=== PATIENT | male | born 1960 | race Caucasian/White ===

== ENCOUNTER → 2016-05-21 | Outpatient (REF) | payer OTHER ==
[~2016-05-21] MED LIST: /OXAZ10CA PO; ALBU17IN INH; AMIT50TA PO; FOLI1TAB86 PO; IBUP80TA PO; LOPR50TA PO; METO50TA2 PO; NICO21DI26 TD; PRIL40CA PO; ROBA750T4 PO; VITA100T60 PO
[2016-05-21 19:52] LABS: ALBUMIN 3.6 GM/DL (3.2-5.2); ALBUMIN/GLOBULIN RATIO 1.29 (1.00-1.93); ALKALINE PHOSPHATASE 74 U/L (45-117); ALT/SGPT 25 U/L (12-78); ANION GAP 12 MEQ/L (8-16); AST/SGOT 14 U/L (15-37); BILIRUBIN,TOTAL 0.2 MG/DL (0.2-1.0); BLOOD UREA NITROGEN 12 MG/DL (7-18); CALCIUM LEVEL 8.9 MG/DL (8.5-10.1); CARBON DIOXIDE LEVEL 24 MEQ/L (21-32); CHLORIDE LEVEL 98 MEQ/L (98-107); CHOLESTEROL LEVEL 144 MG/DL (<200); CREATININE FOR GFR 0.99 MG/DL (0.70-1.30); GLOMERULAR FILTRATION RATE > 60.0 (>56); GLUCOSE, FASTING 108 MG/DL (70-105); SODIUM LEVEL 134 MEQ/L (136-145); TOTAL PROTEIN 6.4 GM/DL (6.4-8.2); TRIGLYCERIDES LEVEL 146 MG/DL (<150)
== END ==
LOC: M SFHCCAPE 09:52
PROVIDERS: ATTEND Nurse Practitioner
DX: E11.9 Type 2 diabetes mellitus without complications (principal); Z12.5 Encounter for screening for malignant neoplasm of prostate

== ENCOUNTER → 2016-06-04 | Outpatient (REF) | payer OTHER | LOC: M LAB REF 15:22 | PROVIDERS: ATTEND Ophthalmology | DX: L82.1 Other seborrheic keratosis (principal) ==

== ENCOUNTER → 2016-11-19 | Outpatient (REF) | payer OTHER ==
[~2016-11-19] MED LIST changes: -METO50TA2 PO; +METO50TA7 PO
[2016-11-19 17:31] LABS: ALBUMIN 3.9 GM/DL (3.2-5.2); ALBUMIN/GLOBULIN RATIO 1.05 (1.00-1.93); ALKALINE PHOSPHATASE 77 U/L (45-117); ALT/SGPT 23 U/L (12-78); ANION GAP 9 MEQ/L (8-16); AST/SGOT 13 U/L (15-37); BILIRUBIN,TOTAL 0.3 MG/DL (0.2-1.0); BLOOD UREA NITROGEN 9 MG/DL (7-18); CALCIUM LEVEL 8.9 MG/DL (8.5-10.1); CARBON DIOXIDE LEVEL 28 MEQ/L (21-32); CHLORIDE LEVEL 95 MEQ/L (98-107); CHOLESTEROL LEVEL 163 MG/DL (<200); GLOMERULAR FILTRATION RATE > 60.0 (>56); GLUCOSE, FASTING 94 MG/DL (70-105); POTASSIUM SERUM 4.1 MEQ/L (3.5-5.1); SODIUM LEVEL 132 MEQ/L (136-145); TOTAL PROTEIN 7.6 GM/DL (6.4-8.2); TRIGLYCERIDES LEVEL 106 MG/DL (<150)
[2016-11-19 18:10] LABS: BASO % 0.4 % (0.0-1.0); EOS # 0.2 10^3/uL (0.0-0.50); EOS % 1.5 % (0.0-3.0); IMMATURE GRANULOCYTE % 0.6 % (0-0); LYMPH # 3.9 10^3/uL (1.5-4.5); LYMPH % 34.5 % (24.0-44.0); MEAN CORPUSCULAR HEMOGLOBIN 31.1 pg (27.0-33.0); MEAN CORPUSCULAR HGB CONC 35.4 g/dl (32.0-36.5); MEAN CORPUSCULAR VOLUME 87.9 fl (80.0-96.0); MONO # 1.3 10^3/uL (0.0-0.8); MONO % 11.8 % (0.0-5.0); NEUTROPHILS # 5.7 10^3/uL (1.8-7.7); NEUTROPHILS % 51.2 % (36.0-66.0); PLATELET COUNT, AUTOMATED 299 10^3/uL (150-450); RED CELL DISTRIBUTION WIDTH 12.1 % (11.5-14.5); WHITE BLOOD COUNT 11.2 10^3/uL (4.0-10.0)
[2016-11-19 20:36] LABS: BACTERIA, URINE NONE SEEN; HYALINE CAST, URINE NONE SEEN /lpf (0-1); MICROSCOPIC EXAM PERFORMED; RBC, URINE NONE SEEN /hpf (0-3); SQUAMOUS EPITHELIAL CELL URINE SMALL AMOUNT /hpf (SMALL AMT); WBC, URINE NONE SEEN /hpf (0-3)
== END ==
LOC: M SFHCCAPE 09:50
PROVIDERS: ATTEND Physician Assistant
DX: E11.9 Type 2 diabetes mellitus without complications (principal); F32.1 Major depressive disorder, single episode, moderate

== ENCOUNTER → 2016-12-27 | Outpatient (REF) | payer OTHER ==
[2016-12-27 19:15] LABS: ALBUMIN/GLOBULIN RATIO 1.25 (1.00-1.93); ALKALINE PHOSPHATASE 75 U/L (45-117); ALT/SGPT 27 U/L (12-78); ANION GAP 7 MEQ/L (8-16); AST/SGOT 12 U/L (7-37); BILIRUBIN,TOTAL 0.4 MG/DL (0.2-1.0); BLOOD UREA NITROGEN 9 MG/DL (7-18); CALCIUM LEVEL 9.2 MG/DL (8.5-10.1); CARBON DIOXIDE LEVEL 29 MEQ/L (21-32); CHLORIDE LEVEL 96 MEQ/L (98-107); CREATININE FOR GFR 0.82 MG/DL (0.70-1.30); GLOMERULAR FILTRATION RATE > 60.0 (>56); GLUCOSE, FASTING 121 MG/DL (70-105); POTASSIUM SERUM 4.2 MEQ/L (3.5-5.1); SODIUM LEVEL 132 MEQ/L (136-145); TOTAL PROTEIN 7.2 GM/DL (6.4-8.2)
[2016-12-27 19:51] LABS: MEAN CORPUSCULAR HEMOGLOBIN 30.8 pg (27.0-33.0); MEAN CORPUSCULAR VOLUME 89.7 fl (80.0-96.0); WHITE BLOOD COUNT 8.4 10^3/uL (4.0-10.0)
[2016-12-27 19:52] LABS: BASO % 0.5 % (0.0-1.0); EOS # 0.1 10^3/uL (0.0-0.50); EOS % 0.8 % (0.0-3.0); IMMATURE GRANULOCYTE % 0.6 % (0-0); LYMPH # 2.5 10^3/uL (1.5-4.5); LYMPH % 29.5 % (24.0-44.0); MONO # 0.9 10^3/uL (0.0-0.8); MONO % 10.2 % (0.0-5.0); NEUTROPHILS # 4.9 10^3/uL (1.8-7.7); NEUTROPHILS % 58.4 % (36.0-66.0); PLATELET COUNT, AUTOMATED 326 10^3/uL (150-450)
[2016-12-27 19:53] LABS: MEAN CORPUSCULAR HGB CONC 34.3 g/dl (32.0-36.5)
== END ==
LOC: M SFHCCAPE 09:47
PROVIDERS: ATTEND Physician Assistant
DX: I10 Essential (primary) hypertension (principal)

== ENCOUNTER → 2017-01-21 | Outpatient (REF) | payer OTHER | LOC: M SFHCCAPE 11:41 | PROVIDERS: ATTEND Physician Assistant | DX: R39.9 Unspecified symptoms and signs involving the genitourinary system (principal) ==

== ENCOUNTER → 2017-03-01 | Outpatient (CLI) | payer OTHER | LOC: M RAD 14:59 | DX: Z12.2 Encounter for screening for malignant neoplasm of respiratory organs (principal); Z80.1 Family history of malignant neoplasm of trachea, bronchus and lung | CPT/HCPCS: G0297 ==

== ENCOUNTER → 2017-08-27 | Outpatient (REF) | payer OTHER ==
[2017-08-27 17:19] LABS: BASO % 0.5 % (0.0-1.0); EOS # 0.1 10^3/uL (0.0-0.50); EOS % 1.8 % (0.0-3.0); HEMOGLOBIN 11.7 g/dl (13.5-17.5); IMMATURE GRANULOCYTE % 0.5 % (0-3.0); LYMPH # 2.7 10^3/uL (1.5-4.5); LYMPH % 34.2 % (24.0-44.0); MEAN CORPUSCULAR HEMOGLOBIN 30.8 pg (27.0-33.0); MEAN CORPUSCULAR HGB CONC 33.4 g/dl (32.0-36.5); MEAN CORPUSCULAR VOLUME 92.1 fl (80.0-96.0); MONO # 0.8 10^3/uL (0.0-0.8); MONO % 10.3 % (0.0-5.0); NEUTROPHILS # 4.1 10^3/uL (1.8-7.7); NEUTROPHILS % 52.7 % (36.0-66.0); PLATELET COUNT, AUTOMATED 221 10^3/uL (150-450); RED CELL DISTRIBUTION WIDTH 12.6 % (11.5-14.5); WHITE BLOOD COUNT 7.8 10^3/uL (4.0-10.0)
[2017-08-27 17:33] LABS: ESTIMATED AVERAGE GLUCOSE 120 MG/DL (60-110); HEMOGLOBIN A1c 5.8 %
[2017-08-27 17:35] LABS: ALBUMIN 3.9 GM/DL (3.2-5.2); ALBUMIN/GLOBULIN RATIO 1.11 (1.00-1.93); ALKALINE PHOSPHATASE 83 U/L (45-117); ALT/SGPT 27 U/L (12-78); ANION GAP 9 MEQ/L (8-16); AST/SGOT 19 U/L (7-37); BILIRUBIN,TOTAL 0.6 MG/DL (0.2-1.0); BLOOD UREA NITROGEN 18 MG/DL (7-18); CALCIUM LEVEL 8.6 MG/DL (8.5-10.1); CARBON DIOXIDE LEVEL 25 MEQ/L (21-32); CHLORIDE LEVEL 100 MEQ/L (98-107); CHOLESTEROL LEVEL 107 MG/DL (<200); CHOLESTEROL RISK RATIO 2.488 (<5); CREATININE FOR GFR 0.83 MG/DL (0.70-1.30); GLOMERULAR FILTRATION RATE > 60.0 (>56); GLUCOSE, FASTING 94 MG/DL (70-100); HDL CHOLESTEROL 43 MG/DL (>40); NON-HDL-C 64 MG/DL; PSA SCREENING 0.28 NG/ML (< 4.0); SODIUM LEVEL 134 MEQ/L (136-145); TOTAL PROTEIN 7.4 GM/DL (6.4-8.2); TRIGLYCERIDES LEVEL 75 MG/DL (<150)
[2017-08-27 17:41] LABS: CREATININE, URINE 66.3 MG/DL; MALB URINE SIEMENS < 5.0 MG/L; MAU/CREAT RATIO 7.5 MCG/MG (0.0-30.0)
== END ==
LOC: M SFHCCAPE 09:53
DX: E11.9 Type 2 diabetes mellitus without complications (principal); Z12.5 Encounter for screening for malignant neoplasm of prostate

== ENCOUNTER → 2017-08-29 | Outpatient (REF) | payer OTHER ==
[2017-08-29 17:35] LABS: APPEARANCE, URINE CLEAR (CLEAR); BACTERIA, URINE AUTO NEGATIVE (NEGATIVE); BILIRUBIN, URINE AUTO NEGATIVE (NEGATIVE); BLOOD, URINE BLOOD NEGATIVE (NEGATIVE); COLOR, URINE STRAW (YELLOW); GLUCOSE, URINE (UA) AUTO NEGATIVE (NEGATIVE); KETONE, URINE AUTO NEGATIVE (NEGATIVE); LEUKOCYTE ESTERASE, URINE AUTO NEGATIVE (NEGATIVE); NITRITE, URINE AUTO NEGATIVE (NEGATIVE); PROTEIN, URINE AUTO NEGATIVE (NEGATIVE); RBC, URINE AUTO 0 /HPF (0-3); SPECIFIC GRAVITY URINE AUTO 1.003 (1.002-1.035); SQUAMOUS EPITHELIAL CELL UR AU 0 /HPF (0-6); UROBILINOGEN, URINE AUTO 0.2 mg/dL (0.0-2.0); WBC, URINE AUTO 0 /HPF (0-3)
== END ==
LOC: M SFHCCAPE 11:20
DX: R35.1 Nocturia (principal)
CPT/HCPCS: 81001

== ENCOUNTER → 2017-11-25 | Outpatient (REF) | payer OTHER ==
[2017-11-25 16:53] LABS: ALBUMIN 4.1 GM/DL (3.2-5.2); ALBUMIN/GLOBULIN RATIO 1.28 (1.00-1.93); ALKALINE PHOSPHATASE 78 U/L (45-117); ALT/SGPT 24 U/L (12-78); ANION GAP 9 MEQ/L (8-16); AST/SGOT 16 U/L (7-37); BILIRUBIN,TOTAL 0.3 MG/DL (0.2-1.0); BLOOD UREA NITROGEN 10 MG/DL (7-18); CALCIUM LEVEL 9.2 MG/DL (8.5-10.1); CARBON DIOXIDE LEVEL 28 MEQ/L (21-32); CHLORIDE LEVEL 97 MEQ/L (98-107); CHOLESTEROL LEVEL 97 MG/DL (<200); CHOLESTEROL RISK RATIO 2.939 (<5); GLOMERULAR FILTRATION RATE > 60.0 (>56); GLUCOSE, FASTING 101 MG/DL (70-100); HDL CHOLESTEROL 33 MG/DL (>40); LDL CHOLESTEROL 50 MG/DL (<100); NON-HDL-C 64 MG/DL; POTASSIUM SERUM 4.2 MEQ/L (3.5-5.1); SODIUM LEVEL 134 MEQ/L (136-145); TOTAL PROTEIN 7.3 GM/DL (6.4-8.2); TRIGLYCERIDES LEVEL 71 MG/DL (<150)
[2017-11-25 16:56] LABS: ESTIMATED AVERAGE GLUCOSE 123 MG/DL (60-110); HEMOGLOBIN A1c 5.9 %
[2017-11-25 17:28] LABS: BASO % 0.3 % (0.0-1.0); EOS # 0.2 10^3/uL (0.0-0.50); EOS % 2.2 % (0.0-3.0); HEMATOCRIT 36.1 % (42.0-52.0); HEMOGLOBIN 12.6 g/dl (13.5-17.5); IMMATURE GRANULOCYTE % 0.3 % (0-3.0); LYMPH % 30.1 % (24.0-44.0); MEAN CORPUSCULAR HEMOGLOBIN 30.4 pg (27.0-33.0); MEAN CORPUSCULAR HGB CONC 34.9 g/dl (32.0-36.5); MONO # 0.9 10^3/uL (0.0-0.8); MONO % 9.1 % (0.0-5.0); NEUTROPHILS # 5.7 10^3/uL (1.8-7.7); PLATELET COUNT, AUTOMATED 268 10^3/uL (150-450); RED BLOOD COUNT 4.15 10^6/uL (4.30-6.10); RED CELL DISTRIBUTION WIDTH 11.6 % (11.5-14.5); WHITE BLOOD COUNT 9.9 10^3/uL (4.0-10.0)
== END ==
LOC: M SFHCCAPE 09:59
DX: I10 Essential (primary) hypertension (principal); E11.9 Type 2 diabetes mellitus without complications

== ENCOUNTER → 2017-12-20 | Outpatient (REF) | payer OTHER ==
[2017-12-20 17:36] LABS: APPEARANCE, URINE CLEAR (CLEAR); BACTERIA, URINE AUTO NEGATIVE (NEGATIVE); BILIRUBIN, URINE AUTO NEGATIVE (NEGATIVE); BLOOD, URINE BLOOD NEGATIVE (NEGATIVE); COLOR, URINE STRAW (YELLOW); GLUCOSE, URINE (UA) AUTO NEGATIVE (NEGATIVE); KETONE, URINE AUTO NEGATIVE (NEGATIVE); LEUKOCYTE ESTERASE, URINE AUTO NEGATIVE (NEGATIVE); NITRITE, URINE AUTO NEGATIVE (NEGATIVE); PROTEIN, URINE AUTO NEGATIVE (NEGATIVE); RBC, URINE AUTO 0 /HPF (0-3); SPECIFIC GRAVITY URINE AUTO 1.003 (1.002-1.035); SQUAMOUS EPITHELIAL CELL UR AU 0 /HPF (0-6); UROBILINOGEN, URINE AUTO 0.2 mg/dL (0.0-2.0); WBC, URINE AUTO 0 /HPF (0-3)
== END ==
LOC: M SMT 17:03
DX: R35.0 Frequency of micturition (principal)

== ENCOUNTER → 2018-04-02 | Outpatient (REF) | payer OTHER ==
[2018-04-02 17:56] LABS: ALBUMIN 3.8 GM/DL (3.2-5.2); ALT/SGPT 25 U/L (12-78); BILIRUBIN,TOTAL 0.4 MG/DL (0.2-1.0); BLOOD UREA NITROGEN 12 MG/DL (7-18); CALCIUM LEVEL 8.9 MG/DL (8.5-10.1); CARBON DIOXIDE LEVEL 28 MEQ/L (21-32); CHLORIDE LEVEL 95 MEQ/L (98-107); CHOLESTEROL LEVEL 101 MG/DL (<200); CHOLESTEROL RISK RATIO 2.244 (<5); CREATININE FOR GFR 0.96 MG/DL (0.70-1.30); GLOMERULAR FILTRATION RATE > 60.0 (>56); GLUCOSE, FASTING 103 MG/DL (70-100); HDL CHOLESTEROL 45 MG/DL (>40); LDL CHOLESTEROL 46 MG/DL (<100); NON-HDL-C 56 MG/DL; POTASSIUM SERUM 4.6 MEQ/L (3.5-5.1); SODIUM LEVEL 130 MEQ/L (136-145); TOTAL PROTEIN 7.1 GM/DL (6.4-8.2); TRIGLYCERIDES LEVEL 50 MG/DL (<150)
[2018-04-02 18:16] LABS: HEMOGLOBIN A1c 6.5 %
[2018-04-02 18:44] LABS: BASO % 0.5 % (0.0-1.0); EOS # 0.1 10^3/uL (0.0-0.50); EOS % 1.3 % (0.0-3.0); HEMATOCRIT 36.6 % (42.0-52.0); LYMPH # 3.2 10^3/uL (1.5-4.5); LYMPH % 37.9 % (24.0-44.0); MEAN CORPUSCULAR HEMOGLOBIN 29.6 pg (27.0-33.0); MEAN CORPUSCULAR HGB CONC 33.6 g/dl (32.0-36.5); MONO # 0.7 10^3/uL (0.0-0.8); MONO % 8.4 % (0.0-5.0); NEUTROPHILS # 4.3 10^3/uL (1.8-7.7); NEUTROPHILS % 51.4 % (36.0-66.0); PLATELET COUNT, AUTOMATED 315 10^3/uL (150-450); RED BLOOD COUNT 4.16 10^6/uL (4.30-6.10); WHITE BLOOD COUNT 8.3 10^3/uL (4.0-10.0)
[2018-04-02 18:49] LABS: HEMOGLOBIN 12.3 g/dl (13.5-17.5)
== END ==
LOC: M SFHCCAPE 07:54
PROVIDERS: ATTEND Physician Assistant
DX: E11.69 Type 2 diabetes mellitus with other specified complication (principal); I10 Essential (primary) hypertension

== ENCOUNTER → 2018-07-15 | Outpatient (REF) | payer OTHER ==
[~2018-07-15] MED LIST changes: -/OXAZ10CA PO; +OXAZ10CA25 PO
[2018-07-15 17:08] LABS: ALBUMIN 4.2 GM/DL (3.2-5.2); ALT/SGPT 51 U/L (12-78); BILIRUBIN,TOTAL 0.4 MG/DL (0.2-1.0); BLOOD UREA NITROGEN 12 MG/DL (7-18); CALCIUM LEVEL 9.3 MG/DL (8.5-10.1); CARBON DIOXIDE LEVEL 28 MEQ/L (21-32); CHLORIDE LEVEL 100 MEQ/L (98-107); CHOLESTEROL LEVEL 109 MG/DL (<200); CHOLESTEROL RISK RATIO 2.595 (<5); CREATININE FOR GFR 0.84 MG/DL (0.70-1.30); FERRITIN 88 NG/ML (26-388); GLOMERULAR FILTRATION RATE > 60.0 (>56); GLUCOSE, FASTING 105 MG/DL (70-100); HDL CHOLESTEROL 42 MG/DL (>40); IRON (FE) 63 UG/DL (65-175); LDL CHOLESTEROL 57 MG/DL (<100); NON-HDL-C 67 MG/DL; PERCENT SATURATION 20.1 % (19.7-50.0); POTASSIUM SERUM 4.2 MEQ/L (3.5-5.1); SODIUM LEVEL 135 MEQ/L (136-145); TOTAL IRON BINDING CAPACITY 314 UG/DL (250-450); TOTAL PROTEIN 7.3 GM/DL (6.4-8.2); TRIGLYCERIDES LEVEL 48 MG/DL (<150)
[2018-07-15 17:11] LABS: FOLATE 8.9 NG/ML; VITAMIN B12 LEVEL 510 PG/ML
[2018-07-15 17:20] LABS: BASO % 0.5 % (0.0-1.0); EOS # 0.2 10^3/uL (0.0-0.50); HEMATOCRIT 34.3 % (42.0-52.0); HEMOGLOBIN 12.8 g/dl (13.5-17.5); LYMPH # 2.9 10^3/uL (1.5-4.5); LYMPH % 37.5 % (24.0-44.0); MEAN CORPUSCULAR HEMOGLOBIN 34.1 pg (27.0-33.0); MEAN CORPUSCULAR HGB CONC 37.3 g/dl (32.0-36.5); MEAN CORPUSCULAR VOLUME 91.5 fl (80.0-96.0); MONO # 0.8 10^3/uL (0.0-0.8); MONO % 9.7 % (0.0-5.0); NEUTROPHILS # 3.9 10^3/uL (1.8-7.7); PLATELET COUNT, AUTOMATED 227 10^3/uL (150-450); RED BLOOD COUNT 3.75 10^6/uL (4.30-6.10); WHITE BLOOD COUNT 7.8 10^3/uL (4.0-10.0)
[2018-07-15 17:24] LABS: HEMOGLOBIN A1c 6.1 %
[2018-07-15 17:34] LABS: CREATININE, URINE 13.5 MG/DL; MALB URINE SIEMENS < 5.0 MG/L
== END ==
LOC: M SFHCCAPE 09:45
PROVIDERS: ATTEND Physician Assistant
DX: D64.9 Anemia, unspecified (principal); I11.9 Hypertensive heart disease without heart failure; E11.69 Type 2 diabetes mellitus with other specified complication

== ENCOUNTER → 2018-08-11 | Outpatient (CLI) | payer OTHER ==
--- NOTE | 2018-08-11 11:49 | REP ---
Clinical: Follow-up pulmonary nodule. Technique: Axial noncontrast images from the thoracic inlet to the upper abdomen with coronal and sagittal re-formations. Comparison: 08/09/2017, 03/01/2017. Findings: The small subpleural density (image 38) likely represents a small area of scarring and is unchanged from prior examinations. Mild scarring at the lingula remains stable. No acute consolidation, significant nodule or mass lesion. No pleural effusion. No pneumothorax. Tracheobronchial tree is patent. Mediastinum demonstrates atherosclerotic changes to the thoracic aorta and coronary arteries without aortic aneurysm or cardiomegaly. No pericardial effusion. Musculoskeletal structures demonstrate age-related degenerative changes. Limited upper abdomen demonstrates normal bilateral adrenal glands and presumed chronic perinephric stranding. Impression: 1. Small subpleural density actually within the left upper lobe remains stable and likely represents small area of scarring. 2. Stable lingular scarring. 3. No acute mediastinal or pleuroparenchymal process appreciated. Electronically Signed by Eladio Angela MD 08/11/2018 11:40 A
== END ==
LOC: M RAD 10:13
PROVIDERS: ATTEND Physician Assistant
DX: R91.8 Other nonspecific abnormal finding of lung field (principal); J98.4 Other disorders of lung

== ENCOUNTER → 2018-11-03 | Outpatient (REF) | payer OTHER ==
[~2018-11-03] MED LIST changes: +ASPI81TA26 PO; +ASPI81TA85 PO; +ATOR40TA75 PO; +CHLO125TA PO; +CLOP75TA2 PO; +IBUP1TAB7 PO; +LOSA100T50 PO; +MELA3TAB59 PO; +METF850T4 PO; +TAMS1CAP17 PO; +VENTAER INH
[2018-11-03 16:51] LABS: ALT/SGPT 29 U/L (12-78); BILIRUBIN,TOTAL 0.4 MG/DL (0.2-1.0); BLOOD UREA NITROGEN 13 MG/DL (7-18); CALCIUM LEVEL 9.2 MG/DL (8.5-10.1); CARBON DIOXIDE LEVEL 24 MEQ/L (21-32); CHLORIDE LEVEL 101 MEQ/L (98-107); CREATININE FOR GFR 0.92 MG/DL (0.70-1.30); GLOMERULAR FILTRATION RATE > 60.0 (>56); GLUCOSE, FASTING 107 MG/DL (70-100); POTASSIUM SERUM 4.3 MEQ/L (3.5-5.1); SODIUM LEVEL 134 MEQ/L (136-145); TRIGLYCERIDES LEVEL 73 MG/DL (<150)
[2018-11-03 16:52] LABS: CHOLESTEROL LEVEL 122 MG/DL (<200); CHOLESTEROL RISK RATIO 2.711 (<5); FERRITIN 59 NG/ML (26-388); HDL CHOLESTEROL 45 MG/DL (>40); IRON (FE) 62 UG/DL (65-175); LDL CHOLESTEROL 62 MG/DL (<100); NON-HDL-C 77 MG/DL; PERCENT SATURATION 17.6 % (19.7-50.0); TOTAL IRON BINDING CAPACITY 352 UG/DL (250-450); TOTAL PROTEIN 7.2 GM/DL (6.4-8.2)
[2018-11-03 16:58] LABS: HEMOGLOBIN A1c 5.3 %
[2018-11-03 17:17] LABS: CREATININE, URINE 59.7 MG/DL; MALB URINE SIEMENS < 5.0 MG/L; MAU/CREAT RATIO 8.3 MCG/MG (0.0-30.0)
[2018-11-03 17:32] LABS: BASO % 0.4 % (0.0-1.0); EOS # 0.1 10^3/uL (0.0-0.5); EOS % 1.5 % (0.0-3.0); HEMATOCRIT 37.3 % (42.0-52.0); HEMOGLOBIN 12.1 g/dl (13.5-17.5); LYMPH # 2.4 10^3/uL (1.5-5.0); LYMPH % 32.2 % (24.0-44.0); MEAN CORPUSCULAR HEMOGLOBIN 30.2 pg (27.0-33.0); MEAN CORPUSCULAR HGB CONC 32.4 g/dl (32.0-36.5); MONO % 13.7 % (0.0-5.0); NEUTROPHILS # 3.8 10^3/uL (1.5-8.5); NEUTROPHILS % 51.8 % (36.0-66.0); PLATELET COUNT, AUTOMATED 243 10^3/uL (150-450); RED BLOOD COUNT 4.01 10^6/uL (4.30-6.10); WHITE BLOOD COUNT 7.3 10^3/uL (4.0-10.0)
== END ==
LOC: M SFHCCAPE 07:59
PROVIDERS: ATTEND Physician Assistant
DX: Z11.59 Encounter for screening for other viral diseases (principal); E11.9 Type 2 diabetes mellitus without complications; I10 Essential (primary) hypertension; D50.8 Other iron deficiency anemias

== ENCOUNTER 2019-05-05 10:54 | Day surgery (SDC) | payer OTHER ==
[~2019-05-05] VITALS: Ht 160 cm; Wt 93.9 kg
[~2019-05-05 10:54] MED LIST changes: +LIDOCAINE 2% INJ 100 MG/5 ML SDV (FOR ANES.) As Ordered ONE; +NS 1,000 ML IV ONE; +fentaNYL 100 MCG/2 ML INJECTION (J3010) As Ordered ONE; +propofoL 200 MG/20 ML VIAL As Ordered ONE
[2019-05-05] MEDS ORDERED: propofoL 200 MG/20 ML VIAL As Ordered ONE (11:17)
[2019-05-05] MEDS ORDERED: LIDOCAINE 2% INJ 100 MG/5 ML SDV (FOR ANES.) As Ordered ONE (11:17)
[2019-05-05] MEDS ORDERED: PHENYLephrine HCL 500 MCG/5 ML (100MCG/ML) SYRINGE (J2370) As Ordered ONE (12:06)
--- NOTE | 2019-05-05 12:21 | ROOR ---
Patient Name: Sharif Lomeli Procedure Date: 05/05/2019 11:34 AM Date of : 1960 Age: 58 Room: [facility] Gender: Male Note Status: Finalized Procedure: Upper GI endoscopy Indications: Iron deficiency anemia Providers: Eugenio LUONG MD Referring MD: JOSH Mcpherson pa-c Requesting Provider: Medicines: Monitored Anesthesia Care Complications: No immediate complications. Procedure: Pre-Anesthesia Assessment: - The heart rate, respiratory rate, oxygen saturations, blood pressure, adequacy of pulmonary ventilation, and response to care were monitored throughout the procedure. The Endoscope was introduced through the mouth, and advanced to the second part of duodenum. The upper GI endoscopy was accomplished without difficulty. The patient tolerated the procedure well. Findings: The examined esophagus was normal. Localized mild inflammation characterized by erythema was found in the gastric body. Biopsies were taken with a cold forceps for histology. A single 4 mm sessile polyp with no bleeding was found in the first portion of the duodenum. The polyp was removed with a cold snare. Resection and retrieval were complete. The exam of the duodenum was otherwise normal. Biopsies for histology were taken with a cold forceps in the second portion of the duodenum for evaluation of celiac disease. Impression: - Normal esophagus. - Mild Gastritis. Biopsied. - A single 4 mm duodenal polyp. Resected and retrieved. - Biopsies were taken with a cold forceps for evaluation of celiac disease. Recommendation: - Telephone endoscopist for pathology results in 2 weeks. - Observe patient's clinical course. - Return to referring physician as previously scheduled. - Use Prilosec (omeprazole) 40 mg PO daily. - (the script was sent to your pharmacy on file) - Resume Plavix (clopidogrel) at prior dose tomorrow. Eugenio Luong MD Eugenio LUONG MD 05/05/2019 12:21:01 PM Electronically signed by Eugenio LUONG MD Number of Addenda: 0 Note Initiated On: 05/05/2019 11:34 AM Estimated Blood Loss: Estimated blood loss: none.
--- NOTE | 2019-05-05 12:26 | ROOR ---
Patient Name: Sharif Lomeli Procedure Date: 05/05/2019 11:36 AM Date of : 1960 Age: 58 Room: [facility] Gender: Male Note Status: Finalized Procedure: Colonoscopy Indications: Iron deficiency anemia Providers: Eugenio LUONG MD Referring MD: JOSH Mcpherson pa-c Requesting Provider: Medicines: Monitored Anesthesia Care Complications: No immediate complications. Procedure: Pre-Anesthesia Assessment: - The heart rate, respiratory rate, oxygen saturations, blood pressure, adequacy of pulmonary ventilation, and response to care were monitored throughout the procedure. The Colonoscope was introduced through the anus and advanced to the terminal ileum, with identification of the appendiceal orifice and IC valve. The colonoscopy was performed without difficulty. The patient tolerated the procedure well. The quality of the bowel preparation was adequate. Findings: The perianal and digital rectal examinations were normal. A 15 mm polyp was found in the mid sigmoid colon at 32 cm proximal to the anus. The polyp was pedunculated. An endoloop was maneuvered over the polyp stalk and closed at the mucosal attachment prior to removal in order to prevent bleeding. The polyp was removed with a hot snare. Resection and retrieval were complete. A 5 mm polyp was found in the rectum. The polyp was sessile. The polyp was removed with a cold snare. Resection and retrieval were complete. Multiple medium-mouthed diverticula were found in the sigmoid colon. Small Internal Hemorrhoids. Impression: - One 15 mm polyp in the mid sigmoid colon at 32 cm proximal to the anus, removed with a hot snare. Resected and retrieved. - One 5 mm polyp in the rectum, removed with a cold snare. Resected and retrieved. - Diverticulosis in the sigmoid colon. - Small Internal Hemorrhoids. Recommendation: - Repeat colonoscopy in 3 years for surveillance. - Resume Plavix (clopidogrel) at prior dose tomorrow. - Return to referring physician. Eugenio Luong MD Eugenio LUONG MD 05/05/2019 12:25:57 PM Electronically signed by Eugenio LUONG MD Number of Addenda: 0 Note Initiated On: 05/05/2019 11:36 AM Estimated Blood Loss: Estimated blood loss: none.
[2019-05-05 13:01] VITALS: BP 118/69
== END 2019-05-05 13:01 | disposition home or self-care (01) ==
LOC: M OPP 10:54
PROVIDERS: ATTEND Internal Medicine Gastroenterology
DX: D50.9 Iron deficiency anemia, unspecified (principal); D12.5 Benign neoplasm of sigmoid colon; K62.1 Rectal polyp; K57.30 Diverticulosis of large intestine without perforation or abscess without bleeding; K64.8 Other hemorrhoids; K31.7 Polyp of stomach and duodenum; K29.70 Gastritis, unspecified, without bleeding; E11.9 Type 2 diabetes mellitus without complications; I10 Essential (primary) hypertension; J44.9 Chronic obstructive pulmonary disease, unspecified; K21.9 Gastro-esophageal reflux disease without esophagitis; F32.9 Major depressive disorder, single episode, unspecified; F19.10 Other psychoactive substance abuse, uncomplicated; F10.21 Alcohol dependence, in remission; Z87.891 Personal history of nicotine dependence; Z95.820 Peripheral vascular angioplasty status with implants and grafts; Z79.899 Other long term (current) drug therapy; Z79.01 Long term (current) use of anticoagulants
CPT/HCPCS: 43239; 43251; 45385; 88305; J2370; J3010

== ENCOUNTER → 2019-05-07 | Outpatient (REF) | payer OTHER ==
[~2019-05-07] MED LIST changes: -LIDOCAINE 2% INJ 100 MG/5 ML SDV (FOR ANES.) As Ordered ONE; -NS 1,000 ML IV ONE; -fentaNYL 100 MCG/2 ML INJECTION (J3010) As Ordered ONE; -propofoL 200 MG/20 ML VIAL As Ordered ONE
[2019-05-07 16:45] LABS: ALBUMIN 3.9 GM/DL (3.2-5.2); ALT/SGPT 52 U/L (12-78); BILIRUBIN,TOTAL 0.4 MG/DL (0.2-1.0); BLOOD UREA NITROGEN 7 MG/DL (7-18); CALCIUM LEVEL 9.1 MG/DL (8.5-10.1); CARBON DIOXIDE LEVEL 29 MEQ/L (21-32); CHLORIDE LEVEL 97 MEQ/L (98-107); CHOLESTEROL LEVEL 146 MG/DL (<200); CHOLESTEROL RISK RATIO 1.972 (<5); CREATININE FOR GFR 0.84 MG/DL (0.70-1.30); FERRITIN 129 NG/ML (26-388); GLOMERULAR FILTRATION RATE > 60.0 (>56); GLUCOSE, FASTING 95 MG/DL (70-100); HDL CHOLESTEROL 74 MG/DL (>40); IRON (FE) 56 UG/DL (65-175); LDL CHOLESTEROL 60 MG/DL (<100); NON-HDL-C 72 MG/DL; PERCENT SATURATION 16.4 % (19.7-50.0); POTASSIUM SERUM 3.9 MEQ/L (3.5-5.1); SODIUM LEVEL 134 MEQ/L (136-145); TOTAL IRON BINDING CAPACITY 341 UG/DL (250-450); TOTAL PROTEIN 7.5 GM/DL (6.4-8.2); TRIGLYCERIDES LEVEL 62 MG/DL (<150)
[2019-05-07 16:51] LABS: BASO # 0.1 10^3/uL (0.0-0.2); BASO % 0.9 % (0.0-1.0); EOS # 0.2 10^3/uL (0.0-0.5); EOS % 2.9 % (0.0-3.0); HEMATOCRIT 35.1 % (42.0-52.0); HEMOGLOBIN 12.5 g/dl (13.5-17.5); LYMPH # 2.5 10^3/uL (1.5-5.0); LYMPH % 43.4 % (24.0-44.0); MEAN CORPUSCULAR HEMOGLOBIN 32.2 pg (27.0-33.0); MEAN CORPUSCULAR HGB CONC 35.6 g/dl (32.0-36.5); MEAN CORPUSCULAR VOLUME 90.5 fl (80.0-96.0); MONO # 0.8 10^3/uL (0.0-0.8); MONO % 14.4 % (0.0-5.0); NEUTROPHILS # 2.2 10^3/uL (1.5-8.5); NEUTROPHILS % 37.7 % (36.0-66.0); PLATELET COUNT, AUTOMATED 279 10^3/uL (150-450); RED BLOOD COUNT 3.88 10^6/uL (4.30-6.10); WHITE BLOOD COUNT 5.9 10^3/uL (4.0-10.0)
[2019-05-07 17:13] LABS: CREATININE, URINE 53.1 MG/DL; MALB URINE SIEMENS < 5.0 MG/L; MAU/CREAT RATIO 9.4 MCG/MG (0.0-30.0)
[2019-05-08 09:48] LABS: HEPATITIS C VIRUS ABY INDEX 0.1 INDEX (<0.8)
== END ==
LOC: M SFHCCLAY 09:44
PROVIDERS: ATTEND Physician Assistant
DX: D50.8 Other iron deficiency anemias (principal); I10 Essential (primary) hypertension; Z11.59 Encounter for screening for other viral diseases; E11.69 Type 2 diabetes mellitus with other specified complication

== ENCOUNTER 2019-06-10 11:57 | Outpatient (RCR) | payer OTHER | END 2019-06-11 | LOC: M PT 11:57 | PROVIDERS: ATTEND Surgery Vascular Surgery | DX: I89.0 Lymphedema, not elsewhere classified (principal) ==

== ENCOUNTER 2019-07-01 12:00 | Outpatient (RCR) | payer OTHER | END 2019-07-12 | LOC: M PT 12:00 | PROVIDERS: ATTEND Surgery Vascular Surgery | DX: I89.0 Lymphedema, not elsewhere classified (principal) ==

== ENCOUNTER 2020-02-18 09:49 | Emergency (ER) | payer OTHER ==
[~2020-02-18] VITALS: Ht 162.6 cm; Wt 81.8 kg
[~2020-02-18 09:49] MED LIST changes: -ASPI81TA85 PO; +ASPI81TA86 PO; +FERR325T3 PO; +MELA3TAB29 PO; -MELA3TAB59 PO; +VITA500C24 PO
[2020-02-18 10:25] LABS: BASO # 0.1 10^3/uL (0.0-0.2); BASO % 1.2 % (0.0-1.0); EOS % 0.9 % (0.0-3.0); HEMOGLOBIN 13.1 g/dl (13.5-17.5); LYMPH % 22.5 % (24.0-44.0); MEAN CORPUSCULAR HEMOGLOBIN 33.9 pg (27.0-33.0); MEAN CORPUSCULAR HGB CONC 36.4 g/dl (32.0-36.5); MEAN CORPUSCULAR VOLUME 93.3 fl (80.0-96.0); MONO # 0.3 10^3/uL (0.0-0.8); MONO % 7.6 % (0.0-5.0); NEUTROPHILS # 2.9 10^3/uL (1.5-8.5); NEUTROPHILS % 67.3 % (36.0-66.0); PLATELET COUNT, AUTOMATED 152 10^3/uL (150-450); RED BLOOD COUNT 3.86 10^6/uL (4.30-6.10); WHITE BLOOD COUNT 4.3 10^3/uL (4.0-10.0)
--- NOTE | 2020-02-18 10:39 | REP ---
INDICATION: DYSPNEA/COUGH COMPARISON: 03/27/2012 TECHNIQUE: Portable AP view of the chest FINDINGS: The mediastinum and cardiac silhouette are stable and within normal limits for portable technique. The lung moctezuma are clear without acute consolidation, effusion, or pneumothorax. Skeletal structures are intact. IMPRESSION: No acute cardiopulmonary process appreciated. <Electronically signed by Eladio Angela > 02/18/20 [id number]
[2020-02-18 11:04] LABS: ALBUMIN 3.3 GM/DL (3.2-5.2); ALT/SGPT 112 U/L (12-78); BILIRUBIN,DIRECT 0.2 MG/DL (0.0-0.2); BILIRUBIN,TOTAL 0.4 MG/DL (0.2-1.0); BLOOD UREA NITROGEN 4 MG/DL (7-18); CALCIUM LEVEL 8.5 MG/DL (8.5-10.1); CARBON DIOXIDE LEVEL 23 MEQ/L (21-32); CHLORIDE LEVEL 100 MEQ/L (98-107); CK-MB VALUE MASS 1.1 NG/ML (<3.6); CPK CREATINE PHOSPHOKINASE 69 U/L (39-308); CREATININE FOR GFR 0.66 MG/DL (0.70-1.30); GLOMERULAR FILTRATION RATE > 60.0 (>56); GLUCOSE, FASTING 153 MG/DL (70-100); MB/CK RELATIVE INDEX 1.59 (< OR =4); NT-PRO BNP 18 PG/ML (<125); POTASSIUM SERUM 3.2 MEQ/L (3.5-5.1); SODIUM LEVEL 135 MEQ/L (136-145); THYROID STIMULATING HORMONE 0.165 uIU/ML (0.358-3.740); THYROXINE (T4) 8.4 UG/DL (4.5-12.0); TOTAL PROTEIN 6.9 GM/DL (6.4-8.2); TROPONIN I < 0.02 NG/ML (< 0.10)
[2020-02-18] MEDS ORDERED: POTASSIUM CHLORIDE 10 MEQ SR TABLET PO ONE (11:15)
[2020-02-18] MEDS ORDERED: COMBIVENT RESPIMAT 100-20MCG INHALER 4GM INH ONE (11:15)
[2020-02-18 11:50] LABS: ABG BASE EXCESS -1.9 (-2.0-2.0); ABG HCO3 22.2 MEQ/L (22.0-26.0); ABG O2 SATURATION 96.4 % (95.0-99.0); ABG PARTIAL PRESSURE CO2 35.8 mmHg (35.0-45.0); ABG PARTIAL PRESSURE O2 92.7 mmHg (75.0-100.0); ABG STANDARD HCO3 22.9 MEQ/L (22.0-26.0); ABG TOTAL CO2 23.3 MEQ/L (22.0-29.0)
[2020-02-18] MEDS ORDERED: NS 1,000 ML IV ONE ×2 (12:00→14:45)
[2020-02-18 16:00] VITALS: BP 130/71
[2020-02-18] MEDS ORDERED: AMIL5TAB4 PO (16:21)
[2020-02-18] MEDS ORDERED: PT COMMENT (16:22)
[2020-02-19] MEDS ORDERED: ASPI-161 PO (01:05)
[2020-02-19] MEDS ORDERED: OMEP-221 PO (01:05)
[2020-02-19] MEDS ORDERED: NORV5TAB PO (01:05)
[2020-02-19] MEDS ORDERED: METF850T4 PO (01:05)
--- NOTE | 2020-02-19 21:24 | ECGEPIP ---
[facility] - ED Test Date: 2020-02-18 Pat Name: ARELY OSWALD Department: Room: - Gender: Male [employer]or: : [id number] Requested By: NANCI Pompa Order Number: [id number] Reading MD: Juan C Whiting Measurements Intervals [place] Rate: 89 P: 60 LA: 182 QRS: 74 QRSD: 110 T: 45 QT: 358 QTc: 438 Interpretive Statements SINUS RHYTHM POOR R WAVE PROGRESSION NSTTW ABNORMALITY(S) NO PRIORS FOR COMPARISON Electronically Signed on 02-19-2020 21:24:05 EST by Juan C Whiting
== END 2020-02-18 16:11 | disposition home or self-care (01) ==
LOC: M ED 09:49 → EDBD 09:49 → M ED 16:11
DX: U07.1 COVID-19 (principal); E87.2 Acidosis; Z20.822 Contact with and (suspected) exposure to COVID-19; E11.51 Type 2 diabetes mellitus with diabetic peripheral angiopathy without gangrene; J44.9 Chronic obstructive pulmonary disease, unspecified; E78.5 Hyperlipidemia, unspecified; F10.10 Alcohol abuse, uncomplicated; I65.29 Occlusion and stenosis of unspecified carotid artery; Z86.73 Personal history of transient ischemic attack (TIA), and cerebral infarction without residual deficits; F17.200 Nicotine dependence, unspecified, uncomplicated; Z88.5 Allergy status to narcotic agent; Z91.048 Other nonmedicinal substance allergy status; Z79.899 Other long term (current) drug therapy; Z79.82 Long term (current) use of aspirin; Z79.02 Long term (current) use of antithrombotics/antiplatelets

== ENCOUNTER 2020-02-18 16:25 | Inpatient (IN) | payer OTHER ==
[~2020-02-18] VITALS: Ht 162.6 cm; Wt 79.0 kg
[2020-02-18] VITALS (8 sets, daily range): BP systolic 137–162; BP diastolic 64–91
[2020-02-18] MEDS: SODIUM CHLORIDE 0.9% 1000ML IV ONE ×2 (15:45→19:01)
--- NOTE | 2020-02-18 16:08 | CR.PDOC ---
General Date of Consultation: Feb 18, 2020 Referring Provider: NANCI TIAN MD Attending Physician: GIOVANI VASQUEZ MD Consultation REASON FOR CONSULTATION/CHIEF COMPLAINT: Covid-19 infection at high risk for severe covid-19 illness for Bamlanivimab outpatient infusion HISTORY OF PRESENT ILLNESS: 59 yo man with a history of depression, HTN, NIDDM2, alcohol use disorder and dependence and obesity who presented to the ED reportign SOB over the last few days without noted manjit fevers but with congestion, mild rhinorrhea and mild cough. He reports having had 6 beers this morning as he usually does and decided to present to the ED for the dyspnea with exertion. On arrival to the ED, he was hemodynamically stable, afebrile, breathing comfortably on room air. Work up was notable for WBC 4.3, hgb 13.1, platelets 152, Na 135, K 3.2 Cr 0.66, CXR that was showed clear lung moctezuma without acute consolidation, effusion, or pneumothorax. He had a respiratory panel that was covid-19 positive. Of note, he had a lactic acidosis to 4.4 and after 1L NS went down to 3.5 and was given a second liter of NS. Medicine was initially consulted to assess for admission but ultimately decided to hydrate and treat with bamlanivimab in the outpatient setting for his mild covid-19 symptoms with grossly normal labs, and give instructions for return to the ED if symptoms worsen. Of note, I discussed the case with Dr. Bernal who agreed with the plan given the mild clinical symptoms. ALLERGIES: Please see below. HOME MEDICATIONS: Please see below. PAST MEDICAL HISTORY: NIDDM2 Depression Alcohol use disorder with dependence obesity PAST SURGICAL HISTORY: Colonoscopy FAMILY HISTORY: Non contributory SOCIAL HISTORY: Lives in [place] Drinks excessive alcohol with no desire to stop at this time. Already had 6 beers today Chronic smoker No illicit drug use REVIEW OF SYSTEMS: 10 point ROS was completed and was otherwise negative unless noted in the HPI above. PHYSICAL EXAMINATION: VITAL SIGNS: Please see below. GENERAL APPEARANCE: Disheveled, obese with protuberant abdomen, NAD HEENT: NCAT, long richter, anicteric, non injected, no facial flushing RESPIRATORY: CTAB, no wheezing, rhonchi or crackles CARDIOVASCULAR: RRR, no mrg ABDOMEN: Protuberant, normoactive sounds, soft, NTND EXTREMITIES: WWP, no LE edema NEUROLOGICAL: AOx3, no tremor, negative asterixis, clear speech, moving all extremities PSYCHIATRIC: AOx3 LABORATORY DATA: Summarized above ASSESSMENT/PLAN: 59 yo man with DM, HTN, obesity, alcohol use disorder with dependence who was diagnosed with covid-19 infection in the ED with mild symptoms who us being admitted for observation for outpatient bamlanivimab infusion. Also, of note, he is dehydrated and will continue to receive some hydration. Covid-19 infection: -Blamanivimab -PRN medications for potential reactions per protocol DM: -already had today's metformin at home HTN: -per home script, expect discharge shortly after infusion Alcohol use disorder with dependence: We discussed use and has no desire to cut back or stop at this time. Dehydration with recent lactic acidosis: -s/p 2L NS in the ED. Will give 1 more liter of NS bolus and strongly encouraged him to drink non alcoholic fluids aggressively while he battles covid-19 infection. Dispo: home after bamlanivumab Allergies Coded Allergies: codeine (Verified Allergy, Intermediate, rash, 10/16/18) METALS (Verified Allergy, Unknown, 10/16/18) Home Medications Scheduled Ascorbic Acid (Vitamin C) 500 Mg Capsule, 1 CAP PO DAILY for 30 Days, #30 Aspirin (Aspir 81) 81 Mg Tablet.dr, 81 MG PO DAILY, #30 (Reported) Atorvastatin Calcium (Atorvastatin Calcium) 40 Mg Tablet, 40 MG PO DAILY, (Reported) Chlorthalidone (Chlorthalidone) 25 Mg Tablet, 12.5 MG PO DAILY, (Reported) Clopidogrel Bisulfate (Clopidogrel) 75 Mg Tablet, 75 MG PO DAILY, (Reported) Ferrous Sulfate (Ferrous Sulfate) 325 Mg Tablet.dr, 1 TAB PO DAILY for 30 Days, #30 Losartan Potassium (Losartan Potassium) 100 Mg Tablet, 100 MG PO DAILY, (Reported) Melatonin (Melatonin) 3 Mg Tablet, 3 MG PO QHS, (Reported) Metformin HCl (Metformin HCl) 850 Mg Tablet, 850 MG PO DAILY, (Reported) Tamsulosin Hcl (Tamsulosin HCl) 0.4 Mg Capsule, 0.8 MG PO DAILY, (Reported) GIOVANI VASQUEZ MD Feb 18, 2020 16:08
[~2020-02-18 16:25] MED LIST changes: +ALBUTEROL 90 MCG/ACT 8GM HFA INHALER INH PRN; +ALBUTEROL SULFATE 2.5 MG/0.5 ML INH NEB SOLN INH PRN; +AMIL5TAB4 PO; +EPINEPHrine INJ 1 MG/ML 1ML AMP IM PRN; +NS 1,000 ML IV SCH; +PT COMMENT; +diphenhydrAMINE 50MG/ML VIAL (J1200) IV PRN; +methylPREDNISolone 125MG 2ML VIAL IV PRN
[2020-02-18] MEDS ORDERED: BAMLANIVIMAB 700 MG in NS 250 ML IV ONE (18:00)
[2020-02-18] MEDS ORDERED: POTASSIUM CHLORIDE 10 MEQ SR TABLET PO ONE (20:15)
[2020-02-18] MEDS ORDERED: NS 1,000 ML IV ONE (20:15)
[2020-02-18] MEDS: THIAMINE 100 MG TAB PO SCH (21:00)
[2020-02-18] MEDS ORDERED: ONDANSETRON 4MG/2ML VIAL As Ordered ONE (22:13)
[2020-02-18] MEDS ORDERED: ONDANSETRON 4MG/2ML VIAL IV ONE (22:15)
[2020-02-19] VITALS (12 sets, daily range): BP systolic 103–146; BP diastolic 63–86
[2020-02-19] MEDS ORDERED: LORazepam 2 MG/ML VIAL IV STA (00:42)
[2020-02-19] MEDS ORDERED: ACETAMINOPHEN TAB 650MG DOSE (2X325MG) PO PRN (00:45)
[2020-02-19] MEDS ORDERED: LORazepam 2 MG TAB PO PRN (00:45)
[2020-02-19] MEDS ORDERED: MAALOX 30 ML SUSP *UDC PO PRN (00:45)
[2020-02-19] MEDS ORDERED: MOM 30ML SUSPENSION UDC PO PRN (00:45)
--- NOTE | 2020-02-19 00:50 | HPEPDOC ---
[facility] [place] Medical History & Physical Date of Admission Feb 19, 2020 Date of Service: Feb 19, 2020 History and Physical CHIEF COMPLAINT: Tremulous, diaphoretic HISTORY OF PRESENT ILLNESS: 51-year-old male with a history of depression, hypertension, diabetes type 2, alcohol use disorder, as well as obesity, presented to the ED with shortness of breath and cough. Tested positive for Covid and was given a monoclonal antibody infusion as outpatient. He was saturating well on RA and was hemodynamically stable. Patient was noted to have lactic acidosis, which did not immediately respond to normal saline resuscitation. Patient developed diaphoresis, tremulousness, suspected to be due to acute etoh withdrawal. Decision to admit to hospitalist service for management of acute alcohol withdrawal. PAST MEDICAL HISTORY: NIDDM2 TIA GERD HLD Depression Alcohol use disorder with dependence Obesity PVD Iron def anemia PAST SURGICAL HISTORY: Colonoscopy Arterial stents in bilateral LE for peripheral arterial disease SOCIAL HISTORY: ETOH use disorder, drink 12-18 beers per day, last drink this morning 6 wbeers 3 packs per day x 40 years ALLERGIES: Please see below. REVIEW OF SYSTEMS: CONSTITUTIONAL: shaky, anxious, unwell HEENT: patient denies blurred vision, loss of vision, headache,. CARDIOVASCULAR: patient denies chest pain, palpitations. RESPIRATORY: reports cough GASTROINTESTINAL: nausea and vomiting GENITOURINARY: patient denies dysuria, discharge. SKIN: patient denies rashes. MUSCULOSKELETAL: patient denies joint pain, neck pain. NEUROLOGICAL: patient denies focal weakness, numbness, seizures. PSYCHIATRIC: patient denies SI/HI. ENDOCRINE: patient denies polyuria, heat intolerance, cold intolerance. HEMATOLOGIC/LYMPHATIC: patient denies easy bruising. HOME MEDICATIONS: Please see below. PHYSICAL EXAMINATION: VITAL SIGNS: please see below General: diaphoretic, ill appearing HEENT: PERRLA, EOMI, sclerae clear Neck: supple, normal ROM, no JVD Respiratory: lungs CTAB, no wheeze, no rales, no crackles CVS: RRR, normal S1, S2, no murmurs Abdo: soft, no masses, no hepatosplenomegaly, BS+, no rebound tenderness Extremities 1+ edema, pulses 2+ MSK: no joint deformities, normal ROM Neuro: no focal neuro deficits, moving all 4 extremities, CN2-12 intact. Strength 5/5 in all 4 extremities. No nystagmus. Psych: calm, cooperative, AAO x 3 LABORATORY DATA: See below. MICROBIOLOGY: Please see below. ASSESSMENT: 51-year-old male with a history of depression, hypertension, diabetes type 2, alcohol use disorder, as well as obesity, presented to the ED with shortness of breath and cough. Chest positive for Covid and was given a monoclonal antibody infusion as outpatient. She was noted to have lactic acidosis, which did not immediately respond to normal saline resuscitation. Patient developed diaphoresis, tremulousness. Risk for alcohol withdrawal and delirium tremens. Therefore will be admitted to hospital service for management of acute alcohol withdrawal. Patient is clinically stable, comfortable on room air. PLAN: Covid-19 -Saturating > 95% on RA -Dx on 02/18/20 -s/p balmanivimab monoclonal Ab infusion -supportive measures Dehydration with lactic acidosis -LA elevated despite 2L NS -Possibly related to metformin use vs alcoholic liver disease vs hypovolemia -d/w Rechlin, continue with IV NS, repeat LA - hold diuretic Acute etoh withdrawal -start serax 20 mg TID -CIWA protocol -Folate, thiamine, MVT Suspected COPD -Duonebs DM2 -Hold metformin -ISS, accuchecks AC and HS -Hypoglycemic precautions #unspecified CHF? - noted amiloride on med rec - no prior hx documented - appears euvolemic - no echo available - holding diuresis in setting of dehydration and LA - consider echo as outpatient Tachycardia -Obtain EKG -Suspect 2/2 acute etoh withdrawal HTN -Resume home meds: losartan Hx of TIA -Asa, Plavix, statin PAD - asa/Plavix, statin Iron def anemia -Iron, vit C -Needs colonoscopy outpatient GERD: PPI DVT ppx: lovenox Dispo: admission expect to last > 2 midnights Vital Signs Vital Signs Date Time Temp Pulse Resp B/P (MAP) Pulse Ox O2 Delivery O2 Flow Rate FiO2 02/18/20 21:14 97.8 102 18 137/64 (88) 97 Room Air Laboratory Data Labs 24H Laboratory Tests 2 02/18/20 20:17: Bedside Glucose (Misc Panel) 197H Home Medications Scheduled Amiloride HCl (Amiloride HCl) 5 Mg Tablet, 5 MG PO DAILY Amlodipine Besylate (Norvasc) 5 Mg Tablet, 5 MG PO DAILY Ascorbic Acid (Vitamin C) 500 Mg Capsule, 1 CAP PO DAILY Aspirin (Aspirin EC) 81 Mg Tablet.dr, 81 MG PO DAILY Atorvastatin Calcium (Atorvastatin Calcium) 40 Mg Tablet, 40 MG PO DAILY Clopidogrel Bisulfate (Clopidogrel) 75 Mg Tablet, 75 MG PO DAILY Ferrous Sulfate (Ferrous Sulfate) 325 Mg Tablet.dr, 1 TAB PO DAILY Melatonin (Melatonin) 3 Mg Tablet, 3 MG PO QHS Metformin HCl (Metformin HCl) 850 Mg Tablet, 850 MG PO DAILY Omeprazole (Omeprazole) 40 Mg Capsule.dr, 40 MG PO DAILY Tamsulosin Hcl (Tamsulosin HCl) 0.4 Mg Capsule, 0.8 MG PO DAILY Miscellaneous Medications [Pt Comment] PATIENT IS A POOR HISTORIAN. MED REC COMPLETED VIA EXTERNAL MED HISTORY AND PREVIOUS MED REC DONE ON 02/18/2020. Allergies Coded Allergies: codeine (Verified Allergy, Intermediate, rash, 10/16/18) METALS (Verified Allergy, Unknown, 10/16/18) EUNICE MAGUIRE MD Feb 19, 2020 00:50
[2020-02-19] MEDS ORDERED: ASPI-161 PO (01:05)
[2020-02-19] MEDS ORDERED: OMEP-221 PO (01:05)
[2020-02-19] MEDS ORDERED: NORV5TAB PO (01:05)
[2020-02-19] MEDS ORDERED: METF850T4 PO (01:05)
[2020-02-19 01:23] LABS: EOS % 0.3 % (0.0-3.0); HEMOGLOBIN 11.9 g/dl (13.5-17.5); LYMPH # 0.2 10^3/uL (1.5-5.0); LYMPH % 7.2 % (24.0-44.0); MEAN CORPUSCULAR HEMOGLOBIN 32.6 pg (27.0-33.0); MEAN CORPUSCULAR VOLUME 93.2 fl (80.0-96.0); MONO # 0.2 10^3/uL (0.0-0.8); MONO % 6.5 % (0.0-5.0); NEUTROPHILS # 2.5 10^3/uL (1.5-8.5); NEUTROPHILS % 85.3 % (36.0-66.0); PLATELET COUNT, AUTOMATED 134 10^3/uL (150-450); RED BLOOD COUNT 3.65 10^6/uL (4.30-6.10); WHITE BLOOD COUNT 2.9 10^3/uL (4.0-10.0)
[2020-02-19 02:05] LABS: ALBUMIN 2.9 GM/DL (3.2-5.2); ALT/SGPT 91 U/L (12-78); BILIRUBIN,TOTAL 0.6 MG/DL (0.2-1.0); BLOOD UREA NITROGEN 3 MG/DL (7-18); CALCIUM LEVEL 7.6 MG/DL (8.5-10.1); CARBON DIOXIDE LEVEL 27 MEQ/L (21-32); CHLORIDE LEVEL 106 MEQ/L (98-107); CREATININE FOR GFR 0.76 MG/DL (0.70-1.30); GLOMERULAR FILTRATION RATE > 60.0 (>56); GLUCOSE, FASTING 247 MG/DL (70-100); MAGNESIUM LEVEL 1.5 MG/DL (1.8-2.4); POTASSIUM SERUM 3.3 MEQ/L (3.5-5.1); SODIUM LEVEL 140 MEQ/L (136-145); TOTAL PROTEIN 6.5 GM/DL (6.4-8.2)
[2020-02-19] MEDS ORDERED: NS 500 ML IV ONE (03:30)
[2020-02-19] MEDS ORDERED: POTASSIUM CHLORIDE 10% LIQ 20 MEQ/15 ML UDC PO ONE (04:00)
[2020-02-19] MEDS: MAG SULF 1GM/100ML (MAG RUN) 1 GM in IV 1 EA IV SCH ×2 (04:08→05:48)
[2020-02-19] MEDS ORDERED: ONDANSETRON 4MG/2ML VIAL IV PRN (05:45)
[2020-02-19 06:09] LABS: BASO % 0.3 % (0.0-1.0); HEMATOCRIT 35.5 % (42.0-52.0); HEMOGLOBIN 11.9 g/dl (13.5-17.5); LYMPH # 0.4 10^3/uL (1.5-5.0); LYMPH % 8.8 % (24.0-44.0); MEAN CORPUSCULAR HEMOGLOBIN 30.2 pg (27.0-33.0); MEAN CORPUSCULAR HGB CONC 33.5 g/dl (32.0-36.5); MEAN CORPUSCULAR VOLUME 90.1 fl (80.0-96.0); MONO # 0.4 10^3/uL (0.0-0.8); MONO % 9.3 % (0.0-5.0); NEUTROPHILS # 3.2 10^3/uL (1.5-8.5); NEUTROPHILS % 80.6 % (36.0-66.0); PLATELET COUNT, AUTOMATED 140 10^3/uL (150-450); RED BLOOD COUNT 3.94 10^6/uL (4.30-6.10)
[2020-02-19 06:15] LABS: ALT/SGPT 96 U/L (12-78); BILIRUBIN,TOTAL 0.7 MG/DL (0.2-1.0); BLOOD UREA NITROGEN 5 MG/DL (7-18); CARBON DIOXIDE LEVEL 28 MEQ/L (21-32); CHLORIDE LEVEL 106 MEQ/L (98-107); CREATININE FOR GFR 0.86 MG/DL (0.70-1.30); GLOMERULAR FILTRATION RATE > 60.0 (>56); GLUCOSE, FASTING 222 MG/DL (70-100); MAGNESIUM LEVEL 2.1 MG/DL (1.8-2.4); POTASSIUM SERUM 3.1 MEQ/L (3.5-5.1); SODIUM LEVEL 140 MEQ/L (136-145); TOTAL PROTEIN 6.4 GM/DL (6.4-8.2)
[2020-02-19] MEDS: OXAZEPAM 10 MG CAP PO SCH ×3 (07:26→20:47)
[2020-02-19] MEDS: amLODIPine 5 MG TAB PO SCH (08:41)
[2020-02-19] MEDS: FERROUS SULFATE 325MG TAB PO SCH (08:41)
[2020-02-19] MEDS: ENOXAPARIN 40MG/0.4ML SYRINGE (J1650 PER 10MG) SC SCH (08:41)
[2020-02-19] MEDS: FOLIC ACID 1 MG TAB PO SCH (08:42)
[2020-02-19] MEDS: MULTIVITAMINS/MINERALS THERAP 1 TAB PO SCH (08:42)
[2020-02-19] MEDS: CLOPIDOGREL 75 MG TAB PO SCH (08:42)
[2020-02-19] MEDS: ASPIRIN 81 MG ENTERIC TAB PO SCH (08:42)
[2020-02-19] MEDS: DOCUSATE SODIUM 100MG CAPSULE PO SCH ×2 (08:42→20:47)
[2020-02-19] MEDS: THIAMINE 100 MG TAB PO SCH ×2 (08:42→20:47)
[2020-02-19] MEDS: ATORVASTATIN 20 MG TAB PO SCH (08:42)
[2020-02-19] MEDS: ASCORBIC ACID 500 MG TAB PO SCH (08:42)
[2020-02-19] MEDS: TAMSULOSIN 0.4 MG CAP PO SCH (08:42)
[2020-02-19] MEDS ORDERED: aMILoride 5 MG TAB PO SCH (09:00)
[2020-02-19] MEDS ORDERED: NICOTINE 21MG/24HR 1 EA TRANSDERMAL TD SCH (09:00)
--- NOTE | 2020-02-19 15:01 | IPNPDOC ---
Text Note Date of Service The patient was seen on 02/19/20. NOTE Subjective: -Was admitted after bamlanivimab for mild covid-19 infection but course was c/b alcohol withdrawal and persistent lactic acidosis so was admitted instead -No acute issues overnight, now on CIWA and hydration, remains on room air, afebrile, normotensive without complaints otherwise Objective: VITAL SIGNS: please see below General: NAD, disheveled HEENT: PERRLA, EOMI, sclerae clear Neck: supple, normal ROM, no JVD Respiratory: lungs CTAB, no wheeze, no rales, no crackles CVS: RRR, normal S1, S2, no murmurs Abdo: soft, no masses, no hepatosplenomegaly, BS+, no rebound tenderness Extremities 1+ edema, pulses 2+ MSK: no joint deformities, normal ROM Neuro: no focal neuro deficits, moving all 4 extremities, CN2-12 intact. Strength 5/5 in all 4 extremities. Mild tremor Psych: AOx3, pleasant LABORATORY DATA: reviewed MICROBIOLOGY: Please see below. +covid-19 ASSESSMENT: 51-year-old M with a history of depression, hypertension, diabetes type 2, alcohol use disorder, as well as obesity, presented to the ED with shortness of breath and cough and diagnosed with Covid-19 infection and was given a monoclonal antibody infusion as outpatient that was c/b acute alcohol withdrawal after a few hours in the hospital, having reported 6 beers before presentation that morning and he was diaphoretic and tremulous and was thus admitted for alcohol withdrawal and risk for delirium tremens. PLAN: Covid-19 -Saturating > 95% on RA -Dx on 02/18/20 -s/p balmanivimab monoclonal Ab infusion -supportive measures -thus far without a cough, wheezing or dyspnea Dehydration with lactic acidosis -Possibly related to metformin use + alcoholic liver disease + definite hyp ovolemia -continue with IV NS, f/u repeat LA -holding home diuretic Acute alcohol withdrawal -CIWA protocol with symptom triggered ativan -Folate, thiamine, MVT -Expressed no desire to quit drinking when I spoke with him about it. Will think about it Suspected COPD -ipratropium/albuterol mdi q6H -albuterol mdi q4hp DM2 -Hold metformin -ISS, accuchecks AC and HS -Hypoglycemic precautions HTN -losartan -No known history of CHF, likely on amiloride for alcoholic liver disease Hx of TIA -Asa, Plavix?, statin PAD - asa/Plavix, statin Iron def anemia -Iron, vit C -Needs colonoscopy outpatient GERD: PPI DVT ppx: lovenox Dispo: admission expect to last > 2 midnights. Transfer to [facility] for med/surg with tele covid patient VS,Fishbone, I+O VS, Fishbone, I+O Laboratory Tests 02/19/20 01:15 02/19/20 04:55 Vital Signs Date Time Temp Pulse Resp B/P (MAP) Pulse Ox O2 Delivery O2 Flow Rate FiO2 02/19/20 06:35 Room Air 02/19/20 06:00 108 124/69 02/19/20 06:00 18 95 02/19/20 04:00 98.3 I&O- Last 24 Hours up to 6 AM 02/19/20 05:59 Intake Total 2710 ml Output Total 1250 ml Balance 1460 ml GIOVANI VASQUEZ MD Feb 19, 2020 08:16
[2020-02-19] MEDS: LORazepam 2 MG/ML VIAL IV PRN ×2 (16:59→23:10)
[2020-02-19] MEDS ORDERED: LORazepam 2 MG/ML VIAL As Ordered ONE (16:59)
[2020-02-20] VITALS: BP 103/60
[2020-02-20 04:00] VITALS: BP_SYST 152; BP_SYST 154; BP_DIAS 80
[2020-02-20] MEDS: OXAZEPAM 10 MG CAP PO SCH (04:58)
[2020-02-20] MEDS: NICOTINE POLACRILEX 2 MG GUM PO PRN ×4 (05:00→15:13)
[2020-02-20 05:02] LABS: HEMATOCRIT 31.8 % (42.0-52.0); HEMOGLOBIN 11.6 g/dl (13.5-17.5); MEAN CORPUSCULAR HEMOGLOBIN 35.4 pg (27.0-33.0); MEAN CORPUSCULAR HGB CONC 36.5 g/dl (32.0-36.5); PLATELET COUNT, AUTOMATED 118 10^3/uL (150-450); RED BLOOD COUNT 3.28 10^6/uL (4.30-6.10); WHITE BLOOD COUNT 4.2 10^3/uL (4.0-10.0)
[2020-02-20 05:21] LABS: D-DIMER QUANT 1288.95 ng/ml (<500)
[2020-02-20 05:35] LABS: ALBUMIN 2.8 GM/DL (3.2-5.2); ALT/SGPT 120 U/L (12-78); BLOOD UREA NITROGEN 8 MG/DL (7-18); CARBON DIOXIDE LEVEL 28 MEQ/L (21-32); CHLORIDE LEVEL 102 MEQ/L (98-107); CREATININE FOR GFR 0.71 MG/DL (0.70-1.30); FERRITIN 604 NG/ML (26-388); GLOMERULAR FILTRATION RATE > 60.0 (>56); GLUCOSE, FASTING 123 MG/DL (70-100); LDH LACTATE DEHYDROGENASE 239 U/L (87-241); POTASSIUM SERUM 2.8 MEQ/L (3.5-5.1); SODIUM LEVEL 136 MEQ/L (136-145)
[2020-02-20] MEDS ORDERED: POTASSIUM CHLORIDE 10 MEQ SR TABLET PO ONE ×4 (06:00→12:30)
[2020-02-20 07:30] VITALS: BP 137/86
[2020-02-20] MEDS: DOCUSATE SODIUM 100MG CAPSULE PO SCH (09:00)
[2020-02-20] MEDS ORDERED: NICOTINE 21MG/24HR 1 EA TRANSDERMAL TD SCH (09:00)
[2020-02-20] MEDS ORDERED: CLOBETASOL PROPIONATE EMOLLIENT 0.05% CR 60 GM TOP SCH (09:00)
[2020-02-20 09:55] VITALS: BP 131/86
[2020-02-20] MEDS: FERROUS SULFATE 325MG TAB PO SCH (09:58)
[2020-02-20] MEDS: THIAMINE 100 MG TAB PO SCH (09:58)
[2020-02-20] MEDS: ENOXAPARIN 40MG/0.4ML SYRINGE (J1650 PER 10MG) SC SCH (09:58)
[2020-02-20] MEDS: ATORVASTATIN 20 MG TAB PO SCH (09:58)
[2020-02-20] MEDS: MULTIVITAMINS/MINERALS THERAP 1 TAB PO SCH (09:58)
[2020-02-20] MEDS: ASPIRIN 81 MG ENTERIC TAB PO SCH (09:58)
[2020-02-20] MEDS: ASCORBIC ACID 500 MG TAB PO SCH (09:58)
[2020-02-20] MEDS: CLOPIDOGREL 75 MG TAB PO SCH (09:58)
[2020-02-20] MEDS: TAMSULOSIN 0.4 MG CAP PO SCH (09:58)
[2020-02-20 10:00] VITALS: BP 131/86
[2020-02-20] MEDS: amLODIPine 5 MG TAB PO SCH (10:00)
[2020-02-20] MEDS: FOLIC ACID 1 MG TAB PO SCH (10:00)
[2020-02-20 10:32] LABS: MAGNESIUM LEVEL 1.8 MG/DL (1.8-2.4)
[2020-02-20 12:16] LABS: MAGNESIUM LEVEL 1.7 MG/DL (1.8-2.4); POTASSIUM SERUM 3.3 MEQ/L (3.5-5.1)
[2020-02-20] MEDS ORDERED: MAGNESIUM OXIDE 400 MG TAB (MAG-OX) PO ONE (12:30)
[2020-02-20] MEDS ORDERED: VITMTA PO (12:34)
[2020-02-20] MEDS ORDERED: TESS100C PO (12:34)
[2020-02-20] MEDS ORDERED: ALBU8.5H INH (12:34)
--- NOTE | 2020-02-20 14:08 | IPNPDOC ---
Text Note Date of Service The patient was seen on 02/20/20. NOTE Subjective: -No acute issues overnight, on CIWA, remains on room air, afebrile, normotensive without complaints of cough, dyspnea, fever. -Has asymptomatic tachycardia and is tremulous that improves with benzo treatment Objective: VITAL SIGNS: please see below General: NAD, disheveled HEENT: PERRLA, EOMI, sclerae clear Neck: supple, normal ROM, no JVD Respiratory: lungs CTAB, no wheeze, no rales, no crackles CVS: RRR, normal S1, S2, no murmurs Abdo: soft, no masses, no hepatosplenomegaly, BS+, no rebound tenderness Extremities 1+ edema, pulses 2+ MSK: no joint deformities, normal ROM Neuro: no focal neuro deficits, moving all 4 extremities, CN2-12 intact. Strength 5/5 in all 4 extremities. Mild tremor Psych: AOx3, pleasant LABORATORY DATA: reviewed WBC 4.2 Hgb 11.6 platelets 118 na 136 k 2.8 (repleted) Cr 0.71 D dimer 1288.95 ferritin 604 LDH 239 Fibrinogen 336 MICROBIOLOGY: Please see below. +covid-19 ASSESSMENT: 51-year-old M with a history of depression, hypertension, diabetes type 2, alcohol use disorder, as well as obesity, presented to the ED with jt rtness of breath and cough and diagnosed with Covid-19 infection and was given a monoclonal antibody infusion as outpatient that was c/b acute alcohol withdrawal after a few hours in the hospital, having reported 6 beers before presentation that morning and he was diaphoretic and tremulous and was thus admitted for alcohol withdrawal and risk for delirium tremens. I should note that I received a call from Dr. Lisa on 02/19/2020 regarding beginning him on remdesevir for early covid-19 but I expressed that he is completely asymptomatic from a covid-19 perspective at this time without any hypoxemia even with ambulation, no fever, chills, cough, dyspnea and mild elevation of inflammatory markers with the most significant being his D-Dimer that is >1000 and his only clinically current active problem is alcohol withdrawal and dehydration that has now improved. PLAN: Covid-19 -Saturating > 95% on RA -Dx on 02/18/20 -s/p balmanivimab monoclonal Ab infusion -supportive measures -thus far without a cough, wheezing or dyspnea -ipratropium/albuterol mdi q6H -albuterol mdi q4hp Dehydration with lactic acidosis -Possibly related to metformin use + alcoholic liver disease + definite hypovolemia -s/p fluids -holding home diuretic Acute alcohol withdrawal -CIWA protocol with symptom triggered ativan -Folate, thiamine, MVT -Expressed no desire to quit drinking when I spoke with him about it. Will think about it. Suspected COPD -ipratropium/albuterol mdi q6H -albuterol mdi q4hp DM2 -Hold metformin -ISS, accuchecks AC and HS -Hypoglycemic precautions HTN -losartan -No known history of CHF, likely on amiloride for alcoholic liver disease Hx of TIA -Asa, Plavix?, statin PAD - asa/Plavix, statin Iron def anemia -Iron, vit C -Needs colonoscopy outpatient GERD: PPI DVT ppx: lovenox Dispo: admission expect to last > 2 midnights. Transfer to [facility] for med/surg with tele covid patient VS,Ez, I+O VSEz I+O Laboratory Tests 02/20/20 04:33 Vital Signs Date Time Temp Pulse Resp B/P (MAP) Pulse Ox O2 Delivery O2 Flow Rate FiO2 02/20/20 04:00 98.6 115 22 152/80 (104) 96 Room Air I&O- Last 24 Hours up to 6 AM 02/20/20 06:00 Intake Total 1710 ml Output Total 1175 ml Balance 535 ml GIOVANI VASQUEZ MD Feb 20, 2020 08:01
--- NOTE | 2020-02-20 14:17 | DS.PDOC ---
Discharge Summary General Date of Admission Feb 19, 2020 at 00:43 Date of Discharge 02/20/2020 Attending Physician: GIOVANI VASQUEZ MD Discharge Summary PROCEDURES PERFORMED DURING STAY: None ADMITTING DIAGNOSES: Alcohol withdrawal covid-19 infection DISCHARGE DIAGNOSES: Alcohol withdrawal covid-19 infection NIDDM2 Depression Alcohol use disorder with dependence obesity COMPLICATIONS/CHIEF COMPLAINT: Covid-19. HISTORY OF PRESENT ILLNESS: 59 yo man with a history of depression, HTN, NIDDM2, alcohol use disorder and dependence and obesity who presented to the ED reportign SOB over the last few days without noted manjit fevers but with congestion, mild rhinorrhea and mild cough. He reports having had 6 beers this morning as he usually does and decided to present to the ED for the dyspnea with exertion. On arrival to the ED, he was hemodynamically stable, afebrile, breathing comfortably on room air. Work up was notable for WBC 4.3, hgb 13.1, platelets 152, Na 135, K 3.2 Cr 0.66, CXR that was showed clear lung moct[place] without acute consolidation, effusion, or p neumothorax. He had a respiratory panel that was covid-19 positive. Of note, he had a lactic acidosis to 4.4 and after 1L NS went down to 3.5 and was given a second liter of NS. Medicine was initially consulted to assess for admission but ultimately decided to hydrate and treat with bamlanivimab in the outpatient setting for his mild covid-19 symptoms with grossly normal labs, and give instructions for return to the ED if symptoms worsen. While awaiting the outpatient infusion, his course was c/b acute alcohol withdrawal and he was admitted to medicine for alcohol withdrawal. HOSPITAL COURSE: He was started on CIWA with scheduled serax and PRN ativan without complications. His covid-19 infection remained mild with mildly elevated inflammatory markers but without hypoxemia, cough, congestion, GI symptoms or fever and chills. He is now being discharged home with empiric albuterol inhaler and tessalon perls if he develops a cough and is to follow up with his PCP within the next couple of weeks. He was advised to return to the ED if he develops severe SOB, dizziness, fevers and inability to take PO. DISCHARGE MEDICATIONS: Please see below. ALLERGIES: Please see below. PHYSICAL EXAMINATION ON DISCHARGE: VITAL SIGNS: Please see below. General: NAD HEENT: PERRLA, EOMI, sclerae clear Neck: supple, normal ROM, no JVD Respiratory: lungs CTAB, no wheeze, no rales, no crackles CVS: RRR, normal S1, S2, no murmurs Abdo: soft, no masses, no hepatosplenomegaly, BS+, no rebound tenderness Extremities 1+ edema, pulses 2+ MSK: no joint deformities, normal ROM Neuro: no focal neuro deficits, moving all 4 extremities, CN2-12 intact. Strength 5/5 in all 4 extremities. Psych: AOx3, pleasant LABORATORY DATA: Please see below. IMAGING: CXR: The mediastinum and cardiac silhouette are stable and within normal limits for portable technique. The lung moctezuma are clear without acute consolidation, effusion, or pneumothorax. Skeletal structures are intact. IMPRESSION: No acute cardiopulmonary process appreciated. PROGNOSIS: Good, especially if he refrains from alcohol consumption, which he expressed no desire to do that at this time. ACTIVITY: As tolerated. DIET: Consistent carb DISCHARGE PLAN: Home DISPOSITION: Home DISCHARGE INSTRUCTIONS: Home with albuterol and tessalon perls to use if he becomes short of breath, starts wheezing and coughing during his covid-19 infection. ITEMS TO FOLLOWUP ON ON OUTPATIENT: COvid-19 infection Alcohol use disorder with dependence DISCHARGE CONDITION: Stable TIME SPENT ON DISCHARGE: 43 minutes. Vital Signs/I&Os Vital Signs Date Time Temp Pulse Resp B/P (MAP) Pulse Ox O2 Delivery O2 Flow Rate FiO2 02/20/20 10:00 121 131/86 02/20/20 09:55 99.1 20 98 Room Air I&O- Last 24 Hours up to 6 AM 02/20/20 06:00 Intake Total 1710 ml Output Total 1175 ml Balance 535 ml Laboratory Data Labs 24H Laboratory Tests 2 02/20/20 04:33: Nucleated Red Blood Cells % (auto) 0.0, Fibrinogen 336, D-Dimer, Quantitative 1288.95H, Anion Gap 6L, Glomerular Filtration Rate > 60.0, Calcium Level 8.0L, Magnesium Level 1.8, Ferritin 604H, Total Bilirubin 1.0, Aspartate Amino Transf (AST/SGOT) 118H, Alanine Aminotransferase (ALT/SGPT) 120H, Alkaline Phosphatase 133H, Lactate Dehydrogenase 239, C-Reactive Protein, Quantitative 0.30, Total Protein 6.0L, Albumin 2.8L, Albumin/Globulin Ratio 0.9 02/20/20 11:28: Magnesium Level 1.7L CBC/BMP Laboratory Tests 02/20/20 04:33 02/20/20 11:28 Discharge Medications Scheduled Amiloride HCl (Amiloride HCl) 5 Mg Tablet, 5 MG PO DAILY, (Reported) Amlodipine Besylate (Norvasc) 5 Mg Tablet, 5 MG PO DAILY, (Reported) Ascorbic Acid (Vitamin C) 500 Mg Capsule, 1 CAP PO DAILY Aspirin (Aspirin EC) 81 Mg Tablet.dr, 81 MG PO DAILY, (Reported) Atorvastatin Calcium (Atorvastatin Calcium) 40 Mg Tablet, 40 MG PO DAILY, (Reported) Benzonatate (Tessalon Perle) 100 Mg Capsule, 100 MG PO TID for cough Clopidogrel Bisulfate (Clopidogrel) 75 Mg Tablet, 75 MG PO DAILY, (Reported) Ferrous Sulfate (Ferrous Sulfate) 325 Mg Tablet.dr, 1 TAB PO DAILY Melatonin (Melatonin) 3 Mg Tablet, 3 MG PO QHS, (Reported) Metformin HCl (Metformin HCl) 850 Mg Tablet, 850 MG PO DAILY, (Reported) Multivitamins (Thera M Plus Tablet) 1 Each Tablet, 1 TAB PO DAILY Omeprazole (Omeprazole) 40 Mg Capsule.dr, 40 MG PO DAILY, (Reported) Tamsulosin Hcl (Tamsulosin HCl) 0.4 Mg Capsule, 0.8 MG PO DAILY, (Reported) Scheduled PRN Albuterol Sulfate (Albuterol Sulfate Hfa) 8.5 Gm Hfa.aer.ad, 2 PUFFS INH Q6HP PRN for shortness of breath Miscellaneous Medications [Pt Comment] , (Reported) PATIENT IS A POOR HISTORIAN. MED REC COMPLETED VIA EXTERNAL MED HISTORY AND PREVIOUS MED REC DONE ON 02/18/2020. Allergies Coded Allergies: codeine (Verified Allergy, Intermediate, rash, 10/16/18) METALS (Verified Allergy, Unknown, 10/16/18) GIOVANI VASQUEZ MD Feb 20, 2020 14:17
== END 2020-02-20 15:40 | disposition home or self-care (01) | DRG 775 ==
LOC: M OPCLI4 16:25 → M ICU 16:26 → M OPCLI4 16:31 → M ICU 22:11 → M OPCLI4 02-19 00:42 → M ICU 02-19 00:43
PROVIDERS: ADMIT Family Medicine; ATTEND Internal Medicine
DX: F10.239 Alcohol dependence with withdrawal, unspecified (principal); U07.1 COVID-19; E87.2 Acidosis; E11.51 Type 2 diabetes mellitus with diabetic peripheral angiopathy without gangrene; K21.9 Gastro-esophageal reflux disease without esophagitis; E78.5 Hyperlipidemia, unspecified; F32.9 Major depressive disorder, single episode, unspecified; E66.9 Obesity, unspecified; D50.9 Iron deficiency anemia, unspecified; Z95.820 Peripheral vascular angioplasty status with implants and grafts; E86.0 Dehydration; J44.9 Chronic obstructive pulmonary disease, unspecified; I10 Essential (primary) hypertension; Z79.82 Long term (current) use of aspirin; Z79.02 Long term (current) use of antithrombotics/antiplatelets; Z79.84 Long term (current) use of oral hypoglycemic drugs; Z79.899 Other long term (current) drug therapy; Z88.5 Allergy status to narcotic agent; Z91.048 Other nonmedicinal substance allergy status

== ENCOUNTER 2020-10-25 12:37 | Inpatient (IN) | payer OTHER ==
[~2020-10-25] VITALS: Ht 163.1 cm; Wt 73.4 kg
[~2020-10-25 12:37] MED LIST changes: +ALBU8.5H INH; -ALBUTEROL 90 MCG/ACT 8GM HFA INHALER INH PRN; -ALBUTEROL SULFATE 2.5 MG/0.5 ML INH NEB SOLN INH PRN; +ASPI-161 PO; -EPINEPHrine INJ 1 MG/ML 1ML AMP IM PRN; +NORV5TAB PO; -NS 1,000 ML IV SCH; +OMEP-221 PO; +TESS100C PO; +VITMTA PO; -diphenhydrAMINE 50MG/ML VIAL (J1200) IV PRN; -methylPREDNISolone 125MG 2ML VIAL IV PRN
[2020-10-25] MEDS ORDERED: HYDR50TA70 PO (13:06)
[2020-10-25 16:27] LABS: ALBUMIN 1.5 GM/DL (3.2-5.2); ALT/SGPT 61 U/L (12-78); BILIRUBIN,DIRECT 1.6 MG/DL (0.0-0.2); BILIRUBIN,TOTAL 2.3 MG/DL (0.2-1.0); BLOOD UREA NITROGEN 6 MG/DL (7-18); CALCIUM LEVEL 7.9 MG/DL (8.5-10.1); CARBON DIOXIDE LEVEL 15 MEQ/L (21-32); CHLORIDE LEVEL 85 MEQ/L (98-107); CREATININE FOR GFR 0.26 MG/DL (0.70-1.30); ETHYL ALCOHOL (ETHANOL) 0.177 % (0.000-0.010); GLOMERULAR FILTRATION RATE > 60.0 (>56); GLUCOSE, FASTING 127 MG/DL (70-100); POTASSIUM SERUM 4.9 MEQ/L (3.5-5.1); SODIUM LEVEL 114 MEQ/L (136-145); TOTAL PROTEIN 6.4 GM/DL (6.4-8.2)
[2020-10-25 16:30] LABS: BASO % 0.1 % (0.0-1.0); HEMATOCRIT 24.2 % (42.0-52.0); HEMOGLOBIN 9.1 g/dl (13.5-17.5); LYMPH # 2.1 10^3/uL (1.5-5.0); MEAN CORPUSCULAR HEMOGLOBIN 37.4 pg (27.0-33.0); MEAN CORPUSCULAR VOLUME 99.6 fl (80.0-96.0); MONO # 0.9 10^3/uL (0.0-0.8); MONO % 6.2 % (2.0-8.0); NEUTROPHILS # 10.8 10^3/uL (1.5-8.5); NEUTROPHILS % 76.4 % (36.0-66.0); PLATELET COUNT, AUTOMATED 207 10^3/uL (150-450); RED BLOOD COUNT 2.43 10^6/uL (4.30-6.10); WHITE BLOOD COUNT 14.2 10^3/uL (4.0-10.0)
[2020-10-25 16:31] LABS: MEAN CORPUSCULAR HGB CONC 37.6 g/dl (32.0-36.5)
--- NOTE | 2020-10-25 17:19 | REP ---
INDICATION: cirrhosis, ascites. COMPARISON: None. TECHNIQUE: Sonographic evaluation of abdomen and pelvis performed to evaluate for ascites. FINDINGS: There is moderate diffuse ascites in the abdomen and pelvis. IMPRESSION: Moderate diffuse ascites in the abdomen and pelvis. <Electronically signed by Papo Gu > 10/25/20 [id number]
[2020-10-25 17:32] LABS: RSV AMPLIFICATION NEGATIVE (NEGATIVE)
[2020-10-25] MEDS ORDERED: LORazepam 2 MG TAB PO PRN ×2 (17:35→19:10)
[2020-10-25] MEDS ORDERED: MULTIVITAMIN -ADULT INJECTION 10 ML, THIAMINE INJection 100 MG, FOLIC ACID 1 MG in NS 1... IV ONE (18:00)
[2020-10-25] MEDS ORDERED: HOME MED LIST COMPLETE! XX SCH (18:05)
[2020-10-25] MEDS ORDERED: NS 1,000 ML IV SCH (18:50)
[2020-10-25] MEDS ORDERED: MOM 30ML SUSPENSION UDC PO PRN (18:50)
[2020-10-25] MEDS ORDERED: MAALOX 30 ML SUSP *UDC PO PRN (18:50)
--- NOTE | 2020-10-25 19:01 | HPEPDOC ---
[facility] Medical History & Physical Date of Admission Oct 25, 2020 Date of Service: Oct 25, 2020 History and Physical CHIEF COMPLAINT: Tremulous, diaphoretic HISTORY OF PRESENT ILLNESS: 59-year-old male with a history of depression, hypertension, diabetes type 2, alcohol use disorder, as well as obesity, presented to the ED after he was found by his brother on the floor complaining of right foot and arm pain.. Patient s tates that he drinks heavily and had approximately 8 beers this morning. On arrival he was found to be have difficulty ambulating was very lethargic. BMP showed sodium of 114. Further patient was found to have significant abdominal distention due to ascites as indicated by ultrasound. Patient will be admitted to hospitalist service for further management of acute alcohol withdrawal as well as symptomatic hyponatremia. Dr. Miller has been consulted. Patient will be admitted to PCU. PAST MEDICAL HISTORY: NIDDM2 TIA GERD HLD Depression Alcohol use disorder with dependence Obesity PVD Iron def anemia PAST SURGICAL HISTORY: Colonoscopy Arterial stents in bilateral LE for peripheral arterial disease SOCIAL HISTORY: ETOH use disorder, drink 12-18 beers per day, last drink yesterday smokes 3 packs per day x 40 years ALLERGIES: Please see below. REVIEW OF SYSTEMS: 10 point ROS conducted, relevant findings are noted in HPI. HOME MEDICATIONS: Please see below. PHYSICAL EXAMINATION: VITAL SIGNS: please see below General: diaphoretic, ill appearing HEENT: PERRLA, EOMI, sclerae clear Neck: supple, normal ROM, no JVD Respiratory: lungs CTAB, no wheeze, no rales, no crackles CVS: RRR, normal S1, S2, no murmurs Abdo: soft, no masses, no hepatosplenomegaly, BS+, no rebound tenderness Extremities 1+ edema, pulses 2+ MSK: no joint deformities, normal ROM Neuro: no focal neuro deficits, moving all 4 extremities, CN2-12 intact. Strength 5/5 in all 4 extremities. No nystagmus. Psych: calm, cooperative, AAO x 3 LABORATORY DATA: See below. MICROBIOLOGY: Please see below. ASSESSMENT: [id number] male with a history of depression, hypertension, diabetes type 2, alcohol use disorder, as well as obesity, presented to the ED after he was found by his brother on the floor complaining of right foot and arm pain.. Patient states that he drinks heavily and had approximately 8 beers this morning. On arrival he was found to be have difficulty ambulating was very lethargic. BMP showed sodium of 114. Further patient was found to have significant abdominal distention due to ascites as indicated by ultrasound. Patient will be admitted to hospitalist service for further management of acute alcohol withdrawal as well as symptomatic hyponatremia. Dr. Miller has been consulted. Patient will be admitted to PCU. PLAN: Symptomatic hyponatremia -Sodium of 114. -Pathology consulted. Discussed with Dr. Tiwari -Start continue with normal saline 100 cc/h. -Monitor BMP every 4 hours. -Admit to PCU Acute etoh withdrawal -start serax 20 mg Q6H -[facility] protocol -Folate, thiamine, MVT Ascites -History of extensive alcohol abuse suspect liver cirrhosis -Abdomen is grossly distended nontender -Ordered paracentesis Hyperbilirubinemia -Check liver ultrasound, in setting of liver cirrhosis from alcohol abuse. Hypotension -In setting of hypoalbuminemia and liver cirrhosis with ascites -Ordered albumin 50 g 25% -Plan for paracentesis on 10/26/2020 Suspected COPD - smokes 3 packs per day - audible wheeze in room -Duonebs -Start Symbicort DM2 -Hold metformin -ISS, accuchecks AC and HS -Hypoglycemic precautions Lower extremity edema -Severe hypoalbuminemia in setting of liver cirrhosis and ascites -Check BNP -We will likely start patient spironolactone and furosemide -BP is low we will avoid diuretics at this time. Sinus tachycardia -Suspect 2/2 acute etoh withdrawal HTN -Resume home meds: losartan Hx of TIA -Asa, Plavix, statin PAD - asa/Plavix, statin Iron def anemia -Iron, vit C -Needs colonoscopy outpatient DVT ppx: heparin 5000 units q8h. Dispo: pending clinical improvement. Vital Signs Vital Signs Date Time Temp Pulse Resp B/P (MAP) Pulse Ox O2 Delivery O2 Flow Rate FiO2 10/25/20 18:00 97 84/52 (63) 100 10/25/20 13:06 97.2 16 Laboratory Data Labs 24H Laboratory Tests 2 10/25/20 15:51: Immature Granulocyte % (Auto) 2.3, Neutrophils (%) (Auto) 76.4H, Lymphocytes (%) (Auto) 15.0L, Monocytes (%) (Auto) 6.2, Eosinophils (%) (Auto) 0.0, Basophils (%) (Auto) 0.1, Neutrophils # (Auto) 10.8H, Lymphocytes # (Auto) 2.1, Monocytes # (Auto) 0.9H, Eosinophils # (Auto) 0.0, Basophils # (Auto) 0.0, Nucleated Red Blood Cells % (auto) 0.0, Anion Gap 14, Glomerular Filtration Rate > 60.0, Calcium Level 7.9L, Total Bilirubin 2.3H, Direct Bilirubin 1.6H, Aspartate Amino Transf (AST/SGOT) 154H, Alanine Aminotransferase (ALT/SGPT) 61, Alkaline Phosphatase 245H, Ammonia 36H, Total Protein 6.4, Albumin 1.5L, Albumin/Globulin Ratio 0.3, Ethyl Alcohol Level 0.177H 10/25/20 16:40: Coronavirus (COVID-19)(PCR) NEGATIVE, Influenza Type A (RT-PCR) NEGATIVE, Influenza Type B (RT-PCR) NEGATIVE, Respiratory Syncytial Virus (PCR) NEGATIVE CBC/BMP Laboratory Tests 10/25/20 15:51 Home Medications Scheduled Aspirin (Aspirin EC) 81 Mg Tablet.dr, 81 MG PO DAILY Atorvastatin Calcium (Atorvastatin Calcium) 40 Mg Tablet, 40 MG PO DAILY Clopidogrel Bisulfate (Clopidogrel) 75 Mg Tablet, 75 MG PO DAILY Furosemide (Lasix) 20 Mg Tablet, 20 MG PO BID Midodrine HCl (Midodrine HCl) 5 Mg Tablet, 10 MG PO 08,12,16 Omeprazole (Omeprazole) 40 Mg Capsule.dr, 40 MG PO DAILY Pantoprazole Sodium (Pantoprazole Sodium) 40 Mg Tablet.dr, 40 MG PO BID Spironolactone (Spironolactone) 25 Mg Tablet, 12.5 MG PO DAILY Sucralfate (Sucralfate) 1 Gm Tablet, 1 GM PO ACHS Tamsulosin Hcl (Tamsulosin HCl) 0.4 Mg Capsule, 0.4 MG PO DAILY Allergies Coded Allergies: codeine (Verified Allergy, Mild, rash, 10/25/20) METALS (Verified Allergy, Unknown, 10/16/18) A-FIB/CHADSVASC A-FIB History Current/History of A-Fib/PAF?: No EUNICE MAGUIRE MD Oct 25, 2020 19:01
[2020-10-25] MEDS ORDERED: DEXTROSE 50% 50 ML SYRINGE IV PRN (19:10)
[2020-10-25] MEDS ORDERED: GLUCOSE 4GM CHEW TABLET PO PRN (19:10)
[2020-10-25] MEDS ORDERED: GLUCAGON INJ 1MG VIAL SC PRN (19:10)
--- NOTE | 2020-10-25 19:55 | REP ---
INDICATION: HYPERBILIRUBINEMIA. COMPARISON: None. TECHNIQUE: Real-time sonographic evaluation of right upper quadrant performed. FINDINGS: The gallbladder demonstrates no evidence of intraluminal sludge or calculi, wall thickening or pericholecystic fluid. There is no intrahepatic or extrahepatic biliary dilatation, common bile duct measures 5 mm in maximum diameter. Liver demonstrates diffuse increased echotexture compatible with diffuse fibrofatty infiltration. No gross mass is seen. The visualized pancreas is grossly unremarkable, not well seen due to overlying bowel gas and body habitus. The right kidney demonstrates no hydronephrosis, with a normal size of 11.8 cm in length. There is moderate diffuse ascites. IMPRESSION: Diffuse fibrofatty infiltration of the liver with no gross mass. No biliary dilatation. Moderate diffuse ascites. <Electronically signed by Papo Gu > 10/25/201950
[2020-10-25] MEDS: methylPREDNISolone 125MG 2ML VIAL IV SCH (20:00)
[2020-10-25] MEDS: IPRATROPIUM 0.5MG/ALBUTEROL 2.5MG INH SOL UD 3ML (DUONEB) NEB SCH ×2 (20:11→23:46)
[2020-10-25] MEDS: SYMBICORT 80/4.5MCG INHALER 6GM INH SCH (20:11)
[2020-10-25 20:38] LABS: SODIUM,RANDOM URINE < 10 MEQ/L
[2020-10-25] MEDS: HumaLOG INSULIN (NovoLOG) PER UNIT SC SCH (21:00)
[2020-10-25 21:11] LABS: OSMOLALITY URINE 460 MOSM/KG (50-1400)
[2020-10-25 21:12] LABS: OSMOLALITY SERUM 264 MOSM/KG (275-295)
[2020-10-25 21:27] LABS: BLOOD UREA NITROGEN 6 MG/DL (7-18); CALCIUM LEVEL 7.5 MG/DL (8.5-10.1); CARBON DIOXIDE LEVEL 19 MEQ/L (21-32); CHLORIDE LEVEL 86 MEQ/L (98-107); CREATININE FOR GFR 0.43 MG/DL (0.70-1.30); GLOMERULAR FILTRATION RATE > 60.0 (>56); GLUCOSE, FASTING 121 MG/DL (70-100); POTASSIUM SERUM 4.5 MEQ/L (3.5-5.1); SODIUM LEVEL 115 MEQ/L (136-145)
[2020-10-25] MEDS ORDERED: FUROSEMIDE 20MG/2ML VIAL (J1940) IV ONE (22:20)
[2020-10-26] VITALS (18 sets, daily range): BP systolic 80–116; BP diastolic 52–73
[2020-10-26 00:12] LABS: BLOOD UREA NITROGEN 6 MG/DL (7-18); CALCIUM LEVEL 7.3 MG/DL (8.5-10.1); CARBON DIOXIDE LEVEL 15 MEQ/L (21-32); CHLORIDE LEVEL 88 MEQ/L (98-107); CREATININE FOR GFR 0.32 MG/DL (0.70-1.30); GLOMERULAR FILTRATION RATE > 60.0 (>56); GLUCOSE, FASTING 106 MG/DL (70-100); NT-PRO BNP 260 PG/ML (<125); POTASSIUM SERUM 4.9 MEQ/L (3.5-5.1); SODIUM LEVEL 115 MEQ/L (136-145)
[2020-10-26] MEDS: methylPREDNISolone 125MG 2ML VIAL IV SCH ×3 (02:52→21:11)
[2020-10-26] MEDS: IPRATROPIUM 0.5MG/ALBUTEROL 2.5MG INH SOL UD 3ML (DUONEB) NEB SCH ×6 (04:00→23:57)
[2020-10-26 04:01] LABS: HEMOGLOBIN 8.5 g/dl (13.5-17.5); LYMPH # 0.6 10^3/uL (1.5-5.0); LYMPH % 7.3 % (24.0-44.0); MEAN CORPUSCULAR HEMOGLOBIN 39.5 pg (27.0-33.0); MEAN CORPUSCULAR VOLUME 102.3 fl (80.0-96.0); MONO # 0.1 10^3/uL (0.0-0.8); MONO % 1.6 % (2.0-8.0); NEUTROPHILS # 7.1 10^3/uL (1.5-8.5); NEUTROPHILS % 89.3 % (36.0-66.0); PLATELET COUNT, AUTOMATED 190 10^3/uL (150-450); RED BLOOD COUNT 2.15 10^6/uL (4.30-6.10); WHITE BLOOD COUNT 7.9 10^3/uL (4.0-10.0)
[2020-10-26 04:21] LABS: ALBUMIN 1.4 GM/DL (3.2-5.2); ALT/SGPT 53 U/L (12-78); BILIRUBIN,TOTAL 2.1 MG/DL (0.2-1.0); BLOOD UREA NITROGEN 6 MG/DL (7-18); CALCIUM LEVEL 7.4 MG/DL (8.5-10.1); CARBON DIOXIDE LEVEL 18 MEQ/L (21-32); CHLORIDE LEVEL 89 MEQ/L (98-107); CREATININE FOR GFR 0.39 MG/DL (0.70-1.30); GLOMERULAR FILTRATION RATE > 60.0 (>56); GLUCOSE, FASTING 142 MG/DL (70-100); IRON (FE) 79 UG/DL (65-175); MAGNESIUM LEVEL 1.8 MG/DL (1.8-2.4); PERCENT SATURATION 73.1 % (19.7-50.0); SODIUM LEVEL 119 MEQ/L (136-145); TOTAL IRON BINDING CAPACITY 108 UG/DL (250-450); TOTAL PROTEIN 5.9 GM/DL (6.4-8.2)
[2020-10-26 04:25] LABS: MEAN CORPUSCULAR HGB CONC 38.6 g/dl (32.0-36.5)
[2020-10-26] MEDS: OXAZEPAM 10 MG CAP PO SCH ×5 (06:00→23:46)
[2020-10-26] MEDS: HEPARIN SOD (PORCINE) 5000UNITS/ML 1ML VIAL/SYRINGE SC SCH ×3 (07:00→21:12)
[2020-10-26] MEDS: SYMBICORT 80/4.5MCG INHALER 6GM INH SCH ×2 (07:57→20:45)
[2020-10-26] MEDS ORDERED: THIAMINE 100 MG TAB PO SCH (09:00)
[2020-10-26] MEDS ORDERED: MULTIVITAMINS/MINERALS THERAP 1 TAB PO SCH (09:00)
[2020-10-26] MEDS ORDERED: FOLIC ACID 1 MG TAB PO SCH (09:00)
[2020-10-26] MEDS: HumaLOG INSULIN (NovoLOG) PER UNIT SC SCH ×4 (10:00→21:00)
--- NOTE | 2020-10-26 10:47 | IPNPDOC ---
Date Seen The patient was seen on 10/26/20. Progress Note SUBJECTIVE: Patient seen examined at bedside this morning. He is comfortable sitting upright in bed. Blood pressures remain labile most recent 114/70. Patient states that he is not experiencing chest pain palpitations shortness of breath nausea vomiting or diarrhea. He states that he is having hunger pains but otherwise has no abdominal pain. He is due for paracentesis this morning. OBJECTIVE PHYSICAL EXAMINATION: VITAL SIGNS: please see below General: diaphoretic, ill appearing HEENT: PERRLA, EOMI, sclerae clear Neck: supple, normal ROM, no JVD Respiratory: lungs CTAB, no wheeze, slight crackles bilateral lung bases CVS: RRR, normal S1, S2, no murmurs Abdo: Abdomen is grossly distended with fluid shift, nontender to palpation Extremities 1+ edema, pulses 2+ MSK: no joint deformities, normal ROM Neuro: no focal neuro deficits, moving all 4 extremities, CN2-12 intact. Strength 5/5 in all 4 extremities. No nystagmus. Psych: calm, cooperative, AAO x 3 LABORATORY DATA, IMAGING STUDIES, MICROBIOLOGY: Please see below. Liver US (10/25/20): IMPRESSION: Diffuse fibrofatty infiltration of the liver with no gross mass. No biliary dilatation. Moderate diffuse ascites. Echocardiogram: Ordered on 10/26/2020 DVT prophylaxis ordered?: Heparin 5000 subcu every 8 ASSESSMENT AND PLAN: 59-year-old male with a history of depression, hypertension, diabetes type 2, alcohol use disorder, as well as obesity, presented to the ED after he was found by his brother on the floor complaining of right foot and arm pain. Patient states that he drinks heavily and had approximately 8 beers this morning. On arrival he was found to be have difficulty ambulating was very lethargic. BMP showed sodium of 114. Further patient was found to have significant abdominal distention due to ascites as indicated by ultrasound. Patient will be admitted to hospitalist service for further management of acute alcohol withdrawal as well as symptomatic hyponatremia. Dr. Miller has been consulted. Patient will be admitted to PCU. PROBLEMS: Symptomatic hyponatremia -Sodium of 114 on arrival -Pathology consulted. Discussed with Dr. Tiwari - was given NS at 100 cc/hr. Given dose of lasix. -Monitor BMP every 4 hours. -Na improving slowly to 119. IV NS stopped by Dr. Cardoza. -Admit to PCU Acute etoh withdrawal -start serax 20 mg Q6H -CIWA protocol -Folate, thiamine, MVT Ascites -History of extensive alcohol abuse suspect liver cirrhosis -Abdomen is grossly distended nontender -s/p paracentesis on 10/26/20, removed 3350 cc of cloudy yellow ascitic fluid - patient is now on ceftriaxone 1g q24h UTI - nitrite+, pyuria - started ceftriaxone Avulsion of toenail, R foot - ER dressed toe - having discomfort - podiatry consult placed with Dr. Napier Hyperbilirubinemia -Liver US reviewed, fibrofatty infiltration -Bili trending down Hypotension -In setting of hypoalbuminemia and liver cirrhosis with ascites -Ordered albumin 50 g 25% -s/p paracentesis - BP holding above 110 systolic - to give albumin as needed for hypotension Suspected COPD - smokes 3 packs per day - audible wheeze in room -Duonebs -Start Symbicort DM2 -Hold metformin -ISS, accuchecks AC and HS -Hypoglycemic precautions Lower extremity edema -Severe hypoalbuminemia in setting of liver cirrhosis and ascites - BNP 260 -We will likely start patient spironolactone and furosemide once BP stabilized - Was given dose of lasix by nephrology for hyponatremia - obtain 2D echo - obtain bilateral venous duplex Sinus tachycardia -Suspect 2/2 acute etoh withdrawal HTN -Resume home meds: losartan Hx of TIA -Asa, Plavix, statin PAD - asa/Plavix, statin Iron def anemia -Iron, vit C -Needs colonoscopy outpatient Dispo: pending clinical improvement. VS, I&O, 24H, Fishbone Vital Signs/I&O Vital Signs Date Time Temp Pulse Resp B/P (MAP) Pulse Ox O2 Delivery O2 Flow Rate FiO2 10/26/20 07:27 97.9 104 20 109/67 96 Room Air I&O- Last 24 Hours up to 6 AM 10/26/20 06:00 Intake Total 150.0 ml Output Total 2200 ml Balance -2050.0 ml Laboratory Data 24H LABS Laboratory Tests 2 10/25/20 15:51: Immature Granulocyte % (Auto) 2.3, Neutrophils (%) (Auto) 76.4H, Lymphocytes (%) (Auto) 15.0L, Monocytes (%) (Auto) 6.2, Eosinophils (%) (Auto) 0.0, Basophils (%) (Auto) 0.1, Neutrophils # (Auto) 10.8H, Lymphocytes # (Auto) 2.1, Monocytes # (Auto) 0.9H, Eosinophils # (Auto) 0.0, Basophils # (Auto) 0.0, Nucleated Red Blood Cells % (auto) 0.0, Anion Gap 14, Glomerular Filtration Rate > 60.0, Calcium Level 7.9L, Total Bilirubin 2.3H, Direct Bilirubin 1.6H, Aspartate Amino Transf (AST/SGOT) 154H, Alanine Aminotransferase (ALT/SGPT) 61, Alkaline Phosphatase 245H, Ammonia 36H, Total Protein 6.4, Albumin 1.5L, Albumin/Globulin Ratio 0.3, Ethyl Alcohol Level 0.177H 10/25/20 16:40: Coronavirus (COVID-19)(PCR) NEGATIVE, Influenza Type A (RT-PCR) NEGATIVE, Influenza Type B (RT-PCR) NEGATIVE, Respiratory Syncytial Virus (PCR) NEGATIVE 10/25/20 20:04: Anion Gap 10, Glomerular Filtration Rate > 60.0, Calcium Level 7.5L, Urine Color PING, Urine Appearance HAZY, Urine pH 6.0, Urine Specific [place] 1.019, Urine Protein 1+H, Urine Glucose (UA) NEGATIVE, Urine Ketones TRACEH, Urine Blood NEGATIVE, Urine Nitrite POSITIVEH, Urine Bilirubin 1+H, Urine Urobilinogen 4.0H, Urine Leukocyte Esterase TRACEH, Urine WBC (Auto) 1, Urine RBC (Auto) 2, Urine Hyaline Casts (Auto) 3, Urine Bacteria (Auto) 1+H, Urine Squamous Epithelial Cells 1, Urine Mucus (Auto) SMALL, Urine Sperm (Auto) , Urine Osmolality 460, Urine Random Sodium < 10, Osmolality 264L 10/25/20 21:27: Bedside Glucose (Misc Panel) 142H 10/25/20 23:07: Anion Gap 12, Glomerular Filtration Rate > 60.0, Calcium Level 7.3L, MB-Pnd-Z-Type Natriuretic Peptide 260H 10/26/20 03:23: Anion Gap 12, Glomerular Filtration Rate > 60.0, Calcium Level 7.4L, Immature Granulocyte % (Auto) 1.8, Neutrophils (%) (Auto) 89.3H, Lymphocytes (%) (Auto) 7.3L, Monocytes (%) (Auto) 1.6L, Eosinophils (%) (Auto) 0.0, Basophils (%) (Auto) 0.0, Neutrophils # (Auto) 7.1, Lymphocytes # (Auto) 0.6L, Monocytes # (Auto) 0.1, Eosinophils # (Auto) 0.0, Basophils # (Auto) 0.0, Nucleated Red Blood Cells % (auto) 0.0, Magnesium Level 1.8, Iron Level 79, Total Iron Binding Capacity 108L, Transferrin % Saturation 73.1H, Total Bilirubin 2.1H, Aspartate Amino Transf (AST/SGOT) 134H, Alanine Aminotransferase (ALT/SGPT) 53, Alkaline Phosphatase 222H, Total Protein 5.9L, Albumin 1.4L, Albumin/Globulin Ratio 0.3 10/26/20 06:59: Bedside Glucose (Misc Panel) 167H CBC/BMP Laboratory Tests 10/25/20 15:51 10/25/20 20:04 10/25/20 23:07 10/26/20 03:23 Microbiology Microbiology 10/26/20 Blood Culture, Received Pending 10/25/20 Urine Culture, Received Pending EUNICE MAGUIRE MD Oct 26, 2020 10:47
[2020-10-26] MEDS: MULTIVITAMINS/MINERALS THERAP 1 TAB PO SCH (10:57)
[2020-10-26] MEDS: ATORVASTATIN 20 MG TAB PO SCH (10:57)
[2020-10-26] MEDS: TAMSULOSIN 0.4 MG CAP PO SCH (10:58)
[2020-10-26] MEDS: ASPIRIN 81MG ENTERIC TABLET PO SCH (10:58)
[2020-10-26] MEDS: THIAMINE 100 MG TAB PO SCH ×2 (10:58→21:12)
[2020-10-26] MEDS: CLOPIDOGREL 75 MG TAB PO SCH (10:59)
[2020-10-26] MEDS: FOLIC ACID 1 MG TAB PO SCH (10:59)
[2020-10-26] MEDS: cefTRIAXone SOD 1 GM in D5W MINI-BAG PLUS 50 ML IV SCH (11:00)
[2020-10-26 11:04] LABS: APPEARANCE, BODY FLUID HAZY (CLEAR); ASCITES FL COLOR YELLOW (COLORLESS); SOURCE, BODY FLUID ASCITES
[2020-10-26 11:05] LABS: SPEC. GRAVITY BODY FLUIDS 1.009 (NOT ESTABLISHED)
--- NOTE | 2020-10-26 11:09 | CR ---
CONSULTATION DATE: 10/25/2020 REFERRING PHYSICIAN: EUNICE MAGUIRE MD REASON FOR CONSULTATION: Hyponatremia. HISTORY OF PRESENT ILLNESS: Mr. Lomeli is a 59-year-old gentleman with a known history of chronic alcohol use, Type 2 diabetes, hypertension and depression. He presented to the Emergency Room today with tremulousness and was found to have a serum sodium level of 114. Patient was initially reported as intoxicated, however at the time of my visit in the Emergency Room he is awake and talking appropriately. He reports that he drinks 12 to 15 beers everyday. His alcohol level was quite elevated on arrival. He is currently receiving IV normal saline at 100 ml/hr. PAST MEDICAL HISTORY: 1. Type 2 diabetes. 2. History of TIA. 3. Depression. 4. Hyperlipidemia. 5. Gastroesophageal reflux disease. 6. History of chronic alcohol use. 7. History of obesity. 8. Peripheral vascular disease. 9. History of anemia. PAST SURGICAL HISTORY: 1. Colonoscopy. 2. Arterial stents of bilateral lower extremities for peripheral artery disease. PERSONAL AND SOCIAL HISTORY: Heavy alcohol use, chronic, 12 to 18 beers per day, smokes about three packs per day for 40 years. Denies any intravenous drug use. HOME MEDICATIONS: 1. Aspirin 81 mg daily. 2. Atorvastatin 40 mg daily. 3. Plavix 75 mg daily. 4. Omeprazole 40 mg daily. 5. Tamsulosin 0.4 mg daily. ALLERGIES: Codeine. FAMILY HISTORY: Noncontributory. REVIEW OF SYSTEMS: At present, patient is awake and able to answer questions. He drinks heavy chronically for the last 40 years. He also smokes heavily. He denies any fever or chills. He also smokes heavily. Denies any fever or chills. Ears, nose and throat are unremarkable. Head is atraumatic. Cardiovascular system: Significant for hypertension and generalized anasarca. Respiratory system is negative for cough or hemoptysis. GI system is significant for cirrhosis with ascites. No vomiting or diarrhea reported. system is negative for dysuria or hematuria. The nursing staff reports that he was incontinent with a large amount of urine. Musculoskeletal system: Significant for peripheral vascular disease of the lower extremities. He has mycotic nails on his toes. Right ankle has a dressing. Endocrine system is significant for Type 2 diabetes. Hematological system is significant for anemia. Psychosocial system is significant for depression and chronic alcohol use. Neurological system is significant for prior history of TIA. He denies any history of seizures but does get very tremulous. PHYSICAL EXAMINATION: Temperature is 97.6 degrees Fahrenheit, heart rate is 103 per minute and respiratory rate is 18 per minute, blood pressure is 109/73 mmHg, oxygen saturation is 100% on room air. His personal hygiene is poor. Head is atraumatic. Pupils are equal and reactive to light. There is no oral thrush or ulcers. Neck is supple and JVD is difficult to be assessed. He seems to have some neck vein distention. Heart sounds are tachycardic and lungs with bilateral rhonchi and diminished breath sounds at bases. Abdomen is markedly distended with a large amount of ascites and edema of abdominal wall is present. Extremities with no cyanosis or clubbing. He has multiple superficial ulcers on his upper extremities and probably an ulcer on his right ankle where he has a dressing. I did not open the dressing. He has mycotic toenails. There is edema of the lower extremities. Neurologically, he is awake and able to answer simple questions at present. He does not seem to have any focal neurological deficit at present. LABORATORY DATA: On admission sodium was 114, potassium 4.9, chloride 85, CO2 15, BUN 6 and creatinine 0.26. Glucose 127 and calcium 7.9. Total bilirubin 2.3, AST 154 and ALT 61. Alkaline phosphatase 245 and ammonia level 36. Total protein 6.4 and albumin 1.5. WBC count 14.2, hemoglobin 9.1 and hematocrit 24.2. Platelets are 270,000. Toxicology positive for ethyl alcohol level of 0.177. Urine osmolality is 460 and random urine sodium less than 10. Urinalysis showed 1+ protein and positive nitrate. One WBC and two RBCs noted. Abdominal ultrasound showed a moderate amount of ascites. PROBLEMS: 1. Hyponatremia, this is most likely chronic and related to his heavy intake of beer. He does not seem to have any symptoms at present and is awake and talking normal. Will try to correct his hyponatremia slowly. He is receiving IV normal saline and his repeat sodium level has come back just now at 115. I am going to cut down the amount of IV fluid to 60 ml/hr in view of generalized edema and ascites. I will give him a small dose of diuretic with furosemide 20 mg intravenously now and see how he does. His labs will be repeated again in a few hours. 2. Ascites and anasarca. Patient seems to have severe ascites and peripheral edema. His serum albumin is only 1.5, most likely this is related to low albumin and hepatic dysfunction. We will wait and see how he does with small dose of IV Lasix through the night. If he does not respond very well then we will consider IV albumin along with diuretic. 3. Anemia, patient is known to have chronic anemia mostly likely related to chronic heavy alcohol use. He may have had a GI bleed in the past too. He does have skin ulcers and probably has chronic issues with falls and blood loss. We will add iron studies to insure that he has adequate iron stores. Thank you for involving me in the care of Mr. Lomeli. I will follow him along with you.
[2020-10-26 11:40] LABS: SOURCE, BODY FLUID ALBUMIN ASCITES; SOURCE, BODY FLUID GLUCOSE ASCITES; SOURCE, BODY FLUID TOT PROTEIN ASCITES; TOTAL PROTEIN, BODY FLUID 0.7 G/DL (NOT ESTABLISHED)
--- NOTE | 2020-10-26 14:09 | REP ---
INDICATION: ASCITES. COMPARISON: None. TECHNIQUE: The procedure was performed under the direct supervision of Dr. Gu. The procedure was performed by Dr. Yuen under my personal guidance. The risks and benefits of the procedure were explained to the patient and informed consent was obtained. The largest pocket of fluid was localized in the right flank using ultrasound guidance. The skin was prepped and draped in a sterile fashion. 7 mL of 1% lidocaine was used as a local anesthetic. An 8-Macedonian multi side-hole catheter was inserted using trocar technique.3350 mL of clear yellow fluid was withdrawn with a sample sent to the lab for analysis. Estimated blood loss: Less than 1 mL The patient tolerated the procedure well and there were no immediate complications. After the appropriate amount of monitored convalescence, the patient was discharged from the department. FINDINGS: None IMPRESSION: Ultrasound-guided paracentesis [id number] mL of clear yellow fluid. <Electronically signed by Thor Godoy > 10/26/20 1229 <Electronically signed by Papo Gu > 10/26/20 [id number]
--- NOTE | 2020-10-26 14:37 | IPN ---
PROGRESS NOTE DATE: 10/26/2020 SUBJECTIVE: Mr. Lomeli is seen this morning in the ultrasound room. He just had his paracentesis done. Last night we gave him Lasix 20 mg intravenously and had a good response. He made 3.2 liters of urine so far. His sodium level improved to 119 this morning. Patient denies any nausea, or vomiting, fever or chills. Now, he had 3.3 liters of fluid removed with paracentesis. OBJECTIVE: VITAL SIGNS: Temperature is 97 degrees Fahrenheit, heart rate is 105 per minute and respiratory rate is 20 per minute. Blood pressure is 98/64 mmHg and oxygen saturation 94% on room air. HEENT: Head is atraumatic. NECK: Supple. JVD is still mildly elevated. HEART: Heart sounds are somewhat tachycardic now. LUNGS: Diminished breath sounds at bases. ABDOMEN: Soft and much less distended. His liver is hard and easily palpable at least 4 cm below the costal margin. EXTREMITIES: No cyanosis or clubbing. Lower extremity edema is 2+. NEUROLOGIC: He is awake, alert and oriented x3. LABORATORY DATA: Today's labs shows a sodium of 119 this morning at 03:23 a.m., potassium 4.0, CO2 18, BUN 6 and creatinine 0.39. Glucose 142, calcium 7.4. Total protein is 5.9 and albumin only 1.4. WBC count is 7.9, hemoglobin is 8.5 and hematocrit 22.0. PROBLEMS: 1. Hyponatremia. Patient had severe hyponatremia with sodium level of 114 yesterday afternoon. This morning his sodium is up to 119. I am going to stop his IV fluid and recheck his electrolytes at 2 p.m. and 6 p.m. At this point, I am holding off on diuretic use because he just had paracentesis done and 3.3 liters of fluid was removed. His blood pressure is soft. Depending upon his repeat labs I will make a decision about further IV fluids if needed. 2. Cirrhosis with ascites. Patient has severe liver dysfunction with serum albumin level of only 1.4. His bilirubin is also elevated at 2.1. He had 3.3 liters of paracentesis done. 3. Anemia. His anemia is chronic and probably partly nutritional and partly related to possible blood loss. His iron studies are appropriate. At this point, there is no emergent need for a transfusion.
--- NOTE | 2020-10-26 14:37 | CR ---
CONSULTATION DATE: 10/26/2020 REASON FOR CONSULTATION: Nail avulsion and ingrowing nails. HISTORY OF PRESENT ILLNESS: Sharif Lomeli is a 59-year-old gentleman who was admitted due to alcohol withdrawal. He was noted to have a partial avulsion of his right big toenail. He states he stubbed it. The remaining portion of the nail was removed in the ER. The other remaining nails are significantly overgrown and growing into his skin. PAST MEDICAL HISTORY: Significant for diabetes, TIA, GERD, hyperlipidemia, depression, alcohol use disorder, obesity, PVD. PAST SURGICAL HISTORY: Colonoscopy and arterial stents. SOCIAL HISTORY: Positive for alcohol abuse, three pack a day smoker. ALLERGIES: Metals and codeine. FAMILY HISTORY: Noncontributory. REVIEW OF SYSTEMS: Negative for fever. PHYSICAL EXAMINATION: Vitals: He has been afebrile. Lower extremity examination: There are markedly overgrown ingrowing toenails x9. The right hallux toenail has been removed. There is no sign of infection at this site. ASSESSMENT: Patient with markedly overgrown ingrowing nails. TREATMENT: Ingrowing nails are debrided. They are to apply antibiotic and band-aid to the nail removal site until healed.
[2020-10-26 15:14] LABS: BLOOD UREA NITROGEN 8 MG/DL (7-18); CALCIUM LEVEL 8.1 MG/DL (8.5-10.1); CARBON DIOXIDE LEVEL 24 MEQ/L (21-32); CHLORIDE LEVEL 93 MEQ/L (98-107); CREATININE FOR GFR 0.51 MG/DL (0.70-1.30); GLOMERULAR FILTRATION RATE > 60.0 (>56); GLUCOSE, FASTING 120 MG/DL (70-100); POTASSIUM SERUM 3.4 MEQ/L (3.5-5.1); SODIUM LEVEL 126 MEQ/L (136-145)
[2020-10-26] MEDS ORDERED: POTASSIUM CHLORIDE 10MEQ SR TABLET PO ONE (15:50)
[2020-10-26] MEDS ORDERED: KCL 10MEQ/100ML SWI (KRUN) 10 MEQ in IV 1 EA IV ONE (15:50)
[2020-10-26] MEDS: MUPIROCIN 2% OINT 22 GM TUBE TOP SCH (15:52)
[2020-10-26 18:07] LABS: BLOOD UREA NITROGEN 9 MG/DL (7-18); CALCIUM LEVEL 8.3 MG/DL (8.5-10.1); CARBON DIOXIDE LEVEL 22 MEQ/L (21-32); CHLORIDE LEVEL 95 MEQ/L (98-107); CREATININE FOR GFR 0.44 MG/DL (0.70-1.30); GLOMERULAR FILTRATION RATE > 60.0 (>56); GLUCOSE, FASTING 163 MG/DL (70-100); POTASSIUM SERUM 3.7 MEQ/L (3.5-5.1); SODIUM LEVEL 124 MEQ/L (136-145)
--- NOTE | 2020-10-26 18:21 | REP ---
INDICATION: r/o DVT. COMPARISON: None. TECHNIQUE: Multiple ultrasonographic images of the deep venous structures of the bilateral lower extremity were obtained from the inguinal ligament to the ankle. Venous compression techniques, color doppler imaging, and augmentation techniques were also obtained where appropriate. As per the ACR guidelines the anterior tibial vein can not be effectively evaluated. Only compression techniques in the calf on the peroneal and posterior tibial veins was attempted/performed. FINDINGS: There is no abnormal echogenic material seen within any of the visualized deep venous structures that would suggest acute thrombosis. Coaptation is unremarkable throughout. Doppler interrogation shows an expected response to respiratory variability and augmentation in the thigh. Compression techniques in the calf were unobtainable. The color flow images show what appears to be a normal vascular pattern throughout the thigh. IMPRESSION: There is no ultrasonographic evidence of deep venous thrombosis involving any of the visualized deep venous structures of the bilateral lower extremity as described above. Due to technical parameters calf vein DVT can not be ruled out. <Electronically signed by Moises Marcus > 10/26/20 0747
--- NOTE | 2020-10-26 19:02 | ECGEPIP ---
[facility] - ED Test Date: 2020-10-25 Pat Name: ARELY OSWALD Department: Room: - Gender: Male Care Professionals: YESSENIA : 1960 Requested By: Juan C Rothman Order Number: [id number] Reading MD: Tawanna Gomez Measurements Intervals [place] Rate: 102 P: 0 NC: 196 QRS: 80 QRSD: 86 T: 43 QT: 338 QTc: 440 Interpretive Statements Sinus tachycardia with fusion complexes Low voltage QRS Septal infarct , age undetermined NSTTW abnormalities increased rate 02/18/20 Electronically Signed on 10-26-2020 19:01:49 EDT by Tawanna Gomez
[2020-10-26] MEDS ORDERED: MIDODRINE 5 MG TAB PO ONE (20:20)
[2020-10-27] VITALS (17 sets, daily range): BP systolic 89–121; BP diastolic 54–78
[2020-10-27] MEDS: IPRATROPIUM 0.5MG/ALBUTEROL 2.5MG INH SOL UD 3ML (DUONEB) NEB SCH ×5 (04:00→19:50)
[2020-10-27] MEDS: HEPARIN SOD (PORCINE) 5000UNITS/ML 1ML VIAL/SYRINGE SC SCH ×3 (05:43→20:37)
[2020-10-27] MEDS: methylPREDNISolone 125MG 2ML VIAL IV SCH ×3 (05:43→20:36)
[2020-10-27] MEDS: OXAZEPAM 10 MG CAP PO SCH ×3 (05:43→18:09)
[2020-10-27 06:21] LABS: BLOOD UREA NITROGEN 9 MG/DL (7-18); CALCIUM LEVEL 8.1 MG/DL (8.5-10.1); CARBON DIOXIDE LEVEL 22 MEQ/L (21-32); CHLORIDE LEVEL 96 MEQ/L (98-107); CREATININE FOR GFR 0.42 MG/DL (0.70-1.30); GLOMERULAR FILTRATION RATE > 60.0 (>56); GLUCOSE, FASTING 203 MG/DL (70-100); POTASSIUM SERUM 4.1 MEQ/L (3.5-5.1); SODIUM LEVEL 128 MEQ/L (136-145)
[2020-10-27 06:22] LABS: ALT/SGPT 44 U/L (12-78); BILIRUBIN,TOTAL 1.9 MG/DL (0.2-1.0); MAGNESIUM LEVEL 2.1 MG/DL (1.8-2.4); TOTAL PROTEIN 5.7 GM/DL (6.4-8.2)
[2020-10-27 06:28] LABS: BASO % 0.1 % (0.0-1.0); LYMPH % 10.5 % (24.0-44.0); MEAN CORPUSCULAR HEMOGLOBIN 36.3 pg (27.0-33.0); MEAN CORPUSCULAR HGB CONC 35.6 g/dl (32.0-36.5); MEAN CORPUSCULAR VOLUME 102.1 fl (80.0-96.0); MONO # 0.5 10^3/uL (0.0-0.8); MONO % 5.3 % (2.0-8.0); NEUTROPHILS # 7.8 10^3/uL (1.5-8.5); PLATELET COUNT, AUTOMATED 153 10^3/uL (150-450); WHITE BLOOD COUNT 9.6 10^3/uL (4.0-10.0)
[2020-10-27 06:30] LABS: HEMATOCRIT 19.4 % (42.0-52.0); HEMOGLOBIN 6.9 g/dl (13.5-17.5)
[2020-10-27] MEDS: SYMBICORT 80/4.5MCG INHALER 6GM INH SCH ×2 (07:35→19:49)
[2020-10-27] MEDS: CLOPIDOGREL 75 MG TAB PO SCH (09:00)
[2020-10-27 09:05] LABS: INR 1.37; PROTHROMBIN TIME 17.3 SECONDS (12.7-14.5)
[2020-10-27] MEDS: HumaLOG INSULIN (NovoLOG) PER UNIT SC SCH ×4 (09:27→20:37)
[2020-10-27] MEDS: cefTRIAXone SOD 1 GM in D5W MINI-BAG PLUS 50 ML IV SCH (09:27)
[2020-10-27] MEDS: MUPIROCIN 2% OINT 22 GM TUBE TOP SCH (09:28)
[2020-10-27] MEDS: THIAMINE 100 MG TAB PO SCH ×2 (09:29→20:37)
[2020-10-27] MEDS: MULTIVITAMINS/MINERALS THERAP 1 TAB PO SCH (09:29)
[2020-10-27] MEDS: ATORVASTATIN 20 MG TAB PO SCH (09:29)
[2020-10-27] MEDS: FOLIC ACID 1 MG TAB PO SCH (09:29)
[2020-10-27] MEDS: ASPIRIN 81MG ENTERIC TABLET PO SCH (09:29)
[2020-10-27] MEDS: TAMSULOSIN 0.4 MG CAP PO SCH (09:29)
[2020-10-27] MEDS ORDERED: ISOVUE-370 76% 100ML VIAL As Ordered ONE (10:15)
[2020-10-27] MEDS ORDERED: NS 500 ML IV ONE (10:45)
--- NOTE | 2020-10-27 10:58 | IPNPDOC ---
Date Seen The patient was seen on 10/27/20. Progress Note SUBJECTIVE: Patient seen examined the morning patient seen examined at bedside this morning. Overnight blood pressures have been labile most recent 89/57. As well developed acute anemia noted this morning after he sustained paracentesis on 10/26/2020. Hemoglobin dropped from 8.5-6.9. He denies any bleeding per rectum. He states he has not had any hemoptysis. He does report a prior episode hemoptysis approximately 1 year ago. This was performed at an outside hospital which he cannot specify to me. I reviewed prior medical history, he had an EGD on 05/05/[address] Luong. No esophageal varices were noted. OBJECTIVE PHYSICAL EXAMINATION: VITAL SIGNS: please see below General: diaphoretic, ill appearing HEENT: PERRLA, EOMI, sclerae clear Neck: supple, normal ROM, no JVD Respiratory: lungs CTAB, no wheeze, slight crackles bilateral lung bases CVS: RRR, normal S1, S2, no murmurs Abdo: Abdomen is grossly distended with fluid shift, nontender to palpation Extremities 1+ edema, pulses 2+ MSK: no joint deformities, normal ROM Neuro: no focal neuro deficits, moving all 4 extremities, CN2-12 intact. Strength 5/5 in all 4 extremities. No nystagmus. Psych: calm, cooperative, AAO x 3 LABORATORY DATA, IMAGING STUDIES, MICROBIOLOGY: Please see below. Liver US (10/25/20): IMPRESSION: Diffuse fibrofatty infiltration of the liver with no gross mass. No biliary dilatation. Moderate diffuse ascites. Bilateral Venous duplex (10/26/20) There is no ultrasonographic evidence of deep venous thrombosis involving any of the visualized deep venous structures of the bilateral lower extremity as described above. Due to technical parameters calf vein DVT can not be ruled out. Echocardiogram: Ordered on 10/26/2020 DVT prophylaxis ordered?: Heparin 5000 subcu every 8 ASSESSMENT AND PLAN: 59-year-old male with a history of depression, hypertension, diabetes type 2, alcohol use disorder, as well as obesity, presented to the ED after he was found by his brother on the floor complaining of right foot and arm pain. Patient states that he drinks heavily and had approximately 8 beers this morning. On arrival he was found to be have difficulty ambulating was very lethargic. BMP showed sodium of 114. Further patient was found to have significant abdominal distention due to ascites as indicated by ultrasound. Patient will be admitted to hospitalist service for further management of acute alcohol withdrawal as well as symptomatic hyponatremia. Dr. Miller has been consulted. Patient will be admitted to PCU. PROBLEMS: Symptomatic hyponatremia -Sodium of 114 on arrival, now improved to 128 - Nephrology. Discussed with Dr. Tiwari -Admit to PCU Acute etoh withdrawal -start serax 20 mg Q6H -[facility] protocol -Folate, thiamine, MVT Liver cirrhosis with Ascites -History of extensive alcohol abuse suspect liver cirrhosis. Reviewed EGD from 04/[address] Luong. No report of varcies. -Abdomen is grossly distended nontender -s/p paracentesis on 10/26/20, removed 3350 cc of cloudy yellow ascitic fluid - patient is now on ceftriaxone 1g q24h given Child Bejarano Score B and suspected GIB. Acute anemia on iron deficiency anemia - Hgb 8.5, down to 6.9 - 2 units pRBC ordered - underwent a paracentesis on 10/26/20 - no prior hx of esophageal varices - will obtain CTA of chest abdo and pelvis to assess for hematoma - will monitor Hgb closely. UTI - nitrite+, pyuria - started ceftriaxone Avulsion of toenail, R foot - ER dressed toe - having discomfort - podiatry consult placed with Dr. Napier Hyperbilirubinemia -Liver US reviewed, fibrofatty infiltration -Bili trending down Hypotension -In setting of hypoalbuminemia and liver cirrhosis with ascites -Ordered albumin 50 g 25% -s/p paracentesis - bp remains labile. Will admin 500 cc bolus. Suspected COPD - smokes 3 packs per day - audible wheeze in room -Duonebs -Start Symbicort DM2 -Hold metformin -ISS, accuchecks AC and HS -Hypoglycemic precautions Lower extremity edema -Severe hypoalbuminemia in setting of liver cirrhosis and ascites - BNP 260 -We will likely start patient spironolactone and furosemide once BP stabilized - Was given dose of lasix by nephrology for hyponatremia - obtain 2D echo - obtain bilateral venous duplex - negative for DVT. Sinus tachycardia -Suspect 2/2 acute etoh withdrawal HTN -Resume home meds: losartan Hx of TIA -Asa, Plavix, statin - holding ASA and plavix in setting of acute blood loss anemia. PAD - asa/Plavix, statin - holding ASA and plavix due to acute anemia. Iron def anemia -Iron, vit C Dispo: pending clinical improvement. VS, I&O, 24H, Fishbone Vital Signs/I&O Vital Signs Date Time Temp Pulse Resp B/P (MAP) Pulse Ox O2 Delivery O2 Flow Rate FiO2 10/27/20 08:00 97.6 92 20 89/57 (68) 95 Room Air I&O- Last 24 Hours up to 6 AM 10/27/20 06:00 Intake Total 1510.0 ml Output Total 1850 ml Balance -340.0 ml Laboratory Data 24H LABS Laboratory Tests 2 10/26/20 12:51: Bedside Glucose (Misc Panel) 263H 10/26/20 14:33: Anion Gap 9, Glomerular Filtration Rate > 60.0, Calcium Level 8.1L 10/26/20 17:07: Bedside Glucose (Misc Panel) 169H 10/26/20 17:38: Anion Gap 7L, Glomerular Filtration Rate > 60.0, Calcium Level 8.3L 10/26/20 21:11: Bedside Glucose (Misc Panel) 205H 10/27/20 05:17: Immature Granulocyte % (Auto) 2.1, Neutrophils (%) (Auto) 82.0H, Lymphocytes (%) (Auto) 10.5L, Monocytes (%) (Auto) 5.3, Eosinophils (%) (Auto) 0.0, Basophils (%) (Auto) 0.1, Neutrophils # (Auto) 7.8, Lymphocytes # (Auto) 1.0L, Monocytes # (Auto) 0.5, Eosinophils # (Auto) 0.0, Basophils # (Auto) 0.0, Nucleated Red Blood Cells % (auto) 0.4H, Anion Gap 10, Glomerular Filtration Rate > 60.0, Calcium Level 8.1L, Magnesium Level 2.1, Total Bilirubin 1.9H, Aspartate Amino Transf (AST/SGOT) 93H, Alanine Aminotransferase (ALT/SGPT) 44, Alkaline Phosphatase 174H, Total Protein 5.7L, Albumin 2.0#L, Albumin/Globulin Ratio 0.5 10/27/20 08:41: Prothrombin Time 17.3H, Prothromb Time International Ratio 1.37, Ammonia 29 CBC/BMP Laboratory Tests 10/26/20 14:33 10/26/20 17:38 10/27/20 05:17 Microbiology Microbiology 10/26/20 Blood Culture, Received Pending 10/26/20 Acid Fast Stain, Received Pending 10/26/20 Mycobacterial Culture, Received Pending 10/26/20 Fungal Smear, Received Pending 10/26/20 Fungal Culture, Received Pending 10/26/20 Gram Stain - Final, Resulted 10/26/20 Body Fluid Culture, Resulted Pending 10/26/20 Blood Culture - Preliminary, Resulted No growth after 24 hours . All specim... 10/25/20 Urine Culture - Final, Complete EUNICE MAGUIRE MD Oct 27, 2020 10:58
--- NOTE | 2020-10-27 12:22 | REP ---
INDICATION: r/o bleed, varices, PE. COMPARISON: 08/11/2018. TECHNIQUE: CT angiogram chest performed following the intravenous administration of 100 cc of Isovue 370. Sagittal and coronal reconstruction images are performed. The study is limited by motion. FINDINGS: Lungs: Scattered patchy peripheral infiltrate is seen in the right upper lobe. There is very mild peripheral infiltrate anteriorly in the right middle lobe. There are patchy peripheral infiltrates in the left upper lobe. There is minimal infiltrate/atelectasis in the left lower lobe. Mediastinum: No adenopathy. Pulmonary arteries: No evidence of pulmonary embolism. Annika: No adenopathy. Axilla: No adenopathy. Pleura: There is a tiny left effusion. Heart: Not enlarged. Thoracic aorta: No aneurysm or dissection. Visualized osseous structures: There are mild degenerative changes of the spine. IMPRESSION: Scattered patchy infiltrates bilaterally, primarily in the upper lobes. Tiny left effusion. No infiltrate seen. <Electronically signed by Papo Gu > 10/27/20 9722
--- NOTE | 2020-10-27 12:41 | REP ---
INDICATION: r/o bleed, varices, PE COMPARISON: None. TECHNIQUE: CT angiogram of the abdomen and pelvis was performed with intravenous administration of 100 cc of Isovue 370, without oral contrast. 3D MIP reconstruction images performed. The study is limited by motion. FINDINGS: Abdominal aorta: No aneurysm or dissection. Moderate calcific plaque is seen in the distal abdominal aorta and bilateral iliac vessels. The mesenteric arteries are patent without significant stenosis. There appears to be mild to moderate stenosis of the main right renal artery at its origin. Main left renal artery is not definitely stenotic. The main portal vein is upper limits normal in diameter at about 13-14 mm in diameter. No significant varices are visualized. Liver: There is diffuse fatty infiltration of the liver. The liver is enlarged, the length of the liver is approximately 20.8 cm. Gallbladder: Unremarkable. Spleen: Spleen is slightly enlarged measuring 13.2 cm in length, with no intrinsic abnormality. Adrenals: Normal. Pancreas: Normal. Kidneys: Normal. Small and large bowel: There are multiple diverticula of the sigmoid colon. There is questionable thickening of the transverse portion of the duodenum, raising the possibility of duodenitis. Free fluid: There is moderate ascites in the abdomen and pelvis. Adenopathy: None. Appendix: Not inflamed. Pelvis: No mass. Osseous structures: There are degenerative changes of the spine. There is a chronic compression deformity of L1, stable. IMPRESSION: No evidence of abdominal aortic aneurysm or dissection. Moderate atherosclerotic disease as discussed in detail above. No evidence of significant varices. Hepatomegaly with diffuse fatty infiltration of the liver. Mild splenomegaly. Moderate ascites. Questionable thickening of the transverse portion of the duodenum may indicate duodenitis. <Electronically signed by Papo Gu > 10/27/20 [id number]
[2020-10-27 21:22] LABS: HEMATOCRIT 28.2 % (42.0-52.0); MEAN CORPUSCULAR HEMOGLOBIN 36.5 pg (27.0-33.0); MEAN CORPUSCULAR VOLUME 98.9 fl (80.0-96.0); PLATELET COUNT, AUTOMATED 156 10^3/uL (150-450); RED BLOOD COUNT 2.85 10^6/uL (4.30-6.10)
[2020-10-27 21:26] LABS: HEMOGLOBIN 10.4 g/dl (13.5-17.5)
[2020-10-27 21:27] LABS: MEAN CORPUSCULAR HGB CONC 36.9 g/dl (32.0-36.5)
--- NOTE | 2020-10-27 22:39 | IPN ---
"NEPHROLOGY PROGRESS NOTE DATE: 10/27/2020 SUBJECTIVE: Mr. Lomeli is seen this morning at his bedside. He was admitted with altered mentation and had severe hyponatremia with sodium level of 114. He has a known history of chronic heavy alcohol use. He also had massive ascites and generalized edema. Initially he was treated with IV normal saline and sodium level improved and then his normal saline was stopped. He also had a paracentesis done yesterday with 3.3 liters of fluid removed. His sodium level is now improving nicely. OBJECTIVE: | PHYSICAL EXAMINATION: VITAL SIGNS: Temperature is 97.4 degrees Fahrenheit, heart rate 88 per minute and respiratory rate 20 per minute, blood pressure 100/58 mm of mercury and oxygen saturation is 94% on room air. HEENT: His head is atraumatic. NECK: Supple and JVD is still moderately elevated. HEART: Sounds are regular. LUNGS: Diminished breath sounds at the bases. ABDOMEN: Distended with ascites but improved with paracentesis. His liver is enlarged and firm. EXTREMITIES: No cyanosis or clubbing. Lower extremity edema is 2+. NEUROLOGICAL: He is without any focal neurological deficits. LABORATORY STUDIES: Today's labs show a WBC count of 9.6, hemoglobin 6.9 and hematocrit 19.4, platelet count 153. Sodium is up to 128, potassium 4.1, CO2 22, BUN 9 and creatinine is 0.42, glucose 203 and calcium 8.1. Ammonia level is down to 29. Total bilirubin 1.9, AST 92, ALT 44 and alkaline phosphatase 174. Total protein 5.7 and albumin 2.0. PROBLEMS: 1. Hyponatremia - sodium level is improving nicely and appropriately. The patient is not receiving any IV fluids or diuretics at present. His electrolytes should be checked again tomorrow morning. I feel that his hyponatremia is entirely related to excessive intake of beer and cirrhosis of the liver with ascites. He already has generalized hypervolemia. We can use a small dose of diuretics once his sodium level improves. 2. Anemia - The patient most likely has acute blood loss anemia. He is being transfused and CBC should be repeated. 3. Alcoholic cirrhosis with ascites - The patient has significant ascites and anasarca. The patient needs aggressive counseling for alcohol abstinence. He is at risk for further complications and poor outcome."
[2020-10-27 22:45] LABS: ATYPICAL LYMPH 5 % (0-5); LYMPHOCYTES 13 % (16-44); METAMYELOCYTES 2 % (0-0); MONOCYTES 7 % (0-5); NEUTROPHILS 61 % (28-66); PLATELET ESTIMATE NORMAL (NORMAL)
[2020-10-28] VITALS (8 sets, daily range): BP systolic 100–126; BP diastolic 56–69
[2020-10-28] MEDS: OXAZEPAM 10 MG CAP PO SCH ×4 (00:45→21:18)
[2020-10-28] MEDS: IPRATROPIUM 0.5MG/ALBUTEROL 2.5MG INH SOL UD 3ML (DUONEB) NEB SCH ×6 (03:27→20:00)
[2020-10-28] MEDS: HEPARIN SOD (PORCINE) 5000UNITS/ML 1ML VIAL/SYRINGE SC SCH ×3 (05:35→21:17)
[2020-10-28] MEDS: methylPREDNISolone 125MG 2ML VIAL IV SCH ×3 (05:35→21:17)
[2020-10-28 05:51] LABS: ALBUMIN 1.8 GM/DL (3.2-5.2); ALT/SGPT 55 U/L (12-78); BILIRUBIN,TOTAL 2.1 MG/DL (0.2-1.0); BLOOD UREA NITROGEN 10 MG/DL (7-18); CALCIUM LEVEL 8.1 MG/DL (8.5-10.1); CARBON DIOXIDE LEVEL 24 MEQ/L (21-32); CHLORIDE LEVEL 101 MEQ/L (98-107); CREATININE FOR GFR 0.46 MG/DL (0.70-1.30); GLOMERULAR FILTRATION RATE > 60.0 (>56); GLUCOSE, FASTING 201 MG/DL (70-100); POTASSIUM SERUM 3.8 MEQ/L (3.5-5.1); SODIUM LEVEL 132 MEQ/L (136-145); TOTAL PROTEIN 5.7 GM/DL (6.4-8.2)
[2020-10-28 05:59] LABS: HEMATOCRIT 26.7 % (42.0-52.0); HEMOGLOBIN 9.8 g/dl (13.5-17.5); MEAN CORPUSCULAR HEMOGLOBIN 36.6 pg (27.0-33.0); MEAN CORPUSCULAR VOLUME 99.6 fl (80.0-96.0); PLATELET COUNT, AUTOMATED 156 10^3/uL (150-450); RED BLOOD COUNT 2.68 10^6/uL (4.30-6.10)
[2020-10-28 06:04] LABS: MEAN CORPUSCULAR HGB CONC 36.7 g/dl (32.0-36.5)
[2020-10-28 06:32] LABS: ATYPICAL LYMPH 3 % (0-5); EOSINOPHILS 1 % (0-3); LYMPHOCYTES 11 % (16-44); METAMYELOCYTES 1 % (0-0); MONOCYTES 5 % (0-5); MYELOCYTES 1 % (0-0); NEUTROPHILS 76 % (28-66)
[2020-10-28 06:33] LABS: ANISOCYTOSIS 3+; PLATELET ESTIMATE NORMAL (NORMAL); POIKILOCYTOSIS 1+; POLYCHROMASIA 1+
[2020-10-28] MEDS: SYMBICORT 80/4.5MCG INHALER 6GM INH SCH ×2 (07:13→21:00)
[2020-10-28] MEDS: PANTOPRAZOLE 40MG VIAL (C9113 PER 1) IV SCH ×2 (08:52→21:17)
[2020-10-28] MEDS: HumaLOG INSULIN (NovoLOG) PER UNIT SC SCH ×4 (08:52→21:27)
[2020-10-28] MEDS: cefTRIAXone SOD 1 GM in D5W MINI-BAG PLUS 50 ML IV SCH (08:52)
[2020-10-28] MEDS: MUPIROCIN 2% OINT 22 GM TUBE TOP SCH (08:53)
[2020-10-28] MEDS: FOLIC ACID 1 MG TAB PO SCH (08:53)
[2020-10-28] MEDS: ATORVASTATIN 20 MG TAB PO SCH (08:53)
[2020-10-28] MEDS: MULTIVITAMINS/MINERALS THERAP 1 TAB PO SCH (08:53)
[2020-10-28] MEDS: THIAMINE 100 MG TAB PO SCH ×2 (08:53→21:16)
[2020-10-28] MEDS: TAMSULOSIN 0.4 MG CAP PO SCH (08:53)
--- NOTE | 2020-10-28 09:59 | ECHO ---
ECHOCARDIOGRAM DATE OF PROCEDURE: 10/25/2020 Age: Gender: M Height: 165 cm Weight: 82 kg REFERRING PHYSICIAN: Dr. Sebastian Armstrong INDICATION: Localized edema, unspecified MEASUREMENTS: 2D Measurements: Aortic root: 3.3 cm Left atrium: 3.3 cm Interventricular septum: 0.74 cm Posterior wall: 0.82 cm Left ventricle diastole: 4.7 cm Aortic annulus: 2.4 cm Doppler Measurements: No aortic regurgitation No aortic stenosis Aortic valve velocity: 147 cm/s LVOT velocity: 129 cm/s LVOT VTI: 21.7 cm Very mild mitral regurgitation No mitral stenosis Mitral E velocity: 89.3 cm/s Mitral A velocity: 87.4 cm/s Trace tricuspid regurgitation No pulmonic regurgitation Pulmonary artery systolic pressure: 25 mmHg MITRAL ANNULAR TISSUE DOPPLER E prime septal: 8.1 cm/s E prime lateral: 10.1 cm/s DESCRIPTION: Rhythm was sinus tachycardia. This was a moderately technically difficult echocardiogram. No pericardial effusion. CONCLUSIONS: 1. Hyperdynamic left ventricular (LV) systolic function. No regional left ventricular (LV) wall motion abnormalities. Normal left ventricle size and internal dimensions. Left ventricular ejection fraction (LVEF) 70% - 75% by visual estimate. Normal left ventricular (LV) diastolic function. 2. Suggestive of normal pulmonary artery systolic pressure. Normal right ventricle size and systolic function. 3. Inferior vena cava 2.1 cm. Suboptimal visualization of the inferior vena cava (IVC) for determination of respiratory variation and estimation of central venous pressure (CVP). 4. No pericardial effusion. 5. Mild aortic valve sclerosis of a 3-cuspid aortic valve.
[2020-10-28] MEDS ORDERED: BARIUM SULFATE 700 MG TABLET (E-Z-DISK) As Ordered ONE (13:08)
[2020-10-28] MEDS ORDERED: E-Z-PAQUE 96% w/w SUSP 176GM BTL As Ordered ONE (13:09)
[2020-10-28] MEDS ORDERED: VARIBAR PUDDING 40% w/v 230ML TUBE As Ordered ONE (13:09)
[2020-10-28] MEDS ORDERED: VARIBAR NECTAR 40% w/v 240ML SUSP BTL As Ordered ONE (13:09)
--- NOTE | 2020-10-28 14:10 | IPNPDOC ---
Date Seen The patient was seen on 10/28/20. Progress Note SUBJECTIVE: Patient seen examined the morning patient seen examined at bedside this morning. Pressure seems to have improved today. No melena. RN reports a solid bowel movement dark in color. Globin remained stable at about 9.8 from yesterday. Patient has persistent cough has been moved over to a pured diet. Speech therapy recommended cookie swallow. Patient denies chest pain shortness of breath palpitations nausea and diarrhea. Denies any abdominal pain OBJECTIVE PHYSICAL EXAMINATION: VITAL SIGNS: please see below General: diaphoretic, ill appearing HEENT: PERRLA, EOMI, sclerae clear Neck: supple, normal ROM, no JVD Respiratory: lungs CTAB, no wheeze, slight crackles bilateral lung bases CVS: RRR, normal S1, S2, no murmurs Abdo: Abdomen remains distended nontender to palpation. Extremities 1+ edema, pulses 2+ MSK: no joint deformities, normal ROM Neuro: no focal neuro deficits, moving all 4 extremities, CN2-12 intact. Strength 5/5 in all 4 extremities. No nystagmus. Psych: calm, cooperative, AAO x 3 LABORATORY DATA, IMAGING STUDIES, MICROBIOLOGY: Please see below. CT angio abdo pelvis (10/27/20): No evidence of abdominal aortic aneurysm or dissection. Moderate atherosclerotic disease as discussed in detail above. No evidence of significant varices. Hepatomegaly with diffuse fatty infiltration of the liver. Mild splenomegaly. Moderate ascites. Questionable thickening of the transverse portion of the duodenum may indicate duodenitis. CTA chest (10/27/20): Scattered patchy infiltrates bilaterally, primarily in the upper lobes. Tiny left effusion. No infiltrate seen. Liver US (10/25/20): IMPRESSION: Diffuse fibrofatty infiltration of the liver with no gross mass. No biliary dilatation. Moderate diffuse ascites. Bilateral Venous duplex (10/26/20) There is no ultrasonographic evidence of deep venous thrombosis involving any of the visualized deep venous structures of the bilateral lower extremity as described above. Due to technical parameters calf vein DVT can not be ruled out. Echocardiogram: Ordered on 10/26/2020 DVT prophylaxis ordered?: Heparin 5000 subcu every 8hr ASSESSMENT AND PLAN: 59-year-old male with a history of depression, hypertension, diabetes type 2, alcohol use disorder, as well as obesity, presented to the ED after he was found by his brother on the floor complaining of right foot and arm pain. Patient states that he drinks heavily and had approximately 8 beers this morning. On arrival he was found to be have difficulty ambulating was very lethargic. BMP showed sodium of 114. Further patient was found to have significant abdominal distention due to ascites as indicated by ultrasound. Patient will be admitted to hospitalist service for further management of acute alcohol withdrawal as well as symptomatic hyponatremia. Dr. Miller has been consulted. Patient will be admitted to PCU. PROBLEMS: Symptomatic hyponatremia -Sodium of 114 on arrival, improved to 132 -Patient is not receiving any IV fluids or diuretics. - Nephrology. Discussed with Dr. Tiwari -Trend BMP. Acute etoh withdrawal -Reduce Serax to 20 mg every 8 hours -[facility] protocol -Folate, thiamine, MVT Liver cirrhosis with Ascites -History of extensive alcohol abuse suspect liver cirrhosis. Reviewed EGD from 04/[address] Luong. No report of varcies. -Abdomen is grossly distended nontender -s/p paracentesis on 10/26/20, removed 3350 cc of cloudy yellow ascitic fluid - patient is now on ceftriaxone 1g q24h given Child Bejarano Score B and suspected GIB. - CTA abdo pelvis showing no significant varices, no hematoma or blood into peritoneum Acute anemia on iron deficiency anemia - Hgb 8.5, down to 6.9 - 2 units pRBC ordered - underwent a paracentesis on 10/26/20 - no prior hx of esophageal varices - will obtain CTA of chest abdo and pelvis to assess for hematoma - will monitor Hgb closely. - CTA abdo pelvis showing no significant varices, no hematoma or blood into peritoneum - fecal occult blood positive. - surgical consultation requested, d/w Dr. Bledsoe. UTI - nitrite+, pyuria - started ceftriaxone Avulsion of toenail, R foot - ER dressed toe - having discomfort - podiatry consult placed with Dr. Napier Hyperbilirubinemia -Liver US reviewed, fibrofatty infiltration -Bili trending down Dysphagia - ST following - pureed diet - cookie swallow today Hypotension -In setting of hypoalbuminemia and liver cirrhosis with ascites -s/p 5 units albumin 25% -s/p paracentesis, 3500 cc removed on 10/26/20 - BP has improved. Suspected COPD - smokes 3 packs per day - audible wheeze in room -Duonebs -Start Symbicort DM2 -Hold metformin -ISS, accuchecks AC and HS -Hypoglycemic precautions Lower extremity edema -Severe hypoalbuminemia in setting of liver cirrhosis and ascites - BNP 260 -We will likely start patient spironolactone and furosemide once BP stabilized - Was given dose of lasix by nephrology for hyponatremia - obtain 2D echo - LVEF 70-75%. Mild AV sclerosis. Normal pulmonary artery pressures - obtain bilateral venous duplex - negative for DVT. - will provide diuresis once sodium improves. Sinus tachycardia - resolved. -Suspect 2/2 acute etoh withdrawal HTN -Resume home meds: holding losartan, labile BPs. Hx of TIA -Asa, Plavix, statin - holding ASA and plavix in setting of acute blood loss anemia. PAD - asa/Plavix, statin - holding ASA and plavix due to acute anemia. Iron def anemia -Iron, vit C Dispo: pending clinical improvement. VS, I&O, 24H, Fishbone Vital Signs/I&O Vital Signs Date Time Temp Pulse Resp B/P (MAP) Pulse Ox O2 Delivery O2 Flow Rate FiO2 10/28/20 07:57 98.4 86 18 104/67 (79) 95 Room Air I&O- Last 24 Hours up to 6 AM 10/28/20 06:00 Intake Total 850 ml Output Total 400 ml Balance 450 ml Laboratory Data 24H LABS Laboratory Tests 2 10/27/20 17:28: Bedside Glucose (Misc Panel) 219H 10/27/20 20:13: Bedside Glucose (Misc Panel) 153H 10/27/20 20:46: Immature Granulocyte % (Auto) , Neutrophils (%) (Auto) , Nucleated Red Blood Cells % (auto) 0.7H, Neutrophils 61, Band Neutrophils 12H, Lymphocytes (Manual) 13L, Monocytes (Manual) 7H, Metamyelocytes 2H, Atypical Lymphocytes 5, Platelet Estimate NORMAL 10/28/20 05:08: Immature Granulocyte % (Auto) , Neutrophils (%) (Auto) , Nucleated Red Blood Cells % (auto) 0.8H, Neutrophils 76H, Band Neutrophils 2, Lymphocytes (Manual) 11L, Monocytes (Manual) 5, Metamyelocytes 1H, Atypical Lymphocytes 3, Platelet Estimate NORMAL, Eosinophils (Manual) 1, Myelocytes 1H, Polychromasia 1+, Poikilocytosis 1+, Anisocytosis 3+, Macrocytosis 1+, Anion Gap 7L, Glomerular Filtration Rate > 60.0, Calcium Level 8.1L, Magnesium Level 2.0, Total Bilirubin 2.1H, Aspartate Amino Transf (AST/SGOT) 98H, Alanine Aminotransferase (ALT/SGPT) 55, Alkaline Phosphatase 193H, Total Protein 5.7L, Albumin 1.8L, Albumin/Gl obulin Ratio 0.5 10/28/20 12:11: Bedside Glucose (Misc Panel) 264H CBC/BMP Laboratory Tests 10/27/20 20:46 10/28/20 05:08 Microbiology Microbiology 10/27/20 Stool Occult Blood (ANDREW) - Final, Complete 10/26/20 Blood Culture - Preliminary, Resulted No Growth after 48 hours. All Specime... 10/26/20 Acid Fast Stain, Received Pending 10/26/20 Mycobacterial Culture, Received Pending 10/26/20 Fungal Smear, Received Pending 10/26/20 Fungal Culture, Received Pending 10/26/20 Gram Stain - Final, Complete 10/26/20 Body Fluid Culture - Final, Complete 10/26/20 Blood Culture - Preliminary, Resulted No Growth after 48 hours. All Specime... 10/25/20 Urine Culture - Final, Complete EUNICE MAGUIRE MD Oct 28, 2020 14:10
--- NOTE | 2020-10-28 17:00 | REP ---
INDICATION: dysphagia. COMPARISON: None. TECHNIQUE: The procedure was performed by Aide Gibbons [facility], under the direct supervision of Dr. Gu. The procedure was performed with Sonya Robertson from speech pathology present. 5 ml aliquots of thin, pudding, mixed fruit, nectar thick, honey thick soft food, hard food and pill consistency barium was administered. FINDINGS: Flash penetration was visualized with thin consistency barium, and aspiration was visualized with mixed consistency barium. The detailed report of this examination will be provided by speech pathology. IMPRESSION: Aspiration and penetration as described as above, a detailed report will be provided by speech pathology. 3.6 minutes of fluoroscopy time was utilized for this procedure. Some fluoroscopic images are performed with last image hold technology. These images require no additional radiation <Electronically signed by Aide Gibbons > 10/28/20 1537 <Electronically signed by Papo Gu > 10/28/20 [id number]
[2020-10-28] MEDS: SUCRALFATE 1 GM TAB PO SCH ×2 (17:03→21:16)
--- NOTE | 2020-10-28 23:07 | IPN ---
NEPHROLOGY PROGRESS NOTE DATE: 10/28/2020 SUBJECTIVE: Mr. Lomeli is seen this morning at his bedside. He was initially seen for hyponatremia which was related to heavy alcohol use, cirrhosis of the liver with ascites. Gradually his hyponatremia has improved and sodium level is up to 132 today. He still has peripheral edema and ascites despite paracentesis a couple of days ago. In the meantime, the patient is currently resting and not in any acute distress. OBJECTIVE: PHYSICAL EXAMINATION: VITAL SIGNS: Temperature 98.4 degrees Fahrenheit, heart rate 86 per minute, respiratory rate 18 per morning, blood pressure 104/67 mm of mercury and oxygen saturation is 94% on room air. HEENT: His head is atraumatic. NECK: Supple and JVD difficult to be assessed. HEART: Sounds are regular. LUNGS: Clear to auscultation. ABDOMEN: Distended with mild to moderate ascites and bowel sounds are present. EXTREMITIES: Without any cyanosis or clubbing. Lower extremity edema is still 2+. LABORATORY STUDIES: Today's lab show sodium of 132, potassium 3.8, BUN 10 and creatinine 0.46. Calcium level is 8.6 and magnesium 2.0. Hemoglobin is 9.8 today and hematocrit 26.7 after transfusion. PROBLEMS: 1. Hyponatremia - sodium level has improved nicely up to almost normal. At present the patient is without any IV fluids or diuretics. He still has significant ascites and peripheral edema. At home he was drinking 12 to 15 beers a day which he is not drinking now so just with fluid restriction, his sodium level is improving nicely. At the present no other intervention is needed. 2. Blood loss anemia - The patient had hemoglobin down to 6.9 yesterday which has improved following 2 units of packed RBCs transfusion. 3. Cirrhosis of the liver due to alcohol use and frequent ascites - The patient had his paracentesis done a couple of days ago and since then he is doing well. The patient would benefit from counseling for abstinence from alcohol.
[2020-10-29] VITALS (9 sets, daily range): BP systolic 103–121; BP diastolic 55–76
[2020-10-29] MEDS: IPRATROPIUM 0.5MG/ALBUTEROL 2.5MG INH SOL UD 3ML (DUONEB) NEB SCH ×6 (04:00→19:34)
[2020-10-29] MEDS: methylPREDNISolone 125MG 2ML VIAL IV SCH ×3 (05:35→20:33)
[2020-10-29] MEDS: OXAZEPAM 10 MG CAP PO SCH ×3 (05:36→22:02)
[2020-10-29] MEDS: HEPARIN SOD (PORCINE) 5000UNITS/ML 1ML VIAL/SYRINGE SC SCH ×3 (05:37→22:02)
[2020-10-29 06:25] LABS: HEMATOCRIT 29.6 % (42.0-52.0); HEMOGLOBIN 10.3 g/dl (13.5-17.5); MEAN CORPUSCULAR HEMOGLOBIN 34.8 pg (27.0-33.0); MEAN CORPUSCULAR HGB CONC 34.8 g/dl (32.0-36.5); PLATELET COUNT, AUTOMATED 160 10^3/uL (150-450); RED BLOOD COUNT 2.96 10^6/uL (4.30-6.10); WHITE BLOOD COUNT 13.5 10^3/uL (4.0-10.0)
[2020-10-29 06:36] LABS: ALBUMIN 1.8 GM/DL (3.2-5.2); ALT/SGPT 74 U/L (12-78); BILIRUBIN,TOTAL 1.7 MG/DL (0.2-1.0); BLOOD UREA NITROGEN 9 MG/DL (7-18); CALCIUM LEVEL 8.2 MG/DL (8.5-10.1); CARBON DIOXIDE LEVEL 24 MEQ/L (21-32); CHLORIDE LEVEL 101 MEQ/L (98-107); CREATININE FOR GFR 0.54 MG/DL (0.70-1.30); GLOMERULAR FILTRATION RATE > 60.0 (>56); GLUCOSE, FASTING 251 MG/DL (70-100); POTASSIUM SERUM 3.8 MEQ/L (3.5-5.1); SODIUM LEVEL 133 MEQ/L (136-145); TOTAL PROTEIN 5.8 GM/DL (6.4-8.2)
[2020-10-29 06:56] LABS: LYMPHOCYTES 7 % (16-44); METAMYELOCYTES 1 % (0-0); MONOCYTES 5 % (0-5); MYELOCYTES 3 % (0-0); NEUTROPHILS 79 % (28-66)
[2020-10-29 06:58] LABS: PLATELET ESTIMATE NORMAL (NORMAL); POLYCHROMASIA 1+
[2020-10-29] MEDS: SYMBICORT 80/4.5MCG INHALER 6GM INH SCH ×2 (07:19→19:34)
[2020-10-29] MEDS: ATORVASTATIN 20 MG TAB PO SCH (08:00)
[2020-10-29] MEDS: MULTIVITAMINS/MINERALS THERAP 1 TAB PO SCH (08:29)
[2020-10-29] MEDS: SUCRALFATE 1 GM TAB PO SCH ×4 (08:29→20:33)
[2020-10-29] MEDS: FOLIC ACID 1 MG TAB PO SCH (08:30)
[2020-10-29] MEDS: PANTOPRAZOLE 40MG VIAL (C9113 PER 1) IV SCH ×2 (08:30→20:33)
[2020-10-29] MEDS: HumaLOG INSULIN (NovoLOG) PER UNIT SC SCH ×4 (08:31→20:42)
[2020-10-29] MEDS: cefTRIAXone SOD 1 GM in D5W MINI-BAG PLUS 50 ML IV SCH (08:32)
[2020-10-29] MEDS: MUPIROCIN 2% OINT 22 GM TUBE TOP SCH (08:33)
[2020-10-29] MEDS: TAMSULOSIN 0.4 MG CAP PO SCH (08:33)
--- NOTE | 2020-10-29 10:13 | CR ---
CONSULTATION DATE: 10/29/2020 HISTORY OF PRESENT ILLNESS: The patient is a 59-year-old alcoholic who was admitted to the hospital for hyponatremia and other medical issues, who presents now because of anemia appreciated on blood workup. He has had a paracentesis and this was performed on 10/26 and essentially revealed 3 liters of clear fluid. After the fluid was drawn the next day his hematocrit dropped substantially. He has re-accumulated his ascites. Looking back on his blood pressures they have been consistently low and thus we did not really see a significant drop but definitely a trend to being lower the day after his paracentesis. In any case, I was asked to see him concerning Hemoccult positive stool and anemia. MEDICAL HISTORY: Significant for history of alcohol abuse; history of cirrhosis; history of diabetes mellitus; hypertension; depression; gastroesophageal reflux disease; history of obesity; peripheral vascular disease; history of anemia; history of peripheral artery stents. MEDICATIONS: 1. Aspirin. 2. Atorvastatin. 3. Plavix. 4. Omeprazole. 5. Flomax. PHYSICAL EXAMINATION: GENERAL: Disheveled 59-year-old male who looks much older than stated age. HEENT: Tobacco staining on his richter, somewhat confused about history and is poor historian. LUNGS: Clear anteriorly with few rhonchi. HEART: Regular. ABDOMEN: Tensely distended with ascites with fluid wave with umbilical hernia that is reducible. Nontender abdomen. EXTREMITIES: He has numerous ecchymosis along his extremities. IMAGING: His CT scan a few days ago revealed some thickening in the transverse duodenum. Other workup can be gleamed from his medical record. IMPRESSION/PLAN: Most likely the patient has had either a post-paracentesis bleed given his probable diagnosis of portal hypertension and uncontrolled ascites; second etiology obviously can be an upper GI bleeding with thickening in the transverse duodenum most consistent with some duodenitis. In any case, aggressive treatment for the duodenitis would be adding Carafate, will add the Carafate but otherwise continue with his proton pump inhibitor. Obviously the patient needs a dietary internship involved with his care and from surgical standpoint no further intervention is necessary. The patient really has not appreciated any black stools and I anticipate even though he has had some minimal Hemoccult positive without any significant blood within the stools, this is a red daily and most likely the etiology of his anemia. In any case, supportive care is warranted at this time. Otherwise, no surgical intervention is necessary and more importantly do feel that this might be a little difficult to reach given that it is in the transverse portion of duodenum and sometimes we are not able to reach that area with simple upper endoscopy.
--- NOTE | 2020-10-29 12:16 | IPNPDOC ---
Date Seen The patient was seen on 10/29/20. Progress Note SUBJECTIVE: Patient seen examined the morning patient seen examined at bedside this morning. BP remains stable at 110/65. Had small dark BM. Hgb stable > 10. Cookie swallow shows aspiration. Will c/w pureed diet. ST following. Denies CP, palpitations, n/v/d. OBJECTIVE PHYSICAL EXAMINATION: VITAL SIGNS: please see below General: diaphoretic, ill appearing HEENT: PERRLA, EOMI, sclerae clear Neck: supple, normal ROM, no JVD Respiratory: lungs CTAB, no wheeze, slight crackles bilateral lung bases CVS: RRR, normal S1, S2, no murmurs Abdo: Abdomen remains distended nontender to palpation. Extremities 1+ edema, pulses 2+ MSK: no joint deformities, normal ROM Neuro: no focal neuro deficits, moving all 4 extremities, CN2-12 intact. Strength 5/5 in all 4 extremities. No nystagmus. Psych: calm, cooperative, AAO x 3 LABORATORY DATA, IMAGING STUDIES, MICROBIOLOGY: Please see below. CT angio abdo pelvis (10/27/20): No evidence of abdominal aortic aneurysm or dissection. Moderate atherosclerotic disease as discussed in detail above. No evidence of significant varices. Hepatomegaly with diffuse fatty infiltration of the liver. Mild splenomegaly. Moderate ascites. Questionable thickening of the transverse portion of the duodenum may indicate duodenitis. CTA chest (10/27/20): Scattered patchy infiltrates bilaterally, primarily in the upper lobes. Tiny left effusion. No infiltrate seen. Liver US (10/25/20): IMPRESSION: Diffuse fibrofatty infiltration of the liver with no gross mass. No biliary dilatation. Moderate diffuse ascites. Bilateral Venous duplex (10/26/20) There is no ultrasonographic evidence of deep venous thrombosis involving any of the visualized deep venous structures of the bilateral lower extremity as described above. Due to technical parameters calf vein DVT can not be ruled out. Echocardiogram: Ordered on 10/26/2020 DVT prophylaxis ordered?: Heparin 5000 subcu every 8hr ASSESSMENT AND PLAN: 59-year-old male with a history of depression, hy pertension, diabetes type 2, alcohol use disorder, as well as obesity, presented to the ED after he was found by his brother on the floor complaining of right foot and arm pain. Patient states that he drinks heavily and had approximately 8 beers this morning. On arrival he was found to be have difficulty ambulating was very lethargic. BMP showed sodium of 114. Further patient was found to have significant abdominal distention due to ascites as indicated by ultrasound. Patient will be admitted to hospitalist service for further management of acute alcohol withdrawal as well as symptomatic hyponatremia. Dr. Miller has been consulted. Patient will be admitted to PCU. PROBLEMS: Symptomatic hyponatremia -Sodium of 114 on arrival, improved to 132 -Patient is not receiving any IV fluids or diuretics. - Nephrology. Discussed with Dr. Tiwari -Trend BMP. Acute etoh withdrawal -Reduce Serax to 20 mg every 8 hours -[facility] protocol -Folate, thiamine, MVT Liver cirrhosis with Ascites -History of extensive alcohol abuse suspect liver cirrhosis. Reviewed EGD from 04/[address] Lunog. No report of varcies. -Abdomen is grossly distended nontender -s/p paracentesis on 10/26/20, removed 3350 cc of cloudy yellow ascitic fluid - patient is now on ceftriaxone 1g q24h given Child Bejarano Score B and suspected GIB. - CTA abdo pelvis showing no significant varices, no hematoma or blood into dagmar toneum Acute anemia on iron deficiency anemia - Hgb 8.5, down to 6.9. - 2 units pRBC transfused. Hgb remains stable. - underwent a paracentesis on 10/26/20 - no prior hx of esophageal varices - CTA abdo pelvis showing no significant varices, no hematoma or blood into peritoneum - fecal occult blood positive. - surgical consultation requested, d/w Dr. Bledsoe. Likely patient's anemia 2/2 post paracentesis bleed or upper Gi bleeding from thickening in transverse duodenum c/w duodenitis. Added carafate. No surgical intervention at this time. Will need GI referral. Leukocytosis - WBC 13.5, trending up - check ESR, CRP, procal - possibly 2/2 UTI vs SBP vs pneumonia given CT findings - check CXR UTI - nitrite+, pyuria - started ceftriaxone Avulsion of toenail, R foot - ER dressed toe - having discomfort - podiatry consult placed with Dr. Napier Hyperbilirubinemia -Liver US reviewed, fibrofatty infiltration -Bili trending down Dysphagia - ST following - pureed diet - cookie swallow today Hypotension - In setting of hypoalbuminemia and liver cirrhosis with ascites - s/p 5 units albumin 25% - s/p paracentesis, 3500 cc removed on 10/26/20 - BP has improved. Suspected COPD - smokes 3 packs per day - audible wheeze in room -Duonebs -Start Symbicort DM2 -Hold metformin -ISS, accuchecks AC and HS -Hypoglycemic precautions Lower extremity edema -Severe hypoalbuminemia in setting of liver cirrhosis and ascites - BNP 260 -We will likely start patient spironolactone and furosemide once BP stabilized - Was given dose of lasix by nephrology for hyponatremia - obtain 2D echo - LVEF 70-75%. Mild AV sclerosis. Normal pulmonary artery pressures - obtain bilateral venous duplex - negative for DVT. - will provide diuresis once sodium improves. Sinus tachycardia - resolved. -Suspect 2/2 acute etoh withdrawal HTN -Resume home meds: holding losartan, labile BPs. Hx of TIA -Asa, Plavix, statin - resume asa and plavix PAD - asa/Plavix, statin - resume asa and plavix Iron def anemia -Iron, vit C Dispo: pending clinical improvement. VS, I&O, 24H, Fishbone Vital Signs/I&O Vital Signs Date Time Temp Pulse Resp B/P (MAP) Pulse Ox O2 Delivery O2 Flow Rate FiO2 10/29/20 11:45 97.7 100 18 109/65 (80) 96 Room Air I&O- Last 24 Hours up to 6 AM 10/29/20 06:00 Intake Total 420 ml Output Total 350 ml Balance 70 ml Laboratory Data 24H LABS Laboratory Tests 2 10/28/20 12:11: Bedside Glucose (Misc Panel) 264H 10/28/20 16:58: Bedside Glucose (Misc Panel) 238H 10/28/20 21:10: Bedside Glucose (Misc Panel) 268H 10/29/20 06:00: Immature Granulocyte % (Auto) , Neutrophils (%) (Auto) , Nucleated Red Blood Cells % (auto) 0.7H, Neutrophils 79H, Band Neutrophils 5, Lymphocytes (Manual) 7L, Monocytes (Manual) 5, Metamyelocytes 1H, Myelocytes 3H, Polychromasia 1+, Macrocytosis 1+, Platelet Estimate NORMAL, Anion Gap 8, Glomerular Filtration Rate > 60.0, Calcium Level 8.2L, Magnesium Level 2.0, Total Bilirubin 1.7H, Aspartate Amino Transf (AST/SGOT) 100H, Alanine Aminotransferase (ALT/SGPT) 74, Alkaline Phosphatase 201H, Total Protein 5.8L, Albumin 1.8L, Albumin/Globulin Ratio 0.5 10/29/20 11:39: Bedside Glucose (Misc Panel) 224H CBC/BMP Laboratory Tests 10/29/20 06:00 Microbiology Microbiology 10/27/20 Stool Occult Blood (ANDREW) - Final, Complete 10/26/20 Blood Culture - Preliminary, Resulted No Growth after 72 hours. All specime... 10/26/20 Acid Fast Stain, Received Pending 10/26/20 Mycobacterial Culture, Received Pending 10/26/20 Fungal Smear, Received Pending 10/26/20 Fungal Culture, Received Pending 10/26/20 Gram Stain - Final, Complete 10/26/20 Body Fluid Culture - Final, Complete 10/26/20 Blood Culture - Preliminary, Resulted No Growth after 72 hours. All specime... 10/25/20 Urine Culture - Final, Complete EUNICE MAGUIRE MD Oct 29, 2020 12:15
--- NOTE | 2020-10-29 12:32 | REP ---
INDICATION: infiltrate?. COMPARISON: 02/18/2020 the latest prior TECHNIQUE: Portable FINDINGS: The technique utilized in obtaining the radiograph has magnified the cardiac silhouette and accentuated the interstitial markings. The cardiomediastinal silhouette lung moct[place]uma are unchanged. No acute patchy parenchymal opacities or pleural effusions have developed. The osseous structures are stable and intact. IMPRESSION: No acute disease or significant change compared to the prior exam. <Electronically signed by Moises Marcus > 10/29/20 [id number]
[2020-10-29 12:52] LABS: C REACTIVE PROTEIN QUANTITATIV 0.77 MG/DL (0.00-0.30)
[2020-10-29] MEDS: CLOPIDOGREL 75 MG TAB PO SCH (12:54)
[2020-10-29] MEDS: ASPIRIN 81MG ENTERIC TABLET PO SCH (12:54)
[2020-10-29 13:14] LABS: ERYTHROCYTE SEDIMENTATION RATE 43 mm/hr (0-20)
[2020-10-29] MEDS: NYSTATIN 100,000 UNITS/GM TOPICAL PWD 15 GM TOP SCH ×2 (14:24→20:41)
--- NOTE | 2020-10-29 20:02 | IPN ---
NEPHROLOGY PROGRESS NOTE DATE: 10/29/2020 SUBJECTIVE: Mr. Lomeli was initially seen by nephrology due to hyponatremia when he presented with sodium level of 114. Since his admission, his sodium level has improved nicely up to 133 this morning. His kidney function has remained stable. His chronic issues, including cirrhosis of liver with recurrent ascites and peripheral edema are essentially unchanged. At present, I am not contributing much to his care and I am signing off of his case. Please do not hesitate to call me back should you need any further assistance from nephrology.
[2020-10-29] MEDS: ACETAMINOPHEN TAB 650MG DOSE (2X325MG) PO PRN (22:06)
[2020-10-30] MEDS: OXAZEPAM 10 MG CAP PO SCH ×3 (05:42→23:06)
[2020-10-30] MEDS: methylPREDNISolone 125MG 2ML VIAL IV SCH (05:42)
[2020-10-30] MEDS: HEPARIN SOD (PORCINE) 5000UNITS/ML 1ML VIAL/SYRINGE SC SCH ×3 (05:43→23:06)
[2020-10-30 06:00] VITALS: BP 144/85
[2020-10-30 06:13] LABS: HEMATOCRIT 32.3 % (42.0-52.0); HEMOGLOBIN 11.1 g/dl (13.5-17.5); MEAN CORPUSCULAR HEMOGLOBIN 34.3 pg (27.0-33.0); MEAN CORPUSCULAR HGB CONC 34.4 g/dl (32.0-36.5); MEAN CORPUSCULAR VOLUME 99.7 fl (80.0-96.0); PLATELET COUNT, AUTOMATED 164 10^3/uL (150-450); RED BLOOD COUNT 3.24 10^6/uL (4.30-6.10)
[2020-10-30 06:22] LABS: ALBUMIN 1.8 GM/DL (3.2-5.2); ALT/SGPT 104 U/L (12-78); BILIRUBIN,TOTAL 1.8 MG/DL (0.2-1.0); BLOOD UREA NITROGEN 10 MG/DL (7-18); CALCIUM LEVEL 8.3 MG/DL (8.5-10.1); CARBON DIOXIDE LEVEL 29 MEQ/L (21-32); CHLORIDE LEVEL 100 MEQ/L (98-107); GLOMERULAR FILTRATION RATE > 60.0 (>56); GLUCOSE, FASTING 189 MG/DL (70-100); MAGNESIUM LEVEL 2.1 MG/DL (1.8-2.4); POTASSIUM SERUM 4.4 MEQ/L (3.5-5.1); SODIUM LEVEL 134 MEQ/L (136-145); TOTAL PROTEIN 5.6 GM/DL (6.4-8.2)
[2020-10-30 06:52] LABS: LYMPHOCYTES 6 % (16-44); METAMYELOCYTES 2 % (0-0); MONOCYTES 7 % (0-5); NEUTROPHILS 82 % (28-66)
[2020-10-30 06:54] LABS: ANISOCYTOSIS 2+; POLYCHROMASIA 1+
[2020-10-30 06:55] LABS: PLATELET ESTIMATE NORMAL (NORMAL)
[2020-10-30] MEDS: SYMBICORT 80/4.5MCG INHALER 6GM INH SCH ×2 (07:44→20:44)
[2020-10-30] MEDS: IPRATROPIUM 0.5MG/ALBUTEROL 2.5MG INH SOL UD 3ML (DUONEB) NEB SCH ×6 (07:44→23:50)
[2020-10-30] MEDS: MULTIVITAMINS/MINERALS THERAP 1 TAB PO SCH (09:12)
[2020-10-30] MEDS: CLOPIDOGREL 75 MG TAB PO SCH (09:13)
[2020-10-30] MEDS: predniSONE 20 MG TAB PO SCH (09:13)
[2020-10-30] MEDS: TAMSULOSIN 0.4 MG CAP PO SCH (09:13)
[2020-10-30] MEDS: ATORVASTATIN 20 MG TAB PO SCH (09:13)
[2020-10-30] MEDS: SUCRALFATE 1 GM TAB PO SCH ×4 (09:13→23:06)
[2020-10-30] MEDS: ASPIRIN 81MG ENTERIC TABLET PO SCH (09:13)
[2020-10-30] MEDS: NYSTATIN 100,000 UNITS/GM TOPICAL PWD 15 GM TOP SCH ×2 (09:13→23:06)
[2020-10-30] MEDS: FOLIC ACID 1 MG TAB PO SCH (09:13)
[2020-10-30] MEDS: cefTRIAXone SOD 1 GM in D5W MINI-BAG PLUS 50 ML IV SCH (09:14)
[2020-10-30] MEDS: PANTOPRAZOLE 40MG VIAL (C9113 PER 1) IV SCH ×2 (09:14→23:06)
[2020-10-30] MEDS: MUPIROCIN 2% OINT 22 GM TUBE TOP SCH (09:14)
[2020-10-30] MEDS: HumaLOG INSULIN (NovoLOG) PER UNIT SC SCH ×4 (09:15→21:00)
[2020-10-30 14:34] VITALS: BP 131/89
--- NOTE | 2020-10-30 16:55 | IPNPDOC ---
Date Seen The patient was seen on 10/30/20. Progress Note SUBJECTIVE: Patient seen examined the morning patient seen examined at bedside this morning. Denies shortness of breath, chest pain, palpitations. OBJECTIVE PHYSICAL EXAMINATION: VITAL SIGNS: please see below General: diaphoretic, ill appearing HEENT: PERRLA, EOMI, sclerae clear Neck: supple, normal ROM, no JVD Respiratory: lungs CTAB, no wheeze, slight crackles bilateral lung bases CVS: RRR, normal S1, S2, no murmurs Abdo: Abdomen remains distended nontender to palpation. Extremities 1+ edema, pulses 2+ MSK: no joint deformities, normal ROM Neuro: no focal neuro deficits, moving all 4 extremities, CN2-12 intact. Strength 5/5 in all 4 extremities. No nystagmus. Psych: calm, cooperative, AAO x 3 LABORATORY DATA, IMAGING STUDIES, MICROBIOLOGY: Please see below. CT angio abdo pelvis (10/27/20): No evidence of abdominal aortic aneurysm or dissection. Moderate atherosclerotic disease as discussed in detail above. No evidence of significant varices. Hepatomegaly with diffuse fatty infiltration of the liver. Mild splenomegaly. Moderate ascites. Questionable thickening of the transverse portion of the duodenum may indicate duodenitis. CTA chest (10/27/20): Scattered patchy infiltrates bilaterally, primarily in the upper lobes. Tiny left effusion. No infiltrate seen. Liver US (10/25/20): IMPRESSION: Diffuse fibrofatty infiltration of the liver with no gross mass. No biliary dilatation. Moderate diffuse ascites. Bilateral Venous duplex (10/26/20) There is no ultrasonographic evidence of deep venous thrombosis involving any of the visualized deep venous structures of the bilateral lower extremity as described above. Due to technical parameters calf vein DVT can not be ruled out. Echocardiogram: Ordered on 10/26/2020 DVT prophylaxis ordered?: Heparin 5000 subcu every 8hr ASSESSMENT AND PLAN: 59-year-old male with a history of depression, hypertension, diabetes type 2, alcohol use disorder, as well as obesity, presented to the ED after he was found by his brother on the floor complaining of right foot and arm pain. Patient states that he drinks heavily and had approximately 8 beers this morning. On arrival he was found to be have difficulty ambulating was very lethargic. BMP showed sodium of 114. Further patient was found to have significant abdominal distention due to ascites as indicated by ultrasound. Patient will be admitted to hospitalist service for further management of acute alcohol withdrawal as well as symptomatic hyponatremia. Dr. Miller has been consulted. Patient will be admitted to PCU. PROBLEMS: Symptomatic hyponatremia - Sodium of 114 on arrival, improved to 134 - Patient is not receiving any IV fluids or diuretics. - Nephrology has signed off - started furosemide 40 mg daily for ascites - will defer starting spironolactone 100 mg at this time due to recent hyponatremia Acute etoh withdrawal -Reduce Serax to 10 mg every 8 hours -[facility] protocol -Folate, thiamine, MVT Liver cirrhosis with Ascites -History of extensive alcohol abuse suspect liver cirrhosis. Reviewed EGD from 04/[address] Luong. No report of varcies. -Abdomen is grossly distended nontender -s/p paracentesis on 10/26/20, removed 3350 cc of cloudy yellow ascitic fluid - patient is now on ceftriaxone 1g q24h given Child Bejarano Score B and suspected GIB. - CTA abdo pelvis showing no significant varices, no hematoma or blood into peritoneum - completed 5 days of IV ceftriaxone. Convert to cipro 500 mg BID for SBP ppx. - started furosemide 40 mg daily. Holding off starting spironolactone 100 mg at this time due to recent hyponatremia. Acute anemia on iron deficiency anemia - Hgb 8.5, down to 6.9. - 2 units pRBC transfused. Hgb remains stable. - underwent a paracentesis on 10/26/20 - no prior hx of esophageal varices - CTA abdo pelvis showing no significant varices, no hematoma or blood into peritoneum - fecal occult blood positive. - surgical consultation requested, d/w Dr. Bledsoe. Likely patient's anemia 2/2 post paracentesis bleed or upper Gi bleeding from thickening in transverse duodenum c/w duodenitis. Added carafate. No surgical intervention at this time. Will need GI referral. Leukocytosis - WBC 13.5, trending up, likely 2/2 solumedrol - check ESR, CRP, procal - possibly 2/2 UTI vs SBP vs pneumonia given CT findings - completed 5 days of IV ceftriaxone - will c/w cipro 500 mg BID PO. UTI - nitrite+, pyuria - completed 5 days ceftriaxone - UTI treated, will c/w cipro BID for SBP ppx. Avulsion of toenail, R foot - ER dressed toe - having discomfort - podiatry consult placed with Dr. Napier Hyperbilirubinemia -Liver US reviewed, fibrofatty infiltration -Bili trending down Dysphagia - ST following - pureed diet - aspiration on cookie swallow, c/w present diet, pending additional training by ST. Hypotension - In setting of hypoalbuminemia and liver cirrhosis with ascites - s/p 5 units albumin 25% - s/p paracentesis, 3500 cc removed on 10/26/20 - BP has improved. Suspected COPD - smokes 3 packs per day - audible wheeze in room - Duonebs - Started Symbicort DM2 -Hold metformin -ISS, accuchecks AC and HS -Hypoglycemic precautions Lower extremity edema - Severe hypoalbuminemia in setting of liver cirrhosis and ascites - BNP 260 - obtain 2D echo - LVEF 70-75%. Mild AV sclerosis. Normal pulmonary artery pressures - obtain bilateral venous duplex - negative for DVT. - start lasix 40 mg daily. Sinus tachycardia - resolved. - Suspect 2/2 acute etoh withdrawal HTN -Resume home meds: holding losartan, labile BPs. Hx of TIA -Asa, Plavix, statin - resume asa and plavix PAD - asa/Plavix, statin Iron def anemia -Iron, vit C Dispo: patient require rehab on DC. VS, I&O, 24H, [place] Vital Signs/I&O Vital Signs Date Time Temp Pulse Resp B/P (MAP) Pulse Ox O2 Delivery O2 Flow Rate FiO2 10/30/20 14:34 98.0 69 16 131/89 (103) 97 Room Air I&O- Last 24 Hours up to 6 AM 10/30/20 06:00 Intake Total 1590 ml Output Total 1350 ml Balance 240 ml Laboratory Data 24H LABS Laboratory Tests 2 10/29/20 17:53: Bedside Glucose (Misc Panel) 225H 10/29/20 20:39: Bedside Glucose (Misc Panel) 237H 10/30/20 05:39: Immature Granulocyte % (Auto) , Neutrophils (%) (Auto) , Nucleated Red Blood Cells % (auto) 0.0, Neutrophils 82H, Band Neutrophils 3, Lymphocytes (Manual) 6L, Monocytes (Manual) 7H, Metamyelocytes 2H, Polychromasia 1+, Anisocytosis 2+, Macrocytosis 1+, Platelet Estimate NORMAL, Anion Gap 5L, Glomerular Filtration Rate > 60.0, Calcium Level 8.3L, Magnesium Level 2.1, Total Bilirubin 1.8H, Aspartate Amino Transf (AST/SGOT) 125H, Alanine Aminotransferase (ALT/SGPT) 104H, Alkaline Phosphatase 184H, Total Protein 5.6L, Albumin 1.8L, Albumin/Globulin Ratio 0.5 10/30/20 11:21: Bedside Glucose (Misc Panel) 222H 10/30/20 16:27: Bedside Glucose (Misc Panel) 185H CBC/BMP Laboratory Tests 10/30/20 05:39 Microbiology Microbiology 10/27/20 Stool Occult Blood (ANDREW) - Final, Complete 10/26/20 Blood Culture - Preliminary, Resulted No Growth after 72 hours. All specime... 10/26/20 Acid Fast Stain, Received Pending 10/26/20 Mycobacterial Culture, Received Pending 10/26/20 Fungal Smear, Received Pending 10/26/20 Fungal Culture, Received Pending 10/26/20 Gram Stain - Final, Complete 10/26/20 Body Fluid Culture - Final, Complete 10/26/20 Blood Culture - Preliminary, Resulted No Growth after 72 hours. All specime... 10/25/20 Urine Culture - Final, Complete EUNICE MAGUIRE MD Oct 30, 2020 16:55
[2020-10-30] MEDS: CIPROFLOXACIN 500MG TABLET PO SCH (17:30)
[2020-10-30] MEDS: FUROSEMIDE 40 MG TAB PO SCH (17:31)
[2020-10-30 22:00] VITALS: BP 135/79
[2020-10-30] MEDS: ACETAMINOPHEN TAB 650MG DOSE (2X325MG) PO PRN (23:07)
[2020-10-31] MEDS: IPRATROPIUM 0.5MG/ALBUTEROL 2.5MG INH SOL UD 3ML (DUONEB) NEB SCH ×5 (03:47→17:56)
[2020-10-31 06:00] VITALS: BP 143/82
[2020-10-31] MEDS: CIPROFLOXACIN 500MG TABLET PO SCH ×2 (06:19→18:28)
[2020-10-31] MEDS: HEPARIN SOD (PORCINE) 5000UNITS/ML 1ML VIAL/SYRINGE SC SCH ×3 (06:19→21:34)
[2020-10-31] MEDS: OXAZEPAM 10 MG CAP PO SCH ×3 (06:19→21:34)
[2020-10-31 06:34] LABS: ALBUMIN 1.7 GM/DL (3.2-5.2); ALT/SGPT 118 U/L (12-78); BILIRUBIN,TOTAL 1.7 MG/DL (0.2-1.0); BLOOD UREA NITROGEN 12 MG/DL (7-18); CALCIUM LEVEL 8.1 MG/DL (8.5-10.1); CARBON DIOXIDE LEVEL 27 MEQ/L (21-32); CHLORIDE LEVEL 100 MEQ/L (98-107); CREATININE FOR GFR 0.56 MG/DL (0.70-1.30); GLOMERULAR FILTRATION RATE > 60.0 (>56); GLUCOSE, FASTING 126 MG/DL (70-100); POTASSIUM SERUM 3.6 MEQ/L (3.5-5.1); SODIUM LEVEL 134 MEQ/L (136-145); TOTAL PROTEIN 5.1 GM/DL (6.4-8.2)
[2020-10-31 06:46] LABS: BASO % 0.2 % (0.0-1.0); HEMATOCRIT 30.7 % (42.0-52.0); HEMOGLOBIN 10.3 g/dl (13.5-17.5); LYMPH # 1.6 10^3/uL (1.5-5.0); LYMPH % 12.4 % (24.0-44.0); MEAN CORPUSCULAR HEMOGLOBIN 33.8 pg (27.0-33.0); MEAN CORPUSCULAR HGB CONC 33.6 g/dl (32.0-36.5); MEAN CORPUSCULAR VOLUME 100.7 fl (80.0-96.0); MONO # 1.1 10^3/uL (0.0-0.8); MONO % 8.4 % (2.0-8.0); NEUTROPHILS # 10.2 10^3/uL (1.5-8.5); PLATELET COUNT, AUTOMATED 140 10^3/uL (150-450); RED BLOOD COUNT 3.05 10^6/uL (4.30-6.10); WHITE BLOOD COUNT 13.2 10^3/uL (4.0-10.0)
[2020-10-31] MEDS: SYMBICORT 80/4.5MCG INHALER 6GM INH SCH ×2 (07:41→17:56)
[2020-10-31] MEDS: PANTOPRAZOLE 40MG VIAL (C9113 PER 1) IV SCH ×4 (08:00→21:33)
[2020-10-31] MEDS: HumaLOG INSULIN (NovoLOG) PER UNIT SC SCH ×4 (08:18→21:00)
[2020-10-31] MEDS: ASPIRIN 81MG ENTERIC TABLET PO SCH (08:18)
[2020-10-31] MEDS: FUROSEMIDE 40 MG TAB PO SCH (08:19)
[2020-10-31] MEDS: FOLIC ACID 1 MG TAB PO SCH (08:19)
[2020-10-31] MEDS: ATORVASTATIN 20 MG TAB PO SCH (08:19)
[2020-10-31] MEDS: CLOPIDOGREL 75 MG TAB PO SCH (08:19)
[2020-10-31] MEDS: MULTIVITAMINS/MINERALS THERAP 1 TAB PO SCH (08:19)
[2020-10-31] MEDS: TAMSULOSIN 0.4 MG CAP PO SCH (08:27)
[2020-10-31] MEDS: SUCRALFATE 1 GM TAB PO SCH ×4 (08:27→21:33)
[2020-10-31] MEDS: predniSONE 20 MG TAB PO SCH (08:27)
[2020-10-31] MEDS: NYSTATIN 100,000 UNITS/GM TOPICAL PWD 15 GM TOP SCH ×2 (08:28→21:34)
[2020-10-31] MEDS: MUPIROCIN 2% OINT 22 GM TUBE TOP SCH (08:28)
--- NOTE | 2020-10-31 11:55 | IPNPDOC ---
Text Note Date of Service The patient was seen on 10/31/20. NOTE SUBJECTIVE: Mr. Lomeli is a 59-year-old male with a h/o alcohol use disorder, HTN, DM type II, symptomatic hyponatremia, liver cirrhosis, s/p TIA (06/2017), PAD, and depression who presents with a distended abdomen. Patient is pleasant and in no acute distress. He denies headaches, dizziness, chest pain, SOB, nausea, vomiting, diarrhea, abdominal pain, constipation, and pain in bilateral lower extremities. REVIEW OF SYSTEMS: HEENT: Denies headaches, dizziness, changes in vision. CARDIOVASCULAR: Denies chest pain. RESPIRATORY: Has dry, non-productive cough. Denies SOB, dysphagia. GASTROINTESTINAL: Denies abdominal pain, nausea, vomiting, diarrhea, constipation, hemoptysis, hematemesis, hematochezia. MUSCULOSKELETAL: Generalized weakness. GENITOURINARY: Mild difficulty urinating. Denies changes in urinary frequency, hematuria. OBJECTIVE: PHYSICAL EXAMINATION: VITAL SIGNS: Please see below. GENERAL APPEARANCE: Patient appears disheveled, older than stated age, and in no acute distress. Otherwise pleasant. HEENT: NC, AT. Mucus membranes moist. No neck mass. EOMI. Constricted pupils. Sclera nonicteric. CARDIOVASCULAR: Heart sounds diminished. S1, S2 heard on auscultation. Difficult to hear due to loud expiratory wheezing. 2+ radial pulses bilaterally. LUNGS: Diffuse wheezing heard bilaterally. No rales or rhonchi. ABDOMEN: Obese, firm, distended abdomen. Fluid wave present. Non-tender to palpation. Bowel sounds present. MUSCULOSKELETAL: Generalized weakness. Strength 5/5 in bilateral upper and lower extremities. Limited movement without assistance. EXTREMITIES: Pitting edema present in bilateral lower extremities. Dorsalis pedis and posterior tibialis pulses present bilaterally. SKIN: Multiples ecchymoses seen on bilateral upper extremities. NEUROLOGICAL: CN II-XII grossly intact. A&O X3. PSYCHIATRIC: Mood is stable. IMAGIN10/29/20 Chest X-ray Impression: "No acute disease or significant change compared to the prior exam." 10/27/20 CTA Abdomen & Pelvis Impression: "No evidence of abdominal aortic aneurysm or dissection. Moderate atherosclerotic disease as discussed in detail above. No evidence of significant varices. Hepatomegaly with diffuse fatty infiltration of the liver. Mild splenomegaly. Moderate ascites. Questionable thickening of the transverse portion of the duodenum may indicate duodenitis." 10/27/20 CTA Chest Impression: "Scattered patchy infiltrates bilaterally, primarily in the upper lobes. Tiny left effusion. No infiltrate seen." 10/26/20 Bilateral LE Vascular US Impression: "There is no ultrasonographic evidence of deep venous thrombosis involving any of the visualized deep venous structures of the bilateral lower extremity as described above. Due to technical parameters calf vein DVT can not be ruled out." 10/26/20 Paracentesis Impression: "Ultrasound-guided paracentesis yielding 3350 mL of clear yellow fluid." ASSESSMENT/PLAN: Mr. Lomeli is a 59-year-old male with a h/o alcohol use disorder, HTN, DM type II, hyponatremia, liver cirrhosis, s/p TIA (06/2017), PAD, and depression who presents ascites 2/2 liver cirrhosis. # Ascites 2/2 liver cirrhosis - Patient has h/o alcohol use disorder; abdomen is distended, firm, non-tender to palpation. - Child Bejarano Score B. - CTA abdomen & pelvis did not show significant varices, no hematoma or blood into peritoneum. - Paracentesis was done on 10/26/20 yielding 3350mL of clear yellow fluid. - Discussed with patient to have another paracentesis tomorrow due to continued fluid accumulation. - Will consider starting spironolactone after hyponatremia is resolved. - Continue Ciprofloxacin 500mg PO BID for SBP prophylaxis. # Hyponatremia - Improving; sodium at 134. - Patient is not receiving IV fluids. - Will consider starting spironolactone after hyponatremia is resolved. - Continue Lasix 40mg PO daily. - Will continue to monitor with BMP. # Acute EtOH withdrawal - Continue CIWA protocol - Continue Serax 10mg PO Q8Hrs, thiamine, folic acid, multivitamin. # Acute anemia most likely 2/2 s/p paracentesis vs duodenitis - Improving after blood transfusions on 10/27/20; Hgb at 10.3, Hct at 30.7 - Anemia may be from paracentesis or possible bleeding from duodenitis. Per surgery, no surgical intervention is necessary at this time. Continue Carafate 1gm PO QID. - CTA abdomen & pelvis did not show significant varices, no hematoma or blood into peritoneum. - Continue Ciprofloxacin 500mg PO BID for SBP prophylaxis. - Will continue to monitor CBC. # Leukocytosis - Improving; WBC at 13.2 - Elevated WBC most likely 2/2 IV solumedrol administration. - ESR at 43, CRP 0.77, and Procal negative; unlikely active infection. - Continue Ciprofloxacin 500mg PO BID for SBP prophylaxis. # UTI - Urine cultures negative; possible contamination in sample. - Completed 5 day course of IV ceftriaxone. - Continue Ciprofloxacin 500mg PO BID for SBP prophylaxis. # Right toenail avulsion - Per podiatry, right hallux toe was removed and additional ingrowing nails were debrided. - Continue Mupirocin and basic wound care until healed. # Hyperbilirubinemia - Total bilirubin at 1.7; downtrending - Imaging shows evidence of diffuse fatty liver. # Dysphagia - Aspiration noted on cookie swallow study with cough response - Continue with pureed diet until improvement with additional training by ST. # Hypotension - Resolved; BP returning to baseline. - Will continue to monitor daily vitals. # Suspected COPD - Patient has a history of tobacco use, 3 packs per day. - Loud expiratory wheezing present on exam - Continue Symbicort inhaler, Duoneb nebulizer, and Prednisone 40mg PO daily. - Patient should follow up outpatient with PCP to workup suspected COPD. # DM type II - Insulin sliding scale ordered. - Accuchecks AC and HS. - Hypoglycemic protocol ordered. - Metformin is held. # Bilateral LE edema - Continue Lasix 40mg PO daily. # Sinus tachycardia - Resolving; most likely due to alcohol withdrawal. # HTN - Continue home Lipitor. # S/p TIA (06/2017) - Continue home aspirin, Plavix, Lipitor. # PAD - Continue home aspirin, Plavix, Lipitor. # Iron deficiency anemia vs anemia of chronic disease - Patient received blood transfusion on 10/27/20. - Patient is hemodynamically stable. DVT prophylaxis: Heparin 5,000 units SC Q8Hrs VS,Fishbone, I+O VS, Fishbone, I+O Laboratory Tests 10/31/20 05:48 Vital Signs Date Time Temp Pulse Resp B/P (MAP) Pulse Ox O2 Delivery O2 Flow Rate FiO2 10/31/20 06:00 97.8 106 18 143/82 (102) 97 Room Air I&O- Last 24 Hours up to 6 AM 10/31/20 05:59 Intake Total 1880 ml Output Total 500 ml Balance 1380 ml GME ATTESTATION GME ATTESTATION My faculty preceptor for this patient encounter was physically present during the encounter and was fully available. All aspects of the patient interview, examination, medical decision making process, and medical care plan development were reviewed and approved by the faculty preceptor. The faculty preceptor is aware and concurs with the plan as stated in the body of this note and will attest to such by his/her cosignature. ATTENDING NOTE I, Eunice Armstrong MD, have examined the patient with the student at bedside, as well as reviewed the documentation and edited where necessary. I have discussed in detail with the student the findings and plan of treatment as documented by the student and edited their note. I agree with their findings and treatment plan and have edited their documentation. I will continue to follow the patient during this hospital stay. JANELLE WELCH OMS-3 Oct 31, 2020 11:55 EUNICE ARMSTRONG MD Nov 15, 2020 07:55
[2020-10-31 14:00] VITALS: BP 103/70
[2020-10-31 21:00] VITALS: BP 103/71
[2020-10-31] MEDS: ACETAMINOPHEN TAB 650MG DOSE (2X325MG) PO PRN (21:35)
[2020-11-01] VITALS (8 sets, daily range): BP systolic 80–121; BP diastolic 52–75
[2020-11-01] MEDS: IPRATROPIUM 0.5MG/ALBUTEROL 2.5MG INH SOL UD 3ML (DUONEB) NEB SCH ×6 (02:45→19:11)
[2020-11-01] MEDS: OXAZEPAM 10 MG CAP PO SCH (05:01)
[2020-11-01] MEDS: CIPROFLOXACIN 500MG TABLET PO SCH ×2 (05:01→18:22)
[2020-11-01] MEDS: HEPARIN SOD (PORCINE) 5000UNITS/ML 1ML VIAL/SYRINGE SC SCH (05:04)
[2020-11-01 06:35] LABS: ALBUMIN 1.6 GM/DL (3.2-5.2); ALT/SGPT 130 U/L (12-78); BILIRUBIN,TOTAL 1.6 MG/DL (0.2-1.0); BLOOD UREA NITROGEN 11 MG/DL (7-18); CALCIUM LEVEL 7.6 MG/DL (8.5-10.1); CARBON DIOXIDE LEVEL 27 MEQ/L (21-32); CHLORIDE LEVEL 99 MEQ/L (98-107); CREATININE FOR GFR 0.47 MG/DL (0.70-1.30); GLOMERULAR FILTRATION RATE > 60.0 (>56); GLUCOSE, FASTING 111 MG/DL (70-100); POTASSIUM SERUM 3.2 MEQ/L (3.5-5.1); SODIUM LEVEL 135 MEQ/L (136-145); TOTAL PROTEIN 4.9 GM/DL (6.4-8.2)
[2020-11-01 07:00] LABS: BASO % 0.2 % (0.0-1.0); EOS % 0.3 % (0.0-3.0); HEMATOCRIT 28.5 % (42.0-52.0); HEMOGLOBIN 9.6 g/dl (13.5-17.5); LYMPH # 2.1 10^3/uL (1.5-5.0); LYMPH % 18.5 % (24.0-44.0); MEAN CORPUSCULAR HEMOGLOBIN 33.2 pg (27.0-33.0); MEAN CORPUSCULAR HGB CONC 33.7 g/dl (32.0-36.5); MEAN CORPUSCULAR VOLUME 98.6 fl (80.0-96.0); NEUTROPHILS % 70.3 % (36.0-66.0); PLATELET COUNT, AUTOMATED 133 10^3/uL (150-450); RED BLOOD COUNT 2.89 10^6/uL (4.30-6.10); WHITE BLOOD COUNT 11.3 10^3/uL (4.0-10.0)
[2020-11-01] MEDS: SYMBICORT 80/4.5MCG INHALER 6GM INH SCH ×2 (07:56→19:10)
[2020-11-01] MEDS: PANTOPRAZOLE 40MG VIAL (C9113 PER 1) IV SCH ×2 (08:21→20:26)
[2020-11-01] MEDS: HumaLOG INSULIN (NovoLOG) PER UNIT SC SCH ×4 (08:21→20:27)
[2020-11-01] MEDS: CLOPIDOGREL 75 MG TAB PO SCH (08:22)
[2020-11-01] MEDS: FOLIC ACID 1 MG TAB PO SCH (08:22)
[2020-11-01] MEDS: predniSONE 20 MG TAB PO SCH (08:22)
[2020-11-01] MEDS: TAMSULOSIN 0.4 MG CAP PO SCH (08:22)
[2020-11-01] MEDS: ATORVASTATIN 20 MG TAB PO SCH (08:22)
[2020-11-01] MEDS: SUCRALFATE 1 GM TAB PO SCH ×4 (08:22→20:26)
[2020-11-01] MEDS: ASPIRIN 81MG ENTERIC TABLET PO SCH (08:22)
[2020-11-01] MEDS: NYSTATIN 100,000 UNITS/GM TOPICAL PWD 15 GM TOP SCH ×2 (08:23→20:27)
[2020-11-01] MEDS: MUPIROCIN 2% OINT 22 GM TUBE TOP SCH (08:23)
[2020-11-01] MEDS: FUROSEMIDE 40 MG TAB PO SCH ×2 (08:23→18:20)
[2020-11-01] MEDS: MULTIVITAMINS/MINERALS THERAP 1 TAB PO SCH (08:23)
[2020-11-01] MEDS ORDERED: POTASSIUM CHLORIDE 10MEQ SR TABLET PO ONE (11:00)
--- NOTE | 2020-11-01 11:45 | IPNPDOC ---
Text Note Date of Service The patient was seen on 11/01/20. NOTE SUBJECTIVE: -No acute events -Denies shortness of breath, chest pain, palpitations. OBJECTIVE VITAL SIGNS: please see below General: NAD HEENT: PERRLA, EOMI, sclerae clear Neck: supple, normal ROM, no JVD Respiratory: Bibasilar scattered crackles, no wheezing or rhonchi CVS: RRR, normal S1, S2, no murmurs Abdo: Abdomen remains distended nontender to palpation. Large ascites, with shifting dullness, distended abdominal veins. Extremities 1+ edema, pulses 2+ DP, WWP MSK: no joint deformities, normal ROM Neuro: no focal neuro deficits, moving all 4 extremities, CN3-12 intact. Psych: calm, cooperative, AAO x 3 LABORATORY DATA: Reviewed WBC 11.3 hgb 9.6 Platelets 133 na 135 K 3.2 Cr 0.47 AST 135 ALT 130 Tbili 1.[address] angio abdo pelvis (10/27/20): No evidence of abdominal aortic aneurysm or dissection. Moderate atherosclerotic disease as discussed in detail above. No evidence of significant varices. Hepatomegaly with diffuse fatty infiltration of the liver. Mild splenomegaly. Moderate ascites. Questionable thickening of the transverse portion of the duodenum may indicate duodenitis. CTA chest (10/27/20): Scattered patchy infiltrates bilaterally, primarily in the upper lobes. Tiny left effusion. No infiltrate seen. Liver US (10/25/20): IMPRESSION: Diffuse fibrofatty infiltration of the liver with no gross mass. No biliary dilatation. Moderate diffuse ascites. Bilateral Venous duplex (10/26/20) There is no ultrasonographic evidence of deep venous thrombosis involving any of the visualized deep venous structures of the bilateral lower extremity as described above. Due to technical parameters calf vein DVT can not be ruled out. Echocardiogram: Ordered on 10/26/2020 DVT prophylaxis ordered?: Heparin 5000 subcu every 8hr ASSESSMENT: 59-year-old M with a history of depression, hypertension, diabetes type 2, alcohol use disorder, as well as obesity, who presented to the ED after he was found by his brother on the floor complaining of right foot and arm pain and was admitted for decompensated liver cirrhosis with ascites, hypoNa and acute alcohol withdrawal. PLAN: Symptomatic hypovolemic hyponatremia: resolved - Admission na 114, now improved to 134 - Nephrology has signed off - continue furosemide 40 mg daily for ascites - will defer starting spironolactone 100 mg at this time due to recent hyponatremia Acute etoh withdrawal -DC Serax -[facility] protocol -Folate, thiamine, MVT Fatty liver disease likely 2/2 obesity and alcohol with Ascites -History of extensive alcohol abuse. Reviewed EGD from 04/[address] Luong. No report of varcies. -Abdomen is grossly distended nontender -s/p paracentesis on 10/26/20, removed 3350 cc of cloudy yellow ascitic fluid - CTA abdo pelvis showing no significant varices, no hematoma or blood into peritoneum - completed 5 days of IV ceftriaxone. Converted to cipro 500 mg BID for SBP ppx. - started furosemide 40 mg daily. Holding off starting spironolactone 100 mg at this time due to recent hyponatremia. - GI consulted Acute anemia on iron deficiency anemia - Hgb 8.5, down to 6.9, s/p 2 units pRBC transfused. Hgb remains stable. - underwent a paracentesis on 10/26/20 - no prior hx of esophageal varices - CTA abdo pelvis showing no significant varices, no hematoma or blood into peritoneum - fecal occult blood positive. - surgical consultation requested, d/w Dr. Bledsoe. Likely patient's anemia 2/2 post paracentesis bleed or upper Gi bleeding from thickening in transverse duodenum c/w duodenitis. Added carafate. No surgical intervention at this time. Leukocytosis - likely 2/2 solumedrol - completed 5 days of IV ceftriaxone - will c/w cipro 500 mg BID PO. Suspected UTI - nitrite+, pyuria, culture negative - completed 5 days ceftriaxone Avulsion of toenail, R foot - ER dressed toe - podiatry consulted -->Dr. Napier debrided the ingrowing nails. Recommended ap plication of antibiotic and band-aid to the nail removal site until healed. LFT abnormalities i/s/o alcohol abuse -Liver US reviewed, fibrofatty infiltration -Slowly downtrending Dysphagia - ST following - pureed diet - aspiration on cookie swallow, c/w present diet, pending additional training by ST. Hypotension - In setting of hypoalbuminemia and liver cirrhosis with ascites - s/p 5 units albumin 25% - s/p paracentesis, 3500 cc removed on 10/26/20 - BP has improved. Suspected COPD - smokes 3 packs per day - audible wheeze in room - Duonebs - Started Symbicort DM2 -Hold metformin -ISS, accuchecks AC and HS -Hypoglycemic precautions Lower extremity edema - Severe hypoalbuminemia in setting of liver cirrhosis and ascites - BNP 260 - obtain 2D echo - LVEF 70-75%. Mild AV sclerosis. Normal pulmonary artery pressures - obtain bilateral venous duplex - negative for DVT. - lasix 40 mg daily. Sinus tachycardia - resolved. - Suspect 2/2 acute etoh withdrawal HTN -holding losartan, labile BPs. Started on lasix Hx of TIA - Asa, Plavix, statin PAD - asa/Plavix, statin Iron def anemia -Iron, vit C Dispo: patient will require rehab VS,Fishbone, I+O VS, Fishbone, I+O Laboratory Tests 11/01/20 05:28 Vital Signs Date Time Temp Pulse Resp B/P (MAP) Pulse Ox O2 Delivery O2 Flow Rate FiO2 11/01/20 06:00 97.4 105 20 121/66 (84) 95 Room Air I&O- Last 24 Hours up to 6 AM 11/01/20 06:00 Intake Total 1830 ml Output Total 1175 ml Balance 655 ml GIOVANI VASQUEZ MD Nov 01, 2020 09:30
[2020-11-01] MEDS: SPIRONOLACTONE 25 MG TAB PO SCH (18:20)
--- NOTE | 2020-11-01 19:05 | CR.PDOC ---
General Date of Consultation: Nov 01, 2020 Referring Provider: SEE RHINA Consultation REASON FOR CONSULTATION/CHIEF COMPLAINT: . HISTORY OF PRESENT ILLNESS: . 59 YO WM FOUND IN DELIRIUM ON FLOOR AT HOME. HE HAS DECOMPENSATED ALCOHOLIC CIRRHOSIS AND ALCOHOLIC HEPATITIS WITH MARKED HYPONATREMIA AND WAS RESUCITATED W ITH NORMAL SALINE. HIS NA HAS CORRECTED. HIS ASCITES WAS TAPPED FOR SBP AND RULED OUT. 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 FUROSEMIDE HAS BEEN STARTED AT 40 MG Q DAY. HIS RENAL FUNCTION APPEARS TO BE STABLE. ALLERGIES: Please see below. HOME MEDICATIONS: Please see below. PAST MEDICAL HISTORY: 1. ALCOHOL ABUSE. 2. CIRRHOSIS 3. DM 4. HTN 5. VASCULAR DISEASE FAMILY HISTORY: NEG FOR CRC,IBD SOCIAL HISTORY: ETOH: 15 BEERS/DAY X 40 YRS PHYSICAL EXAMINATION: VITAL SIGNS: Please see below. GENERAL APPEARANCE: CHRONICALLY ILL APPEARING WHITE MALE, UNKEMPT. HE IS AWAKE AND ALERT. SLIGHTY TRUEMULOUS, BUT NO OVERT ASTERIXIS. ANSWERS APPROPRIATELY HEENT: SLIGHT ICTERUS RESPIRATORY: CLEAR B/L. CARDIOVASCULAR: RRR, S1,S2 ABDOMEN: MODERATE ASCITES, NOT TENSE, SOFT, GOOD BS. NEG FOR MASSES. NOT TENDER. EXTREMITIES: 2-3+ EDEMA/ANASARCAUP TO BUTTOCKS NEUROLOGICAL: aaoX3, NEG FOR ASTERIXIS. MOVES ALL EXTREMITIES EQUALLY/B/L. LABORATORY DATA: Please see below. ASSESSMENT/PLAN: 1. DECOMPENSATED ALCOHOLIC CIRRHOSIS 2. ALCOHOLIC HEPATITIS 3. HYPOALBUMINEMIA/ANASARCA/RAPIDLY REACCUMULATING ASCITES 4. HYPONATREMIA SUSPECT DILUTIONAL FROM EXCESS FREE WATER/BEER CONSUMPTIION RECOMMENDATION; CREAT APPEARS TO BE STABLE, HIS HYPONATREMIA HAS RESPONDED TO NSS AND IV DIURESIS. I SUSPECT HE IS STILL VOLUME OVERLOADED AND CONTINUES TO BE IN POSITIVE FLUID BALANCE. HIS BLOOD PRESSURES ARE TENUOUS AT TIMES, LIKELY DUE TO VERY LOW ALBUMIN/HEPATIC SYNTHETIC DYSFUNCTION. 1. I WOULD INCREASE FUROSEMIDE TO 40 MG POI BID AND ADD SPIRONOLACTONE 50MG PO BID WITH GOAL OF NEGATIVE FLUID BALANCE OF 500 CC/DAY OVER THE NEXT 3-4 DAYS. 2. CONSIDER TRANSFUSION OF PRBC. HIS ANEMIA IS MULTIFACTORIAL. I DO NOT SEE ANY ACUTE GI BLOOD LOSS, BUT HE MAY BENEFIT FROM PRBC TO IMPROVE HIS ONCOTIC PRESSURE. 3. AGGRESSIVE NUTRITIONAL SUPPORT. REC HIGH PROTEIN DIET 4. REPEAT PARACENTESIS--WITH POST TAP ALBUMIN 25% INFUSION (REPLACE WITH 5-8 GRAMS OF ALBUMIN FOR EVERY LITER REMOVED BY TAP). AGGRESSIVE NUTRITION SUPPORT WITH HIGH PROTEIN DIET Vital Signs/I&O Vital Signs Date Time Temp Pulse Resp B/P (MAP) Pulse Ox O2 Delivery O2 Flow Rate FiO2 11/01/20 17:00 97.8 111 16 113/75 98 Room Air I&O- Last 24 Hours up to 6 AM 11/01/20 06:00 Intake Total 1830 ml Output Total 1175 ml Balance 655 ml Laboratory Data Labs 24H Laboratory Tests 2 10/31/20 20:53: Bedside Glucose (Misc Panel) 127H 11/01/20 05:28: Immature Granulocyte % (Auto) 1.7, Neutrophils (%) (Auto) 70.3H, Lymphocytes (%) (Auto) 18.5L, Monocytes (%) (Auto) 9.0H, Eosinophils (%) (Auto) 0.3, Basophils (%) (Auto) 0.2, Neutrophils # (Auto) 8.0, Lymphocytes # (Auto) 2.1, Monocytes # (Auto) 1.0H, Eosinophils # (Auto) 0.0, Basophils # (Auto) 0.0, Nucleated Red Blood Cells % (auto) 0.0, Anion Gap 9, Glomerular Filtration Rate > 60.0, Calcium Level 7.6L, Magnesium Level 2.0, Total Bilirubin 1.6H, Aspartate Amino Transf (AST/SGOT) 135H, Alanine Aminotransferase (ALT/SGPT) 130H, Alkaline Phosphatase 164H, Total Protein 4.9L, Albumin 1.6L, Albumin/Globulin Ratio 0.5 11/01/20 11:58: Bedside Glucose (Misc Panel) 220H 11/01/20 18:08: Bedside Glucose (Misc Panel) 178H CBC/BMP Laboratory Tests 11/01/20 05:28 Microbiology Microbiology 10/27/20 Stool Occult Blood (ANDREW) - Final, Complete 10/26/20 Blood Culture - Final, Complete NO GROWTH AFTER 5 DAYS 10/26/20 Acid Fast Stain, Received Pending 10/26/20 Mycobacterial Culture, Received Pending 10/26/20 Fungal Smear, Received Pending 10/26/20 Fungal Culture, Received Pending 10/26/20 Gram Stain - Final, Complete 10/26/20 Body Fluid Culture - Final, Complete 10/26/20 Blood Culture - Final, Complete NO GROWTH AFTER 5 DAYS 10/25/20 Urine Culture - Final, Complete Allergies Coded Allergies: codeine (Verified Allergy, Mild, rash, 10/25/20) METALS (Verified Allergy, Unknown, 10/16/18) Home Medications Scheduled Aspirin (Aspirin EC) 81 Mg Tablet.dr, 81 MG PO DAILY, (Reported) Atorvastatin Calcium (Atorvastatin Calcium) 40 Mg Tablet, 40 MG PO DAILY, (Reported) Clopidogrel Bisulfate (Clopidogrel) 75 Mg Tablet, 75 MG PO DAILY, (Reported) Omeprazole (Omeprazole) 40 Mg Capsule.dr, 40 MG PO DAILY, (Reported) Tamsulosin Hcl (Tamsulosin HCl) 0.4 Mg Capsule, 0.4 MG PO DAILY, (Reported) HUBER BROOKS MD Nov 01, 2020 19:05
[2020-11-01] MEDS: ACETAMINOPHEN TAB 650MG DOSE (2X325MG) PO PRN (20:27)
[2020-11-02] MEDS: ACETAMINOPHEN TAB 650MG DOSE (2X325MG) PO PRN ×3 (00:36→17:49)
[2020-11-02] MEDS: DOCUSATE SODIUM 100MG CAPSULE PO PRN ×2 (00:36→20:09)
[2020-11-02] MEDS: IPRATROPIUM 0.5MG/ALBUTEROL 2.5MG INH SOL UD 3ML (DUONEB) NEB SCH ×6 (03:12→23:39)
[2020-11-02] MEDS: LIDOCAINE 5% (LIDODERM) PATCH TD SCH (04:21)
[2020-11-02] MEDS: KETOROLAC 30 MG/ML 1ML VIAL IV PRN (04:22)
[2020-11-02] MEDS: CIPROFLOXACIN 500MG TABLET PO SCH ×2 (05:21→17:49)
[2020-11-02 06:00] VITALS: BP 119/73
[2020-11-02] MEDS: HumaLOG INSULIN (NovoLOG) PER UNIT SC SCH ×4 (07:21→20:05)
[2020-11-02] MEDS: SYMBICORT 80/4.5MCG INHALER 6GM INH SCH ×2 (08:00→19:39)
[2020-11-02] MEDS: FUROSEMIDE 40 MG TAB PO SCH ×2 (09:00→17:00)
[2020-11-02] MEDS: PANTOPRAZOLE 40MG VIAL (C9113 PER 1) IV SCH ×2 (09:39→20:09)
[2020-11-02] MEDS: MULTIVITAMINS/MINERALS THERAP 1 TAB PO SCH (09:40)
[2020-11-02] MEDS: ASPIRIN 81MG ENTERIC TABLET PO SCH (09:41)
[2020-11-02] MEDS: ATORVASTATIN 20 MG TAB PO SCH (09:41)
[2020-11-02] MEDS: MUPIROCIN 2% OINT 22 GM TUBE TOP SCH (09:41)
[2020-11-02] MEDS: NYSTATIN 100,000 UNITS/GM TOPICAL PWD 15 GM TOP SCH ×2 (09:41→20:09)
[2020-11-02] MEDS: SUCRALFATE 1 GM TAB PO SCH ×4 (09:42→20:09)
[2020-11-02] MEDS: TAMSULOSIN 0.4 MG CAP PO SCH (09:42)
[2020-11-02] MEDS: CLOPIDOGREL 75 MG TAB PO SCH (09:42)
[2020-11-02] MEDS: FOLIC ACID 1 MG TAB PO SCH (09:42)
[2020-11-02] MEDS: predniSONE 20 MG TAB PO SCH (09:42)
[2020-11-02 09:46] VITALS: BP 104/70
[2020-11-02] MEDS: SPIRONOLACTONE 25 MG TAB PO SCH ×2 (09:46→17:00)
[2020-11-02 10:00] LABS: HEMATOCRIT 28.1 % (42.0-52.0); HEMOGLOBIN 9.2 g/dl (13.5-17.5); MEAN CORPUSCULAR HEMOGLOBIN 32.6 pg (27.0-33.0); MEAN CORPUSCULAR HGB CONC 32.7 g/dl (32.0-36.5); MEAN CORPUSCULAR VOLUME 99.6 fl (80.0-96.0); PLATELET COUNT, AUTOMATED 132 10^3/uL (150-450); RED BLOOD COUNT 2.82 10^6/uL (4.30-6.10); WHITE BLOOD COUNT 8.7 10^3/uL (4.0-10.0)
[2020-11-02 10:20] LABS: ALBUMIN 1.9 GM/DL (3.2-5.2); ALT/SGPT 133 U/L (12-78); BILIRUBIN,TOTAL 1.7 MG/DL (0.2-1.0); BLOOD UREA NITROGEN 9 MG/DL (7-18); CALCIUM LEVEL 7.8 MG/DL (8.5-10.1); CARBON DIOXIDE LEVEL 29 MEQ/L (21-32); CHLORIDE LEVEL 97 MEQ/L (98-107); CREATININE FOR GFR 0.56 MG/DL (0.70-1.30); GLOMERULAR FILTRATION RATE > 60.0 (>56); GLUCOSE, FASTING 138 MG/DL (70-100); MAGNESIUM LEVEL 1.9 MG/DL (1.8-2.4); POTASSIUM SERUM 3.6 MEQ/L (3.5-5.1); SODIUM LEVEL 134 MEQ/L (136-145); TOTAL PROTEIN 4.8 GM/DL (6.4-8.2)
--- NOTE | 2020-11-02 13:44 | IPNPDOC ---
Text Note Date of Service The patient was seen on 11/02/20. NOTE SUBJECTIVE: -No acute events -Denies shortness of breath, chest pain, palpitations. OBJECTIVE VITAL SIGNS: please see below General: NAD HEENT: PERRLA, EOMI, sclerae clear Neck: supple, normal ROM, no JVD Respiratory: Bibasilar scattered crackles, no wheezing or rhonchi CVS: RRR, normal S1, S2, no murmurs Abdo: Abdomen remains distended nontender to palpation. Large ascites, more firm than yesterday, distended abdominal veins. Extremities 1+ edema, pulses 2+ DP, WWP MSK: no joint deformities, normal ROM Neuro: no focal neuro deficits, moving all 4 extremities, CN3-12 intact. Psych: calm, cooperative, AAO x 3 LABORATORY DATA: Reviewed, pending AM labs CT angio abdo pelvis (10/27/20): No evidence of abdominal aortic aneurysm or dissection. Moderate atheroscler otic disease as discussed in detail above. No evidence of significant varices. Hepatomegaly with diffuse fatty infiltration of the liver. Mild splenomegaly. Moderate ascites. Questionable thickening of the transverse portion of the duodenum may indicate duodenitis. CTA chest (10/27/20): Scattered patchy infiltrates bilaterally, primarily in the upper lobes. Tiny left effusion. No infiltrate seen. Liver US (10/25/20): IMPRESSION: Diffuse fibrofatty infiltration of the liver with no gross mass. No biliary dilatation. Moderate diffuse ascites. Bilateral Venous duplex (10/26/20) There is no ultrasonographic evidence of deep venous thrombosis involving any of the visualized deep venous structures of the bilateral lower extremity as described above. Due to technical parameters calf vein DVT can not be ruled out. Echocardiogram: Ordered on 10/26/2020 DVT prophylaxis ordered?: Heparin 5000 subcu every 8hr ASSESSMENT: 59-year-old M with a history of depression, hypertension, diabetes type 2, alcohol use disorder, as well as obesity, who presented to the ED after he was found by his brother on the floor complaining of right foot and arm pain and was admitted for decompensated liver cirrhosis with ascites, hypoNa and acute alcohol withdrawal. PLAN: Symptomatic hypovolemic hyponatremia: resolved - Admission na 114, now improved to 134 - Nephrology has signed off - continue furosemide 40 mg BID for ascites, w/ parameters - Plan on starting spironolactone at 25mg for now, with goal of increasing to 100mg, w/ parameters Acute etoh withdrawal: resolved, now off CIWA and serax -Folate, thiamine, MVT Fatty liver disease likely 2/2 obesity and alcohol with Ascites -History of extensive alcohol abuse. Reviewed EGD from 04/[address] Luong. No report of varcies. -Abdomen is grossly distended nontender -s/p paracentesis on 10/26/20, removed 3350 cc of cloudy yellow ascitic fluid - CTA abdo pelvis showing no significant varices, no hematoma or blood into peritoneum - completed 5 days of IV ceftriaxone. Converted to cipro 500 mg BID for SBP ppx. - GI consulted. Recommended diuresis, however BPs are soft, not tolerating diuresis. So today after labs check, tentatively planning of giving 2u pRBCs and starting furosemide 40 mg BID for ascites, w/ parameters and starting spi ronolactone at 25mg for now, with goal of increasing to 100mg, w/ parameters - Planning for LVP tomorrow Acute anemia on iron deficiency anemia - Hgb 8.5, down to 6.9, s/p 2 units pRBC transfused. - underwent a paracentesis on 10/26/20 - no prior hx of esophageal varices - CTA abdo pelvis showing no significant varices, no hematoma or blood into peritoneum - fecal occult blood positive. - surgical consultation requested, d/w Dr. Bledsoe. Likely patient's anemia 2/2 post paracentesis bleed or upper Gi bleeding from thickening in transverse duodenum c/w duodenitis. Added carafate. No surgical intervention at this time. - planning to give 2u pRBCs today Leukocytosis - likely 2/2 solumedrol - completed 5 days of IV ceftriaxone - will c/w cipro 500 mg BID PO. Suspected UTI - nitrite+, pyuria, culture negative - completed 5 days ceftriaxone Avulsion of toenail, R foot - ER dressed toe - podiatry consulted -->Dr. Napier debrided the ingrowing nails. Recommended application of antibiotic and band-aid to the nail removal site until healed. LFT abnormalities i/s/o alcohol abuse -Liver US reviewed, fibrofatty infiltration -Slowly downtrending Dysphagia - ST following - pureed diet - aspiration on cookie swallow, c/w present diet, pending additional training by . Hypotension - In setting of hypoalbuminemia and liver cirrhosis with 3rd spacing ascites - s/p 6 units albumin 25%, and 2u of 5% - s/p paracentesis, 3500 cc removed on 10/26/20 - BP soft, not tolerating diuresis. Planning of giving 2u pRBCs and starting furosemide 40 mg BID for ascites, w/ parameters and starting spironolactone at 25mg for now, with goal of increasing to 100mg, w/ parameters Suspected COPD - smokes 3 packs per day - audible wheeze in room - Duonebs - Started Symbicort DM2 -Hold metformin -ISS, accuchecks AC and HS -Hypoglycemic precautions Lower extremity edema - Severe hypoalbuminemia in setting of liver cirrhosis and ascites - BNP 260 - obtain 2D echo - LVEF 70-75%. Mild AV sclerosis. Normal pulmonary artery pressures - obtain bilateral venous duplex - negative for DVT. - BP soft, not tolerating diuresis. Planning of giving 2u pRBCs and starting furosemide 40 mg BID for ascites, w/ parameters and starting spironolactone at 25mg for now, with goal of increasing to 100mg, w/ parameters Sinus tachycardia - resolved. - Suspect 2/2 acute etoh withdrawal HTN -holding losartan, soft. Hx of TIA - Asa, Plavix, statin PAD - asa/Plavix, statin Iron def anemia -Iron, vit C Dispo: patient will require rehab VS,Fishbone, I+O VS, Fishbone, I+O Vital Signs Date Time Temp Pulse Resp B/P (MAP) Pulse Ox O2 Delivery O2 Flow Rate FiO2 11/02/20 06:00 98.0 88 20 119/73 (88) 99 Room Air I&O- Last 24 Hours up to 6 AM 11/02/20 06:00 Intake Total 1950.0 ml Output Total 1100 ml Balance 850.0 ml GIOVANI VASQUEZ MD Nov 02, 2020 09:13
[2020-11-02] MEDS ORDERED: SODIUM BICARBONATE 8.4% INJ 50MEQ 50 ML VIAL As Ordered ONE (14:45)
--- NOTE | 2020-11-02 16:33 | REP ---
INDICATION: tense ascites The patient has a history of ascites COMPARISON: None. TECHNIQUE: The procedure was performed by AMLLORY Gregory, under the direct supervision of Dr. Borja The risks and benefits of the procedure were explained to the patient and an informed consent was obtained both verbally and written. Directly prior to the start of the procedure a formal time-out was completed in the procedure room. The largest pocket of fluid was localized in the right flank using ultrasound guidance. The skin was prepped and draped in a sterile fashion. Eleven ML of buffered lidocaine was used as a local anesthetic. An 8-Azeri multi side-hole catheter was inserted using trocar technique. FINDINGS: 4050 mL of cloudy pink ascites was removed and discarded. The patient tolerated the procedure well and there were no immediate complications. After the appropriate amount of monitored convalescence, the patient was discharged from the department. IMPRESSION: Ultrasound-guided paracentesis with removal of 4050 mL of cloudy PICC ascites. <Electronically signed by Aide Gibbons > 11/02/20 1602 <Electronically signed by Saturnino Borja > 11/02/20 [id number]
[2020-11-02 17:43] VITALS: BP 100/47
[2020-11-02] MEDS: **NOTE PATIENT COMMENT** MISC XX SCH (20:10)
[2020-11-02 22:00] VITALS: BP 97/60
[2020-11-03 06:00] VITALS: BP 111/71
[2020-11-03] MEDS: CIPROFLOXACIN 500MG TABLET PO SCH ×2 (06:02→17:32)
[2020-11-03 06:41] LABS: ALT/SGPT 142 U/L (12-78); BILIRUBIN,TOTAL 1.5 MG/DL (0.2-1.0); BLOOD UREA NITROGEN 9 MG/DL (7-18); CALCIUM LEVEL 7.9 MG/DL (8.5-10.1); CARBON DIOXIDE LEVEL 28 MEQ/L (21-32); CHLORIDE LEVEL 97 MEQ/L (98-107); CREATININE FOR GFR 0.52 MG/DL (0.70-1.30); GLOMERULAR FILTRATION RATE > 60.0 (>56); GLUCOSE, FASTING 88 MG/DL (70-100); POTASSIUM SERUM 3.5 MEQ/L (3.5-5.1); SODIUM LEVEL 133 MEQ/L (136-145); TOTAL PROTEIN 5.1 GM/DL (6.4-8.2)
[2020-11-03 06:42] LABS: INR 1.08; PROTHROMBIN TIME 14.4 SECONDS (12.7-14.5)
[2020-11-03 06:48] LABS: HEMATOCRIT 26.6 % (42.0-52.0); HEMOGLOBIN 9.1 g/dl (13.5-17.5); MEAN CORPUSCULAR HEMOGLOBIN 34.2 pg (27.0-33.0); PLATELET COUNT, AUTOMATED 147 10^3/uL (150-450); RED BLOOD COUNT 2.66 10^6/uL (4.30-6.10); WHITE BLOOD COUNT 10.7 10^3/uL (4.0-10.0)
[2020-11-03 06:52] LABS: MEAN CORPUSCULAR HGB CONC 34.2 g/dl (32.0-36.5)
[2020-11-03] MEDS: ACETAMINOPHEN TAB 650MG DOSE (2X325MG) PO PRN (06:55)
[2020-11-03] MEDS: HumaLOG INSULIN (NovoLOG) PER UNIT SC SCH ×4 (07:30→20:35)
[2020-11-03] MEDS: SYMBICORT 80/4.5MCG INHALER 6GM INH SCH ×2 (07:46→19:59)
[2020-11-03] MEDS: IPRATROPIUM 0.5MG/ALBUTEROL 2.5MG INH SOL UD 3ML (DUONEB) NEB SCH ×5 (07:47→20:00)
[2020-11-03 08:52] VITALS: BP 108/61
[2020-11-03] MEDS: FUROSEMIDE 40 MG TAB PO SCH ×3 (08:52→17:32)
[2020-11-03] MEDS: PANTOPRAZOLE 40MG VIAL (C9113 PER 1) IV SCH ×2 (08:53→21:06)
[2020-11-03] MEDS: LIDOCAINE 5% (LIDODERM) PATCH TD SCH (08:54)
[2020-11-03] MEDS: predniSONE 20 MG TAB PO SCH (08:54)
[2020-11-03] MEDS: TAMSULOSIN 0.4 MG CAP PO SCH (08:54)
[2020-11-03] MEDS: ATORVASTATIN 20 MG TAB PO SCH (08:54)
[2020-11-03] MEDS: ASPIRIN 81MG ENTERIC TABLET PO SCH (08:54)
[2020-11-03] MEDS: FOLIC ACID 1 MG TAB PO SCH (08:54)
[2020-11-03] MEDS: SUCRALFATE 1 GM TAB PO SCH ×4 (08:54→21:06)
[2020-11-03] MEDS: NYSTATIN 100,000 UNITS/GM TOPICAL PWD 15 GM TOP SCH ×2 (08:55→21:06)
[2020-11-03] MEDS: MUPIROCIN 2% OINT 22 GM TUBE TOP SCH (08:55)
[2020-11-03] MEDS: SPIRONOLACTONE 25 MG TAB PO SCH ×2 (08:55→17:32)
[2020-11-03] MEDS: CLOPIDOGREL 75 MG TAB PO SCH (08:55)
[2020-11-03] MEDS: MULTIVITAMINS/MINERALS THERAP 1 TAB PO SCH (08:55)
[2020-11-03 11:19] VITALS: BP 103/62
--- NOTE | 2020-11-03 13:07 | IPNPDOC ---
Text Note Date of Service The patient was seen on 11/03/20. NOTE SUBJECTIVE: -No acute events -Denies shortness of breath, chest pain, palpitations. OBJECTIVE VITAL SIGNS: please see below General: NAD HEENT: PERRLA, EOMI, sclerae clear Neck: supple, normal ROM, no JVD Respiratory: Bibasilar scattered crackles, no wheezing or rhonchi CVS: RRR, normal S1, S2, no murmurs Abdo: Abdomen distended abdominal veins. Ascites has improved. Non-tender otherwise Extremities 2+ edema, pulses 2+ DP, WWP MSK: no joint deformities, normal ROM Neuro: no focal neuro deficits, moving all 4 extremities, CN3-12 intact. Psych: calm, cooperative, AAO x 3 LABORATORY DATA: WBC 10.7 Hgb 9.1 platelets 147 Alb 2 na [address] angio abdo pelvis (10/27/20): No evidence of abdominal aortic aneurysm or dissection. Moderate atherosclerotic disease as discussed in detail above. No evidence of significant varices. Hepatomegaly with diffuse fatty infiltration of the liver. Mild splenomegaly. Moderate ascites. Questionable thickening of the transverse portion of the duodenum may indicate duodenitis. CTA chest (10/27/20): Scattered patchy infiltrates bilaterally, primarily in the upper lobes. Tiny left effusion. No infiltrate seen. Liver US (10/25/20): IMPRESSION: Diffuse fibrofatty infiltration of the liver with no gross mass. No biliary dilatation. Moderate diffuse ascites. Bilateral Venous duplex (10/26/20) There is no ultrasonographic evidence of deep venous thrombosis involving any of the visualized deep venous structures of the bilateral lower extremity as described above. Due to technical parameters calf vein DVT can not be ruled out. Echocardiogram: Ordered on 10/26/2020 DVT prophylaxis ordered?: Heparin 5000 subcu every 8hr ASSESSMENT: 59-year-old M with a history of depression, hypertension, diabetes type 2, a lcohol use disorder, as well as obesity, who presented to the ED after he was found by his brother on the floor complaining of right foot and arm pain and was admitted for decompensated liver cirrhosis with ascites, hypoNa and acute alcohol withdrawal. PLAN: Symptomatic hypovolemic hyponatremia: resolved - Admission na 114, now improved to 133 - Nephrology has signed off - continue furosemide 40 mg BID for ascites, w/ parameters - Spironolactone at 25mg for now, with goal of increasing to 100mg, w/ parameters Acute etoh withdrawal: resolved, now off CIWA and serax -Folate, thiamine, MVT Fatty liver disease likely 2/2 obesity and alcohol with Ascites -History of extensive alcohol abuse. Reviewed EGD from 04/[address] Luong. No report of varcies. -Abdomen is grossly distended nontender now with reaccumulated tense ascites -s/p paracentesis on 10/26/20, removed 3350 cc of cloudy yellow ascitic fluid, no SBP, had repeat paracentesis on 11/02 for 5L - CTA abdo pelvis showing no significant varices, no hematoma or blood into peritoneum - completed 5 days of IV ceftriaxone. Converted to cipro 500 mg BID for SBP ppx. - GI consulted. Recommended diuresis, however BPs are soft, not tolerating diuresis. Started on furosemide 40 mg BID for ascites, w/ parameters and starting spironolactone at 25mg for now, with goal of increasing to 100mg, w/ parameters. Unfortunately BPs have remained soft. - will get 2 bottles of 25% albumin today Acute anemia on iron deficiency anemia - Baseline Hgb 8.5, down to 6.9, s/p 2 units pRBC transfused. - underwent a paracentesis on 10/26/20 - no prior hx of esophageal varices - CTA abdo pelvis showing no significant varices, no hematoma or blood into peritoneum - fecal occult blood positive. - surgical consultation requested, d/w Dr. Bledsoe. Likely patient's anemia 2/2 post paracentesis bleed or upper Gi bleeding from thickening in transverse d uodenum c/w duodenitis. Added carafate. No surgical intervention at this time. Leukocytosis - likely 2/2 solumedrol - completed 5 days of IV ceftriaxone - will c/w cipro 500 mg BID PO. Suspected UTI - nitrite+, pyuria, culture negative - completed 5 days ceftriaxone Avulsion of toenail, R foot - ER dressed toe - podiatry consulted -->Dr. Napier debrided the ingrowing nails. Recommended application of antibiotic and band-aid to the nail removal site until healed. LFT abnormalities i/s/o alcohol abuse -Liver US reviewed, fibrofatty infiltration -Slowly downtrending Dysphagia - ST following - pureed diet - aspiration on cookie swallow, c/w present diet, pending additional training by ST. Hypotension - In setting of hypoalbuminemia and liver cirrhosis with 3rd spacing ascites - s/p 6 units albumin 25%, and 2u of 5% - s/p paracentesis, 3500 cc removed on 10/26/20 - BP soft, not tolerating diuresis. Planning of giving 2u pRBCs and starting furosemide 40 mg BID for ascites, w/ parameters and starting spironolactone at 25mg for now, with goal of increasing to 100mg, w/ parameters Suspected COPD - smokes 3 packs per day - audible wheeze in room - Duonebs - Symbicort DM2 -Hold metformin -ISS, accuchecks AC and HS -Hypoglycemic precautions Lower extremity edema - Severe hypoalbuminemia in setting of liver cirrhosis and ascites - BNP 260 - obtain 2D echo - LVEF 70-75%. Mild AV sclerosis. Normal pulmonary artery pressures - obtain bilateral venous duplex - negative for DVT. - BP soft, not tolerating diuresis.Furosemide 40 mg BID for ascites, w/ parameters and spironolactone at 25mg for now, with goal of increasing to 100mg, w/ parameters - s/p 2ng LVP on 11/02, getting 2 bottles of 25% albumin today Sinus tachycardia - resolved. - Suspect 2/2 acute etoh withdrawal HTN -holding losartan, soft. Hx of TIA - Asa, Plavix, statin PAD - asa/Plavix, statin Iron def anemia -Iron, vit C Dispo: patient will require rehab VSEz, I+O VS, Ez, I+O Laboratory Tests 11/02/20 09:27 11/03/20 05:48 Vital Signs Date Time Temp Pulse Resp B/P (MAP) Pulse Ox O2 Delivery O2 Flow Rate FiO2 11/03/20 06:00 98.7 95 20 111/71 (84) 100 Room Air I&O- Last 24 Hours up to 6 AM 11/03/20 06:00 Intake Total 2116 ml Output Total 150 ml Balance 1966 ml GIOVANI VASQUEZ MD Nov 03, 2020 07:58
[2020-11-03 13:24] VITALS: BP 101/62
[2020-11-03 15:33] VITALS: BP 102/61
[2020-11-03 22:00] VITALS: BP 121/73
[2020-11-03] MEDS: **NOTE PATIENT COMMENT** MISC XX SCH (23:27)
[2020-11-04] VITALS (14 sets, daily range): BP systolic 95–129; BP diastolic 56–93
[2020-11-04] MEDS: RAMELTEON 8 MG TAB (ROZEREM) PO PRN ×2 (02:03→20:26)
[2020-11-04] MEDS: IPRATROPIUM 0.5MG/ALBUTEROL 2.5MG INH SOL UD 3ML (DUONEB) NEB SCH ×6 (03:52→18:12)
[2020-11-04] MEDS: CIPROFLOXACIN 500MG TABLET PO SCH ×2 (05:38→17:26)
[2020-11-04] MEDS: DOCUSATE SODIUM 100MG CAPSULE PO PRN (05:38)
[2020-11-04 06:46] LABS: ALBUMIN 1.8 GM/DL (3.2-5.2); ALT/SGPT 118 U/L (12-78); BILIRUBIN,TOTAL 1.4 MG/DL (0.2-1.0); BLOOD UREA NITROGEN 7 MG/DL (7-18); CALCIUM LEVEL 7.6 MG/DL (8.5-10.1); CARBON DIOXIDE LEVEL 26 MEQ/L (21-32); CHLORIDE LEVEL 99 MEQ/L (98-107); CREATININE FOR GFR 0.55 MG/DL (0.70-1.30); GLOMERULAR FILTRATION RATE > 60.0 (>56); GLUCOSE, FASTING 149 MG/DL (70-100); POTASSIUM SERUM 3.4 MEQ/L (3.5-5.1); SODIUM LEVEL 134 MEQ/L (136-145); TOTAL PROTEIN 4.7 GM/DL (6.4-8.2)
[2020-11-04 07:23] LABS: HEMATOCRIT 22.2 % (42.0-52.0); HEMOGLOBIN 7.4 g/dl (13.5-17.5); MEAN CORPUSCULAR HEMOGLOBIN 32.7 pg (27.0-33.0); MEAN CORPUSCULAR HGB CONC 33.3 g/dl (32.0-36.5); MEAN CORPUSCULAR VOLUME 98.2 fl (80.0-96.0); PLATELET COUNT, AUTOMATED 140 10^3/uL (150-450); RED BLOOD COUNT 2.26 10^6/uL (4.30-6.10); WHITE BLOOD COUNT 9.8 10^3/uL (4.0-10.0)
[2020-11-04] MEDS: SYMBICORT 80/4.5MCG INHALER 6GM INH SCH ×2 (07:38→18:12)
[2020-11-04] MEDS: MULTIVITAMINS/MINERALS THERAP 1 TAB PO SCH (08:48)
[2020-11-04] MEDS: TAMSULOSIN 0.4 MG CAP PO SCH (08:48)
[2020-11-04] MEDS: ATORVASTATIN 20 MG TAB PO SCH (08:48)
[2020-11-04] MEDS: KETOROLAC 30 MG/ML 1ML VIAL IV PRN (08:48)
[2020-11-04] MEDS: PANTOPRAZOLE 40MG VIAL (C9113 PER 1) IV SCH ×2 (08:48→20:25)
[2020-11-04] MEDS: HumaLOG INSULIN (NovoLOG) PER UNIT SC SCH ×4 (08:48→20:26)
[2020-11-04] MEDS: ASPIRIN 81MG ENTERIC TABLET PO SCH (08:48)
[2020-11-04] MEDS: FOLIC ACID 1 MG TAB PO SCH (08:48)
[2020-11-04] MEDS: LIDOCAINE 5% (LIDODERM) PATCH TD SCH (08:49)
[2020-11-04] MEDS: MUPIROCIN 2% OINT 22 GM TUBE TOP SCH (08:49)
[2020-11-04] MEDS: SUCRALFATE 1 GM TAB PO SCH ×4 (08:49→20:25)
[2020-11-04] MEDS: CLOPIDOGREL 75 MG TAB PO SCH (08:49)
[2020-11-04] MEDS: predniSONE 20 MG TAB PO SCH (08:49)
[2020-11-04] MEDS: SPIRONOLACTONE 25 MG TAB PO SCH ×2 (08:50→17:27)
[2020-11-04] MEDS: FUROSEMIDE 40 MG TAB PO SCH ×2 (08:50→17:26)
[2020-11-04] MEDS: NYSTATIN 100,000 UNITS/GM TOPICAL PWD 15 GM TOP SCH ×2 (08:50→20:26)
[2020-11-04] MEDS ORDERED: POTASSIUM CHLORIDE 10MEQ SR TABLET PO ONE (09:30)
[2020-11-04] MEDS: MAG SULF 1GM/100ML (MAG RUN) 1 GM in IV 1 EA IV SCH ×2 (11:30→12:37)
--- NOTE | 2020-11-04 11:48 | IPNPDOC ---
Text Note Date of Service The patient was seen on 11/04/20. NOTE SUBJECTIVE: -No acute events -Denies shortness of breath, chest pain, palpitations. OBJECTIVE VITAL SIGNS: please see below General: NAD HEENT: PERRLA, EOMI, sclerae clear Neck: supple, normal ROM, no JVD Respiratory: Bibasilar scattered crackles, no wheezing or rhonchi CVS: RRR, normal S1, S2, no murmurs Abdo: Abdomen distended abdominal veins. Non-tender otherwise Extremities 2+ edema, pulses 2+ DP, WWP MSK: no joint deformities, normal ROM Neuro: no focal neuro deficits, moving all 4 extremities, CN3-12 intact. Psych: calm, cooperative, AAO x 3 LABORATORY DATA: WBC 9.8 Hgb 7.4 (ordered 2 units of pRBCs) Na 134 platelets 140 [address] angio abdo pelvis (10/27/20): No evidence of abdominal aortic aneurysm or dissection. Moderate atherosclerotic disease as discussed in detail above. No evidence of significant varices. Hepatomegaly with diffuse fatty infiltration of the liver. Mild splenomegaly. Moderate ascites. Questionable thickening of the transverse portion of the duodenum may indicate duodenitis. CTA chest (10/27/20): Scattered patchy infiltrates bilaterally, primarily in the upper lobes. Tiny left effusion. No infiltrate seen. Liver US (10/25/20): IMPRESSION: Diffuse fibrofatty infiltration of the liver with no gross mass. No biliary dilatation. Moderate diffuse ascites. Bilateral Venous duplex (10/26/20) There is no ultrasonographic evidence of deep venous thrombosis involving any of the visualized deep venous structures of the bilateral lower extremity as described above. Due to technical parameters calf vein DVT can not be ruled out. Echocardiogram: Ordered on 10/26/2020 DVT prophylaxis ordered?: Heparin 5000 subcu every 8hr ASSESSMENT: 59-year-old M with a history of depression, hypertension, diabetes type 2, alc ohol use disorder, as well as obesity, who presented to the ED after he was found by his brother on the floor complaining of right foot and arm pain and was admitted for decompensated liver cirrhosis with ascites, hypoNa and acute alcohol withdrawal. PLAN: Symptomatic hypovolemic hyponatremia: resolved - Admission na 114, now improved to 133 - Nephrology has signed off - continue furosemide 40 mg BID for ascites, w/ parameters - Spironolactone at 25mg for now, with goal of increasing to 100mg, w/ parameters Acute etoh withdrawal: resolved, now off CIWA and serax -Folate, thiamine, MVT Fatty liver disease likely 2/2 obesity and alcohol with Ascites -History of extensive alcohol abuse. Reviewed EGD from 04/[address] Luong. No report of varcies. -Abdomen is grossly distended nontender now with reaccumulated tense ascites -s/p paracentesis on 10/26/20, removed 3350 cc of cloudy yellow ascitic fluid, no SBP, had repeat paracentesis on 11/02 for 5L - CTA abdo pelvis showing no significant varices, no hematoma or blood into peritoneum - completed 5 days of IV ceftriaxone. Converted to cipro 500 mg BID for SBP ppx. - GI consulted. Recommended diuresis, however BPs are soft, not tolerating diuresis. Started on furosemide 40 mg BID for ascites, w/ parameters and starting spironolactone at 25mg for now, with goal of increasing to 100mg, w/ parameters. Unfortunately BPs have remained soft. - will get 2 bottles of 25% albumin today Acute anemia on iron deficiency anemia - Baseline Hgb 8.5, s/p 2 units pRBC transfused, will give 2 more units today - underwent a paracentesis on 10/26/20 - no prior hx of esophageal varices - CTA abdo pelvis showing no significant varices, no hematoma or blood into peritoneum - fecal occult blood positive. - surgical consultation requested, d/w Dr. Bledsoe. Likely patient's anemia 2/2 post paracentesis bleed or upper Gi bleeding from thickening in transverse duodenum c/w duodenitis. Added carafate. No surgical intervention at this time. Leukocytosis - likely 2/2 solumedrol - completed 5 days of IV ceftriaxone - will c/w cipro 500 mg BID PO. Suspected UTI - nitrite+, pyuria, culture negative - completed 5 days ceftriaxone Avulsion of toenail, R foot - ER dressed toe - podiatry consulted -->Dr. Napier debrided the ingrowing nails. Recommended application of antibiotic and band-aid to the nail removal site until healed. LFT abnormalities i/s/o alcohol abuse -Liver US reviewed, fibrofatty infiltration -Slowly downtrending Dysphagia - ST following - pureed diet - aspiration on cookie swallow, c/w present diet, pending additional training by ST. Hypotension - In setting of hypoalbuminemia and liver cirrhosis with 3rd spacing ascites - s/p 6 units albumin 25%, and 2u of 5% - s/p paracentesis, 3500 cc removed on 10/26/20 - BP soft, not tolerating diuresis. Planning of giving 2u pRBCs and continuing diuresis for ascites, w/ parameters Suspected COPD - smokes 3 packs per day - audible wheeze in room - Duonebs - Symbicort DM2 -Hold metformin -ISS, accuchecks AC and HS -Hypoglycemic precautions Lower extremity edema - Severe hypoalbuminemia in setting of liver cirrhosis and ascites - BNP 260 - obtain 2D echo - LVEF 70-75%. Mild AV sclerosis. Normal pulmonary artery pressures - obtain bilateral venous duplex - negative for DVT. - BP soft. Furosemide 40 mg BID for ascites, w/ parameters and spironolactone at 25mg for now, with goal of increasing to 100mg, w/ parameters - s/p 2ng LVP on 11/02, getting 2 bottles of 25% albumin today Sinus tachycardia - resolved. - Suspect 2/2 acute etoh withdrawal HTN -holding losartan, soft. Hx of TIA - Asa, Plavix, statin PAD - asa/Plavix, statin Iron def anemia -Iron, vit C Dispo: patient will require rehab VS,Fishbone, I+O VS, Fishbone, I+O Laboratory Tests 11/04/20 05:36 Vital Signs Date Time Temp Pulse Resp B/P (MAP) Pulse Ox O2 Delivery O2 Flow Rate FiO2 11/04/20 08:45 112 96/68 (77) 11/04/20 06:00 98.3 20 98 Room Air I&O- Last 24 Hours up to 6 AM 11/04/20 06:00 Intake Total 2020.0 ml Output Total 275 ml Balance 1745.0 ml GIOVANI VASQUEZ MD Nov 04, 2020 09:35
[2020-11-04] MEDS: **NOTE PATIENT COMMENT** MISC XX SCH (20:26)
[2020-11-04] MEDS: ACETAMINOPHEN TAB 650MG DOSE (2X325MG) PO PRN (20:27)
[2020-11-05] MEDS: IPRATROPIUM 0.5MG/ALBUTEROL 2.5MG INH SOL UD 3ML (DUONEB) NEB SCH ×4 (01:10→11:51)
[2020-11-05] MEDS: ACETAMINOPHEN TAB 650MG DOSE (2X325MG) PO PRN ×3 (03:01→17:42)
[2020-11-05] MEDS: CIPROFLOXACIN 500MG TABLET PO SCH ×2 (05:57→17:42)
[2020-11-05 06:00] VITALS: BP 115/70
[2020-11-05 06:43] LABS: ALT/SGPT 123 U/L (12-78); BILIRUBIN,TOTAL 1.9 MG/DL (0.2-1.0); BLOOD UREA NITROGEN 7 MG/DL (7-18); CALCIUM LEVEL 7.8 MG/DL (8.5-10.1); CARBON DIOXIDE LEVEL 27 MEQ/L (21-32); CHLORIDE LEVEL 98 MEQ/L (98-107); CREATININE FOR GFR 0.46 MG/DL (0.70-1.30); GLOMERULAR FILTRATION RATE > 60.0 (>56); GLUCOSE, FASTING 102 MG/DL (70-100); SODIUM LEVEL 134 MEQ/L (136-145)
[2020-11-05 06:45] LABS: HEMATOCRIT 31.6 % (42.0-52.0); HEMOGLOBIN 10.8 g/dl (13.5-17.5); MEAN CORPUSCULAR HEMOGLOBIN 32.6 pg (27.0-33.0); MEAN CORPUSCULAR HGB CONC 34.2 g/dl (32.0-36.5); MEAN CORPUSCULAR VOLUME 95.5 fl (80.0-96.0); PLATELET COUNT, AUTOMATED 161 10^3/uL (150-450); RED BLOOD COUNT 3.31 10^6/uL (4.30-6.10); WHITE BLOOD COUNT 12.1 10^3/uL (4.0-10.0)
[2020-11-05] MEDS: SYMBICORT 80/4.5MCG INHALER 6GM INH SCH ×2 (07:16→19:14)
[2020-11-05] MEDS: LIDOCAINE 5% (LIDODERM) PATCH TD SCH (08:18)
[2020-11-05] MEDS: PANTOPRAZOLE 40MG VIAL (C9113 PER 1) IV SCH ×2 (08:18→21:18)
[2020-11-05] MEDS: SPIRONOLACTONE 25 MG TAB PO SCH ×2 (08:19→17:41)
[2020-11-05] MEDS: ASPIRIN 81MG ENTERIC TABLET PO SCH (08:19)
[2020-11-05] MEDS: predniSONE 20 MG TAB PO SCH (08:19)
[2020-11-05] MEDS: ATORVASTATIN 20 MG TAB PO SCH (08:19)
[2020-11-05] MEDS: HumaLOG INSULIN (NovoLOG) PER UNIT SC SCH ×4 (08:19→21:00)
[2020-11-05] MEDS: SUCRALFATE 1 GM TAB PO SCH ×4 (08:20→21:18)
[2020-11-05] MEDS: TAMSULOSIN 0.4 MG CAP PO SCH (08:20)
[2020-11-05] MEDS: MULTIVITAMINS/MINERALS THERAP 1 TAB PO SCH (08:20)
[2020-11-05] MEDS: FOLIC ACID 1 MG TAB PO SCH (08:20)
[2020-11-05] MEDS: FUROSEMIDE 40 MG TAB PO SCH ×2 (08:20→17:44)
[2020-11-05] MEDS: CLOPIDOGREL 75 MG TAB PO SCH (08:20)
[2020-11-05] MEDS: NYSTATIN 100,000 UNITS/GM TOPICAL PWD 15 GM TOP SCH ×2 (08:21→21:18)
[2020-11-05] MEDS: MUPIROCIN 2% OINT 22 GM TUBE TOP SCH (08:21)
[2020-11-05 13:49] LABS: HEMATOCRIT 34.1 % (42.0-52.0); HEMOGLOBIN 11.7 g/dl (13.5-17.5); MEAN CORPUSCULAR HEMOGLOBIN 32.9 pg (27.0-33.0); MEAN CORPUSCULAR HGB CONC 34.3 g/dl (32.0-36.5); MEAN CORPUSCULAR VOLUME 95.8 fl (80.0-96.0); PLATELET COUNT, AUTOMATED 170 10^3/uL (150-450); RED BLOOD COUNT 3.56 10^6/uL (4.30-6.10); WHITE BLOOD COUNT 12.8 10^3/uL (4.0-10.0)
[2020-11-05] MEDS ORDERED: IPRATROPIUM 0.5MG/ALBUTEROL 2.5MG INH SOL UD 3ML (DUONEB) NEB PRN (14:25)
[2020-11-05] MEDS ORDERED: IPRATROPIUM 0.5MG/ALBUTEROL 2.5MG INH SOL UD 3ML (DUONEB) NEB SCH (16:00)
--- NOTE | 2020-11-05 16:47 | IPNPDOC ---
Subjective Date Seen The patient was seen on 11/05/20. Subjective Chief Complaint/HPI Mr. Lomeli is a 59-year-old male with dea-rkntwrf-vbukhtggg diabetes mellitus type 2, alcohol use disorder, and obesity who presents with decompensated alcoholic cirrhosis and alcohol withdrawal. This morning, he denies any chest pain or shortness of breath. He still has bilateral pitting edema and abdominal distention. Abdomen still feels mildly distended. Objective Physical Examination General Exam: Positive: Alert, Cooperative Eye Exam: Negative: Sclera icteric ENT Exam: Positive: Atraumatic Neck Exam: Positive: Supple Chest Exam: Positive: Clear to auscultation Heart Exam: Positive: Rate Normal, Regular Rhythm Abdomen Exam: Positive: Normal bowel sounds, Other (mildly firm); Negative: Soft, Tenderness Extremity Exam: Positive: Edema (bilateral pitting edema) Psych Exam: Positive: Mood NL Assessment /Plan Assessment Mr. Lomeli is a 59-year-old male with ivy-tjfndlx-szvmarzob diabetes mellitus type 2, alcohol use disorder, and obesity who presents with decompensated alcoholic cirrhosis and alcohol withdrawal. Patient did develop acute anemia on 10/27/20 and 11/04/20, patient was transfused with 2u of pRBC on each day for a total of 4u during hospitalization. Hemoglobin remains stable today. Otherwise, will continued diuresis as tolerated. By OT, patient would need rehab. Plan/VTE VTE Prophylaxis Ordered?: Yes Plan 1. Hyponatremia On admission, sodium was 114 Nephrology was consulted, but signed off after resolution of hyponatremia Continue frusemide and spironolactone 2. Fatty liver disease versus suspected decompensated alcoholic cirrhosis with ascites On admission, Madrey score was 22.1 indicating good prognosis. No steroids at this time Patient had paracentesis on 10/26/2020 removed 3350 cc of fluid which was negative for SBP. Repeat paracentesis on 11/02/2020 removed 5000 cc of fluid. GI was consulted. Recommended diuresis Patient had been given albumin to help with blood pressure and diuresis Continue ciprofloxacin for SBP prophylaxis Continue furosemide and spironolactone 3. Acute alcohol withdrawal Resolved. Off CIWA and Serax Continue folate, thiamine, multivitamin 4. Acute anemia Patient had required blood transfusions on 10/27/20 and 11/04/20. Had 2 units on each day for total of 4 units of packed red blood cells During hospitalization, general surgery had been consulted. Suspecting anemia from paracentesis versus upper GI bleed Continue IV Protonix twice daily and Carafate 5. Suspected UTI Already has completed 5 days of ceftriaxone 6. Avulsion of right foot toenail ER dressed toe Podiatry consulted Dr. Napier debrided ingrown toenail. Recommended topical antibiotic and Band- Aid until healed 7. Hypertension Secondary to suspected cirrhosis Received albumin and blood Blood pressure stable today 8. Suspected COPD Smokes 3 packs/day Continue duo nebs and Symbicort Taper prednisone 9. DM type II Hold Metformin Continue sliding scale insulin 10. Hypertension Due to hypotension and cirrhosis, hold losartan 11. History of TIA Continue aspirin, Plavix, and atorvastatin 12. Peripheral arterial disease Continue aspirin, Plavix, and atorvastatin 13. DVT prophylaxis SCDs and teds Disposition: Per OT, patient would benefit from rehab At this time we are continuing with diuresis. We will try to increase spirono lactone tomorrow. Otherwise monitor H&H for anemia. [facility] Vital Signs Date Time Temp Pulse Resp B/P (MAP) Pulse Ox O2 Delivery O2 Flow Rate FiO2 11/05/20 06:00 97.3 91 19 115/70 (85) 100 Room Air 11/04/20 12:25 I&O- Last 24 Hours up to 6 AM 11/05/20 06:00 Intake Total 3790 ml Output Total 775 ml Balance 3015 ml Laboratory Data 24H LABS Laboratory Tests 2 11/04/20 16:33: Bedside Glucose (Misc Panel) 254H 11/04/20 20:19: Bedside Glucose (Misc Panel) 188H 11/05/20 05:35: Nucleated Red Blood Cells % (auto) 0.0, Anion Gap 9, Glomerular Filtration Rate > 60.0, Calcium Level 7.8L, Total Bilirubin 1.9H, Aspartate Amino Transf (AST/SGOT) 112H, Alanine Aminotransferase (ALT/SGPT) 123H, Alkaline Phosphatase 189H, Total Protein 5.0L, Albumin 2.0L, Albumin/Globulin Ratio 0.7 11/05/20 12:10: Bedside Glucose (Misc Panel) 180H 11/05/20 13:13: Nucleated Red Blood Cells % (auto) 0.0 CBC/BMP Laboratory Tests 11/05/20 05:35 11/05/20 13:13 Microbiology Microbiology 10/27/20 Stool Occult Blood (ANDREW) - Final, Complete 10/26/20 Blood Culture - Final, Complete NO GROWTH AFTER 5 DAYS 10/26/20 Acid Fast Stain, Received Pending 10/26/20 Mycobacterial Culture, Received Pending 10/26/20 Fungal Smear, Received Pending 10/26/20 Fungal Culture, Received Pending 10/26/20 Gram Stain - Final, Complete 10/26/20 Body Fluid Culture - Final, Complete 10/26/20 Blood Culture - Final, Complete NO GROWTH AFTER 5 DAYS OMAIRA ERAZO DO Nov 05, 2020 14:24
[2020-11-05] MEDS: THIAMINE 100 MG TAB PO SCH (17:41)
[2020-11-05] MEDS: **NOTE PATIENT COMMENT** MISC XX SCH (21:18)
[2020-11-05] MEDS: RAMELTEON 8 MG TAB (ROZEREM) PO PRN (21:18)
[2020-11-05] MEDS: KETOROLAC 30 MG/ML 1ML VIAL IV PRN (21:19)
[2020-11-05 22:00] VITALS: BP 124/81
[2020-11-06] MEDS: ACETAMINOPHEN TAB 650MG DOSE (2X325MG) PO PRN (05:59)
[2020-11-06] MEDS: CIPROFLOXACIN 500MG TABLET PO SCH ×2 (05:59→17:01)
[2020-11-06 06:00] VITALS: BP 111/61
[2020-11-06 06:33] LABS: HEMATOCRIT 30.1 % (42.0-52.0); HEMOGLOBIN 10.2 g/dl (13.5-17.5); MEAN CORPUSCULAR HEMOGLOBIN 32.5 pg (27.0-33.0); MEAN CORPUSCULAR HGB CONC 33.9 g/dl (32.0-36.5); MEAN CORPUSCULAR VOLUME 95.9 fl (80.0-96.0); PLATELET COUNT, AUTOMATED 180 10^3/uL (150-450); RED BLOOD COUNT 3.14 10^6/uL (4.30-6.10); WHITE BLOOD COUNT 11.8 10^3/uL (4.0-10.0)
[2020-11-06 06:40] LABS: ALBUMIN 1.9 GM/DL (3.2-5.2); ALT/SGPT 119 U/L (12-78); BILIRUBIN,TOTAL 1.7 MG/DL (0.2-1.0); BLOOD UREA NITROGEN 9 MG/DL (7-18); CALCIUM LEVEL 7.6 MG/DL (8.5-10.1); CARBON DIOXIDE LEVEL 25 MEQ/L (21-32); CHLORIDE LEVEL 98 MEQ/L (98-107); CREATININE FOR GFR 0.54 MG/DL (0.70-1.30); GLOMERULAR FILTRATION RATE > 60.0 (>56); GLUCOSE, FASTING 124 MG/DL (70-100); POTASSIUM SERUM 3.7 MEQ/L (3.5-5.1); SODIUM LEVEL 132 MEQ/L (136-145); TOTAL PROTEIN 4.7 GM/DL (6.4-8.2)
[2020-11-06] MEDS: HumaLOG INSULIN (NovoLOG) PER UNIT SC SCH ×4 (08:12→20:03)
[2020-11-06] MEDS: PANTOPRAZOLE 40MG VIAL (C9113 PER 1) IV SCH ×2 (08:12→20:11)
[2020-11-06] MEDS: SPIRONOLACTONE 25 MG TAB PO SCH ×2 (08:12→17:03)
[2020-11-06] MEDS: LIDOCAINE 5% (LIDODERM) PATCH TD SCH (08:12)
[2020-11-06] MEDS: ASPIRIN 81MG ENTERIC TABLET PO SCH (08:14)
[2020-11-06] MEDS: FOLIC ACID 1 MG TAB PO SCH (08:14)
[2020-11-06] MEDS: SYMBICORT 80/4.5MCG INHALER 6GM INH SCH ×2 (08:14→19:37)
[2020-11-06] MEDS: predniSONE 10 MG TAB PO SCH (08:14)
[2020-11-06] MEDS: TAMSULOSIN 0.4 MG CAP PO SCH (08:14)
[2020-11-06] MEDS: THIAMINE 100 MG TAB PO SCH (08:15)
[2020-11-06] MEDS: FUROSEMIDE 40 MG TAB PO SCH ×2 (08:15→17:04)
[2020-11-06] MEDS: CLOPIDOGREL 75 MG TAB PO SCH (08:15)
[2020-11-06] MEDS: ATORVASTATIN 20 MG TAB PO SCH (08:15)
[2020-11-06] MEDS: MULTIVITAMINS/MINERALS THERAP 1 TAB PO SCH (08:15)
[2020-11-06] MEDS: SUCRALFATE 1 GM TAB PO SCH ×4 (08:15→20:11)
[2020-11-06] MEDS: NYSTATIN 100,000 UNITS/GM TOPICAL PWD 15 GM TOP SCH ×2 (08:16→20:11)
[2020-11-06] MEDS: MUPIROCIN 2% OINT 22 GM TUBE TOP SCH (08:16)
--- NOTE | 2020-11-06 10:07 | IPNPDOC ---
Subjective Date Seen The patient was seen on 11/06/20. Subjective Chief Complaint/HPI Mr. Lomeli is a 59-year-old male with cjp-gyomqbp-pjofeazkt diabetes mellitus type 2, alcohol use disorder, and obesity who presents with decompensated alcoholic cirrhosis and alcohol withdrawal. Today, he denies any chest pain or dyspnea. He was lying down and his abdomen felt softer than when he was sitting up. Will try increasing spironolactone today. Objective Physical Examination General Exam: Positive: Alert, Cooperative Eye Exam: Negative: Sclera icteric ENT Exam: Positive: Atraumatic Neck Exam: Positive: Supple Chest Exam: Positive: Clear to auscultation Heart Exam: Positive: Rate Normal, Regular Rhythm Abdomen Exam: Positive: Normal bowel sounds, Soft; Negative: Tenderness Extremity Exam: Positive: Edema (bilateral pitting edema) Psych Exam: Positive: Mood NL Assessment /Plan Assessment Mr. Lomeli is a 59-year-old male with wch-ytnbzzv-mkfctxtsi diabetes mellitus type 2, alcohol use disorder, and obesity who presents with decompensated alcoholic cirrhosis and alcohol withdrawal. Patient did develop acute anemia on 10/27/20 and 11/04/20, patient was transfused with 2u of pRBC on each day for a total of 4u during hospitalization. Hemoglobin remains stable today. Otherwise, will continued diuresis as tolerated. By OT, patient would need rehab. Plan/VTE VTE Prophylaxis Ordered?: Yes Plan 1. Hyponatremia On admission, sodium was 114 Nephrology was consulted, but signed off after resolution of hyponatremia Continue frusemide and spironolactone 2. Fatty liver disease versus suspected decompensated alcoholic cirrhosis with ascites On admission, Madrey score was 22.1 indicating good prognosis. No steroids at this time Patient had paracentesis on 10/26/2020 removed 3350 cc of fluid which was nega tive for SBP. Repeat paracentesis on 11/02/2020 removed 5000 cc of fluid. GI was consulted. Recommended diuresis Patient had been given albumin to help with blood pressure and diuresis Continue ciprofloxacin for SBP prophylaxis Continue furosemide and spironolactone 3. Acute alcohol withdrawal Resolved. Off CIWA and Serax Continue folate, thiamine, multivitamin 4. Acute anemia Patient had required blood transfusions on 10/27/20 and 11/04/20. Had 2 units on each day for total of 4 units of packed red blood cells During hospitalization, general surgery had been consulted. Suspecting anemia from paracentesis versus upper GI bleed Continue IV Protonix twice daily and Carafate 5. Suspected UTI Already has completed 5 days of ceftriaxone 6. Avulsion of right foot toenail ER dressed toe Podiatry consulted Dr. Napier debrided ingrown toenail. Recommended topical antibiotic and Band- Aid until healed 7. Hypertension Secondary to suspected cirrhosis Received albumin and blood Blood pressure stable today 8. Suspected COPD Smokes 3 packs/day Continue duo nebs and Symbicort Taper prednisone 9. DM type II Hold Metformin Continue sliding scale insulin 10. Hypertension Due to hypotension and cirrhosis, hold losartan 11. History of TIA Continue aspirin, Plavix, and atorvastatin 12. Peripheral arterial disease Continue aspirin, Plavix, and atorvastatin 13. DVT prophylaxis SCDs and teds Disposition: Per OT, patient would benefit from rehab At this time we are continuing with diuresis. Increased spironolactone today from 25mg BID to 50mg BID. Otherwise monitor H&H for anemia. [facility]O Vital Signs Date Time Temp Pulse Resp B/P (MAP) Pulse Ox O2 Delivery O2 Flow Rate FiO2 11/06/20 06:00 98.3 97 22 111/61 (78) 97 Room Air 11/04/20 12:25 I&O- Last 24 Hours up to 6 AM 11/06/20 05:59 Intake Total 2170 ml Output Total 300 ml Balance 1870 ml Laboratory Data 24H LABS Laboratory Tests 2 11/05/20 12:10: Bedside Glucose (Misc Panel) 180H 11/05/20 13:13: Nucleated Red Blood Cells % (auto) 0.0 11/05/20 17:28: Bedside Glucose (Misc Panel) 195H 11/05/20 19:47: Bedside Glucose (Misc Panel) 149H 11/06/20 05:28: Nucleated Red Blood Cells % (auto) 0.0, Anion Gap 9, Glomerular Filtration Rate > 60.0, Calcium Level 7.6L, Total Bilirubin 1.7H, Aspartate Amino Transf (AST/ SGOT) 101H, Alanine Aminotransferase (ALT/SGPT) 119H, Alkaline Phosphatase 173H, Total Protein 4.7L, Albumin 1.9L, Albumin/Globulin Ratio 0.7 CBC/BMP Laboratory Tests 11/05/20 13:13 11/06/20 05:28 Microbiology Microbiology 10/27/20 Stool Occult Blood (ANDREW) - Final, Complete OMAIRA ERAZO DO Nov 06, 2020 10:07
[2020-11-06] MEDS: BENZONATATE 100MG CAPSULE PO SCH ×3 (10:32→20:11)
[2020-11-06] MEDS: guaiFENesin ER 600 MG TAB PO SCH ×2 (10:32→20:11)
[2020-11-06 14:00] VITALS: BP 113/58
[2020-11-06] MEDS: traMADol 50 MG TAB PO PRN (15:50)
[2020-11-06] MEDS: **NOTE PATIENT COMMENT** MISC XX SCH (20:04)
[2020-11-06 22:00] VITALS: BP 95/61
[2020-11-06] MEDS: RAMELTEON 8 MG TAB (ROZEREM) PO PRN (23:43)
[2020-11-06] MEDS: DOCUSATE SODIUM 100MG CAPSULE PO PRN (23:43)
[2020-11-07] MEDS: CIPROFLOXACIN 500MG TABLET PO SCH ×2 (05:01→17:15)
[2020-11-07 06:00] VITALS: BP 111/69
[2020-11-07 07:05] LABS: HEMATOCRIT 31.2 % (42.0-52.0); HEMOGLOBIN 10.6 g/dl (13.5-17.5); MEAN CORPUSCULAR HEMOGLOBIN 32.8 pg (27.0-33.0); MEAN CORPUSCULAR VOLUME 96.6 fl (80.0-96.0); PLATELET COUNT, AUTOMATED 186 10^3/uL (150-450); RED BLOOD COUNT 3.23 10^6/uL (4.30-6.10); WHITE BLOOD COUNT 11.1 10^3/uL (4.0-10.0)
[2020-11-07 07:10] LABS: ALBUMIN 1.9 GM/DL (3.2-5.2); ALT/SGPT 112 U/L (12-78); BILIRUBIN,TOTAL 1.5 MG/DL (0.2-1.0); BLOOD UREA NITROGEN 8 MG/DL (7-18); CARBON DIOXIDE LEVEL 26 MEQ/L (21-32); CHLORIDE LEVEL 99 MEQ/L (98-107); CREATININE FOR GFR 0.45 MG/DL (0.70-1.30); GLOMERULAR FILTRATION RATE > 60.0 (>56); GLUCOSE, FASTING 113 MG/DL (70-100); POTASSIUM SERUM 3.4 MEQ/L (3.5-5.1); SODIUM LEVEL 134 MEQ/L (136-145); TOTAL PROTEIN 5.1 GM/DL (6.4-8.2)
[2020-11-07] MEDS ORDERED: POTASSIUM CHLORIDE 10MEQ SR TABLET PO ONE (07:15)
[2020-11-07 07:52] LABS: MAGNESIUM LEVEL 1.5 MG/DL (1.8-2.4)
[2020-11-07] MEDS: SYMBICORT 80/4.5MCG INHALER 6GM INH SCH ×2 (07:53→20:08)
[2020-11-07] MEDS: LIDOCAINE 5% (LIDODERM) PATCH TD SCH (08:14)
[2020-11-07] MEDS: PANTOPRAZOLE 40MG VIAL (C9113 PER 1) IV SCH ×2 (08:15→20:34)
[2020-11-07] MEDS: HumaLOG INSULIN (NovoLOG) PER UNIT SC SCH ×4 (08:16→20:28)
[2020-11-07] MEDS: SPIRONOLACTONE 25 MG TAB PO SCH ×2 (08:16→17:00)
[2020-11-07] MEDS: predniSONE 10 MG TAB PO SCH (08:16)
[2020-11-07] MEDS: ASPIRIN 81MG ENTERIC TABLET PO SCH (08:16)
[2020-11-07] MEDS: MULTIVITAMINS/MINERALS THERAP 1 TAB PO SCH (08:17)
[2020-11-07] MEDS: DOCUSATE SODIUM 100MG CAPSULE PO PRN (08:17)
[2020-11-07] MEDS: THIAMINE 100 MG TAB PO SCH (08:17)
[2020-11-07] MEDS: FUROSEMIDE 40 MG TAB PO SCH ×2 (08:17→17:14)
[2020-11-07] MEDS: TAMSULOSIN 0.4 MG CAP PO SCH (08:17)
[2020-11-07] MEDS: SUCRALFATE 1 GM TAB PO SCH ×4 (08:17→20:35)
[2020-11-07] MEDS: FOLIC ACID 1 MG TAB PO SCH (08:17)
[2020-11-07] MEDS: BENZONATATE 100MG CAPSULE PO SCH ×3 (08:17→20:35)
[2020-11-07] MEDS: ATORVASTATIN 20 MG TAB PO SCH (08:17)
[2020-11-07] MEDS: guaiFENesin ER 600 MG TAB PO SCH ×2 (08:17→20:35)
[2020-11-07] MEDS: CLOPIDOGREL 75 MG TAB PO SCH (08:17)
[2020-11-07] MEDS: MUPIROCIN 2% OINT 22 GM TUBE TOP SCH (08:18)
[2020-11-07] MEDS: NYSTATIN 100,000 UNITS/GM TOPICAL PWD 15 GM TOP SCH ×2 (08:18→20:35)
--- NOTE | 2020-11-07 10:15 | IPNPDOC ---
Subjective Date Seen The patient was seen on 11/07/20. Subjective Chief Complaint/HPI Mr. Lomeli is a 59-year-old male with epy-mxhxevs-jgszkqpwd diabetes mellitus type 2, alcohol use disorder, and obesity who presents with decompensated alcoholic cirrhosis and alcohol withdrawal. Yesterday, patient tolerated increase in spironolactone, but he also had 5 L of oral fluid intake. He was fluid positive yesterday. We will put patient on a fluid restriction. Continue with current diuretic regimen. Patient denies any chest pain or dyspnea Objective Physical Examination General Exam: Positive: Alert, Cooperative Eye Exam: Negative: Sclera icteric ENT Exam: Positive: Atraumatic Neck Exam: Positive: Supple Chest Exam: Positive: Clear to auscultation Heart Exam: Positive: Rate Normal, Regular Rhythm Abdomen Exam: Positive: Normal bowel sounds, Soft; Negative: Tenderness Extremity Exam: Positive: Edema (bilateral pitting edema) Psych Exam: Positive: Mood NL Assessment /Plan Assessment Mr. Lomeli is a 59-year-old male with xhf-khxvksj-nmszdxfsd diabetes mellitus type 2, alcohol use disorder, and obesity who presents with decompensated alcoholic cirrhosis and alcohol withdrawal. Patient did develop acute anemia on 10/27/20 and 11/04/20, patient was transfused with 2u of pRBC on each day for a total of 4u during hospitalization. Hemoglobin remains stable today. Otherwise, will continued diuresis as tolerated. By OT, patient would need rehab. Plan/VTE VTE Prophylaxis Ordered?: Yes Plan 1. Hyponatremia On admission, sodium was 114 Nephrology was consulted, but signed off after resolution of hyponatremia Continue frusemide and spironolactone 2. Fatty liver disease versus suspected decompensated alcoholic cirrhosis with ascites On admission, Madrey score was 22.1 indicating good prognosis. No steroids at this time Patient had paracentesis on 10/26/2020 removed 3350 cc of fluid which was neg ative for SBP. Repeat paracentesis on 11/02/2020 removed 5000 cc of fluid. GI was consulted. Recommended diuresis Patient had been given albumin to help with blood pressure and diuresis Continue ciprofloxacin for SBP prophylaxis Continue furosemide and spironolactone 2 L fluid restriction added as he increased his oral fluid intake 3. Acute alcohol withdrawal Resolved. Off CIWA and Serax Continue folate, thiamine, multivitamin 4. Acute anemia Patient had required blood transfusions on 10/27/20 and 11/04/20. Had 2 units on each day for total of 4 units of packed red blood cells During hospitalization, general surgery had been consulted. Suspecting anemia from paracentesis versus upper GI bleed Continue IV Protonix twice daily and Carafate 5. Suspected UTI Already has completed 5 days of ceftriaxone 6. Avulsion of right foot toenail ER dressed toe Podiatry consulted Dr. Napier debrided ingrown toenail. Recommended topical antibiotic and Band- Aid until healed 7. Hypertension Secondary to suspected cirrhosis Received albumin and blood Blood pressure stable today 8. Suspected COPD Smokes 3 packs/day Continue duo nebs and Symbicort Taper prednisone 9. DM type II Hold Metformin Continue sliding scale insulin 10. Hypertension Due to hypotension and cirrhosis, hold losartan 11. History of TIA Continue aspirin, Plavix, and atorvastatin 12. Peripheral arterial disease Continue aspirin, Plavix, and atorvastatin 13. DVT prophylaxis SCDs and teds Disposition: Per OT, patient would benefit from rehab He tolerated increase in spironolactone to 50mg BID, but he also had 5L oral fluid intake. Will put patient on a 2L fluid restriction. Otherwise monitor H&H for anemia. VS, I&O, 24H, [facility] Vital Signs/I&O Vital Signs Date Time Temp Pulse Resp B/P (MAP) Pulse Ox O2 Delivery O2 Flow Rate FiO2 11/07/20 06:00 98.1 96 20 111/69 (83) 97 Room Air 11/04/20 12:25 I&O- Last 24 Hours up to 6 AM 11/07/20 05:59 Intake Total 5260 ml Output Total 3775 ml Balance 1485 ml Laboratory Data 24H LABS Laboratory Tests 2 11/06/20 11:50: Bedside Glucose (Misc Panel) 168H 11/06/20 16:52: Bedside Glucose (Misc Panel) 183H 11/06/20 20:03: Bedside Glucose (Misc Panel) 178H 11/07/20 05:35: Nucleated Red Blood Cells % (auto) 0.0, Anion Gap 9, Glomerular Filtration Rate > 60.0, Calcium Level 8.0L, Magnesium Level 1.5L, Total Bilirubin 1.5H, Aspartate Amino Transf (AST/SGOT) 85H, Alanine Aminotransferase (ALT/SGPT) 112H, Alkaline Phosphatase 180H, Total Protein 5.1L, Albumin 1.9L, Albumin/Globulin Ratio 0.6 CBC/BMP Laboratory Tests 11/07/20 05:35 OMAIRA ERAZO DO Nov 07, 2020 10:15
[2020-11-07] MEDS: traMADol 50 MG TAB PO PRN (11:27)
[2020-11-07] MEDS: MAG SULF 1GM/100ML (MAG RUN) 1 GM in IV 1 EA IV SCH ×3 (11:27→15:18)
[2020-11-07 14:00] VITALS: BP 98/66
[2020-11-07] MEDS: **NOTE PATIENT COMMENT** MISC XX SCH (20:28)
[2020-11-07 22:00] VITALS: BP 113/71
[2020-11-08] MEDS: traMADol 50 MG TAB PO PRN ×2 (02:08→14:09)
[2020-11-08] MEDS: CIPROFLOXACIN 500MG TABLET PO SCH ×2 (05:11→17:19)
[2020-11-08 06:00] VITALS: BP 100/61
[2020-11-08 06:37] LABS: ALBUMIN 1.8 GM/DL (3.2-5.2); ALT/SGPT 110 U/L (12-78); BILIRUBIN,TOTAL 1.3 MG/DL (0.2-1.0); BLOOD UREA NITROGEN 7 MG/DL (7-18); CARBON DIOXIDE LEVEL 27 MEQ/L (21-32); CHLORIDE LEVEL 102 MEQ/L (98-107); CREATININE FOR GFR 0.41 MG/DL (0.70-1.30); GLOMERULAR FILTRATION RATE > 60.0 (>56); GLUCOSE, FASTING 102 MG/DL (70-100); MAGNESIUM LEVEL 1.7 MG/DL (1.8-2.4); POTASSIUM SERUM 3.6 MEQ/L (3.5-5.1); SODIUM LEVEL 136 MEQ/L (136-145); TOTAL PROTEIN 4.9 GM/DL (6.4-8.2)
[2020-11-08 06:45] LABS: HEMATOCRIT 30.3 % (42.0-52.0); HEMOGLOBIN 10.2 g/dl (13.5-17.5); MEAN CORPUSCULAR HEMOGLOBIN 32.1 pg (27.0-33.0); MEAN CORPUSCULAR HGB CONC 33.7 g/dl (32.0-36.5); MEAN CORPUSCULAR VOLUME 95.3 fl (80.0-96.0); PLATELET COUNT, AUTOMATED 192 10^3/uL (150-450); RED BLOOD COUNT 3.18 10^6/uL (4.30-6.10); WHITE BLOOD COUNT 10.4 10^3/uL (4.0-10.0)
[2020-11-08 08:00] VITALS: BP 98/76
[2020-11-08] MEDS: SYMBICORT 80/4.5MCG INHALER 6GM INH SCH ×2 (08:03→19:39)
[2020-11-08] MEDS: SPIRONOLACTONE 25 MG TAB PO SCH ×2 (08:04→16:10)
[2020-11-08] MEDS: FUROSEMIDE 40 MG TAB PO SCH ×2 (08:04→16:10)
[2020-11-08] MEDS: ANUSOL HC CREAM 30GM TOP SCH ×2 (09:00→21:39)
[2020-11-08] MEDS: THIAMINE 100 MG TAB PO SCH (09:23)
[2020-11-08] MEDS: PANTOPRAZOLE 40MG TAB (PROTONIX) PO SCH ×2 (09:23→21:40)
[2020-11-08] MEDS: TAMSULOSIN 0.4 MG CAP PO SCH (09:23)
[2020-11-08] MEDS: MULTIVITAMINS/MINERALS THERAP 1 TAB PO SCH (09:23)
[2020-11-08] MEDS: BENZONATATE 100MG CAPSULE PO SCH ×3 (09:23→21:40)
[2020-11-08] MEDS: HumaLOG INSULIN (NovoLOG) PER UNIT SC SCH ×4 (09:23→21:00)
[2020-11-08] MEDS: SUCRALFATE 1 GM TAB PO SCH ×4 (09:23→21:40)
[2020-11-08] MEDS: guaiFENesin ER 600 MG TAB PO SCH ×2 (09:23→21:40)
[2020-11-08] MEDS: predniSONE 10 MG TAB PO SCH (09:24)
[2020-11-08] MEDS: ATORVASTATIN 20 MG TAB PO SCH (09:24)
[2020-11-08] MEDS: ASPIRIN 81MG ENTERIC TABLET PO SCH (09:24)
[2020-11-08] MEDS: CLOPIDOGREL 75 MG TAB PO SCH (09:24)
[2020-11-08] MEDS: FOLIC ACID 1 MG TAB PO SCH (09:24)
[2020-11-08] MEDS: LIDOCAINE 5% (LIDODERM) PATCH TD SCH (09:27)
[2020-11-08] MEDS: NYSTATIN 100,000 UNITS/GM TOPICAL PWD 15 GM TOP SCH ×2 (09:28→21:40)
[2020-11-08] MEDS: MUPIROCIN 2% OINT 22 GM TUBE TOP SCH (09:30)
[2020-11-08] MEDS ORDERED: ANUSOL HC 25MG SUPP PR PRN (12:30)
[2020-11-08] MEDS: MIDODRINE 5 MG TAB PO SCH ×2 (12:50→15:06)
[2020-11-08 14:29] VITALS: BP 97/63
--- NOTE | 2020-11-08 15:50 | IPN ---
PROGRESS NOTE DATE: 11/08/2020 SUBJECTIVE: Patient complains of feeling unsteady on his feet and increasing abdominal distention. He is ambulating with a walker and 1 person assistance. No fever or chills overnight. Nausea, vomiting, shortness of breath. He denies dizziness, lightheadedness. Despite being back on spironolactone and Lasix blood pressure is maintained at 98-113 systolic with a mean arterial pressure of 74-77. Afebrile, no chills overnight. OBJECTIVE: Vital signs: Temperature 98.7, pulse 106 sinus rhythm, respiratory rate 18, blood pressure 100/61, 97% on room air. General: Awake, alert, oriented to himself. He appears disheveled, in no acute distress. Neck: No JVD, no thyromegaly. Lungs: Clear to auscultation, no wheezes, rhonchi or rales. Heart: S1 and S2 sinus rhythm. Abdomen: Distended, positive bowel sounds, soft, no guarding or rebound, positive fluid wave. Extremities: Bilateral pitting edema. LABORATORY DATA: Laboratory data and microbiology reviewed. IMAGING STUDIES: Reviewed. ASSESSMENT: This is a 59-year-old with history of insulin dependent type-2 diabetes, alcohol abuse, obesity admitted due to decompensated alcoholic liver cirrhosis with withdrawal. He developed anemia, transfused 2 units of RBCs for a total of 4 units. Hemoglobin remained stable with no overt GI bleed. IMPRESSIONS/PLAN: 1. Acute decompensated liver cirrhosis with ascites requiring paracentesis with gram stain being negative: Currently on spironolactone and Lasix twice a day. ciprofloxacin for SBP prophylaxis 2. Anemia requiring 4 units of RBC transfusion: Currently on Carafate and Protonix. No overt GI bleed is noted. 3. Alcohol withdrawal secondary to alcohol abuse: Currently stable with no new complaints on multivitamin, thiamine and folate. 4. Insulin dependent type-2 diabetes: On consistent carbohydrate diet, insulin sliding scale with coverage. 5. COPD exacerbation: On tapering dose of prednisone. 6. Hyponatremia secondary to decompensated liver cirrhosis: Currently with sodium level of 146, normal. Nephrology has signed off. 7. Hypomagnesemia: Repleted magnesium with mag sulfate. 8. Disposition: Patient is medically stable, but physically weak requiring 3 to 5 more sessions of physical therapy. ARU has been consulted. Patient may be discharged as soon as he is back to his baseline strength. Transfer and discharge to ARU if accepted. KHADIJAH
[2020-11-08] MEDS: **NOTE PATIENT COMMENT** MISC XX SCH (21:40)
[2020-11-08 22:00] VITALS: BP 101/65
[2020-11-09] MEDS: CIPROFLOXACIN 500MG TABLET PO SCH ×2 (05:24→17:32)
[2020-11-09 06:00] VITALS: BP 135/84
[2020-11-09 06:32] LABS: ALT/SGPT 108 U/L (12-78); BILIRUBIN,TOTAL 1.4 MG/DL (0.2-1.0); BLOOD UREA NITROGEN 8 MG/DL (7-18); CARBON DIOXIDE LEVEL 29 MEQ/L (21-32); CHLORIDE LEVEL 100 MEQ/L (98-107); CREATININE FOR GFR 0.38 MG/DL (0.70-1.30); GLOMERULAR FILTRATION RATE > 60.0 (>56); GLUCOSE, FASTING 83 MG/DL (70-100); POTASSIUM SERUM 3.8 MEQ/L (3.5-5.1); SODIUM LEVEL 134 MEQ/L (136-145); TOTAL PROTEIN 5.2 GM/DL (6.4-8.2)
[2020-11-09] MEDS: HumaLOG INSULIN (NovoLOG) PER UNIT SC SCH ×4 (07:30→21:00)
--- NOTE | 2020-11-09 07:43 | IPNPDOC ---
Date Seen The patient was seen on 11/09/20. Progress Note SUBJECTIVE: no n/v/fever/chills. increased abd distention with wt gain 6lbs since last week. no sob, pnd, orthopnea. c/o slight dizziness when he stood up quickly. still weak w gait instability OBJECTIVE: Vital signs: General: Awake, alert, oriented to himself. He appears disheveled, in no acute distress. dry mucus membranes Neck: No JVD, no thyromegaly. Lungs: Clear to auscultation, no wheezes, rhonchi or rales. Heart: S1 and S2 sinus rhythm. Abdomen: Distended, positive bowel sounds, soft, no guarding or rebound, positive fluid wave. Extremities: Bilateral pitting edema. LABORATORY DATA: Laboratory data and microbiology reviewed. IMAGING STUDIES: Reviewed. ASSESSMENT: This is a 59-year-old with history of insulin dependent type-2 diabetes, alcohol abuse, obesity admitted due to decompensated alcoholic liver cirrhosis with withdrawal. He developed anemia, transfused 2 units of RBCs for a total of 4 units. Hemoglobin remained stable with no overt GI bleed. IMPRESSIONS/PLAN: 1. Acute decompensated liver cirrhosis with ascites requiring paracentesis with gram stain being negative: Currently on spironolactone and Lasix twice a day. ciprofloxacin for SBP prophylaxis fluid overloaded w wt gain. will send for paracentesis today. may need to change to iv lasix, transfuse albumin, to remove more fluid out. 2. Anemia requiring 4 units of RBC transfusion: Currently on Carafate and Protonix. No overt GI bleed is noted. 3. Alcohol withdrawal secondary to alcohol abuse: Currently stable with no new complaints on multivitamin, thiamine and folate. 4. Insulin dependent type-2 diabetes: On consistent carbohydrate diet, insulin sliding scale with coverage. 5. COPD exacerbation: On tapering dose of prednisone. 6. Hyponatremia secondary to decompensated liver cirrhosis: Currently with sodium level of 146, normal. Nephrology has signed off. 7. Hypomagnesemia: Repleted magnesium with mag sulfate. 8. Dysphagia: cookie swallow today. Disposition: per ARU, not appropriate for acute rehab. continue w pt/ot home discharge in 2-3 days pending clinical improvement. VS, I&O, 24H, [facility] Vital Signs/I&O Vital Signs Date Time Temp Pulse Resp B/P (MAP) Pulse Ox O2 Delivery O2 Flow Rate FiO2 11/09/20 06:00 97.2 91 18 135/84 (101) 100 Room Air 11/04/20 12:25 I&O- Last 24 Hours up to 6 AM 11/09/20 06:00 Intake Total 1230 ml Output Total 400 ml Balance 830 ml Laboratory Data 24H LABS Laboratory Tests 2 11/08/20 12:10: Bedside Glucose (Misc Panel) 104 11/08/20 17:12: Bedside Glucose (Misc Panel) 236H 11/08/20 21:15: Bedside Glucose (Misc Panel) 139H 11/09/20 05:22: Anion Gap 5L, Glomerular Filtration Rate > 60.0, Calcium Level 8.0L, Total Bilirubin 1.4H, Aspartate Amino Transf (AST/SGOT) 85H, Alanine Aminotransferase (ALT/SGPT) 108H, Alkaline Phosphatase 171H, Total Protein 5.2L, Albumin 2.0L, A lbumin/Globulin Ratio 0.6 11/09/20 05:41: Bedside Glucose (Misc Panel) 85 CBC/BMP Laboratory Tests 11/09/20 05:22 JENNYFER JIMENEZ MD Nov 09, 2020 07:43
[2020-11-09 07:46] LABS: HEMATOCRIT 32.3 % (42.0-52.0); HEMOGLOBIN 10.6 g/dl (13.5-17.5); MEAN CORPUSCULAR HEMOGLOBIN 31.9 pg (27.0-33.0); MEAN CORPUSCULAR HGB CONC 32.8 g/dl (32.0-36.5); MEAN CORPUSCULAR VOLUME 97.3 fl (80.0-96.0); PLATELET COUNT, AUTOMATED 191 10^3/uL (150-450); RED BLOOD COUNT 3.32 10^6/uL (4.30-6.10); WHITE BLOOD COUNT 9.2 10^3/uL (4.0-10.0)
[2020-11-09] MEDS: SYMBICORT 80/4.5MCG INHALER 6GM INH SCH ×2 (08:27→20:01)
[2020-11-09] MEDS ORDERED: metOLazone 5 MG TAB PO ONE (08:30)
[2020-11-09] MEDS: CLOPIDOGREL 75 MG TAB PO SCH (09:00)
[2020-11-09] MEDS ORDERED: FUROSEMIDE 40MG/4ML VIAL (J1940) IV ONE ×2 (09:00→12:00)
[2020-11-09] MEDS: BENZONATATE 100MG CAPSULE PO SCH ×3 (09:13→21:08)
[2020-11-09] MEDS: ATORVASTATIN 20 MG TAB PO SCH (09:13)
[2020-11-09] MEDS: MULTIVITAMINS/MINERALS THERAP 1 TAB PO SCH (09:13)
[2020-11-09] MEDS: SUCRALFATE 1 GM TAB PO SCH ×4 (09:14→21:08)
[2020-11-09] MEDS: PANTOPRAZOLE 40MG TAB (PROTONIX) PO SCH ×2 (09:14→21:08)
[2020-11-09] MEDS: THIAMINE 100 MG TAB PO SCH (09:14)
[2020-11-09] MEDS: predniSONE 10 MG TAB PO SCH (09:14)
[2020-11-09] MEDS: FOLIC ACID 1 MG TAB PO SCH (09:14)
[2020-11-09] MEDS: ASPIRIN 81MG ENTERIC TABLET PO SCH (09:15)
[2020-11-09] MEDS: TAMSULOSIN 0.4 MG CAP PO SCH (09:15)
[2020-11-09] MEDS: LIDOCAINE 5% (LIDODERM) PATCH TD SCH (09:19)
[2020-11-09] MEDS: MIDODRINE 5 MG TAB PO SCH ×3 (09:19→16:00)
[2020-11-09] MEDS: guaiFENesin ER 600 MG TAB PO SCH ×2 (09:20→21:08)
[2020-11-09] MEDS: NYSTATIN 100,000 UNITS/GM TOPICAL PWD 15 GM TOP SCH ×2 (09:24→21:09)
[2020-11-09] MEDS: ANUSOL HC CREAM 30GM TOP SCH ×2 (09:25→21:09)
[2020-11-09] MEDS: MUPIROCIN 2% OINT 22 GM TUBE TOP SCH (09:26)
[2020-11-09] MEDS ORDERED: VARIBAR PUDDING 40% w/v 230ML TUBE As Ordered ONE (12:20)
[2020-11-09] MEDS ORDERED: VARIBAR NECTAR 40% w/v 240ML SUSP BTL As Ordered ONE (12:21)
[2020-11-09] MEDS ORDERED: E-Z-PAQUE 96% w/w SUSP 176GM BTL As Ordered ONE (12:21)
[2020-11-09] MEDS ORDERED: BARIUM SULFATE 700 MG TABLET (E-Z-DISK) As Ordered ONE (12:30)
--- NOTE | 2020-11-09 15:14 | REP ---
INDICATION: dysphagia r/o aspiration. COMPARISON: None. TECHNIQUE: The procedure was performed by Aide Gibbons [facility], under the direct supervision of Dr. Borja. The procedure was performed with Sonya Robertson and Adrienne Cummings from speech pathology present. 5 ml aliquots of thin, pudding, mixed fruit, soft food, hard food, nectar thick, and pill consistency barium was administered. FINDINGS: No aspiration or penetration was visualized during the exam. The detailed report of this examination will be provided by speech pathology. IMPRESSION: Unremarkable cookie swallow, a detailed report will be provided by speech pathology. 2.5 minutes of fluoroscopy time was utilized for this procedure. Some fluoroscopic images are performed with last image hold technology. These images require no additional radiation <Electronically signed by Aide Gibbons > 11/09/20 1308 <Electronically signed by Saturnino Borja > 11/09/20 [id number]
[2020-11-09 15:37] LABS: SPEC. GRAVITY BODY FLUIDS 1.013 (NOT ESTABLISHED)
[2020-11-09 15:51] LABS: APPEARANCE, BODY FLUID CLOUDY (CLEAR); ASCITES FL COLOR PALE YELLOW (COLORLESS); SOURCE, BODY FLUID ASCITES
[2020-11-09 16:33] LABS: SOURCE, BODY FLUID ALBUMIN ASCITES; SOURCE, BODY FLUID GLUCOSE ASCITES; SOURCE, BODY FLUID TOT PROTEIN ASCITES; TOTAL PROTEIN, BODY FLUID 1.4 G/DL (NOT ESTABLISHED)
--- NOTE | 2020-11-09 16:45 | REP ---
INDICATION: ascites. COMPARISON: None. TECHNIQUE: The procedure was performed under the direct supervision of Dr. Borja. The risks and benefits of the procedure were explained to the patient and informed consent was obtained. The largest pocket of fluid was localized in the right flank using ultrasound guidance. The skin was prepped and draped in a sterile fashion. 5 mL of 1% lidocaine was used as a local anesthetic. An 8-Surinamese multi side-hole catheter was inserted using trocar technique.2450 mL of cloudy yellow fluid was withdrawn and sent to the lab for analysis. Estimated blood loss: Less than 1 mL The patient tolerated the procedure well and there were no immediate complications. After the appropriate amount of monitored convalescence, the patient was discharged from the department. FINDINGS: None IMPRESSION: Ultrasound-guided paracentesis [id number] mL of cloudy yellow fluid. <Electronically signed by Thor Godoy > 11/09/20 [id number] <Electronically signed by Saturnino Borja > 11/09/20 [id number]
[2020-11-09 16:47] LABS: BLOOD UREA NITROGEN 10 MG/DL (7-18); CALCIUM LEVEL 8.4 MG/DL (8.5-10.1); CARBON DIOXIDE LEVEL 29 MEQ/L (21-32); CHLORIDE LEVEL 98 MEQ/L (98-107); GLOMERULAR FILTRATION RATE > 60.0 (>56); GLUCOSE, FASTING 134 MG/DL (70-100); MAGNESIUM LEVEL 1.6 MG/DL (1.8-2.4); POTASSIUM SERUM 3.5 MEQ/L (3.5-5.1); SODIUM LEVEL 136 MEQ/L (136-145)
[2020-11-09 17:39] VITALS: BP 114/71
[2020-11-09 19:48] VITALS: BP 113/72
[2020-11-09] MEDS: **NOTE PATIENT COMMENT** MISC XX SCH (21:10)
[2020-11-09 22:00] VITALS: BP 135/82
[2020-11-10] VITALS (12 sets, daily range): BP systolic 95–128; BP diastolic 61–77
[2020-11-10] MEDS: CIPROFLOXACIN 500MG TABLET PO SCH ×2 (05:55→17:37)
[2020-11-10 06:37] LABS: ALBUMIN 2.3 GM/DL (3.2-5.2); ALT/SGPT 101 U/L (12-78); BILIRUBIN,TOTAL 1.5 MG/DL (0.2-1.0); BLOOD UREA NITROGEN 7 MG/DL (7-18); CALCIUM LEVEL 8.6 MG/DL (8.5-10.1); CARBON DIOXIDE LEVEL 30 MEQ/L (21-32); CHLORIDE LEVEL 98 MEQ/L (98-107); GLOMERULAR FILTRATION RATE > 60.0 (>56); GLUCOSE, FASTING 89 MG/DL (70-100); SODIUM LEVEL 137 MEQ/L (136-145); TOTAL PROTEIN 5.4 GM/DL (6.4-8.2)
[2020-11-10 07:09] LABS: HEMATOCRIT 31.9 % (42.0-52.0); HEMOGLOBIN 10.9 g/dl (13.5-17.5); MEAN CORPUSCULAR HEMOGLOBIN 32.6 pg (27.0-33.0); MEAN CORPUSCULAR HGB CONC 34.2 g/dl (32.0-36.5); MEAN CORPUSCULAR VOLUME 95.5 fl (80.0-96.0); PLATELET COUNT, AUTOMATED 194 10^3/uL (150-450); RED BLOOD COUNT 3.34 10^6/uL (4.30-6.10); WHITE BLOOD COUNT 6.9 10^3/uL (4.0-10.0)
[2020-11-10] MEDS: HumaLOG INSULIN (NovoLOG) PER UNIT SC SCH ×4 (07:29→20:39)
[2020-11-10] MEDS: MIDODRINE 5 MG TAB PO SCH ×3 (08:00→16:51)
[2020-11-10] MEDS: SYMBICORT 80/4.5MCG INHALER 6GM INH SCH ×2 (08:00→19:49)
[2020-11-10] MEDS ORDERED: MAG SULF 1GM/100ML (MAG RUN) 1 GM in IV 1 EA IV ONE (08:10)
[2020-11-10] MEDS: LIDOCAINE 5% (LIDODERM) PATCH TD SCH (08:49)
[2020-11-10] MEDS: FUROSEMIDE 40MG/4ML VIAL (J1940) IV SCH ×3 (08:49→17:00)
[2020-11-10] MEDS: POTASSIUM CHLORIDE 10MEQ SR TABLET PO SCH ×2 (08:50→11:09)
[2020-11-10] MEDS: ATORVASTATIN 20 MG TAB PO SCH (08:50)
[2020-11-10] MEDS: TAMSULOSIN 0.4 MG CAP PO SCH (08:51)
[2020-11-10] MEDS: BENZONATATE 100MG CAPSULE PO SCH ×3 (08:51→20:38)
[2020-11-10] MEDS: THIAMINE 100 MG TAB PO SCH (08:51)
[2020-11-10] MEDS: MULTIVITAMINS/MINERALS THERAP 1 TAB PO SCH (08:51)
[2020-11-10] MEDS: ASPIRIN 81MG ENTERIC TABLET PO SCH (08:51)
[2020-11-10] MEDS: guaiFENesin ER 600 MG TAB PO SCH ×2 (08:51→20:38)
[2020-11-10] MEDS: predniSONE 10 MG TAB PO SCH (08:51)
[2020-11-10] MEDS: PANTOPRAZOLE 40MG TAB (PROTONIX) PO SCH ×2 (08:52→20:38)
[2020-11-10] MEDS: CLOPIDOGREL 75 MG TAB PO SCH (08:52)
[2020-11-10] MEDS: FOLIC ACID 1 MG TAB PO SCH (08:52)
[2020-11-10] MEDS: SUCRALFATE 1 GM TAB PO SCH ×4 (08:52→20:38)
[2020-11-10] MEDS: MUPIROCIN 2% OINT 22 GM TUBE TOP SCH (08:57)
[2020-11-10] MEDS: ANUSOL HC CREAM 30GM TOP SCH ×2 (08:57→20:39)
[2020-11-10] MEDS: NYSTATIN 100,000 UNITS/GM TOPICAL PWD 15 GM TOP SCH ×2 (08:58→20:40)
--- NOTE | 2020-11-10 10:18 | REP ---
INDICATION: R/O PORTAL VEIN THROMBOSIS ANASARCA TECHNIQUE: Real time B-mode mendez scale ultrasound examination using curved array transducer followed by Doppler evaluation of the hepatic vasculature. FINDINGS: Liver demonstrates coarsened echotexture and measures approximately 20 cm in craniocaudal length without focal hepatic lesion identified. Spleen is enlarged and measures 12.3 x 11.7 x 4.2 cm (splenic index 604). No focal splenic lesions are identified. Evaluation of the pancreas is limited due to interposed bowel gas but visualized portions appear normal. Gallbladder is contracted with obvious gallstones. Mild gallbladder wall thickening cannot be excluded. No obvious pericholecystic fluid noted. No biliary ductal dilatation is appreciated and the common bile duct measures 4.6 mm in diameter. The bilateral kidneys are normal in reniform shape without hydronephrosis or obvious abnormality. Right kidney measures 11.7 x 6.3 x 4.5 cm. Left kidney measures 12.9 x 4.9 x 6.7 cm. Visualized portions of the abdominal aorta appear normal and measures 2.2 cm diameter. Mild perihepatic ascites is appreciated. Portal and hepatic veins demonstrate normal flow direction and velocities. There is no evidence for portal vein thrombosis. Main portal vein measures 11 mm diameter. Portal vein velocities range between 15.6 and 20.3 cm/sec. Main portal vein velocity at 16.9 cm/sec. Proximal portions of the mesenteric vein as well as the proximal and distal portions of the splenic vein demonstrate normal flow direction and velocities. Hepatic artery is normal at 143 cm/sec with RI equals 0.63. IMPRESSION: Hepatomegaly and findings consistent with cirrhosis including splenomegaly. Cholelithiasis. <Electronically signed by Eladio Angela > 11/10/20 [id number]
--- NOTE | 2020-11-10 12:49 | IPNPDOC ---
Date Seen The patient was seen on 11/10/20. Progress Note SUBJECTIVE: s/p paracentesis 2.4liters 11/09/20 no c/o n/v/abd pain / sob/ chills today. needs 1-2 more PT sessions. then, ok to dchome. OBJECTIVE: Vital signs: General:flat on bed w/o distress Neck: No JVD, no thyromegaly. Lungs: diminished,, no wheezes, rhonchi or rales. Heart: S1 and S2 sinus rhythm. Abdomen: Distended, but less todya. positive bowel sounds, soft, no guarding or rebound, positive fluid wave. Extremities:decreased b/l pitting edema 2+ LABORATORY DATA: Laboratory data and microbiology reviewed. IMAGING STUDIES: Reviewed. ASSESSMENT: This is a 59-year-old with history of insulin dependent type-2 diabetes, alcohol abuse, obesity admitted due to decompensated alcoholic liver cirrhosis with withdrawal. He developed anemia, transfused 2 units of RBCs for a total of 4 units. Hemoglobin remained stable with no overt GI bleed. IMPRESSIONS/PLAN: 1. Acute decompensated liver cirrhosis with ascites paracentesis x 2. s/p albumin, midodrine, abx. tolerating lasix and spironolactone. 2. Anemia requiring 4 units of RBC transfusion: Currently on Carafate and Protonix. No overt GI bleed is noted. 3. Alcohol withdrawal secondary to alcohol abuse: Currently stable with no new complaints on multivitamin, thiamine and folate. 4. Insulin dependent type-2 diabetes: On consistent carbohydrate diet, insulin sliding scale with coverage. 5. COPD exacerbation: On tapering dose of prednisone. 6. Hyponatremia secondary to decompensated liver cirrhosis: Currently with sodium level of 146, normal. Nephrology has signed off. 7. Hypomagnesemia: Repleted magnesium with mag sulfate. 8. Dysphagia: modified diet per speech recommendations. Disposition: 1-2 m ore sessions w PT. VS, I&O, 24H, Fishbone Vital Signs/I&O Vital Signs Date Time Temp Pulse Resp B/P (MAP) Pulse Ox O2 Delivery O2 Flow Rate FiO2 11/10/20 12:05 106 95/61 (72) 11/10/20 08:01 97.8 18 98 Room Air 11/04/20 12:25 I&O- Last 24 Hours up to 6 AM 11/10/20 06:00 Intake Total 1480.0 ml Output Total 625 ml Balance 855.0 ml Laboratory Data 24H LABS Laboratory Tests 2 11/09/20 14:54: Body Fluid Source ASCITES, Body Fluid Color PALE YELLOW, Body Fluid Appearance CLOUDY, Body Fluid Specific [place] 1.013, Body Fluid WBC (Auto) 307H, Body Fluid RBC (Auto) < 2, Body Fluid Mononuclear Cells % Auto 79.4H, Fluid Polymorphonuclear Cell % Auto 20.6H, Body Fluid Glucose Source ASCITES, Body Fluid Glucose 174, Body Fluid Protein Source ASCITES, Body Fluid Total Protein 1.4, Body Fluid Albumin Source ASCITES, Body Fluid Albumin 0.4 11/09/20 16:13: Anion Gap 9, Glomerular Filtration Rate > 60.0, Calcium Level 8.4L, Whole Blood Ionized Calcium 4.3L, Magnesium Level 1.6L 11/09/20 16:21: Bedside Glucose (Misc Panel) 151H 11/09/20 19:51: Bedside Glucose (Misc Panel) 144H 11/10/20 04:53: Bedside Glucose (Misc Panel) 90 11/10/20 05:26: Nucleated Red Blood Cells % (auto) 0.0, Anion Gap 9, Glomerular Filtration Rate > 60.0, Calcium Level 8.6, Total Bilirubin 1.5H, Aspartate Amino Transf (AST/SGOT) 71H, Alanine Aminotransferase (ALT/SGPT) 101H, Alkaline Phosphatase 150H, Total Protein 5.4L, Albumin 2.3L, Albumin/Globulin Ratio 0.7 11/10/20 11:40: Bedside Glucose (Misc Panel) 246H CBC/BMP Laboratory Tests 11/09/20 16:13 11/10/20 05:26 Microbiology Microbiology 11/09/20 Acid Fast Stain, Received Pending 11/09/20 Mycobacterial Culture, Received Pending 11/09/20 Fungal Smear, Received Pending 11/09/20 Fungal Culture, Received Pending 11/09/20 Gram Stain, Received Pending 11/09/20 Body Fluid Culture, Received Pending JENNYFER JIMENEZ MD Nov 10, 2020 12:48
[2020-11-10 14:49] LABS: MAGNESIUM LEVEL 1.8 MG/DL (1.8-2.4); POTASSIUM SERUM 3.5 MEQ/L (3.5-5.1)
[2020-11-10] MEDS: traMADol 50 MG TAB PO PRN (19:34)
[2020-11-10] MEDS: **NOTE PATIENT COMMENT** MISC XX SCH (20:39)
[2020-11-11] MEDS: CIPROFLOXACIN 500MG TABLET PO SCH (05:14)
[2020-11-11 06:00] VITALS: BP 133/79
[2020-11-11 06:57] LABS: HEMATOCRIT 32.3 % (42.0-52.0); HEMOGLOBIN 10.9 g/dl (13.5-17.5); MEAN CORPUSCULAR HEMOGLOBIN 32.4 pg (27.0-33.0); MEAN CORPUSCULAR HGB CONC 33.7 g/dl (32.0-36.5); MEAN CORPUSCULAR VOLUME 96.1 fl (80.0-96.0); PLATELET COUNT, AUTOMATED 190 10^3/uL (150-450); RED BLOOD COUNT 3.36 10^6/uL (4.30-6.10); WHITE BLOOD COUNT 9.2 10^3/uL (4.0-10.0)
[2020-11-11 07:04] LABS: ALBUMIN 2.4 GM/DL (3.2-5.2); ALT/SGPT 103 U/L (12-78); BILIRUBIN,TOTAL 1.4 MG/DL (0.2-1.0); BLOOD UREA NITROGEN 7 MG/DL (7-18); CALCIUM LEVEL 8.2 MG/DL (8.5-10.1); CARBON DIOXIDE LEVEL 27 MEQ/L (21-32); CHLORIDE LEVEL 98 MEQ/L (98-107); GLOMERULAR FILTRATION RATE > 60.0 (>56); GLUCOSE, FASTING 151 MG/DL (70-100); POTASSIUM SERUM 3.2 MEQ/L (3.5-5.1); SODIUM LEVEL 134 MEQ/L (136-145); TOTAL PROTEIN 5.7 GM/DL (6.4-8.2)
[2020-11-11] MEDS: SYMBICORT 80/4.5MCG INHALER 6GM INH SCH (07:38)
[2020-11-11] MEDS ORDERED: LASI20TA3 PO (08:09)
[2020-11-11] MEDS ORDERED: SPIR-10 PO (08:09)
[2020-11-11] MEDS ORDERED: PANT40TA29 PO (08:09)
[2020-11-11] MEDS ORDERED: MIDO5TA PO (08:09)
[2020-11-11] MEDS ORDERED: SUCR1TA PO (08:09)
[2020-11-11] MEDS ORDERED: MAG SULF 1GM/100ML (MAG RUN) 1 GM in IV 1 EA IV ONE (09:00)
[2020-11-11] MEDS ORDERED: SPIRONOLACTONE 12.5MG PER 1/2 TABLET PO SCH (09:00)
[2020-11-11] MEDS ORDERED: FUROSEMIDE 20 MG TAB PO SCH (09:00)
[2020-11-11] MEDS: LIDOCAINE 5% (LIDODERM) PATCH TD SCH (09:11)
[2020-11-11] MEDS: ATORVASTATIN 20 MG TAB PO SCH (09:11)
[2020-11-11] MEDS: HumaLOG INSULIN (NovoLOG) PER UNIT SC SCH ×2 (09:11→12:14)
[2020-11-11] MEDS: TAMSULOSIN 0.4 MG CAP PO SCH (09:11)
[2020-11-11] MEDS: SUCRALFATE 1 GM TAB PO SCH ×2 (09:11→12:15)
[2020-11-11] MEDS: CLOPIDOGREL 75 MG TAB PO SCH (09:11)
[2020-11-11] MEDS: MULTIVITAMINS/MINERALS THERAP 1 TAB PO SCH (09:12)
[2020-11-11] MEDS: POTASSIUM CHLORIDE 10MEQ SR TABLET PO SCH ×2 (09:12→12:15)
[2020-11-11] MEDS: ASPIRIN 81MG ENTERIC TABLET PO SCH (09:12)
[2020-11-11] MEDS: PANTOPRAZOLE 40MG TAB (PROTONIX) PO SCH (09:12)
[2020-11-11] MEDS: FOLIC ACID 1 MG TAB PO SCH (09:12)
[2020-11-11] MEDS: predniSONE 10 MG TAB PO SCH (09:12)
[2020-11-11] MEDS: THIAMINE 100 MG TAB PO SCH (09:12)
[2020-11-11] MEDS: guaiFENesin ER 600 MG TAB PO SCH (09:12)
[2020-11-11] MEDS: BENZONATATE 100MG CAPSULE PO SCH (09:12)
[2020-11-11] MEDS: MIDODRINE 5 MG TAB PO SCH ×2 (09:15→12:16)
[2020-11-11] MEDS: NYSTATIN 100,000 UNITS/GM TOPICAL PWD 15 GM TOP SCH (09:16)
[2020-11-11] MEDS: ANUSOL HC CREAM 30GM TOP SCH (09:16)
[2020-11-11] MEDS: MUPIROCIN 2% OINT 22 GM TUBE TOP SCH (09:17)
[2020-11-11 12:20] VITALS: BP 100/67
--- NOTE | 2020-11-11 12:24 | DS.PDOC ---
Discharge Summary General Date of Admission Oct 25, 2020 at 18:50 Date of Discharge 11/11/20 Discharge Summary DISCHARGE DIAGNOSES: ACUTE DECOMPENSATED ALCOHOLIC LIVER CIRRHOSIS PORTAL HYPERTENSION RECURRENT ASCITES ALCOHOL WITHDRAWAL ALCOHOLIC HEPATITIS HYPONATREMIA DUE TO BEER POTOMANIA/EXCESS WATER INTAKE ANASARCA SEVERE HYPOALBUMINEMIA RIGHT FOOT NAIL AVULSION W INGROWN TOE NAILS S/P DEBRIDEMENT UTI COPD DM HYPOTENSION REQUIRING MIDODRINE ANEMIA W/O OVERT GI BLEED S/P 4URBC TRANSFUSION HISTORY OF TIA PERIPHERAL ARTERIAL DISEASE DISCHARGE MEDICATIONS: SEE BELOW DISCHARGE INSTRUCTIONS: DUE TO HYPOTENSION AND NEED FOR LASIX, CONTINUE MIDODRINE. 2LITER FLUID RESTRICTION, DAILY WEIGHTS, CALL GI OR PCP IF 2LB OR MORE WEIGHT GAIN. 2 GRAM SODIUM DIET. PCP AND GI FU WITHIN 5 DAYS. CONSULTANTS: GI-DR. BROOKS PODIATRY-DR TSAI NEPHROLOGY-DR LUCITA RUBIO [facility] COURSE: This is a 59-year-old with history of insulin dependent type-2 diabetes, alcohol abuse, obesity admitted due to decompensated alcoholic liver cirrhosis with ETOH hepatitis and withdrawal. Dr. rubio was consulted due to severe hyponatremia due to beer ptomania and excess free water intake. He underwent 3 paracentesis negative for sbp, but given cipro for sbp prophylaxis. He developed anemia, transfused 2 units of RBCs for a total of 4 units. Hemoglobin remained stable with no overt GI bleed. He was treated with 5 days iv ceftriaxone for uti. Due to debility, pt stayed in the hospital for physical therapy until dc home today. 1. Acute decompensated liver cirrhosis with ascites paracentesis x 2. s/p albumin, midodrine, abx. tolerating lasix and spironolactone. 2. Anemia requiring 4 units of RBC transfusion: Currently on Carafate and Protonix. No overt GI bleed is noted. 3. Alcohol withdrawal secondary to alcohol abuse: Currently stable with no new complaints on multivitamin, thiamine and folate. 4. Insulin dependent type-2 diabetes: On consistent carbohydrate diet, insulin sliding scale with coverage. 5. COPD exacerbation: On tapering dose of prednisone. 6. Hyponatremia secondary to decompensated liver cirrhosis: Currently with sodium level of 146, normal. Nephrology has signed off. 7. Hypomagnesemia: Repleted magnesium with mag sulfate. 8. Dysphagia: modified diet per speech recommendations. DISCHARGE PHYSICAL EXAMINATION: Vital signs: General:flat on bed w/o distress Neck: No JVD, no thyromegaly. Lungs: diminished,, no wheezes, rhonchi or rales. Heart: S1 and S2 sinus rhythm. Abdomen: Distended, but less todya. positive bowel sounds, soft, no guarding or rebound, positive fluid wave. Extremities:decreased b/l pitting edema 2+ DISCHARGE LABORATORY DATA:SEE CHART IMAGING STUDIES: SEE CHART TIME SPENT ON DISCHARGE: 30 MINUTES Vital Signs/I&Os Vital Signs Date Time Temp Pulse Resp B/P (MAP) Pulse Ox O2 Delivery O2 Flow Rate FiO2 11/11/20 06:00 98.1 103 18 133/79 (97) 100 Room Air I&O- Last 24 Hours up to 6 AM 11/11/20 06:00 Intake Total 3430.0 ml Output Total 1875 ml Balance 1555.0 ml Laboratory Data Labs 24H Laboratory Tests 2 11/10/20 14:12: Magnesium Level 1.8 11/10/20 16:37: Bedside Glucose (Misc Panel) 235H 11/10/20 20:05: Bedside Glucose (Misc Panel) 145H 11/11/20 05:59: Nucleated Red Blood Cells % (auto) 0.0, Anion Gap 9, Glomerular Filtration Rate > 60.0, Calcium Level 8.2L, Total Bilirubin 1.4H, Aspartate Amino Transf (A ST/SGOT) 79H, Alanine Aminotransferase (ALT/SGPT) 103H, Alkaline Phosphatase 208H, Total Protein 5.7L, Albumin 2.4L, Albumin/Globulin Ratio 0.7 11/11/20 11:53: Bedside Glucose (Misc Panel) 109H CBC/BMP Laboratory Tests 11/10/20 14:12 11/11/20 05:59 FSBS Laboratory Tests Test 11/10/20 16:37 11/10/20 20:05 11/11/20 11:53 Range/Units Bedside Glucose (Misc Panel) 235 145 109 70-105 MG/DL Microbiology Microbiology 11/09/20 Acid Fast Stain, Received Pending 11/09/20 Mycobacterial Culture, Received Pending 11/09/20 Fungal Smear, Received Pending 11/09/20 Fungal Culture, Received Pending 11/09/20 Gram Stain - Final, Complete 11/09/20 Body Fluid Culture - Final, Complete Discharge Medications Scheduled Aspirin (Aspirin EC) 81 Mg Tablet.dr, 81 MG PO DAILY, (Reported) Atorvastatin Calcium (Atorvastatin Calcium) 40 Mg Tablet, 40 MG PO DAILY, (Reported) Clopidogrel Bisulfate (Clopidogrel) 75 Mg Tablet, 75 MG PO DAILY, (Reported) Furosemide (Lasix) 20 Mg Tablet, 20 MG PO BID Midodrine HCl (Midodrine HCl) 5 Mg Tablet, 10 MG PO 08,12,16 Omeprazole (Omeprazole) 40 Mg Capsule.dr, 40 MG PO DAILY, (Reported) Pantoprazole Sodium (Pantoprazole Sodium) 40 Mg Tablet.dr, 40 MG PO BID Spironolactone (Spironolactone) 25 Mg Tablet, 12.5 MG PO DAILY Sucralfate (Sucralfate) 1 Gm Tablet, 1 GM PO ACHS Tamsulosin Hcl (Tamsulosin HCl) 0.4 Mg Capsule, 0.4 MG PO DAILY, (Reported) Allergies Coded Allergies: codeine (Verified Allergy, Mild, rash, 10/25/20) METALS (Verified Allergy, Unknown, 10/16/18) JENNYFER JIMENEZ MD Nov 11, 2020 12:24
[2020-11-11] MEDS: traMADol 50 MG TAB PO PRN (12:53)
== END 2020-11-11 14:00 | disposition home health service (06) | DRG 264 ==
LOC: EDBD 12:37 → M ED 12:37 → M ED INP 18:50 → M PCU 10-26 02:35 → M MSPAV 10-29 20:57
PROVIDERS: ADMIT Family Medicine; ATTEND General Practice
PROC: 0W9G3ZX Drainage of Peritoneal Cavity, Percutaneous Approach, Diagnostic (ICD-10-PCS; 2020-10-26)
PROC: 30233J1 Transfusion of Nonautologous Serum Albumin into Peripheral Vein, Percutaneous Approach (ICD-10-PCS; 2020-10-26)
PROC: 0HDRXZZ Extraction of Toe Nail, External Approach (ICD-10-PCS; principal; 2020-10-26 10:00)
PROC: 30233N1 Transfusion of Nonautologous Red Blood Cells into Peripheral Vein, Percutaneous Approach (ICD-10-PCS; 2020-10-27)
PROC: 0W9G3ZZ Drainage of Peritoneal Cavity, Percutaneous Approach (ICD-10-PCS; 2020-11-02)
PROC: 0W9G3ZX Drainage of Peritoneal Cavity, Percutaneous Approach, Diagnostic (ICD-10-PCS; 2020-11-09)
DX: K70.31 Alcoholic cirrhosis of liver with ascites (principal); E11.51 Type 2 diabetes mellitus with diabetic peripheral angiopathy without gangrene; K76.6 Portal hypertension; E87.1 Hypo-osmolality and hyponatremia; D62 Acute posthemorrhagic anemia; E88.09 Other disorders of plasma-protein metabolism, not elsewhere classified; R13.10 Dysphagia, unspecified; K29.80 Duodenitis without bleeding; I10 Essential (primary) hypertension; F17.200 Nicotine dependence, unspecified, uncomplicated; D50.9 Iron deficiency anemia, unspecified; F10.239 Alcohol dependence with withdrawal, unspecified; F32.9 Major depressive disorder, single episode, unspecified; E66.9 Obesity, unspecified; Z86.73 Personal history of transient ischemic attack (TIA), and cerebral infarction without residual deficits; K21.9 Gastro-esophageal reflux disease without esophagitis; E78.5 Hyperlipidemia, unspecified; J44.9 Chronic obstructive pulmonary disease, unspecified; N39.0 Urinary tract infection, site not specified; R00.0 Tachycardia, unspecified; Z20.822 Contact with and (suspected) exposure to COVID-19; Z79.82 Long term (current) use of aspirin; Z79.02 Long term (current) use of antithrombotics/antiplatelets; Z79.899 Other long term (current) drug therapy; Z88.5 Allergy status to narcotic agent; Z91.048 Other nonmedicinal substance allergy status; Z95.820 Peripheral vascular angioplasty status with implants and grafts; S91.201A Unspecified open wound of right great toe with damage to nail, initial encounter; L60.0 Ingrowing nail; W22.09XA Striking against other stationary object, initial encounter; Y92.9 Unspecified place or not applicable; Y93.9 Activity, unspecified; Y99.9 Unspecified external cause status

== ENCOUNTER → 2020-11-17 | Outpatient (REF) | payer OTHER ==
[~2020-11-17] MED LIST changes: +HYDR50TA70 PO; +LASI20TA3 PO; +MIDO5TA PO; +PANT40TA29 PO; +SPIR-10 PO; +SUCR1TA PO
[2020-11-17 17:19] LABS: INR 1.05; PROTHROMBIN TIME 14.2 SECONDS (12.7-14.5)
[2020-11-17 17:23] LABS: PARTIAL THROMBOPLASTIN TIME 37.2 SECONDS (25.9-37.0)
[2020-11-17 17:58] LABS: BASO % 0.3 % (0.0-1.0); EOS % 0.3 % (0.0-3.0); HEMATOCRIT 32.6 % (42.0-52.0); HEMOGLOBIN 10.7 g/dl (13.5-17.5); LYMPH # 1.4 10^3/uL (1.5-5.0); LYMPH % 22.3 % (24.0-44.0); MEAN CORPUSCULAR HEMOGLOBIN 31.8 pg (27.0-33.0); MEAN CORPUSCULAR HGB CONC 32.8 g/dl (32.0-36.5); MONO # 0.8 10^3/uL (0.0-0.8); NEUTROPHILS # 4.1 10^3/uL (1.5-8.5); NEUTROPHILS % 63.3 % (36.0-66.0); PLATELET COUNT, AUTOMATED 361 10^3/uL (150-450); RED BLOOD COUNT 3.36 10^6/uL (4.30-6.10); WHITE BLOOD COUNT 6.5 10^3/uL (4.0-10.0)
[2020-11-17 18:22] LABS: ALBUMIN 2.4 GM/DL (3.2-5.2); ALT/SGPT 70 U/L (12-78); BILIRUBIN,DIRECT 0.7 MG/DL (0.0-0.2); BILIRUBIN,TOTAL 1.1 MG/DL (0.2-1.0); BLOOD UREA NITROGEN 6 MG/DL (7-18); CALCIUM LEVEL 8.8 MG/DL (8.5-10.1); CARBON DIOXIDE LEVEL 25 MEQ/L (21-32); CHLORIDE LEVEL 101 MEQ/L (98-107); CREATININE FOR GFR 0.38 MG/DL (0.70-1.30); GLOMERULAR FILTRATION RATE > 60.0 (>56); GLUCOSE, FASTING 96 MG/DL (70-100); MAGNESIUM LEVEL 1.5 MG/DL (1.8-2.4); POTASSIUM SERUM 3.6 MEQ/L (3.5-5.1); SODIUM LEVEL 135 MEQ/L (136-145); TOTAL PROTEIN 5.9 GM/DL (6.4-8.2)
== END ==
LOC: M SFHCCAPE 11:55
PROVIDERS: ATTEND Physician Assistant
DX: D64.9 Anemia, unspecified (principal); K70.31 Alcoholic cirrhosis of liver with ascites; E87.1 Hypo-osmolality and hyponatremia; E83.42 Hypomagnesemia

== ENCOUNTER 2020-12-01 16:27 | Emergency (ER) | payer OTHER ==
[~2020-12-01] VITALS: Ht 162.6 cm; Wt 75.0 kg
[2020-12-01 16:29] VITALS: BP 117/63
--- OUTSIDE RECORDS SUMMARY | 2020-12-01 16:42 | CCD | Continuity of Care Document ---
Author Author Sharif BROOKS MD Organization Unknown Address [address] [place] [id number] Phone [phone] Care Team Providers Care Vice President Of Procurement Name Role Phone Alona Schmitz-Velma AUTM Problems Active Problems Provider Date Difficulty breathing Deo Hercules Onset: 03/20/2017 Ex-smoker Deo Hercules Onset: 03/20/2017 Other nonspecific abnormal finding of lung field Jonnathan dent, P.AGinger Onset: 03/20/2017 Essential hypertension Francis Car NP Onset: 08/04/2018 Social History Type Date Description Comments Sex Unknown ETOH Use H/O Abuse ETOH Use Consumes 2 six packs of beer per day 11/25/20 Recreational Drug Use Former Drug User Tobacco Use Start: Unknown Smoking Cessation Counseling Per formed Tobacco Use Start: Unknown Patient is a current smoker, smo kes every day Allergies and adverse reactions Active Allergies Criticality Reaction | Severity Comments Date Codeine Unable to assess criticality RASH 03/20/2017 Metals Unable to assess criticality RASH 08/04/2018 Medications Active Medications SIG Qnty Indications Ordering Provide r Date Furosemide 20mg Tablets 20 mg twice a day 60tabs K70.11 Eugenio Brooks MD 11/25/2020 Spironolactone 25mg Tablets 25 mg by mouth every day 30tabs K70.11 Eugenio Brooks MD 11/25/2020 Pantoprazole Sodium 40mg Tablets D R 1 by mouth every day 30tabs K70.11 Eugenio Brooks MD 11/25/2020 Midodrine HCL 5mg Tablets 1 by mouth three times a day 90tabs K70.11 Eugenio Brooks MD 11/25/2020 Metformin HCL ER 1 tab by mouth every day (850MG) Unknown Tamsulosin HCL 0.4mg Capsules 1cap qd Unknown Atorvastatin Calcium 40mg Tablets 1tab qd Unknown Aspir-Low 81mg Tablets DR 1ta b qd Unknown Plavix 75mg Tablets 1tab qd Unknown Sucralfate 1gm Tablets 1tab q id Unknown Magnesium 400mg Tablets 1tab qd Unknown Multivitamin Tablets 1tab qd Unknown Immunizations Description No Information Available Vital Signs Date Vital Result Comment 11/25/2020 3:39pm BP Systolic 118 mmHg BP Diastolic 62 mmHg Height 64.75 inches 5'4.75" Weight 170.00 lb BMI (Body Mass Index) 28.5 kg/m2 [place] Body Weight 130 lb Weight 77.112 kg BSA (Body Surface Area) 1.84 m2 02/26/2019 1:50pm BP Systolic 154 mmHg BP Diastolic 76 mmHg Height 63.5 inches 5'3.50" Weight 206.00 lb BMI (Body Mass Index) 35.9 kg/m2 [place] Body Weight 124 lb Weight 93.442 kg BSA (Body Surface Area) 1.97 m2 Results Description No Information Available Procedures Date Code Description Status 11/25/2020 88521 Office/Outpatient Established Mo d MDM 30-39 Min Completed Medical Devices Description No Information Available Encounters Type Date Location Provider Dx Diagnosis Office Visit 11/25/2020 3:15p [facility] ctice Eugenio Brooks MD K70.11 Alcoholic hepatitis with asc ites K70.31 Alcoholic cirrhosis of liver with ascites Assessments Date Code Description Provider 11/25/2020 K70.11 Alcoholic hepatitis with ascites Eugenio Brooks MD 11/25/2020 K70.31 Alcoholic cirrhosis of liver wit h ascites Eugenio Brooks MD Plan of Treatment 11/25/2020 - Eugenio Brooks MD* K70.11 Alcoholic hepatitis with ascites * K70.31 Alcoholic cirrhosis of liver with ascites * * New Medication:* Furosemide 20 mg * Spironolactone 25 mg * Pantoprazole Sodium 40 mg * Midodrine HCL 5 mg * Comments:* He has not stopped alcohol, but has "cut back". His ascites is improved. still has some, but not tense. Has 2 + pedal edema.I have reviewed his daily weights (his sister is keeping track. He is slowly coming down on the current diuretic regimen)He is not confused, he does not have asterixis--sister confirms that he has no confusion at this time * Follow up:* 1 month * Recommendations:* 1) Stop alcohol completely (not just cut down, He needs to 100% stop now)--couselled/discussed at length 2) Continue current diuretic regimen. (furosemide 20 mg bid, Spironolactone 25 q day)-The dosing is low, but -this appears to be working, as his weight is slowly coming down.--His goal weight for now should be set at about 160-165 lbs over next 30 days). will adjust goal later if necessary 3) Hold paracentesis or now. he is not tense, and his fluid weight is going in the right direction 4) Low Na diet 5) High protein diet. 6) His hyponatremia is dilutional (18-20 beers per day)---this is improving with the reduction in free water (beer) 7) Midodrine will be continued for another month, then stop 8) He is on ASA and Clopidogrel. In view of anemia, would consider holding the asa. 9) Sistewr to call me for diuretic adjustment (keep track daily...let me know if weight goes up) Functional Status Description No Information Available Mental Status Description No Information Available Referrals Description No Information Available
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
--- OUTSIDE RECORDS SUMMARY | 2020-12-01 16:43 | CCD ---
Author Organization Unknown Address [address] [place] [address] Phone [phone] Care Team Providers Care Ambulatory Care Name Role Phone MICHAEL MORENO 3 [phone] Allergies Code Code System Name Reaction Severity Status Onset 2670 RxNorm Codeine Active 04/30/2016 Medications Name Status Start Date Stop Date acetaminophen 325 mg tablet Completed 07/2018 albuterol sulfate HFA 90 mcg/actuation aerosol inhaler Active Not available amiloride 5 mg tablet TAKE ONE TABLET BY MOUTH EVERY DAY Completed 11/11 amlodipine 5 mg tablet TAKE ONE TABLET BY MOUTH EVERY DAY Completed 11/11 Anoro Ellipta 62.5 mcg-25 mcg/actuation powder for inhalation Co mpleted 01/08/2018 Arnuity Ellipta 100 mcg/actuation powder for inhalation Complete d 01/08/2018 aspirin 325 mg tablet Completed 01/01/2019 aspirin 81 mg chewable tablet Completed aspirin 81 mg tablet,delayed release TAKE ONE TABLET BY MOUTH EVERY DAY Active Not available atorvastatin 40 mg tablet Active Not av ailable atorvastatin 80 mg tablet Completed 2017 benzonatate 100 mg capsule Active Not a vailable carisoprodol 350 mg tablet Completed 11/22 Chantix Continuing Month Box 1 mg tablet Completed 01/08/2018 Chantix Starting Month Box 0.5 mg (11)-1 mg (42) tablets in dose pack Completed 01/08/2018 chlorthalidone 25 mg tablet Completed 11/11 clopidogrel 75 mg tablet TAKE ONE TABLET BY MOUTH EVERY DAY Active Not available Cymbalta 60 mg capsule,delayed release Take 1 capsule every day by oral route. Completed 11/22/2020 docusate sodium 100 mg capsule Completed 03/10/2017 duloxetine 30 mg capsule,delayed release Completed 11/22/2020 furosemide 20 mg tablet TAKE ONE TABLET BY MOUTH TWICE A DAY Active No t available hydroxyzine HCl 50 mg tablet Completed losartan 100 mg tablet Active Not avail able metformin 850 mg tablet TAKE ONE TABLET BY MOUTH EVERY DAY WITH MEAL Active Not available methylprednisolone 4 mg tablets in a dose pack Completed 03/10/2019 midodrine 5 mg tablet TAKE 2 TABLETS BY MOUTH AT 8 A.M. NOON AND 4 IN THE EVENING Active Not available nicotine (polacrilex) 2 mg gum CHEW 1 PIECE AND PARK IN CHEEK FOR UP TO 30 MINUTES NEEDED UP TO 12 TIMES A DAY FOR ACUTE CRAVINGS Active Not available nicotine 14 mg/24 hr daily transdermal patch Completed 01/08/2018 nicotine 21 mg/24 hr daily transdermal p atch APPLY 1 PATCH TO SKIN AND CHANGE DAILY Active Not available nicotine 7 mg/24 hr daily transdermal patch Completed 01/08/2018 omeprazole 40 mg capsule,delayed release TAKE ONE CAPSULE BY MOUTH EVERY MORNING 30 MINUTES BEFORE FIRST MEAL Completed 11/22/2020 oxycodone 5 mg tablet Completed 10/17/2018 pantoprazole 40 mg tablet,delayed releas e TAKE ONE TABLET BY MOUTH TWICE A DAY Active No t available peg-electrolyte solution 420 gram oral solution Active Not available salsalate 750 mg tablet Active Not avai lable spironolactone 25 mg tablet TAKE ONE HALF TABLET BY MOUTH EVERY DAY Active Not available sucralfate 1 gram tablet TAKE ONE TABLET BY MOUTH FOUR TIMES A DAY BEFORE MEALS AND AT BEDTIME Active Not available tamsulosin 0.4 mg capsule TAKE TWO CAPSULES BY MOUTH EVERY DAY Active No t available trazodone 50 mg tablet Completed 9 zolpidem ER 6.25 mg tablet,extended release,multiphase Completed 11/22/2020 Problems Name Status Onset Date Source Inflammation of Sacroiliac Joint Active 04/30/2016 History Spondylosis without Myelopathy Active 04/30/2016 H istory Prolapsed Lumbar Intervertebral Disc Active 04/30/2016 History Degeneration of Lumbar Intervertebral Disc Active 04/30 History Neck Pain Active 04/30/2016 History Lumbosacral Radiculopathy Active 04/30/2016 Histor y Muscle Pain Active 04/30/2016 History Procedures Date Name Performed by Leg Surgery Procedure Notes: right and left summer 2018 Information not available 01/28/2018 MRI, Cervical Spine, W/o Contrast [facility] [employer] [facility] [address] [place] [address] [phone] (Work Place) 05/21/2019 MRI, Lumbar Spine, W/o Contrast [facility] [address] [id number] (Work Place) Notes: unremarkable | Unremarkable 04/30 Results Lab Results None recorded. Past Encounters 11/22/2020 Degeneration of Lumbar Intervertebral Disc; Degeneration of Lumbosacral Intervertebral Disc; Displacement of Lumbar Intervertebral Disc without Myelopathy; Intervertebral Disc Disorder; Spondylosis without Myelopathy; Lumbosacral Spondylosis without Myelopathy; Lumbar Radiculopathy; Cervical Radiculopathy; Cervical Spondylosis without Myelopathy; Muscle Pain; Displacement of Cervical Intervertebral Disc without Myelopathy; Degeneration of Cervical Intervertebral Disc; Inflammation of Sacroiliac Joint Hilda Nalini Ochoa, PEDIATRIC OPHTHALMOLOGIST: [id number] [address], [place] [address], Ph. 07/02/2019 Degeneration of Lumbar Intervertebral Disc; Degeneration of Lumbosacral Intervertebral Disc; Displacement of Lumbar Intervertebral Disc without Myelopathy; Intervertebral Disc Disorder; Spondylosis without Myelopathy; Lumbosacral Spondylosis without Myelopathy; Lumbar Radiculopathy; Cervical Radiculopathy; Cervical Spondylosis without Myelopathy; Muscle Pain; Displacement of Cervical Intervertebral Disc without Myelopathy; Degeneration of Cervical Intervertebral Disc; Inflammation of Sacroiliac Joint Hilda Nalini Ochoa, PEDIATRIC OPHTHALMOLOGIST: [address] [address], [place] [address], Ph. 05/21/2019 Degeneration of Lumbar Intervertebral Disc; Degeneration of Lumbosacral Intervertebral Disc; Displacement of Lumbar Intervertebral Disc without Myelopathy; Intervertebral Disc Disorder; Spondylosis without Myelopathy; Lumbosacral Spondylosis without Myelopathy; Lumbar Radiculopathy; Cervical Radiculopathy; Cervical Spondylosis without Myelopathy; Muscle Pain; Displacement of Cervical Intervertebral Disc without Myelopathy; Degeneration of Cervical Intervertebral Disc; Inflammation of Sacroiliac Joint Hilda Sheriesonboris Ochoa, PEDIATRIC OPHTHALMOLOGIST: [id number] [address], Ph. 04/22/2019 Cervical Spondylosis without Myelopathy; Degeneration of Cervical Intervertebral Disc; Displacement of Cervical Intervertebral Disc without Myelopathy; Degeneration of Lumbar Intervertebral Disc; Degeneration of Lumbosacral Intervertebral Disc; Displacement of Lumbar Intervertebral Disc without Myelopathy; Intervertebral Disc Disorder; Spondylosis without Myelopathy; Lumbosacral Spondylosis without Myelopathy; Lumbar Radiculopathy; Cervical Radiculopathy; Muscle Pain; Inflammation of Sacroiliac Joint Jeff Acosta MD: [id number] [address], Ph. 04/06/2019 Inflammation of Sacroiliac Joint; Degeneration of Lumbar Intervertebral Disc; Degeneration of Lumbosacral Intervertebral Disc; Displacement of Lumbar Intervertebral Disc without Myelopathy; Intervertebral Disc Disorder; Spondylosis without Myelopathy; Lumbosacral Spondylosis without Myelopathy; Lumbar Radiculopathy; Cervical Radiculopathy; Cervical Spondylosis without Myelopathy; Muscle Pain; Displacement of Cervical Intervertebral Disc without Myelopathy; Degeneration of Cervical Intervertebral Disc Jeff Acosta MD: [id number] [address], Ph. 03/10/2019 Degeneration of Lumbar Intervertebral Disc; Degeneration of Lumbosacral Intervertebral Disc; Displacement of Lumbar Intervertebral Disc without Myelopathy; Intervertebral Disc Disorder; Spondylosis without Myelopathy; Lumbosacral Spondylosis without Myelopathy; Lumbar Radiculopathy; Cervical Radiculopathy; Cervical Spondylosis without Myelopathy; Muscle Pain; Displacement of Cervical Intervertebral Disc without Myelopathy; Degeneration of Cervical Intervertebral Disc; Inflammation of Sacroiliac Joint Hilda Ochoa NP: [id number] [place] [address], Ph. 02/17/2019 Muscle Pain; Degeneration of Lumbar Intervertebral Disc; Degeneration of Lumbosacral Intervertebral Disc; Displacement of Lumbar Intervertebral Disc without Myelopathy; Intervertebral Disc Disorder; Spondylosis without Myelopathy; Lumbosacral Spondylosis without Myelopathy; Lumbar Radiculopathy; Cervical Radiculopathy; Cervical Spondylosis without Myelopathy; Displacement of Cervical Intervertebral Disc without Myelopathy; Degeneration of Cervical Intervertebral Disc; Inflammation of Sacroiliac Joint Jeff Acosta MD: [id number] [address], Ph. 01/28/2019 Lumbosacral Spondylosis without Myelopathy; Spondylosis without Myelopathy; Degeneration of Lumbar Intervertebral Disc; Degeneration of Lumbosacral Intervertebral Disc; Displacement of Lumbar Intervertebral Disc without Myelopathy; Intervertebral Disc Disorder; Lumbar Radiculopathy; Cervical Radiculopathy; Cervical Spondylosis without Myelopathy; Muscle Pain; Displacement of Cervical Intervertebral Disc without Myelopathy; Degeneration of Cervical Intervertebral Disc Jeff Acosta MD: [id number] [address], Ph. 01/01/2019 Degeneration of Lumbar Intervertebral Disc; Degeneration of Lumbosacral Intervertebral Disc; Displacement of Lumbar Intervertebral Disc without Myelopathy; Intervertebral Disc Disorder; Spondylosis without Myelopathy; Lumbosacral Spondylosis without Myelopathy; Lumbar Radiculopathy; Cervical Radiculopathy; Cervical Spondylosis without Myelopathy; Muscle Pain; Displacement of Cervical Intervertebral Disc without Myelopathy; Degeneration of Cervical Intervertebral Disc Hilda Ochoa NP: [id number] [address], Ph. 12/17/2018 Lumbosacral Spondylosis without Myelopathy; Spondylosis without Myelopathy; Degeneration of Lumbar Intervertebral Disc; Degeneration of Lumbosacral Intervertebral Disc; Displacement of Lumbar Intervertebral Disc without Myelopathy; Intervertebral Disc Disorder; Lumbar Radiculopathy; Cervical Radiculopathy; Cervical Spondylosis without Myelopathy; Muscle Pain; Displacement of Cervical Intervertebral Disc without Myelopathy; Degeneration of Cervical Intervertebral Disc Jeff Acosta MD: [id number] [address], Ph. 10/17/2018 Degeneration of Lumbar Intervertebral Disc; Degeneration of Lumbosacral Intervertebral Disc; Displacement of Lumbar Intervertebral Disc without Myelopathy; Intervertebral Disc Disorder; Spondylosis without Myelopathy; Lumbosacral Spondylosis without Myelopathy; Lumbar Radiculopathy; Cervical Radiculopathy; Cervical Spondylosis without Myelopathy; Muscle Pain; Displacement of Cervical Intervertebral Disc without Myelopathy; Degeneration of Cervical Intervertebral Disc Hilda Ochoa NP: [id number] [facility], [place] [address], Ph. 05/21/2018 Degeneration of Lumbar Intervertebral Disc; Degeneration of Lumbosacral Intervertebral Disc; Displacement of Lumbar Intervertebral Disc without Myelopathy; Intervertebral Disc Disorder; Spondylosis without Myelopathy; Lumbosacral Spondylosis without Myelopathy; Lumbar Radiculopathy; Cervical Radiculopathy; Cervical Spondylosis without Myelopathy; Muscle Pain; Displacement of Cervical Intervertebral Disc without Myelopathy; Degeneration of Cervical Intervertebral Disc Hilda Zelayakhalida PEDIATRIC OPHTHALMOLOGIST: [id number] [facility], [place] [address], Ph. 05/01/2018 Cervical Radiculopathy; Displacement of Cervical Intervertebral Disc without Myelopathy; Degeneration of Cervical Intervertebral Disc; Cervical Spondylosis without Myelopathy; Spondylosis without Myelopathy; Lumbosacral Spondylosis without Myelopathy; Degeneration of Lumbar Intervertebral Disc; Degeneration of Lumbosacral Intervertebral Disc; Displacement of Lumbar Intervertebral Disc without Myelopathy; Intervertebral Disc Disorder; Lumbar Radiculopathy; Muscle Pain Jeff Acosta MD: [id number] [facility], [place] [address], Ph. 04/17/2018 Cervical Radiculopathy; Displacement of Cervical Intervertebral Disc without Myelopathy; Degeneration of Cervical Intervertebral Disc; Cervical Spondylosis without Myelopathy; Spondylosis without Myelopathy; Lumbosacral Spondylosis without Myelopathy; Degeneration of Lumbar Intervertebral Disc; Degeneration of Lumbosacral Intervertebral Disc; Displacement of Lumbar Intervertebral Disc without Myelopathy; Intervertebral Disc Disorder; Lumbar Radiculopathy; Muscle Pain Jeff Acosta MD: [id number] [facility], [place] [address], Ph. 04/09/2018 Spondylosis without Myelopathy; Lumbosacral Spondylosis without Myelopathy; Degeneration of Lumbar Intervertebral Disc; Degeneration of Lumbosacral Intervertebral Disc; Displacement of Lumbar Intervertebral Disc without Myelopathy; Intervertebral Disc Disorder; Lumbar Radiculopathy; Cervical Radiculopathy; Cervical Spondylosis without Myelopathy; Muscle Pain; Displacement of Cervical Intervertebral Disc without Myelopathy; Degeneration of Cervical Intervertebral Disc Jeff Acosta MD: [id number] [facility], [place] [address], Ph. 03/27/2018 Spondylosis without Myelopathy; Lumbosacral Spondylosis without Myelopathy; Degeneration of Lumbar Intervertebral Disc; Degeneration of Lumbosacral Intervertebral Disc; Displacement of Lumbar Intervertebral Disc without Myelopathy; Intervertebral Disc Disorder; Lumbar Radiculopathy; Cervical Radiculopathy; Cervical Spondylosis without Myelopathy; Muscle Pain; Displacement of Cervical Intervertebral Disc without Myelopathy; Degeneration of Cervical Intervertebral Disc Jeff Acosta MD: [id number] [address], [place] [address], Ph. 03/13/2018 Degeneration of Lumbar Intervertebral Disc; Degeneration of Lumbosacral Intervertebral Disc; Displacement of Lumbar Intervertebral Disc without Myelopathy; Intervertebral Disc Disorder; Spondylosis without Myelopathy; Lumbosacral Spondylosis without Myelopathy; Lumbar Radiculopathy; Cervical Radiculopathy; Cervical Spondylosis without Myelopathy; Muscle Pain; Displacement of Cervical Intervertebral Disc without Myelopathy; Degeneration of Cervical Intervertebral Disc Hilda Ochoa NP: [id number] [facility], [place] [address], Ph. 02/20/2018 Degeneration of Lumbar Intervertebral Disc; Degeneration of Lumbosacral Intervertebral Disc; Displacement of Lumbar Intervertebral Disc without Myelopathy; Intervertebral Disc Disorder; Spondylosis without Myelopathy; Lumbosacral Spondylosis without Myelopathy; Lumbar Radiculopathy; Cervical Radiculopathy; Cervical Spondylosis without Myelopathy; Muscle Pain; Inflammation of Sacroiliac Joint Jeff Acosta MD: [id number] [facility], [place] [address], Ph. 01/28/2018 Degeneration of Lumbar Intervertebral Disc; Degeneration of Lumbosacral Intervertebral Disc; Displacement of Lumbar Intervertebral Disc without Myelopathy; Intervertebral Disc Disorder; Spondylosis without Myelopathy; Lumbosacral Spondylosis without Myelopathy; Lumbar Radiculopathy; Cervical Radiculopathy; Cervical Spondylosis without Myelopathy; Muscle Pain Hilda Knowlesamtt, PEDIATRIC OPHTHALMOLOGIST: [address], [place] [address], Ph. 01/08/2018 Degeneration of Lumbar Intervertebral Disc; Degeneration of Lumbosacral Intervertebral Disc; Displacement of Lumbar Intervertebral Disc without Myelopathy; Intervertebral Disc Disorder; Spondylosis without Myelopathy; Lumbar Radiculopathy; Lumbosacral Spondylosis without Myelopathy; Myofascial Pain; Inflammation of Sacroiliac Joint Jeff Acosta MD: [address], [place] [address], Ph. Social History Tobacco Smoking Status Former Smoker Vaccine List None recorded. Plan of Care Reminders Provider Appointments None recorded. Lab None recorded. Referral None recorded. Procedures None recorded. Surgeries None recorded. Imaging None recorded. Vitals 11/22/2020 10:45AM FOLLOW-UP Blood Pressure 117/67 mm[Hg] 07/02/2019 02:15PM FOLLOW-UP Height Blood Pressure 5 ft 4 in 121/55 mm[Hg] 03/10/2019 01:00PM FOLLOW-UP Height Blood Pressure 5 ft 4 in 123/80 mm[Hg] 01/01/2019 02:00PM FOLLOW-UP Height Blood Pressure 5 ft 4 in 151/80 mm[Hg] 10/17/2018 03:00PM FOLLOW-UP Height Weight BMI Blood Pressure 5 ft 4 in 172 lbs 29.5 kg/m2 158/87 mm[Hg] 05/21/2018 02:30PM FOLLOW-UP Height Weight BMI Blood Pressure 5 ft 4 in 172 lbs 29.5 kg/m2 124/75 mm[Hg] 03/13/2018 10:45AM FOLLOW-UP Height Weight BMI Blood Pressure 5 ft 4 in 172 lbs 29.5 kg/m2 122/70 mm[Hg] 01/28/2018 01:15PM FOLLOW-UP Height Weight BMI Blood Pressure 5 ft 4 in 172 lbs 29.5 kg/m2 113/69 mm[Hg] 12/16/2017 Blood Pressure 147/73 mm[Hg] 11/12/2017 Blood Pressure 143/81 mm[Hg] 10/01/2017 Blood Pressure 146/78 mm[Hg] 09/03/2017 Weight BMI Blood Pressure 172 lbs 29.63 kg/m2 181/95 mm[Hg] 08/07/2017 Blood Pressure 138/75 mm[Hg] 06/28/2017 Blood Pressure 116/69 mm[Hg] 06/04/2017 Weight BMI Blood Pressure 172 lbs 29.63 kg/m2 129/72 mm[Hg] 05/24/2017 Blood Pressure 136/80 mm[Hg] 05/08/2017 Weight BMI Blood Pressure 184 lbs 31.70 kg/m2 108/71 mm[Hg] 04/18/2017 Blood Pressure 132/71 mm[Hg] 03/27/2017 Weight BMI Blood Pressure 184 lbs 31.70 kg/m2 148/76 mm[Hg] 03/14/2017 Blood Pressure 152/85 mm[Hg] 02/21/2017 Weight BMI Blood Pressure 184 lbs 31.70 kg/m2 129/80 mm[Hg] 01/10/2017 Blood Pressure 123/70 mm[Hg] 12/20/2016 Blood Pressure 148/96 mm[Hg] 11/15/2016 Blood Pressure 120/72 mm[Hg] 10/11/2016 Weight BMI Blood Pressure 184 lbs 31.70 kg/m2 147/87 mm[Hg] 08/09/2016 Blood Pressure 148/90 mm[Hg] 07/18/2016 Blood Pressure 136/88 mm[Hg] 06/01/2016 Blood Pressure 137/89 mm[Hg] 05/11/2016 Blood Pressure 129/80 mm[Hg] 04/30/2016 Height Weight BMI Blood Pressure 5 ft 4 in 186 lbs 32.04 kg/m2 147/92 mm[Hg]"
--- OUTSIDE RECORDS SUMMARY | 2020-12-01 16:43 | CCD ---
Author Author [facility] Organization [facility] Address Unknown Phone Unavailable Care Team Providers Care Traffic Expert Name Role Phone Alona Schmitz Unavailable PROBLEMS Type Condition ICD9-CM Code [id number] Code Onset Dates Condition S tatus W/U Status Risk SNOMED Code Notes Problem ED (erectile dysfunction) N52.9 Active confirmed 191393699 Problem Lumbosacral spondylosis M47.817 Active confirmed 037478119 Problem GERD (gastroesophageal reflux disease) K21.9 A ctive confirmed 971334376 Problem Myalgia M79.1 Active confirmed 27082307 Problem Lumbar spondylosis M47.816 Active confirmed 553090355 Problem Prostate cancer screening Z12.5 Active confirmed 616705333 Problem Intervertebral disc disorders with radiculopathy , lumbar region M51.16 Active confirmed 589985791274733 Problem Daytime somnolence R40.0 Active confirmed 1 29392828901 Problem Insomnia, unspecified type G47.00 Active confirmed 938160141 Problem Osteoarthritis M19.90 Active confirmed 77693 5006 Problem Stenosis of carotid artery, unspecified laterality I65.29 Active confirmed 18111221 Problem Transient cerebral ischemia, unspecified type G45. 9 Active confirmed 466931318 Problem Type 2 diabetes mellitus with other specified complication E11.69 Active confirmed 33994734 Problem Obesity, unspecified E66.9 Active confirmed 494996272 Problem Hypertensive heart disease without heart failure I 11.9 Active confirmed 23219532 Problem Urinary frequency R35.0 Active confirmed 16 8771278 Problem Alcohol abuse F10.10 Active confirmed 439260 05 Problem Claudication of both lower extremities I73.9 A ctive confirmed 21291043 Problem Other iron deficiency anemia D50.8 Active confirme d 40665278 Problem Diabetes E11.9 Active confirmed 496700597 Problem Essential hypertension I10 Active confirmed 72414682 Problem Alcoholic cirrhosis of liver with ascites K70.31 Active confirmed 676463537 Problem Other chronic pain G89.29 Active confirmed 8 5386314 Problem Hypomagnesemia E83.42 Active confirmed 06393 5004 Problem Moderate major depression F32.1 Active confirmed 748211 Problem Cigarette nicotine dependence without complication F17.210 Active confirmed 19189603 Problem Mild chronic gastritis K29.50 Active confirmed 3740399 Problem Iron deficiency anemia, unspecified iron deficiency an emia type D50.9 Active confirmed 81891440 Problem Erectile dysfunction, unspecified erectile dysfunction typ e N52.9 Active confirmed 367486229 Problem COPD (chronic obstructive pulmonary disease) J44.9 Active confirmed 69579014 ALLERGIES Allergen (clinical drug ingredient) Drug/Non Drug Allergy do cumented on EMR Reaction Allergy Type Onset Date Status Codeine Phosphate([facility] Code:[address]-52) Nausea/Vomiting/ rash Drug Allergy Active ENCOUNTERS from 1961 to 2020-11-17 Encounter Location Date Provider Diagnosis [address] [place] [address] Nov, Alona Schmitz IMMUNIZATIONS Vaccine Route Administration Date [...] Advice Language: Question Answer Notes Languages spoken: Burmese Cheondoism: Question Answer Notes Cheondoism 02 Atheist No shinto beliefs that would impact health care. Sexual [...] quitting? Thinking about quitting REASON FOR REFERRAL No Information VITAL SIGNS No information MEDICATIONS Medication SIG (Take, Route, Frequency, Duration) Notes Start Da te End Date Status Nicorette 2 MG 1 piece for 30 minute as nee ded Mouth/Throat 12 time(s) a day for acute craving for 30 Days Mar, Not-Ta Furosemide 20 MG 1 tablet Orally bid Active Losartan Potassium 100 mg 1 tablet Orally Once a day Not-Taking Tamsulosin HCl 0.4 MG 1 capsules Orally Once a day Active amLODIPine Besylate 5 MG 1 tablet Orally Once a day Not-Taking Spironolactone 25 MG 1/2 tablet Orally Daily Active aMILoride HCl 5 MG 1 tablet with food Orally Once a day for 90 days Not-Taking Pantoprazole Sodium 40 MG 1 tablet Orally bid Active Clopidogrel Bisulfate 75 MG 1 tablet Orally Once a day for 90 days Active Nicoderm CQ 21 MG/24HR 1 patch to skin Transdermal Once a day fo r 42 days Mar, Not-Taking Atorvastatin Calcium 40 MG 1 tablet Orally Once a day for 90 days Active Viagra 100 MG 1 tablet as needed 30 min be fore sexual activity Orally Daily as needed for 6 days Dec, Not-Taking Omeprazole 40 MG 1 capsule 30 minutes before morning meal Orally Once a day for 30 Active metFORMIN HCl 850 MG 1 tablet with a meal Orally once daily for 90 Not-Taking Aspirin 81 MG 1 tablet Orally Once a day for 90 Active Melatonin 10 MG as directed Orally N ot-Taking Midodrine HCl 5 MG 1 tablet Orally Three times a day for 30 day(s) Active Sucralfate 1 GM 1 tablet on an empty stomach Orally Twice a day for 30 day(s) Active Soma 350 mg 30 350 mg one tablet orally every 8 hours as nee ded for pain pt unsure of MG Not-Taking PROCEDURES No Information RESULTS No Results REASON FOR VISIT medications MEDICAL (GENERAL) HISTORY Type Description Date Medical [...] Mellitus Type 2 Medical History TIA x [address] [place] [address] 06/[address] scan of the ches t/[facility]/current smoker due August 2019 Medical History Carotid Artery Stenosis Medical History Peripheral Vascular Disease Surgical History left leg artery band placed9 ([facility]) 08/2018 Surgical History right leg artery band 09/2018 Hospitalization History [facility] for 6-8 weeks after s [facility] Hospitalization History [facility] for a couple days 06/2017 Hospitalization History [facility] fluid removed 10/25-11/11 Goals Section No Information Health Concerns No Information MEDICAL EQUIPMENT No Information MENTAL STATUS No Information FUNCTIONAL STATUS No Information ASSESSMENTS No Information PLAN OF TREATMENT No Information Insurance Providers Payer Name Payer Address Payer Phone Insured Name Patient Relati onship to Insured Coverage Start Date Coverage End Date FORMERLY [facility], [facility] [address] [facility] [phone] ARELY [id number]
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
--- OUTSIDE RECORDS SUMMARY | 2020-12-01 16:43 | CCD ---
Author Author [facility] Organization [facility] Address Unknown Phone Unavailable Care Team Providers Care Electronic Device Monitor Name Role Phone HUBER BROOKS MD Unavailable Unavailable REINDL, HUBER HURST Unavailable Unavailable REINDL, HUBER HURST Unavailable Unavailable CECILIA, HUBER HURST Unavailable Unavailable REINSHANA, HUBER HURST Unavailable Unavailable REINSHANA, HUBER HURST Unavailable Unavailable REINSHANA, HUBER HURST Unavailable Unavailable REINDL, HUBER HURST Unavailable Unavailable CECILIA, HUBER HURST Unavailable Unavailable CECILIA, HUBER HURST Unavailable Unavailable REINSHANA, HUBER HURST Unavailable Unavailable REINSAHNA, HUBER HURST Unavailable Unavailable CECILIA, HUBER HURST Unavailable Unavailable REINSHANA, HUBER HURST Unavailable Unavailable REINSHANA, HUBER HURST Unavailable Unavailable REINSHANA, HUBER HURST Unavailable Unavailable REINSHANA, HUBER HURST Unavailable Unavailable REINDLHUBER MD Unavailable Unavailable REINHUBER SALDANA MD Unavailable Unavailable REINHUBER SALDANA MD Unavailable Unavailable HUBER BROOKS MD Unavailable Unavailable HUBER BROOKS MD Unavailable Unavailable HUBER BROOKS MD Unavailable Unavailable HUBER BROOKS MD Unavailable Unavailable REINSHANA, HUBER HURST Unavailable Unavailable CECILIA, HUBER HURST Unavailable Unavailable CECILIA, HUBER HURST Unavailable Unavailable CECILIA, HUBER HURST Unavailable Unavailable HUBER BROOKS MD Unavailable Unavailable HUBER BROOKS MD Unavailable Unavailable CECILIA, HUBER HURST Unavailable Unavailable CECILIA, HUBER HURST Unavailable Unavailable HUBER BROOKS MD Unavailable Unavailable CECILIA, HUBER HURST Unavailable Unavailable REINHUBER SALDANA MD Unavailable Unavailable REINHUBER SALDANA MD Unavailable Unavailable REINHUBER SALDANA MD Unavailable Unavailable REINDL, HUBER HURST Unavailable Unavailable REINDL, HUBER HURST Unavailable Unavailable REINDL, HUBER HURST Unavailable Unavailable REINDL, HUBER HURST Unavailable Unavailable REINDL, HUBER HURST Unavailable Unavailable Jumalon, M Hilda MACHINE SILVER STRIPPER Unavailable Unavailable Jumalon, M Hilda MACHINE SILVER STRIPPER Unavailable Unavailable Jumalon, M Hilda MACHINE SILVER STRIPPER Unavailable Unavailable Jumalon, M Hilda MACHINE SILVER STRIPPER Unavailable Unavailable Jumalon, M Hilda MACHINE SILVER STRIPPER Unavailable Unavailable Jumalon, M Hilda MACHINE SILVER STRIPPER Unavailable Unavailable Jumalon, M Hilda MACHINE SILVER STRIPPER Unavailable Unavailable Jumalon, M Hilda MACHINE SILVER STRIPPER Unavailable Unavailable Jumalon, M Hilda MACHINE SILVER STRIPPER Unavailable Unavailable Jumalon, M Hilda MACHINE SILVER STRIPPER Unavailable Unavailable Jumalon, M Hilda MACHINE SILVER STRIPPER Unavailable Unavailable Jumalon, M Hilda MACHINE SILVER STRIPPER Unavailable Unavailable Jumalon, M Hilda MACHINE SILVER STRIPPER Unavailable Unavailable Jumalon, M Hilda MACHINE SILVER STRIPPER Unavailable Unavailable Jumalon, M Hilda MACHINE SILVER STRIPPER Unavailable Unavailable Jumalon, M Hilda MACHINE SILVER STRIPPER Unavailable Unavailable Jumalon, M Hilda MACHINE SILVER STRIPPER Unavailable Unavailable Jumalon, M Hilda MACHINE SILVER STRIPPER Unavailable Unavailable Jumalon, M Hilda MACHINE SILVER STRIPPER Unavailable Unavailable Jumalon, M Hilda MACHINE SILVER STRIPPER Unavailable Unavailable Jumalon, M Hilda MACHINE SILVER STRIPPER Unavailable Unavailable Jumalon, M Hilda MACHINE SILVER STRIPPER Unavailable Unavailable Jumalon, M Hilda MACHINE SILVER STRIPPER Unavailable Unavailable Jumalon, M Hilda MACHINE SILVER STRIPPER Unavailable Unavailable Jumalon, M Hilda MACHINE SILVER STRIPPER Unavailable Unavailable Jumalon, M Hilda MACHINE SILVER STRIPPER Unavailable Unavailable Jumalon, M Hilda MACHINE SILVER STRIPPER Unavailable Unavailable Jumalon, M Hilda MACHINE SILVER STRIPPER Unavailable Unavailable Jumalon, M Hilda MACHINE SILVER STRIPPER Unavailable Unavailable Jumalon, M Hilda MACHINE SILVER STRIPPER Unavailable Unavailable Re-disclosure Warning The records that you are about to access may contain information from federally-assisted alcohol or drug abuse programs. If such information is present, then the following federally mandated warning applies: This information has been disclosed to you from records protected by federal confidentiality rules (42 CFR part 2). The federal rules prohibit you from making any further disclosure of this information unless further disclosure is expressly permitted by the written consent of the person to whom it pertains or as otherwise permitted by 42 CFR part 2. A general authorization for the release of medical or other information is NOT sufficient for this purpose. The Federal rules restrict any use of the information to criminally investigate or prosecute any alcohol or drug abuse patient.The records that you are about to access may contain highly sensitive health information, the redisclosure of which is protected by Article 27-F of the [facility] Public Health law. If you continue you may have access to information: Regarding HIV / AIDS; Provided by facilities licensed or operated by the [facility] Office of Mental Health; or Provided by the [facility] Office for People With Developmental Disabilities. If such information is present, then the following [facility] mandated warning applies: This information has been disclosed to you from confidential records which are protected by state law. State law prohibits you from making any further disclosure of this information without the specific written consent of the person to whom it pertains, or as otherwise permitted by law. Any unauthorized further disclosure in violation of state law may result in a fine or longterm sentence or both. A general authorization for the release of medical or other information is NOT sufficient authorization for further disc losure. Family History Family Member Name Family Member Gender Family Member Status Date o f Status Description Data Source(s) Unknown Male Problem MEDENT ([facility] Unknown Female Problem MEDENT ([facility]) Unknown Female Problem MEDENT ([facility]) Unknown Female Problem MEDENT ([facility]) Encounters Encounter Providers Location Date Indications Data Source(s ) Unknown [address] [facility] [id number] 11/29/2020 12:00:00 AM EDT eCW1 ([facility]) Outpatient Attender: HUBER Covarrubias/N[place]/Jackson/Tiffanie dl 11/25/2020 03:15:00 PM EDT MEDENT ([facility]) Hilda Ochoa, BELL NECK HAMMERER: [address], [address], [place] [address], Ph. Attender: Hilda Ochoa [facility] - Main Office 11/22/2020 12:00:00 AM EDT ATHE NA ([facility]) Unknown [address] [facility] [address] 11/18/2020 12:00:00 AM EDT eCW1 ([facility]) [place] [address] [facility] [address] 11/17/2020 12:00:00 AM EDT eCW1 ([facility]) Unknown [address] [facility] [address] 11/14/2020 12:00:00 AM EDT eCW1 ([facility]) Unknown [address] [facility] [address] 10/24/2020 12:00:00 AM EDT eCW1 ([facility]) Outpatient [address] [facility] [address] 10/20/2020 12:00:00 AM EDT eCW1 ([facility]) [place] [address] [facility] [address] 09/26/2020 12:00:00 AM EDT eCW1 ([facility]) Unknown [address] [facility] [address] 07/19/2020 12:00:00 AM EDT eCW1 ([facility]) Unknown [address] [facility] [address] 06/06/2020 12:00:00 AM EDT eCW1 ([facility]) [place] [address] [facility] [address] 03/21/2020 12:00:00 AM EST eCW1 ([facility]) [place] [address] [facility] [place] [address] 01/21/2020 12:00:00 AM EST eCW1 ([facility]) Unknown [address] [facility] [address] 12/31/2019 12:00:00 AM EST eCW1 ([facility]) [place] [address] [facility] [address] 12/14/2019 12:00:00 AM EST eCW1 ([facility]) Immunizations Vaccine Date Status Description Data Source(s) influenza, recombinant, quadrIvalent,injectable, prese rvative free 01/21/2020 04:11:00 PM EST completed eCW1 ([facility]) influenza, recombinant, quadrIvalent,injectable, prese rvative free 01/21/2020 04:11:00 PM EST completed eCW1 ([facility]) influenza, recombinant, quadrIvalent,injectable, prese rvative free 01/21/2020 04:11:00 PM EST completed eCW1 ([facility]) influenza, recombinant, quadrIvalent,injectable, prese rvative free 01/21/2020 04:11:00 PM EST completed eCW1 ([facility]) influenza, recombinant, quadrIvalent,injectable, prese rvative free 01/21/2020 04:11:00 PM EST completed eCW1 ([facility]) influenza, recombinant, quadrIvalent,injectable, prese rvative free 01/21/2020 04:11:00 PM EST completed eCW1 ([facility]) influenza, recombinant, quadrIvalent,injectable, prese rvative free 01/21/2020 04:11:00 PM EST completed eCW1 ([facility]) influenza, recombinant, quadrIvalent,injectable, prese rvative free 01/21/2020 04:11:00 PM EST completed eCW1 ([facility]) influenza, recombinant, quadrIvalent,injectable, prese rvative free 01/21/2020 04:11:00 PM EST completed eCW1 ([facility]) influenza, recombinant, quadrIvalent,injectable, prese rvative free 01/21/2020 04:11:00 PM EST completed eCW1 ([facility]) influenza, recombinant, quadrIvalent,injectable, prese rvative free 01/21/2020 04:11:00 PM EST completed eCW1 ([facility]) Medications Medication Brand Name Start Date Product Form Dose Route Admi nistrative Instructions Pharmacy Instructions Status Indications Reaction Description Data Source(s) 25 mg 11/27/2020 12:00:00 AM EDT tablet 30 TAKE ONE TABLET BY MOUTH EVERY DAY TAKE ONE TABLET BY MOUTH EVERY DAY SOLD: 11/28/2020 [facility] Furosemide 20 MG Oral Tablet Furosemide 11/25/2020 12:00:00 AM EDT active MEDENT ([facility] ) pantoprazole 40 MG Delayed Release Oral Tablet Pantoprazole Sodium 11/25/2020 12:00:00 AM EDT ORAL active M EDENT ([facility]) Spironolactone 25 MG Oral Tablet Spironolactone 11/25/2020 12:00:00 A M EDT ORAL active MEDENT ([facility]) midodrine hydrochloride 5 MG Oral Tablet Midodrine HCL 11/25/2020 12:00:00 AM EDT ORAL active MEDENT ([facility]) 400 mg (241.3 mg magnesium) 11/23/2020 12:00:00 AM EDT table t 30 TAKE ONE TABLET BY MOUTH EVERY DAY TAKE ONE TABLET BY MOUTH EVERY DAY SOLD: 11/23/2020 [facility] Magnesium 400 MG Magnesium 400 MG 11/18/2020 12:00:00 AM EDT active Magnesium 400 MG eCW1 ([facility]) Magnesium 400 MG Magnesium 400 MG 11/18/2020 12:00:00 AM EDT active Magnesium 400 MG eCW1 ([facility]) 75 mg 11/16/2020 12:00:00 AM EDT tablet 90 TAKE ONE TABLET BY MOUTH EVERY DAY TAKE ONE TABLET BY MOUTH EVERY DAY SOLD: 11/17/2020 [facility] pantoprazole 40 MG Delayed Release Oral Tablet PANTOPRAZOLE SODIUM 11/11/2020 12:00:00 AM EDT tablet,delayed release (DR/EC) 60 T MARLENA ONE TABLET BY MOUTH TWICE A DAY TAKE ONE TABLET BY MOUTH TWICE A DAY SOLD: 11/11/2020 [facility] 5 mg 11/11/2020 12:00:00 AM EDT tablet 90 TAKE 2 TABLETS BY MOUTH AT 8 A.M. NOON AND 4 IN THE EVENING TAKE 2 TABLETS BY MOUTH AT 8 A.M. NOON A ND 4 IN THE EVENING SOLD: 11/11/2020 [facility] 1 gram 11/11/2020 12:00:00 AM EDT tablet 40 TAKE ONE TABLET BY MOUTH FOUR TIMES A DAY, BEFORE MEALS AND AT BEDTIME TAKE ONE TABLET BY MOUTH FOUR TIMES A DAY, BEFORE MEALS AND AT BEDTIME SOLD: 11/11/2020 [facility] 20 mg 11/11/2020 12:00:00 AM EDT tablet 60 TAKE ONE TABLET BY MOUTH TWICE A DAY TAKE ONE TABLET BY MOUTH TWICE A DAY SOLD: 11/11/2020 [facility] 25 mg 11/11/2020 12:00:00 AM EDT tablet 15 TAKE ONE-HALF TABLET BY MOUTH EVERY DAY TAKE ONE-HALF TABLET BY MOUTH EVERY DAY SOLD: 11/11/2020 [facility] 40 mg 09/01/2020 12:00:00 AM EDT capsule,delayed release (DR/EC) 30 TAKE ONE CAPSULE BY MOUTH EVERY MORNING 30 MINUTES BEFORE FIRST MEAL TAKE ONE CAPSULE BY MOUTH EVERY MORNING 30 MINUTES BEFORE FIRST MEAL SOLD: 09/02/2020 [facility] 81 mg 07/20/2020 12:00:00 AM EDT tablet,delayed release (DR/EC) 30 TAKE ONE TABLET BY MOUTH EVERY DAY TAKE ONE TABLET BY MOUTH EVERY DAY SOLD: 07/28/2020 [facility] 81 mg 07/20/2020 12:00:00 AM EDT tablet,delayed release (DR/EC) 30 TAKE ONE TABLET BY MOUTH EVERY DAY TAKE ONE TABLET BY MOUTH EVERY DAY SOLD: 09/02/2020 [facility] 40 mg 06/28/2020 12:00:00 AM EDT capsule,delayed release (DR/EC) 30 TAKE ONE CAPSULE BY MOUTH EVERY DAY 30 MINUTES BEFORE MORNING MEAL TAKE ONE CAPSULE BY MOUTH EVERY DAY 30 MINUTES BEFORE MORNING MEAL SOLD: 06/29/2020 [facility] 40 mg 06/28/2020 12:00:00 AM EDT capsule,delayed release (DR/EC) 30 TAKE ONE CAPSULE BY MOUTH EVERY DAY 30 MINUTES BEFORE MORNING MEAL TAKE ONE CAPSULE BY MOUTH EVERY DAY 30 MINUTES BEFORE MORNING MEAL SOLD: 07/28/2020 [facility] 40 mg 04/10/2020 12:00:00 AM EST capsule,delayed release (DR/EC) 30 TAKE ONE CAPSULE BY MOUTH EVERY MORNING, TAKE 30 MINUTES BEFORE MORNING MEAL TAKE ONE CAPSULE BY MOUTH EVERY MORNING, TAKE 30 MINUTES BEFORE MORNING MEAL SOLD: 04/11/2020 [facility] 40 mg 04/10/2020 12:00:00 AM EST capsule,delayed release (DR/EC) 30 TAKE ONE CAPSULE BY MOUTH EVERY MORNING, TAKE 30 MINUTES BEFORE MORNING MEAL TAKE ONE CAPSULE BY MOUTH EVERY MORNING, TAKE 30 MINUTES BEFORE MORNING MEAL SOLD: 05/24/2020 [facility] 21 mg/24 hr 03/23/2020 12:00:00 AM EST patch 24 hour 28 APPLY 1 PATCH TO SKIN AND CHANGE DAILY APPLY 1 PATCH TO SKIN AND CHANGE DAILY SOLD: 03/24/2020 [facility] 2 mg 03/23/2020 12:00:00 AM EST gum 360 CHEW 1 PIECE AND PARK IN CHEEK FOR UP TO 30 MINUTES NEEDED UP TO 12 TIMES A DAY FOR ACUTE CRAVINGS CHEW 1 PIECE AND PARK IN CHEEK FOR UP TO 30 MINUTES NEEDED UP TO 12 TIMES A DAY FOR ACUTE CRAVINGS SOLD: 03/24/2020 [facility] Nicotine 2 MG Chewing Gum [Nicorette] Nicorette 2 MG Nicoret te 2 MG 03/22/2020 12:00:00 AM EST active Nicorett e 2 MG eCW1 ([facility]) Nicotine 2 MG Chewing Gum [Nicorette] Nicorette 2 MG Nicoret te 2 MG 03/22/2020 12:00:00 AM EST suspended Nicor ette 2 MG eCW1 ([facility]) 24 HR Nicotine 0.875 MG/HR Transdermal P atch [Nicoderm C-Q] Nicoderm CQ 21 MG/24HR Nicoderm CQ 21 MG/24HR 03/22/2020 12:00:00 AM EST 1.0 {patch_to_skin} suspended Nicoderm CQ 21 MG/24 HR eCW1 ([facility]) Nicotine 2 MG Chewing Gum [Nicorette] Nicorette 2 MG Nicoret te 2 MG 03/22/2020 12:00:00 AM EST active Nicorett e 2 MG eCW1 ([facility]) 24 HR Nicotine 0.875 MG/HR Transdermal P atch [Nicoderm C-Q] Nicoderm CQ 21 MG/24HR Nicoderm CQ 21 MG/24HR 03/22/2020 12:00:00 AM EST 1.0 {patch_to_skin} active Nicoderm CQ 21 MG/24 HR eCW1 ([facility]) 24 HR Nicotine 0.875 MG/HR Transdermal P atch [Nicoderm C-Q] Nicoderm CQ 21 MG/24HR Nicoderm CQ 21 MG/24HR 03/22/2020 12:00:00 AM EST 1.0 {patch_to_skin} active Nicoderm CQ 21 MG/24 HR eCW1 ([facility]) 24 HR Nicotine 0.875 MG/HR Transdermal P atch [Nicoderm C-Q] Nicoderm CQ 21 MG/24HR Nicoderm CQ 21 MG/24HR 03/22/2020 12:00:00 AM EST 1.0 {patch_to_skin} suspended Nicoderm CQ 21 MG/24 HR eCW1 ([facility]) Nicotine 2 MG Chewing Gum [Nicorette] Nicorette 2 MG Nicoret te 2 MG 03/22/2020 12:00:00 AM EST suspended Nicor ette 2 MG eCW1 ([facility]) 24 HR Nicotine 0.875 MG/HR Transdermal P atch [Nicoderm C-Q] Nicoderm CQ 21 MG/24HR Nicoderm CQ 21 MG/24HR 03/22/2020 12:00:00 AM EST 1.0 {patch_to_skin} active Nicoderm CQ 21 MG/24 HR eCW1 ([facility]) 24 HR Nicotine 0.875 MG/HR Transdermal P atch [Nicoderm C-Q] Nicoderm CQ 21 MG/24HR Nicoderm CQ 21 MG/24HR 03/22/2020 12:00:00 AM EST 1.0 {patch_to_skin} suspended Nicoderm CQ 21 MG/24 HR eCW1 ([facility]) Nicotine 2 MG Chewing Gum [Nicorette] Nicorette 2 MG Nicoret te 2 MG 03/22/2020 12:00:00 AM EST active Nicorett e 2 MG eCW1 ([facility]) Nicotine 2 MG Chewing Gum [Nicorette] Nicorette 2 MG Nicoret te 2 MG 03/22/2020 12:00:00 AM EST suspended Nicor ette 2 MG eCW1 ([facility]) Nicotine 2 MG Chewing Gum [Nicorette] Nicorette 2 MG Nicoret te 2 MG 03/22/2020 12:00:00 AM EST suspended Nicor ette 2 MG eCW1 ([facility]) Nicotine 2 MG Chewing Gum [Nicorette] Nicorette 2 MG Nicoret te 2 MG 03/22/2020 12:00:00 AM EST suspended Nicor ette 2 MG eCW1 ([facility]) 24 HR Nicotine 0.875 MG/HR Transdermal P atch [Nicoderm C-Q] Nicoderm CQ 21 MG/24HR Nicoderm CQ 21 MG/24HR 03/22/2020 12:00:00 AM EST 1.0 {patch_to_skin} suspended Nicoderm CQ 21 MG/24 HR eCW1 ([facility]) Nicotine 2 MG Chewing Gum [Nicorette] Nicorette 2 MG Nicoret te 2 MG 03/22/2020 12:00:00 AM EST active Nicorett e 2 MG eCW1 ([facility]) 24 HR Nicotine 0.875 MG/HR Transdermal P atch [Nicoderm C-Q] Nicoderm CQ 21 MG/24HR Nicoderm CQ 21 MG/24HR 03/22/2020 12:00:00 AM EST 1.0 {patch_to_skin} suspended Nicoderm CQ 21 MG/24 HR eCW1 ([facility]) Nicotine 2 MG Chewing Gum [Nicorette] Nicorette 2 MG Nicoret te 2 MG 03/22/2020 12:00:00 AM EST suspended Nicor ette 2 MG eCW1 ([facility]) 24 HR Nicotine 0.875 MG/HR Transdermal P atch [Nicoderm C-Q] Nicoderm CQ 21 MG/24HR Nicoderm CQ 21 MG/24HR 03/22/2020 12:00:00 AM EST 1.0 {patch_to_skin} suspended Nicoderm CQ 21 MG/24 HR eCW1 ([facility]) 24 HR Nicotine 0.875 MG/HR Transdermal P atch [Nicoderm C-Q] Nicoderm CQ 21 MG/24HR Nicoderm CQ 21 MG/24HR 03/22/2020 12:00:00 AM EST 1.0 {patch_to_skin} active Nicoderm CQ 21 MG/24 HR eCW1 ([facility]) 90 mcg/actuation 02/20/2020 12:00:00 AM EST HFA aerosol inha ler 8 INHALE TWO PUFFS BY MOUTH EVERY 6 HOURS NEEDED FOR PAIN FOR SHORTNESS OF BREATH INHALE TWO PUFFS BY MOUTH EVERY 6 HOURS NEEDED FOR PAIN FOR SHORTNESS OF BREATH SOLD: 02/23/2020 [facility] benzonatate 100 MG Oral Capsule BENZONATATE 02/20/2020 12:00:00 AM EST capsule 30 TAKE ONE CAPSULE BY MOUTH THREE TIMES A DAY FOR COUGH TAKE ONE CAPSULE BY MOUTH THREE TIMES A DAY FOR COUGH SOLD: 02/23/2020 [facility] 27-0.4 mg 02/20/2020 12:00:00 AM EST tablet 30 TAKE ONE TABLET BY MOUTH EVERY DAY TAKE ONE TABLET BY MOUTH EVERY DAY SOLD: 02/23/2020 [facility] 0.4 mg 02/08/2020 12:00:00 AM EST capsule 180 TAKE TWO CAPSULES BY MOUTH EVERY DAY TAKE TWO CAPSULES BY MOUTH EVERY DAY SOLD: 02/09/2020 [facility] 0.4 mg 02/08/2020 12:00:00 AM EST capsule 180 TAKE TWO CAPSULES BY MOUTH EVERY DAY TAKE TWO CAPSULES BY MOUTH EVERY DAY SOLD: 07/16/2020 [facility] 40 mg 01/11/2020 12:00:00 AM EST capsule,delayed release (DR/EC) 30 TAKE ONE CAPSULE BY MOUTH EVERY DAY 30 MINUTES BEFORE MORNING MEAL TAKE ONE CAPSULE BY MOUTH EVERY DAY 30 MINUTES BEFORE MORNING MEAL SOLD: 02/11/2020 [facility] 40 mg 01/11/2020 12:00:00 AM EST capsule,delayed release (DR/EC) 30 TAKE ONE CAPSULE BY MOUTH EVERY DAY 30 MINUTES BEFORE MORNING MEAL TAKE ONE CAPSULE BY MOUTH EVERY DAY 30 MINUTES BEFORE MORNING MEAL SOLD: 01/17/2020 [facility] Metformin hydrochloride 850 MG Oral Tablet METFORMIN HCL 12/22/2019 12:00:00 AM EST tablet 90 TAKE ONE TABLET BY MOUTH TAHIR RY DAY WITH MEAL TAKE ONE TABLET BY MOUTH EVERY DAY WITH MEAL SOLD: 12/29/2019 [facility] atorvastatin 40 MG Oral Tablet ATORVASTATIN CALCIUM 12/14/2019 1 2:00:00 AM EST tablet 30 TAKE ONE TABLET BY MOUTH EVERY D AY TAKE ONE TABLET BY MOUTH EVERY DAY SOLD: 07/13/2020 [facility] atorvastatin 40 MG Oral Tablet ATORVASTATIN CALCIUM 12/14/2019 1 2:00:00 AM EST tablet 30 TAKE ONE TABLET BY MOUTH EVERY D AY TAKE ONE TABLET BY MOUTH EVERY DAY SOLD: 09/30/2020 [facility] atorvastatin 40 MG Oral Tablet ATORVASTATIN CALCIUM 12/14/2019 1 2:00:00 AM EST tablet 30 TAKE ONE TABLET BY MOUTH EVERY D AY TAKE ONE TABLET BY MOUTH EVERY DAY SOLD: 08/19/2020 [facility] atorvastatin 40 MG Oral Tablet ATORVASTATIN CALCIUM 12/14/2019 1 2:00:00 AM EST tablet 30 TAKE ONE TABLET BY MOUTH EVERY D AY TAKE ONE TABLET BY MOUTH EVERY DAY SOLD: 06/09/2020 [facility] atorvastatin 40 MG Oral Tablet ATORVASTATIN CALCIUM 12/14/2019 1 2:00:00 AM EST tablet 30 TAKE ONE TABLET BY MOUTH EVERY D AY TAKE ONE TABLET BY MOUTH EVERY DAY SOLD: 11/16/2020 [facility] atorvastatin 40 MG Oral Tablet ATORVASTATIN CALCIUM 12/14/2019 1 2:00:00 AM EST tablet 30 TAKE ONE TABLET BY MOUTH EVERY D AY TAKE ONE TABLET BY MOUTH EVERY DAY SOLD: 04/22/2020 [facility] 75 mg 10/09/2019 12:00:00 AM EDT tablet 30 TAKE ONE TABLET BY MOUTH EVERY DAY TAKE ONE TABLET BY MOUTH EVERY DAY SOLD: 05/24/2020 [facility] 75 mg 10/09/2019 12:00:00 AM EDT tablet 90 TAKE ONE TABLET BY MOUTH EVERY DAY TAKE ONE TABLET BY MOUTH EVERY DAY SOLD: 01/17/2020 [facility] 75 mg 10/09/2019 12:00:00 AM EDT tablet 90 TAKE ONE TABLET BY MOUTH EVERY DAY TAKE ONE TABLET BY MOUTH EVERY DAY SOLD: 10/12/2019 [facility] 75 mg 10/09/2019 12:00:00 AM EDT tablet 30 TAKE ONE TABLET BY MOUTH EVERY DAY TAKE ONE TABLET BY MOUTH EVERY DAY SOLD: 04/22/2020 [facility] 75 mg 10/09/2019 12:00:00 AM EDT tablet 30 TAKE ONE TABLET BY MOUTH EVERY DAY TAKE ONE TABLET BY MOUTH EVERY DAY SOLD: 06/29/2020 [facility] 75 mg 10/09/2019 12:00:00 AM EDT tablet 30 TAKE ONE TABLET BY MOUTH EVERY DAY TAKE ONE TABLET BY MOUTH EVERY DAY SOLD: 10/08/2020 [facility] 81 mg 09/04/2019 12:00:00 AM EDT tablet,delayed release (DR/EC) 30 TAKE ONE TABLET BY MOUTH EVERY DAY TAKE ONE TABLET BY MOUTH EVERY DAY SOLD: 12/11/2019 [facility] 81 mg 09/04/2019 12:00:00 AM EDT tablet,delayed release (DR/EC) 30 TAKE ONE TABLET BY MOUTH EVERY DAY TAKE ONE TABLET BY MOUTH EVERY DAY SOLD: 11/13/2019 [facility] 81 mg 09/04/2019 12:00:00 AM EDT tablet,delayed release (DR/EC) 30 TAKE ONE TABLET BY MOUTH EVERY DAY TAKE ONE TABLET BY MOUTH EVERY DAY SOLD: 05/24/2020 [facility] 81 mg 09/04/2019 12:00:00 AM EDT tablet,delayed release (DR/EC) 30 TAKE ONE TABLET BY MOUTH EVERY DAY TAKE ONE TABLET BY MOUTH EVERY DAY SOLD: 10/12/2019 [facility] 81 mg 09/04/2019 12:00:00 AM EDT tablet,delayed release (DR/EC) 30 TAKE ONE TABLET BY MOUTH EVERY DAY TAKE ONE TABLET BY MOUTH EVERY DAY SOLD: 04/22/2020 [facility] 81 mg 09/04/2019 12:00:00 AM EDT tablet,delayed release (DR/EC) 30 TAKE ONE TABLET BY MOUTH EVERY DAY TAKE ONE TABLET BY MOUTH EVERY DAY SOLD: 02/23/2020 [facility] 81 mg 09/04/2019 12:00:00 AM EDT tablet,delayed release (DR/EC) 30 TAKE ONE TABLET BY MOUTH EVERY DAY TAKE ONE TABLET BY MOUTH EVERY DAY SOLD: 01/17/2020 [facility] 81 mg 09/04/2019 12:00:00 AM EDT tablet,delayed release (DR/EC) 30 TAKE ONE TABLET BY MOUTH EVERY DAY TAKE ONE TABLET BY MOUTH EVERY DAY SOLD: 03/24/2020 [facility] 40 mg 09/03/2019 12:00:00 AM EDT capsule,delayed release (DR/EC) 30 TAKE ONE CAPSULE BY MOUTH EVERY MORNING 30 MINUTES BEFORE THE MORNING MEAL TAKE ONE CAPSULE BY MOUTH EVERY MORNING 30 MINUTES BEFORE THE MORNING MEAL SOLD: 12/11/2019 [facility] 40 mg 09/03/2019 12:00:00 AM EDT capsule,delayed release (DR/EC) 30 TAKE ONE CAPSULE BY MOUTH EVERY MORNING 30 MINUTES BEFORE THE MORNING MEAL TAKE ONE CAPSULE BY MOUTH EVERY MORNING 30 MINUTES BEFORE THE MORNING MEAL SOLD: 11/13/2019 [facility] 5 mg 05/26/2019 12:00:00 AM EDT tablet 30 TAKE ONE TABLET BY MOUTH EVERY DAY TAKE ONE TABLET BY MOUTH EVERY DAY SOLD: 05/24/2020 [facility] 5 mg 05/26/2019 12:00:00 AM EDT tablet 90 TAKE ONE TABLET BY MOUTH EVERY DAY TAKE ONE TABLET BY MOUTH EVERY DAY SOLD: 12/11/2019 [facility] 5 mg 05/26/2019 12:00:00 AM EDT tablet 30 TAKE ONE TABLET BY MOUTH EVERY DAY TAKE ONE TABLET BY MOUTH EVERY DAY SOLD: 04/22/2020 [facility] 5 mg 05/26/2019 12:00:00 AM EDT tablet 90 TAKE ONE TABLET BY MOUTH EVERY DAY TAKE ONE TABLET BY MOUTH EVERY DAY SOLD: 01/17/2020 [facility] 5 mg 05/26/2019 12:00:00 AM EDT tablet 90 TAKE ONE TABLET BY MOUTH EVERY DAY TAKE ONE TABLET BY MOUTH EVERY DAY SOLD: 10/14/2019 [facility] 0.4 mg 01/01/2019 12:00:00 AM EST capsule 180 TAKE TWO CAPSULES BY MOUTH ONCE EVERY DAY TAKE TWO CAPSULES BY MOUTH ONCE EVERY DAY SOLD: 11/13/2019 [facility] Chlorthalidone 25 MG Oral Tablet chlorthalidone 25 mg tablet chlorthalidone 25 mg tablet completed chlorthalido ne 25 MG Oral Tablet LUISA ([facility]) Carisoprodol 350 MG Oral Tablet carisoprodol 350 mg ta blet carisoprodol 350 mg tablet completed carisoprodol 35 0 MG Oral Tablet LUISA ([facility]) Zolpidem tartrate 6.25 MG Extended Relea se Oral Tablet zolpidem ER 6.25 mg tablet,extended release,multiphase zolpidem ER 6.25 mg tablet,extended release,multiphase completed zolpidem tartrate 6.25 MG Extended Release Oral Tablet LUISA ([facility]) duloxetine 60 MG Delayed Release Oral Ca psule [Cymbalta] Cymbalta 60 mg capsule,delayed release Take 1 capsule every day by oral route. Cymbalta 60 mg capsule,delayed release Take 1 capsule every day by oral route. 1 capsule(s) completed duloxetine 60 MG Delay ed Release Oral Capsule [Cymbalta] LUISA ([facility]) Amlodipine 5 MG Oral Tablet amlodipine 5 mg tablet TAKE ONE TABLET BY MOUTH EVERY DAY amlodipine 5 mg tablet TAKE ONE TABLET BY MOUTH EVERY DAY completed amlodipine 5 MG Oral Tablet ATHE NA ([facility]) Omeprazole 40 MG Delayed Release Oral Ca psule omeprazole 40 mg capsule,delayed release TAKE ONE CAPSULE BY MOUTH EVERY MORNING 30 MINUTES BEFORE FIRST MEAL omeprazole 40 mg capsule,delayed release TAKE ONE CAPSULE BY MOUTH EVERY MORNING 30 MINUTES BEFORE FIRST MEAL complete d omeprazole 40 MG Delayed Release Oral Capsule LUISA ([facility]) duloxetine 30 MG Delayed Release Oral Ca psule duloxetine 30 mg capsule,delayed release duloxetine 30 mg capsule,delayed release completed duloxetine 30 MG Delayed Release Oral Capsule LUISA ([facility]) Amiloride Hydrochloride 5 MG Oral Tablet amiloride 5 mg tablet TAKE ONE TABLET BY MOUTH EVERY DAY amiloride 5 mg tablet TAKE ONE TABLET BY MOUTH EVERY DAY completed amiloride hydrochlorid e 5 MG Oral Tablet LUISA ([facility]) Insurance Providers Payer name Policy type / Coverage type Policy ID Covered constitution party ID Covered constitution party's relationship to flanagan Policy Flanagan Plan Information [facility] Commercial [id number] Self [id number] [facility] Commercial [id number] Self [id number] [facility] I [id number] Self [id number] [facility] COMMUNITY PLAN MCDO [id number] SP [id number] [facility] I [id number] Self [id number] [facility] I [id number] Self [id number] [facility] MEDICAID [id number] S [id number] [facility] COMMUNITY PLAN MCDHMO [id number] SP [id number] [facility] MEDICAID [id number] xxxxxxxxx [id number] [facility] COMMUNITY PLAN MCDHMO [id number] SP [id number] [facility] MEDICAID [id number] Evelyn [id number] [facility] Comm Plan Medicaid F [id number] SELF [id number] [facility]-Medicaid [id number] ANSI-Medicaid [id number] ANSI-Medicaid [id number] ANSI-Medicaid [id number] ANSI-Medicaid [id number] ANSI-Medicaid [id number] ANSI-Medicaid [id number] ANSI-Medicaid [id number] ANSI-Medicaid [id number] ANSI-Medicaid [id number] ANSI-Medicaid [id number] ANSI-Medicaid [id number] ANSI-Medicaid [id number] ANSI-Medicaid [id number] [facility] [employer] Maintenance [employer] (HMO) [id number] Self [id number] [facility] Community Plan Commercial [id number] Self [id number] [facility] Community Plan Commercial [id number] Self [facility](MCAID) O [id number] S [id number] MEDICAID [id number] SP [id number] [employer] COMMUNITY PLAN MCDHMO [id number] SP [id number] [employer] COMMUNITY PLAN MCDHMO [id number] SP [id number] [facility]CA[facility]) O [id number] S [id number] MEDICAID M [id number] S [id number] ANSI-Medicaid [id number] [facility] [id number] [facility] MEDICAID PI PI ANSI-Medicaid [id number] ANSI-Medicaid [id number] ANSI-Medicaid [id number] ANSI-Medicaid [id number] [employer] MEDICAID [id number] S [id number] Problems, Conditions, and Diagnoses Code Display Name Description Problem Type Effective Dates Data Source(s) J44.9 COPD - Chronic obstructive pulmonary dis ease COPD (chronic obstructive pulmonary disease) Problem 11/17/2020 12:00:00 AM EDT eCW1 ([facility]) E83.42 [id number] Hypomagnesemia Problem 11/17/2020 12:00:00 A M EDT eCW1 ([facility]) K70.31 [id number] Alcoholic cirrhosis of liver with ascites Problem 11/17/2020 12:00:00 AM EDT eCW1 ([facility]) Surgeries/Procedures Procedure Description Date Indications Data Source(s) OFFICE OUTPATIENT VISIT 25 MINUTES 11/25/2020 12:00:00 AM EDT MEDENT ([facility] ) ECG ROUTINE ECG W/LEAST 12 LDS W/I&R 10/20/2020 12:00: 00 AM EDT eCW1 ([facility]) Immunization: Flublok Quadrivalent (18 years & older) 0.5mL IM (Influenza) 01/21/2020 12:00:00 AM EST eCW1 ([facility]) Results ID Date Data Source [id number] 10/25/2020 04:40:00 PM EDT [facility] Name Value Range Interpretation Code Description Data Pearl rce(s) Supporting Document(s) SARS coronavirus 2 RNA [Presence] in Res piratory specimen by DESEAN with probe detection NEGATIVE [facility] This lab was ordered by [facility] a nd reported by [facility]. ID Date Data Source [id number] 02/18/2020 10:13:00 AM EST [facility] Name Value Range Interpretation Code Description Data Pearl rce(s) Supporting Document(s) Respiratory pathogens identified [Type] in Nasopharynx by Probe and target amplification method SARS-CoV-2 (COVID 19) [facility] [place] This lab was ordered by [facility] a nd reported by [facility]. Procedure Social History Code Duration Value Status Description Data Source(s ) Smoking 11/17/2020 12:00:00 AM EDT Current Smoker completed Curre nt Smoker eCW1 ([facility]) Smoking 11/17/2020 12:00:00 AM EDT Current Smoker completed Curre nt Smoker eCW1 ([facility]) Smoking 11/17/2020 12:00:00 AM EDT Current Smoker completed Curre nt Smoker eCW1 ([facility]) Smoking 10/20/2020 12:00:00 AM EDT Current Smoker completed Curre nt Smoker eCW1 ([facility]) Smoking 10/20/2020 12:00:00 AM EDT Current Smoker completed Curre nt Smoker eCW1 ([facility]) Smoking 10/20/2020 12:00:00 AM EDT Current Smoker completed Curre nt Smoker eCW1 ([facility]) Smoking 01/21/2020 12:00:00 AM EST Current Smoker completed Curre nt Smoker eCW1 ([facility]) Smoking 01/21/2020 12:00:00 AM EST Current Smoker completed Curre nt Smoker eCW1 ([facility]) Smoking 01/21/2020 12:00:00 AM EST Current Smoker completed Curre nt Smoker eCW1 ([facility]) Smoking 01/21/2020 12:00:00 AM EST Current Smoker completed Curre nt Smoker eCW1 ([facility]) Smoking 01/21/2020 12:00:00 AM EST Current Smoker completed Curre nt Smoker eCW1 ([facility]) Vital Signs ID Date Data Source UNK Name Value Range Interpretation Code Description Data Source(s) Systolic blood pressure 118 mm[Hg] 118 mm[Hg] M ADRIANA ([facility]) Body height 64.75 [in_i] 64.75 [in_i] MEDENT (Health system) 5'4.75" Body weight 170.00 [lb_av] 170.00 [lb_av] MEDEN T ([facility]) Body mass index (BMI) [Ratio] 28.5 kg/m2 28.5 k g/m2 [facility] ([facility]) [place] body weight 130 [lb_av] 130 [lb_av] MEDEN T ([facility]) Body weight 77.112 kg 77.112 kg [facility] ([facility]) Body surface area Derived from formula 1.84 m2 1.84 m2 [facility] ([facility]) Diastolic blood pressure 62 mm[Hg] 62 mm[Hg] MEDENT ([facility]) Diastolic blood pressure 67 mm[Hg] 67 mm[Hg] LUISA ([facility]) Systolic blood pressure 117 mm[Hg] 117 mm[Hg] A THENA ([facility]) Body weight [lb_av] eCW1 ([facility]) Systolic blood pressure 101 mm[Hg] 101 mm[Hg] e CW1 ([facility]) Diastolic blood pressure 68 mm[Hg] 68 mm[Hg] eCW1 ([facility]) Body weight 80.74 kg 80.74 kg eCW1 ([facility]) Body height 60.5 [in_i] 60.5 [in_i] eCW1 ([facility]) Body mass index (BMI) [Ratio] 34.19 kg/m2 34.19 kg/m2 eCW1 ([facility]) Heart rate 115 /min 115 /min eCW1 ([facility]) Respiratory rate 26 /min 26 /min eCW1 ([facility]) Body temperature 97.7 [degF] 97.7 [degF] eCW1 ( [facility]) Body weight 187.8 [lb_av] 187.8 [lb_av] eCW1 ([facility]) Body height 60.5 [in_i] 60.5 [in_i] eCW1 ([facility]) Body mass index (BMI) [Ratio] 36.07 kg/m2 36.07 kg/m2 eCW1 ([facility]) Heart rate 116 /min 116 /min eCW1 ([facility]) Respiratory rate 24 /min 24 /min eCW1 ([facility]) Body temperature 97.8 [degF] 97.8 [degF] eCW1 ( [facility]) Systolic blood pressure 126 mm[Hg] 126 mm[Hg] e CW1 ([facility]) Diastolic blood pressure 81 mm[Hg] 81 mm[Hg] eCW1 ([facility]) Patient Treatment Plan of Care Planned Activity Planned Date Details Description Data Source (s) Magnesium 400 MG 11/18/2020 12:00:00 AM EDT eCW1 ([facility]) Magnesium 400 MG 11/18/2020 12:00:00 AM EDT eCW1 ([facility]) Nicotine 2 MG Chewing Gum [Nicorette] 03/22/2020 12:00:00 AM EST eCW1 ([facility]) 24 HR Nicotine 0.875 MG/HR Transdermal Patch [Nicoderm C-Q] 03/22/2020 12:00:00 AM EST eCW1 ([facility]) 24 HR Nicotine 0.875 MG/HR Transdermal Patch [Nicoderm C-Q] 03/22/2020 12:00:00 AM EST eCW1 ([facility]) Nicotine 2 MG Chewing Gum [Nicorette] 03/22/2020 12:00:00 AM EST eCW1 ([facility]) 24 HR Nicotine 0.875 MG/HR Transdermal Patch [Nicoderm C-Q] 03/22/2020 12:00:00 AM EST eCW1 ([facility]) Nicotine 2 MG Chewing Gum [Nicorette] 03/22/2020 12:00:00 AM EST eCW1 ([facility]) 24 HR Nicotine 0.875 MG/HR Transdermal Patch [Nicoderm C-Q] 03/22/2020 12:00:00 AM EST eCW1 ([facility]) Nicotine 2 MG Chewing Gum [Nicorette] 03/22/2020 12:00:00 AM EST eCW1 ([facility]) Zolpidem tartrate 6.25 MG Extended Release Oral Tablet LUISA ([facility]) Omeprazole 40 MG Delayed Release Oral Capsule LUISA ([facility]) duloxetine 30 MG Delayed Release Oral Capsule LUISA ([facility]) duloxetine 60 MG Delayed Release Oral Capsule [Cymbalta] LUISA ([facility]) Chlorthalidone 25 MG Oral Tablet LUISA ([facility]) Carisoprodol 350 MG Oral Tablet LUISA ([facility]) Amlodipine 5 MG Oral Tablet LUISA ([facility]) Amiloride Hydrochloride 5 MG Oral Tablet LUISA ([facility])
--- OUTSIDE RECORDS SUMMARY | 2020-12-01 22:59 | CCD ---
Author Author [facility] Organization [facility] Address Unknown Phone Unavailable Care Team Providers Care Composition Molder Name Role Phone HUBER BROOKS MD Unavailable Unavailable REINDL, HUBER HURST Unavailable Unavailable REINDL, HUBER HURST Unavailable Unavailable CECILIA, HUBER HURST Unavailable Unavailable REINSHANA, HUBER HURST Unavailable Unavailable REINSHANA, HUBER HURST Unavailable Unavailable REINSHANA, HUBER HURST Unavailable Unavailable REINDL, HUBER HURST Unavailable Unavailable CECILIA, HUBER HURST Unavailable Unavailable CECILIA, HUBER HURST Unavailable Unavailable REINSHANA, HUBER HURST Unavailable Unavailable REINSHAAN, HUBER HURST Unavailable Unavailable CECILIA, HUBER HURST [...] HUBER HURST Unavailable Unavailable Jumalon, M Hilda DISPATCH MACHINE RUNNER Unavailable Unavailable Jumalon, M Hilda DISPATCH MACHINE RUNNER Unavailable Unavailable Jumalon, M Hilda DISPATCH MACHINE RUNNER Unavailable Unavailable Jumalon, M Hilda DISPATCH MACHINE RUNNER Unavailable Unavailable Jumalon, M Hilda DISPATCH MACHINE RUNNER Unavailable Unavailable Jumalon, M Hilda DISPATCH MACHINE RUNNER Unavailable Unavailable Jumalon, M Hilda DISPATCH MACHINE RUNNER Unavailable Unavailable Jumalon, M Hilda DISPATCH MACHINE RUNNER Unavailable Unavailable Jumalon, M Hilda DISPATCH MACHINE RUNNER Unavailable Unavailable Jumalon, M Hilda DISPATCH MACHINE RUNNER Unavailable Unavailable Jumalon, M Hilda DISPATCH MACHINE RUNNER Unavailable Unavailable Jumalon, M Hilda DISPATCH MACHINE RUNNER Unavailable Unavailable Jumalon, M Hilda DISPATCH MACHINE RUNNER Unavailable Unavailable Jumalon, M Hilda DISPATCH MACHINE RUNNER Unavailable Unavailable Jumalon, M Hilda DISPATCH MACHINE RUNNER Unavailable Unavailable Jumalon, M Hilda DISPATCH MACHINE RUNNER Unavailable Unavailable Jumalon, M Hilda DISPATCH MACHINE RUNNER Unavailable Unavailable Jumalon, M Hilda DISPATCH MACHINE RUNNER Unavailable Unavailable Jumalon, M Hilda DISPATCH MACHINE RUNNER Unavailable Unavailable Jumalon, M Hilda DISPATCH MACHINE RUNNER Unavailable Unavailable Jumalon, M Hilda DISPATCH MACHINE RUNNER Unavailable Unavailable Jumalon, M Hilda DISPATCH MACHINE RUNNER Unavailable Unavailable Jumalon, M Hilda DISPATCH MACHINE RUNNER Unavailable Unavailable Jumalon, M Hilda DISPATCH MACHINE RUNNER Unavailable Unavailable Jumalon, M Hilda DISPATCH MACHINE RUNNER Unavailable Unavailable Jumalon, M Hilda DISPATCH MACHINE RUNNER Unavailable Unavailable Jumalon, M Hilda DISPATCH MACHINE RUNNER Unavailable Unavailable Jumalon, M Hilda DISPATCH MACHINE RUNNER Unavailable Unavailable Jumalon, M Hilda DISPATCH MACHINE RUNNER Unavailable Unavailable Jumalon, M Hilda DISPATCH MACHINE RUNNER Unavailable Unavailable Re-disclosure Warning The records that [...] is protected by Article 27-F of the [facility] Public Health law. If you continue you may have access to information: Regarding HIV / AIDS; Provided by facilities licensed or operated by the [facility] Office of Mental Health; or Provided by the [facility] Office for People With Developmental Disabilities. If such information is present, then the following [facility] mandated warning applies: This information has been [...] law may result in a fine or group home sentence or both. A general authorization for the release of medical or other information is NOT sufficient authorization for further disc losure. Family History Family Member Name Family Member Gender Family Member Status Date o f Status Description Data Source(s) Unknown Male Problem MEDENT ([facility] Unknown Female Problem MEDENT ([facility]) Unknown Female Problem MEDENT ([facility]) Unknown Female Problem MEDENT ([facility]) Encounters Encounter Providers Location Date Indications Data Source(s ) Unknown [address] [facility] [address] 11/29/2020 12:00:00 AM EDT eCW1 ([facility]) Outpatient Attender: HUBER Covarrubias/[place]/Jackson/Tiffanie dl 11/25/2020 03:15:00 PM EDT MEDENT ([facility]) Hilda Ochoa, ELEVATOR TECHNICIAN: [address], [address], [place] [address], Ph. Attender: Hilda Ochoa [facility] - Main Office 11/22/2020 12:00:00 AM EDT ATHE NA ([facility]) [place] [address] [facility] [address] 11/18/2020 12:00:00 AM EDT eCW1 ([facility]) [place] [address] [address] 11/17/2020 12:00:00 AM EDT eCW1 ([facility]) [place] [address] [address] 11/14/2020 12:00:00 AM EDT eCW1 ([facility]) [place] [address] [facility] [address] 10/24/2020 12:00:00 AM EDT eCW1 ([facility]) [place]patient [address] [facility] [address] 10/20/2020 12:00:00 AM EDT eCW1 ([facility]) [place] [address] [facility] [address] 09/26/2020 12:00:00 AM EDT eCW1 ([facility]) [place] [address] [facility] [address] 07/19/2020 12:00:00 AM EDT eCW1 ([facility]) [place] [address] [facility] [address] 06/06/2020 12:00:00 AM EDT eCW1 ([facility]) [place] [address] [facility] [address] 03/21/2020 12:00:00 AM EST eCW1 ([facility]) [place] [address] [facility] [place] [address] 01/21/2020 12:00:00 AM EST eCW1 ([facility]) [place] [address] [address] 12/31/2019 12:00:00 AM EST eCW1 ([facility]) [place] [address] [address] 12/14/2019 12:00:00 AM EST eCW1 ([facility]) Immunizations Vaccine Date Status Description Data Source(s) influenza, recombinant, quadrIvalent,injectable, prese rvative free 01/21/2020 04:11:00 PM EST completed eCW1 ([facility]) influenza, recombinant, quadrIvalent,injectable, prese rvative free 01/21/2020 04:11:00 PM EST completed eCW1 ([facility]) influenza, recombinant, quadrIvalent,injectable, prese rvative free 01/21/2020 04:11:00 PM EST completed eCW1 ([facility]) influenza, recombinant, quadrIvalent,injectable, prese rvative free 01/21/2020 04:11:00 PM EST completed eCW1 ([facility]) influenza, recombinant, quadrIvalent,injectable, prese rvative free 01/21/2020 04:11:00 PM EST completed eCW1 ([facility]) influenza, recombinant, quadrIvalent,injectable, prese rvative free 01/21/2020 04:11:00 PM EST completed eCW1 ([facility]) influenza, recombinant, quadrIvalent,injectable, prese rvative free 01/21/2020 04:11:00 PM EST completed eCW1 ([facility]) influenza, recombinant, quadrIvalent,injectable, prese rvative free 01/21/2020 04:11:00 PM EST completed eCW1 ([facility]) influenza, recombinant, quadrIvalent,injectable, prese rvative free 01/21/2020 04:11:00 PM EST completed eCW1 ([facility]) influenza, recombinant, quadrIvalent,injectable, prese rvative free 01/21/2020 04:11:00 PM EST completed eCW1 ([facility]) influenza, recombinant, quadrIvalent,injectable, prese rvative free 01/21/2020 04:11:00 PM EST completed eCW1 ([facility]) Medications Medication Brand Name Start Date Product Form Dose Route Admi nistrative Instructions Pharmacy Instructions Status Indications Reaction Description Data Source(s) 25 mg 11/27/2020 12:00:00 AM EDT tablet 30 TAKE ONE TABLET BY MOUTH EVERY DAY TAKE ONE TABLET BY MOUTH EVERY DAY SOLD: 11/28/2020 [facility] Furosemide 20 MG Oral Tablet Furosemide 11/25/2020 12:00:00 AM EDT active MEDENT ([facility], ) pantoprazole 40 MG Delayed Release Oral Tablet Pantoprazole Sodium 11/25/2020 12:00:00 AM EDT ORAL active M EDENT ([facility]) Spironolactone 25 MG Oral Tablet Spironolactone 11/25/2020 12:00:00 A M EDT ORAL active MEDENT ([facility]) midodrine hydrochloride 5 MG Oral Tablet Midodrine HCL 11/25/2020 12:00:00 AM EDT ORAL active MEDENT ([facility]) 400 mg (241.3 mg magnesium) 11/23/2020 12:00:00 AM EDT table t 30 TAKE ONE TABLET BY MOUTH EVERY DAY TAKE ONE TABLET BY MOUTH EVERY DAY SOLD: 11/23/2020 [facility] Magnesium 400 MG Magnesium 400 MG 11/18/2020 12:00:00 AM EDT active Magnesium 400 MG eCW1 ([facility]) Magnesium 400 MG Magnesium 400 MG 11/18/2020 12:00:00 AM EDT active Magnesium 400 MG eCW1 ([facility]) 75 mg 11/16/2020 12:00:00 AM EDT tablet 90 TAKE ONE TABLET BY MOUTH EVERY DAY TAKE ONE TABLET BY MOUTH EVERY DAY SOLD: 11/17/2020 [facility] pantoprazole 40 MG Delayed Release Oral [...] EST active Nicorett e 2 MG eCW1 ([facility]) Nicotine 2 MG Chewing Gum [Nicorette] Nicorette 2 MG Nicoret te 2 MG 03/22/2020 12:00:00 AM EST suspended Nicor ette 2 MG eCW1 ([facility]) 24 HR Nicotine 0.875 MG/HR Transdermal P atch [Nicoderm C-Q] Nicoderm CQ 21 MG/24HR Nicoderm CQ 21 MG/24HR 03/22/2020 12:00:00 AM EST 1.0 {patch_to_skin} suspended Nicoderm CQ 21 MG/24 HR eCW1 ([facility]) Nicotine 2 MG Chewing Gum [Nicorette] Nicorette 2 MG Nicoret te 2 MG 03/22/2020 12:00:00 AM EST active Nicorett e 2 MG eCW1 ([facility]) 24 HR Nicotine 0.875 MG/HR Transdermal P atch [Nicoderm C-Q] Nicoderm CQ 21 MG/24HR Nicoderm CQ 21 MG/24HR 03/22/2020 12:00:00 AM EST 1.0 {patch_to_skin} active Nicoderm CQ 21 MG/24 HR eCW1 ([facility]) 24 HR Nicotine 0.875 MG/HR Transdermal P atch [Nicoderm C-Q] Nicoderm CQ 21 MG/24HR Nicoderm CQ 21 MG/24HR 03/22/2020 12:00:00 AM EST 1.0 {patch_to_skin} active Nicoderm CQ 21 MG/24 HR eCW1 ([facility]) 24 HR Nicotine 0.875 MG/HR Transdermal P atch [Nicoderm C-Q] Nicoderm CQ 21 MG/24HR Nicoderm CQ 21 MG/24HR 03/22/2020 12:00:00 AM EST 1.0 {patch_to_skin} suspended Nicoderm CQ 21 MG/24 HR eCW1 ([facility]) Nicotine 2 MG Chewing Gum [Nicorette] Nicorette 2 MG Nicoret te 2 MG 03/22/2020 12:00:00 AM EST suspended Nicor ette 2 MG eCW1 ([facility]) 24 HR Nicotine 0.875 MG/HR Transdermal P atch [Nicoderm C-Q] Nicoderm CQ 21 MG/24HR Nicoderm CQ 21 MG/24HR 03/22/2020 12:00:00 AM EST 1.0 {patch_to_skin} active Nicoderm CQ 21 MG/24 HR eCW1 ([facility]) 24 HR Nicotine 0.875 MG/HR Transdermal P atch [Nicoderm C-Q] Nicoderm CQ 21 MG/24HR Nicoderm CQ 21 MG/24HR 03/22/2020 12:00:00 AM EST 1.0 {patch_to_skin} suspended Nicoderm CQ 21 MG/24 HR eCW1 ([facility]) Nicotine 2 MG Chewing Gum [Nicorette] Nicorette 2 MG Nicoret te 2 MG 03/22/2020 12:00:00 AM EST active Nicorett e 2 MG eCW1 ([facility]) Nicotine 2 MG Chewing Gum [Nicorette] Nicorette 2 MG Nicoret te 2 MG 03/22/2020 12:00:00 AM EST suspended Nicor ette 2 MG eCW1 ([facility]) Nicotine 2 MG Chewing Gum [Nicorette] Nicorette 2 MG Nicoret te 2 MG 03/22/2020 12:00:00 AM EST suspended Nicor ette 2 MG eCW1 ([facility]) Nicotine 2 MG Chewing Gum [Nicorette] Nicorette 2 MG Nicoret te 2 MG 03/22/2020 12:00:00 AM EST suspended Nicor ette 2 MG eCW1 ([facility]) 24 HR Nicotine 0.875 MG/HR Transdermal P atch [Nicoderm C-Q] Nicoderm CQ 21 MG/24HR Nicoderm CQ 21 MG/24HR 03/22/2020 12:00:00 AM EST 1.0 {patch_to_skin} suspended Nicoderm CQ 21 MG/24 HR eCW1 ([facility]) Nicotine 2 MG Chewing Gum [Nicorette] Nicorette 2 MG Nicoret te 2 MG 03/22/2020 12:00:00 AM EST active Nicorett e 2 MG eCW1 ([facility]) 24 HR Nicotine 0.875 MG/HR Transdermal P atch [Nicoderm C-Q] Nicoderm CQ 21 MG/24HR Nicoderm CQ 21 MG/24HR 03/22/2020 12:00:00 AM EST 1.0 {patch_to_skin} suspended Nicoderm CQ 21 MG/24 HR eCW1 ([facility]) Nicotine 2 MG Chewing Gum [Nicorette] Nicorette 2 MG Nicoret te 2 MG 03/22/2020 12:00:00 AM EST suspended Nicor ette 2 MG eCW1 ([facility]) 24 HR Nicotine 0.875 MG/HR Transdermal P atch [Nicoderm C-Q] Nicoderm CQ 21 MG/24HR Nicoderm CQ 21 MG/24HR 03/22/2020 12:00:00 AM EST 1.0 {patch_to_skin} suspended Nicoderm CQ 21 MG/24 HR eCW1 ([facility]) 24 HR Nicotine 0.875 MG/HR Transdermal P atch [Nicoderm C-Q] Nicoderm CQ 21 MG/24HR Nicoderm CQ 21 MG/24HR 03/22/2020 12:00:00 AM EST 1.0 {patch_to_skin} active Nicoderm CQ 21 MG/24 HR eCW1 ([facility]) 90 mcg/actuation 02/20/2020 12:00:00 AM EST HFA [...] CAPSULES BY MOUTH EVERY DAY SOLD: 07/16/2020 [facility] 40 mg 01/11/2020 12:00:00 AM [...] MOUTH EVERY DAY WITH MEAL SOLD: 12/29/2019 [facility] atorvastatin 40 MG Oral Tablet ATORVASTATIN CALCIUM [...] 25 MG Oral Tablet LUISA ([facility]) Carisoprodol 350 MG Oral Tablet carisoprodol 350 mg ta blet carisoprodol 350 mg tablet completed carisoprodol 35 0 MG Oral Tablet LUISA ([facility]) Zolpidem tartrate 6.25 MG Extended Relea se Oral Tablet zolpidem ER 6.25 mg tablet,extended release,multiphase zolpidem ER 6.25 mg tablet,extended release,multiphase completed zolpidem tartrate 6.25 MG Extended Release Oral Tablet LUISA ([facility]) duloxetine 60 MG Delayed Release Oral Ca psule [Cymbalta] Cymbalta 60 mg capsule,delayed release Take 1 capsule every day by oral route. Cymbalta 60 mg capsule,delayed release Take 1 capsule every day by oral route. 1 capsule(s) completed duloxetine 60 MG Delay ed Release Oral Capsule [Cymbalta] LUISA ([facility]) Amlodipine 5 MG Oral Tablet amlodipine 5 mg tablet TAKE ONE TABLET BY MOUTH EVERY DAY amlodipine 5 mg tablet TAKE ONE TABLET BY MOUTH EVERY DAY completed amlodipine 5 MG Oral Tablet ATHE NA ([facility]) Omeprazole 40 MG Delayed Release Oral Ca psule omeprazole 40 mg capsule,delayed release TAKE ONE CAPSULE BY MOUTH EVERY MORNING 30 MINUTES BEFORE FIRST MEAL omeprazole 40 mg capsule,delayed release TAKE ONE CAPSULE BY MOUTH EVERY MORNING 30 MINUTES BEFORE FIRST MEAL complete d omeprazole 40 MG Delayed Release Oral Capsule LUISA ([facility]) duloxetine 30 MG Delayed Release Oral Ca psule duloxetine 30 mg capsule,delayed release duloxetine 30 mg capsule,delayed release completed duloxetine 30 MG Delayed Release Oral Capsule LUISA ([facility]) Amiloride Hydrochloride 5 MG Oral Tablet amiloride 5 mg tablet TAKE ONE TABLET BY MOUTH EVERY DAY amiloride 5 mg tablet TAKE ONE TABLET BY MOUTH EVERY DAY completed amiloride hydrochlorid e 5 MG Oral Tablet LUISA ([facility]) Insurance Providers Payer name Policy type / Coverage type Policy ID Covered republican ID Covered republican's relationship to flanagan Policy Flanagan Plan Information [facility] Commercial [id number] Self 1 [id number] [facility] Commercial [id number] Self [id number] [facility] I [id number] Self [id number] [facility] COMMUNITY PLAN MCDO [id number] SP [id number] [facility] I [id number] Self [id number] [facility] I [id number] Self [id number] [facility] MEDICAID [id number] S [id number] [place] COMMUNITY PLAN MCDHMO [id number] SP [id number] [facility] MEDICAID [id number] [id number] 1 [facility] COMMUNITY PLAN MCDHMO [id number] SP [id number] [facility] MEDICAID [id number] Evelyn [id number] [facility] Comm Plan Medicaid F [id number] SELF [id number] [facility] [id number] ANSI-Medicaid [id number] ANSI-Medicaid [id number] ANSI-Medicaid [id number] ANSI-Medicaid [id number] ANSI-Medicaid [id number] ANSI-Medicaid [id number] ANSI-Medicaid [id number] ANSI-Medicaid [id number] ANSI-Medicaid [id number] ANSI-Medicaid [id number] ANSI-Medicaid [id number] ANSI-Medicaid [id number] ANSI-Medicaid [id number] [facility] Kiha/MCR Health Maintenance Organization (HMO) [id number] Self [id number] [facility] Community Plan Commercial [id number] Self [id number] [facility] Community Plan Commercial [id number] Self [facility](MCAID) O [id number] S [id number] MEDICAID [id number] SP [id number] [employer] COMMUNITY PLAN MCDHMO [id number] SP [id number] UNHC COMMUNITY PLAN MCDHMO [id number] SP [id number] [facility](MCAID) O [id number] S [id number] MEDICAID M [id number] S [id number] ANSI-Medicaid [id number] [facility] [id number] [facility] MEDICAID PI PI ANSI-Medicaid [id number] ANSI-Medicaid [id number] ANSI-Medicaid [id number] ANSI-Medicaid [id number] [employer] MEDICAID [id number] S [id number] Problems, Conditions, and Diagnoses Code Display Name Description Problem Type Effective Dates Data Source(s) J44.9 COPD - Chronic obstructive pulmonary dis ease COPD (chronic obstructive pulmonary disease) Problem 11/17/2020 12:00:00 AM EDT eCW1 ([facility]) E83.42 [id number] Hypomagnesemia Problem 11/17/2020 12:00:00 A M EDT eCW1 ([facility]) K70.31 [id number] Alcoholic cirrhosis of liver with ascites Problem 11/17/2020 12:00:00 AM EDT eCW1 ([facility]) Surgeries/Procedures Procedure Description Date Indications Data Source(s) OFFICE OUTPATIENT VISIT 25 MINUTES 11/25/2020 12:00:00 AM EDT MEDENT ([facility] ) ECG ROUTINE ECG W/LEAST 12 LDS W/I&R 10/20/2020 12:00: 00 AM EDT eCW1 ([facility]) Immunization: Flublok Quadrivalent (18 years & older) 0.5mL IM (Influenza) 01/21/2020 12:00:00 AM EST eCW1 ([facility]) Results ID Date Data Source [id number] 10/25/2020 04:40:00 PM EDT [facility] Name Value Range Interpretation Code Description Data Pearl rce(s) Supporting Document(s) SARS coronavirus 2 RNA [Presence] in Res piratory specimen by DESEAN with probe detection NEGATIVE [facility] This lab was ordered by [facility] a nd reported by [facility]. ID Date Data Source [id number] 02/18/2020 10:13:00 AM EST [facility] Name Value Range Interpretation Code Description Data Pearl rce(s) Supporting Document(s) Respiratory pathogens identified [Type] in Nasopharynx by Probe and target amplification method SARS-CoV-2 (COVID 19) [facility] [place] This lab was ordered by [facility] a nd reported by [facility]. Procedure Social History Code Duration Value Status Description Data Source(s ) Smoking 11/17/2020 12:00:00 AM EDT Current Smoker completed Curre nt Smoker eCW1 ([facility]) Smoking 11/17/2020 12:00:00 AM EDT Current Smoker completed Curre nt Smoker eCW1 ([facility]) Smoking 11/17/2020 12:00:00 AM EDT Current Smoker completed Curre nt Smoker eCW1 ([facility]) Smoking 10/20/2020 12:00:00 AM EDT Current Smoker completed Curre nt Smoker eCW1 ([facility]) Smoking 10/20/2020 12:00:00 AM EDT Current Smoker completed Curre nt Smoker eCW1 ([facility]) Smoking 10/20/2020 12:00:00 AM EDT Current Smoker completed Curre nt Smoker eCW1 ([facility]) Smoking 01/21/2020 12:00:00 AM EST Current Smoker completed Curre nt Smoker eCW1 ([facility]) Smoking 01/21/2020 12:00:00 AM EST Current Smoker completed Curre nt Smoker eCW1 ([facility]) Smoking 01/21/2020 12:00:00 AM EST Current Smoker completed Curre nt Smoker eCW1 ([facility]) Smoking 01/21/2020 12:00:00 AM EST Current Smoker completed Curre nt Smoker eCW1 ([facility]) Smoking 01/21/2020 12:00:00 AM EST Current Smoker completed Curre nt Smoker eCW1 ([facility]) Vital Signs ID Date Data Source UNK Name Value Range Interpretation Code Description Data Source(s) Systolic blood pressure 118 mm[Hg] 118 mm[Hg] M ADRIANA ([facility]) Diastolic blood pressure 62 mm[Hg] 62 mm[Hg] [facility] Body height 64.75 [in_i] 64.75 [in_i] [facility] ([facility]) 5'4.75" Body weight 170.00 [lb_av] 170.00 [lb_av] MEDEN T ([facility]) Body mass index (BMI) [Ratio] 28.5 kg/m2 28.5 k g/m2 [facility] ([facility]) [place] body weight 130 [lb_av] 130 [lb_av] MEDEN T ([facility]) Body weight 77.112 kg 77.112 kg [facility] ([facility]) Body surface area Derived from formula 1.84 m2 1.84 m2 [facility] ([facility]) Diastolic blood pressure 67 mm[Hg] 67 mm[Hg] LUISA ([facility]) Systolic blood pressure 117 mm[Hg] 117 mm[Hg] A THENA ([facility]) Body weight [lb_av] eCW1 ([facility]) Systolic blood pressure 101 mm[Hg] 101 mm[Hg] e CW1 ([facility]) Body weight 80.74 kg 80.74 kg eCW1 ([facility]) Diastolic blood pressure 68 mm[Hg] 68 mm[Hg] eCW1 ([facility]) Body height 60.5 [in_i] 60.5 [in_i] eCW1 ([facility]) Body mass index (BMI) [Ratio] 34.19 kg/m2 34.19 kg/m2 eCW1 ([facility]) Heart rate 115 /min 115 /min eCW1 ([facility]) Respiratory rate 26 /min 26 /min eCW1 ([facility]) Body temperature 97.7 [degF] 97.7 [degF] eCW1 ( [facility]) Body mass index (BMI) [Ratio] 36.07 kg/m2 36.07 kg/m2 eCW1 ([facility]) Body weight 187.8 [lb_av] 187.8 [lb_av] eCW1 ([facility]) Body height 60.5 [in_i] 60.5 [in_i] eCW1 ([facility]) Heart rate 116 /min 116 /min eCW1 ([facility]) Respiratory rate 24 /min 24 /min eCW1 ([facility]) Body temperature 97.8 [degF] 97.8 [degF] eCW1 ( [facility]) Systolic blood pressure 126 mm[Hg] 126 mm[Hg] e CW1 ([facility]) Diastolic blood pressure 81 mm[Hg] 81 mm[Hg] eCW1 ([facility]) Patient Treatment Plan of Care Planned Activity Planned Date Details Description Data Source (s) Magnesium 400 MG 11/18/2020 12:00:00 AM EDT eCW1 ([facility]) Magnesium 400 MG 11/18/2020 12:00:00 AM EDT eCW1 ([facility]) Nicotine 2 MG Chewing Gum [Nicorette] 03/22/2020 12:00:00 AM EST eCW1 ([facility]) 24 HR Nicotine 0.875 MG/HR Transdermal Patch [Nicoderm C-Q] 03/22/2020 12:00:00 AM EST eCW1 ([facility]) 24 HR Nicotine 0.875 MG/HR Transdermal Patch [Nicoderm C-Q] 03/22/2020 12:00:00 AM EST eCW1 ([facility]) Nicotine 2 MG Chewing Gum [Nicorette] 03/22/2020 12:00:00 AM EST eCW1 ([facility]) 24 HR Nicotine 0.875 MG/HR Transdermal Patch [Nicoderm C-Q] 03/22/2020 12:00:00 AM EST eCW1 ([facility]) Nicotine 2 MG Chewing Gum [Nicorette] 03/22/2020 12:00:00 AM EST eCW1 ([facility]) 24 HR Nicotine 0.875 MG/HR Transdermal Patch [Nicoderm C-Q] 03/22/2020 12:00:00 AM EST eCW1 ([facility]) Nicotine 2 MG Chewing Gum [Nicorette] 03/22/2020 12:00:00 AM EST eCW1 ([facility]) Zolpidem tartrate 6.25 MG Extended Release Oral Tablet LUISA ([facility]) Omeprazole 40 MG Delayed Release Oral Capsule LUISA ([facility]) duloxetine 30 MG Delayed Release Oral Capsule LUISA ([facility]) duloxetine 60 MG Delayed Release Oral Capsule [Cymbalta] LUISA ([facility]) Chlorthalidone 25 MG Oral Tablet LUISA ([facility]) Carisoprodol 350 MG Oral Tablet LUISA ([facility]) Amlodipine 5 MG Oral Tablet LUISA ([facility]) Amiloride Hydrochloride 5 MG Oral Tablet LUISA ([facility])
== END 2020-12-01 22:56 | disposition left against medical advice (07) ==
LOC: M ED 16:27
DX: Z53.21 Procedure and treatment not carried out due to patient leaving prior to being seen by health care provider (principal)

== ENCOUNTER → 2021-04-03 | Outpatient (REF) | payer OTHER ==
[~2021-04-03] MED LIST changes: +LOSA100T45 PO; -LOSA100T50 PO; -OMEP-221 PO; +OMEP40CA5 PO
[2021-04-03 16:23] LABS: APPEARANCE, URINE CLEAR (CLEAR); BACTERIA, URINE AUTO NEGATIVE (NEGATIVE); BILIRUBIN, URINE AUTO NEGATIVE (NEGATIVE); BLOOD, URINE BLOOD NEGATIVE (NEGATIVE); COLOR, URINE YELLOW (YELLOW); GLUCOSE, URINE (UA) AUTO NEGATIVE (NEGATIVE); KETONE, URINE AUTO NEGATIVE (NEGATIVE); LEUKOCYTE ESTERASE, URINE AUTO NEGATIVE (NEGATIVE); NITRITE, URINE AUTO NEGATIVE (NEGATIVE); PROTEIN, URINE AUTO NEGATIVE (NEGATIVE); RBC, URINE AUTO 0 /HPF (0-3); SPECIFIC GRAVITY URINE AUTO 1.003 (1.002-1.035); SQUAMOUS EPITHELIAL CELL UR AU 0 /HPF (0-6); UROBILINOGEN, URINE AUTO 0.2 mg/dL (0.0-2.0); WBC, URINE AUTO 0 /HPF (0-3)
[2021-04-03 16:38] LABS: HEMOGLOBIN A1c 5.3 %
[2021-04-03 16:49] LABS: ALBUMIN 3.7 GM/DL (3.2-5.2); ALT/SGPT 19 U/L (12-78); BILIRUBIN,TOTAL 0.6 MG/DL (0.2-1.0); BLOOD UREA NITROGEN 7 MG/DL (7-18); CALCIUM LEVEL 9.3 MG/DL (8.5-10.1); CARBON DIOXIDE LEVEL 24 MEQ/L (21-32); CHLORIDE LEVEL 99 MEQ/L (98-107); CHOLESTEROL LEVEL 130 MG/DL (<200); CHOLESTEROL RISK RATIO 1.805 (<5); CREATININE FOR GFR 0.68 MG/DL (0.70-1.30); FOLATE > 24.0 NG/ML; GLOMERULAR FILTRATION RATE > 60.0 (>56); GLUCOSE, FASTING 105 MG/DL (70-100); HDL CHOLESTEROL 72 MG/DL (>40); LDL CHOLESTEROL 48 MG/DL (<100); NON-HDL-C 58 MG/DL; POTASSIUM SERUM 4.1 MEQ/L (3.5-5.1); SODIUM LEVEL 132 MEQ/L (136-145); TOTAL PROTEIN 7.4 GM/DL (6.4-8.2); TRIGLYCERIDES LEVEL 50 MG/DL (<150); VITAMIN B12 LEVEL 435 PG/ML
[2021-04-03 18:06] LABS: BASO % 0.5 % (0.0-1.0); EOS % 0.6 % (0.0-3.0); HEMATOCRIT 28.9 % (42.0-52.0); HEMOGLOBIN 9.2 g/dl (13.5-17.5); LYMPH % 31.2 % (24.0-44.0); MEAN CORPUSCULAR HEMOGLOBIN 25.6 pg (27.0-33.0); MEAN CORPUSCULAR HGB CONC 31.8 g/dl (32.0-36.5); MEAN CORPUSCULAR VOLUME 80.3 fl (80.0-96.0); MONO # 0.6 10^3/uL (0.0-0.8); MONO % 10.1 % (2.0-8.0); NEUTROPHILS # 3.6 10^3/uL (1.5-8.5); NEUTROPHILS % 57.3 % (36.0-66.0); PLATELET COUNT, AUTOMATED 280 10^3/uL (150-450); WHITE BLOOD COUNT 6.3 10^3/uL (4.0-10.0)
== END ==
LOC: M SFHCCAPE 10:53
PROVIDERS: ATTEND Physician Assistant
DX: I10 Essential (primary) hypertension (principal); E11.9 Type 2 diabetes mellitus without complications; Z12.5 Encounter for screening for malignant neoplasm of prostate; R10.30 Lower abdominal pain, unspecified

== ENCOUNTER → 2021-04-19 | Outpatient (CLI) | payer OTHER ==
[~2021-04-19] MED LIST changes: +GASTROGRAFIN SOLUTION 30ML (Q9963) As Ordered ONE; +ISOVUE-370 76% 100ML VIAL As Ordered ONE
== END ==
LOC: M RAD 13:01
PROVIDERS: ATTEND Physician Assistant
DX: K42.9 Umbilical hernia without obstruction or gangrene (principal); K63.9 Disease of intestine, unspecified
CPT/HCPCS: 74177; Q9963; Q9967

== ENCOUNTER → 2021-07-17 | Outpatient (CLI) | payer OTHER ==
[~2021-07-17] MED LIST changes: -GASTROGRAFIN SOLUTION 30ML (Q9963) As Ordered ONE; -ISOVUE-370 76% 100ML VIAL As Ordered ONE; +LEXA1TAB; +LEXA1TAB PO; +MAGN400T2 PO; +METF750T36 PO; +NALT50TA4; +NALT50TA4 PO; +NICO21DI38 TD; +NICO2GUM47 PO; +THERTAB52 PO
== END ==
LOC: M LABSMTC 09:43
PROVIDERS: ATTEND Anesthesiology
DX: Z01.818 Encounter for other preprocedural examination (principal); Z11.52 Encounter for screening for COVID-19

== ENCOUNTER → 2021-07-18 | Outpatient (REF) | payer OTHER ==
[~2021-07-18] MED LIST changes: +COLA100C5 PO; +FERR324T2 PO; +FURO20TA2 PO
[2021-07-18 16:55] LABS: INR 1.04
[2021-07-18 16:56] LABS: PARTIAL THROMBOPLASTIN TIME 30.6 SECONDS (25.9-37.0)
[2021-07-18 17:03] LABS: BASO % 0.5 % (0.0-1.0); EOS # 0.1 10^3/uL (0.0-0.5); EOS % 2.2 % (0.0-3.0); HEMATOCRIT 21.3 % (42.0-52.0); LYMPH # 2.4 10^3/uL (1.5-5.0); LYMPH % 37.3 % (24.0-44.0); MEAN CORPUSCULAR HEMOGLOBIN 17.6 pg (27.0-33.0); MEAN CORPUSCULAR HGB CONC 29.1 g/dl (32.0-36.5); MEAN CORPUSCULAR VOLUME 60.3 fl (80.0-96.0); MONO # 0.8 10^3/uL (0.0-0.8); MONO % 13.1 % (2.0-8.0); NEUTROPHILS % 46.4 % (36.0-66.0); PLATELET COUNT, AUTOMATED 249 10^3/uL (150-450); RED BLOOD COUNT 3.53 10^6/uL (4.30-6.10); WHITE BLOOD COUNT 6.4 10^3/uL (4.0-10.0)
[2021-07-18 17:11] LABS: HEMOGLOBIN 6.2 g/dl (13.5-17.5)
[2021-07-18 17:18] LABS: ALBUMIN 3.4 GM/DL (3.2-5.2); ALT/SGPT 44 U/L (12-78); BILIRUBIN,TOTAL 0.5 MG/DL (0.2-1.0); BLOOD UREA NITROGEN 5 MG/DL (7-18); CARBON DIOXIDE LEVEL 23 MEQ/L (21-32); CHLORIDE LEVEL 95 MEQ/L (98-107); GLOMERULAR FILTRATION RATE > 60.0 (>56); GLUCOSE, FASTING 128 MG/DL (70-100); POTASSIUM SERUM 3.5 MEQ/L (3.5-5.1); SODIUM LEVEL 131 MEQ/L (136-145)
== END ==
LOC: M SFHCCLAY 11:16
PROVIDERS: ATTEND Family Medicine
DX: K21.9 Gastro-esophageal reflux disease without esophagitis (principal); E11.69 Type 2 diabetes mellitus with other specified complication; J44.9 Chronic obstructive pulmonary disease, unspecified; K70.31 Alcoholic cirrhosis of liver with ascites; I95.2 Hypotension due to drugs

== ENCOUNTER → 2021-07-18 | Outpatient (CLI) | payer OTHER | LOC: M CLY 11:33 | PROVIDERS: ATTEND Family Medicine | DX: F17.210 Nicotine dependence, cigarettes, uncomplicated (principal) ==

== ENCOUNTER 2021-07-30 16:10 | Emergency (ER) | payer OTHER ==
[~2021-07-30] VITALS: Ht 165.1 cm; Wt 84.1 kg
[2021-07-30] MEDS ORDERED: NS 1,000 ML IV ONE (17:10)
[2021-07-30 17:45] LABS: BASO % 0.6 % (0.0-1.0); EOS % 0.2 % (0.0-3.0); LYMPH # 0.7 10^3/uL (1.5-5.0); LYMPH % 14.5 % (24.0-44.0); MEAN CORPUSCULAR HGB CONC 35.1 g/dl (32.0-36.5); MONO # 0.3 10^3/uL (0.0-0.8); MONO % 7.1 % (2.0-8.0); NEUTROPHILS # 3.6 10^3/uL (1.5-8.5); NEUTROPHILS % 77.2 % (36.0-66.0); PLATELET COUNT, AUTOMATED 254 10^3/uL (150-450); WHITE BLOOD COUNT 4.6 10^3/uL (4.0-10.0)
[2021-07-30 17:46] LABS: HEMATOCRIT 18.5 % (42.0-52.0); HEMOGLOBIN 6.5 g/dl (13.5-17.5)
[2021-07-30 17:56] LABS: INR 1.06; PROTHROMBIN TIME 14.2 SECONDS (12.7-14.5)
[2021-07-30 17:57] LABS: PARTIAL THROMBOPLASTIN TIME 28.4 SECONDS (25.9-37.0)
[2021-07-30 18:13] LABS: BLOOD UREA NITROGEN 5 MG/DL (7-18); CALCIUM LEVEL 9.2 MG/DL (8.5-10.1); CARBON DIOXIDE LEVEL 23 MEQ/L (21-32); CHLORIDE LEVEL 95 MEQ/L (98-107); CREATININE FOR GFR 0.63 MG/DL (0.70-1.30); FREE T4 0.95 NG/DL (0.76-1.46); GLOMERULAR FILTRATION RATE > 60.0 (>56); GLUCOSE, FASTING 138 MG/DL (70-100); MAGNESIUM LEVEL 1.7 MG/DL (1.8-2.4); POTASSIUM SERUM 4.5 MEQ/L (3.5-5.1); SODIUM LEVEL 131 MEQ/L (136-145); THYROID STIMULATING HORMONE 0.922 uIU/ML (0.358-3.740)
[2021-07-30 18:14] LABS: RSV AMPLIFICATION NEGATIVE (NEGATIVE)
[2021-07-30] MEDS ORDERED: NICOTINE 21MG/24HR 1 EA TRANSDERMAL TD ONE (19:15)
[2021-07-30] MEDS ORDERED: PANTOPRAZOLE 40MG VIAL IV ONE (20:00)
[2021-07-30 20:15] VITALS: BP 113/71
[2021-07-30 20:16] VITALS: BP 119/74
[2021-07-30 20:30] VITALS: BP 109/79
[2021-07-30 20:46] VITALS: BP 120/60
[2021-07-30] MEDS ORDERED: PANTOPRAZOLE SODIUM 40 MG in D5W 50 ML IV SCH (21:00)
[2021-07-30 21:02] VITALS: BP 116/59
== END 2021-07-30 21:21 | disposition short-term general hospital (02) ==
LOC: M ED 16:10
DX: K92.2 Gastrointestinal hemorrhage, unspecified (principal); D64.9 Anemia, unspecified; I95.9 Hypotension, unspecified; E11.9 Type 2 diabetes mellitus without complications; K70.30 Alcoholic cirrhosis of liver without ascites; Z86.73 Personal history of transient ischemic attack (TIA), and cerebral infarction without residual deficits; Z88.5 Allergy status to narcotic agent; Z91.048 Other nonmedicinal substance allergy status; Z79.899 Other long term (current) drug therapy; Z79.82 Long term (current) use of aspirin; Z79.84 Long term (current) use of oral hypoglycemic drugs; Z79.01 Long term (current) use of anticoagulants; Z87.891 Personal history of nicotine dependence
CPT/HCPCS: 36430; 70450; 71045; 72125; 80047; 80048; 83735; 84439; 84443; 85025; 85610; 85730; 86850; 86900; 86901; 86920; 87631; 93005; 93041; 94760; 96374; 99291; C9113; P9016

== ENCOUNTER 2022-01-04 15:59 | Emergency (ER) | payer OTHER ==
[~2022-01-04] VITALS: Ht 162.6 cm; Wt 81.8 kg
[2022-01-04] MEDS ORDERED: THIAMINE 200MG 2ML VIAL IM ONE (16:15)
[2022-01-04] MEDS ORDERED: LORazepam 2 MG TAB PO PRN (16:15)
[2022-01-04 16:51] LABS: VENOUS BASE EXCESS -5.8 (-2.0-2.0); VENOUS HCO3 18.6 MEQ/L (23.0-27.0); VENOUS O2 SATURATION 97.1 % (60.0-80.0); VENOUS PARTIAL PRESSURE CO2 31.8 mmHg (38.0-50.0); VENOUS PH 7.385 UNITS (7.330-7.430); VENOUS STANDARD HCO3 19.6 MEQ/L; VENOUS TOTAL CO2 19.6 MEQ/L (24.0-28.0)
[2022-01-04] MEDS ORDERED: NS 500 ML IV ONE (17:15)
[2022-01-04 17:25] LABS: ALBUMIN 1.9 G/DL (3.2-5.2); ALT/SGPT 38 U/L (7.0-40); BILIRUBIN,DIRECT 1.6 MG/DL (<0.4); BLOOD UREA NITROGEN 6 MG/DL (9-23); CALCIUM LEVEL 7.8 MG/DL (8.3-10.6); CARBON DIOXIDE LEVEL 20 MMOL/L (20-31); CHLORIDE LEVEL 102 MMOL/L (98-107); GLOMERULAR FILTRATION RATE > 60.0 (>49); GLUCOSE, FASTING 140 MG/DL (74-106); MAGNESIUM LEVEL 1.4 MG/DL (1.8-2.4); POTASSIUM SERUM 3.6 MMOL/L (3.5-5.1); SODIUM LEVEL 135 MMOL/L (136-145); THYROID STIMULATING HORMONE 1.858 uIU/ML (0.55-4.78); TOTAL PROTEIN 5.9 G/DL (5.7-8.2)
[2022-01-04 17:30] LABS: INR 1.2; PROTHROMBIN TIME 15.5 SECONDS (12.5-14.5)
[2022-01-04] MEDS ORDERED: MAG SULF 1GM/100ML (MAG RUN) 1 GM in IV 1 EA IV ONE ×2 (17:30→18:45)
[2022-01-04 17:45] LABS: BASO # 0.1 10^3/uL (0.0-0.2); BASO % 1.1 % (0.0-1.0); EOS # 0.1 10^3/uL (0.0-0.5); EOS % 2.1 % (0.0-3.0); LYMPH # 0.9 10^3/uL (1.5-5.0); LYMPH % 16.8 % (24.0-44.0); MEAN CORPUSCULAR HEMOGLOBIN 32.3 pg (27.0-33.0); MEAN CORPUSCULAR HGB CONC 30.3 g/dl (32.0-36.5); MEAN CORPUSCULAR VOLUME 106.5 fl (80.0-96.0); MONO # 0.6 10^3/uL (0.0-0.8); MONO % 10.6 % (2.0-8.0); NEUTROPHILS # 3.7 10^3/uL (1.5-8.5); PLATELET COUNT, AUTOMATED 235 10^3/uL (150-450); RED BLOOD COUNT 1.86 10^6/uL (4.30-6.10); WHITE BLOOD COUNT 5.4 10^3/uL (4.0-10.0)
[2022-01-04 17:46] LABS: HEMATOCRIT 19.8 % (42.0-52.0)
[2022-01-04] MEDS ORDERED: DOCU100C16 PO (17:48)
[2022-01-04] MEDS ORDERED: FERR324T2 PO (17:48)
[2022-01-04] MEDS ORDERED: TRIA1CR80 TD (17:57)
[2022-01-04] MEDS ORDERED: HOME MED LIST COMPLETE! XX SCH (18:00)
[2022-01-04] MEDS ORDERED: PANTOPRAZOLE 40MG VIAL IV ONE (18:05)
[2022-01-04 19:13] LABS: INR 1.25
[2022-01-04 20:00] VITALS: BP 97/60
[2022-01-04 20:12] VITALS: BP 96/70
[2022-01-05] MEDS ORDERED: MULTIVITAMINS/MINERALS THERAP 1 TAB PO SCH (09:00)
[2022-01-05] MEDS ORDERED: FOLIC ACID 1MG TAB PO SCH (09:00)
== END 2022-01-04 20:16 | disposition short-term general hospital (02) ==
LOC: M ED 15:59
DX: I21.4 Non-ST elevation (NSTEMI) myocardial infarction (principal); D64.9 Anemia, unspecified; K92.2 Gastrointestinal hemorrhage, unspecified; Z87.2 Personal history of diseases of the skin and subcutaneous tissue; I10 Essential (primary) hypertension; G89.29 Other chronic pain; M54.9 Dorsalgia, unspecified; E11.9 Type 2 diabetes mellitus without complications; F10.11 Alcohol abuse, in remission; Z79.01 Long term (current) use of anticoagulants; Z79.84 Long term (current) use of oral hypoglycemic drugs; Z79.82 Long term (current) use of aspirin; Z79.899 Other long term (current) drug therapy; Z88.5 Allergy status to narcotic agent; Z86.73 Personal history of transient ischemic attack (TIA), and cerebral infarction without residual deficits; Z87.19 Personal history of other diseases of the digestive system; Z98.890 Other specified postprocedural states; Z87.891 Personal history of nicotine dependence
CPT/HCPCS: 71045; 71250; 80048; 80076; 82077; 82803; 83605; 83735; 83880; 84443; 85025; 85610; 86850; 86900; 86901; 86920; 87486; 87581; 87633; 87798; 93005; 93041; 93970; 96360; 96372; 99285; C9113; J3411; J3475; P9016